=== PATIENT | female | born 1945 | race Caucasian/White ===

== ENCOUNTER 2016-08-06 13:45 | Emergency (ER) | payer MEDICARE, OTHER ==
[~2016-08-06] VITALS: Ht 165.1 cm; Wt 80.0 kg
[~2016-08-06 13:45] MED LIST: ALLO100T PO; ALPR0.25 PO; AMIT1TAB79 PO; ATOR40TA16 PO; CYMB60CA PO; DEXI60CA PO; FURO40TA PO; HYDR1CAP30 PO; IPRAAER INH; LEVO50TA4 PO; MORP1TAB24 PO; PANT40TA3 PO; PERC10TA27 PO; PROP60CA PO; SUCR1TAB PO; TEMA30CA PO; TIZA4CAP3 PO; UMEC1AER INH; VIRT PO
[2016-08-06 13:48] VITALS: BP 141/64; PULSE 73; RESP 14; TEMP 97.8; O2SAT 98
--- NOTE | 2016-08-06 17:18 | PD ---
HPI Chief Complaint: Abnormal Results Time Seen by Provider: 17:18 Travel History International Travel<30 days: No Contact w/Intl Traveler<30days: No Traveled to known affect area: No History of Present Illness HPI 71-year-old female presents to the emergency department sent by her primary care physician, Dr. Yeh, for fatigue, weakness, intermittent shortness of breath, anemia. Patient states she has a history of anemia for many years. She states that her primary care physician told her she would need a blood transfusion due to recent labs. Patient is unsure where her hemoglobin was. Patient also states that he was EKG and chest x-ray completed. Patient denies any blood in her stool. She denies any chest pain. Patient denies any abdominal pain. No nausea or vomiting. She states that she has weakness, fatigue, shortness of breath. Patient states she went to a compensation consultant for her shortness of breath recently. Patient reports chronic right arm back pain. She is not on any anticoagulants. PFSH Past Medical History Asthma: No Autoimmune Disease: No Blood Disorders: No Anxiety: Yes Depression: Yes Heart Rhythm Problems: No Cancer: No Cardiovascular Problems: Yes (HTN) High Cholesterol: Yes Chemotherapy: No Chest Pain: No Congestive Heart Failure: No COPD: No Cerebrovascular Accident: No Diabetes: No Diminished Hearing: No Endocrine: No Gastrointestinal Disorders: Yes GERD: Yes Glaucoma: No Genitourinary: No Headaches: No Hepatitis: No Hiatal Hernia: Yes Hypertension: Yes Immune Disorder: No Implanted Vascular Access Dvce: Yes Musculoskeletal: Yes (LOWER BACK AND LEFT LEG, ARTHRITIS GENERALIZED) Neurologic: No Psychiatric: Yes (DEPRESSION) Reproductive: No Respiratory: No Immunizations Current: Yes Myocardial Infarction: No Radiation Therapy: No Seizures: Yes (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) Sleep Apnea: No Thyroid Disease: No Ulcer: No Menopausal: Yes : 1 Para: 1 Past Surgical History Abdominal Surgery: Yes AICD: No Body Medical Devices: 2 TITANIUM RODS IN BACK, SCREW RIGHT ANKLE Cardiac Surgery: No Cholecystectomy: Yes Ear Surgery: No Endocrine Surgery: No Eye Surgery: Yes (BILATERAL CATARACTS) Genitourinary Surgery: No Gynecologic Surgery: Yes (PARTIAL HYSTERECTOMY) Hysterectomy: Yes Joint Replacement: No Neurologic Surgery: Yes (BACK SURGERY - TITANIUM CAGE) Oral Surgery: Yes (TONSILLECTOMY) Pacemaker: No Thoracic Surgery: No Other Surgery: Yes Social History Alcohol Use: Yes (RARELY) Tobacco Use: No Substance Use: No Allergies-Medications (Allergen,Severity, Reaction): Coded Allergies: Codeine (Verified Allergy, Intermediate, RASH, 06/10/16) Reported Meds & Prescriptions Reported Meds & Active Scripts Active Reported Propranolol ER 24 HR (Propranolol HCl) 60 Mg Cap 60 Mg PO DAILY Sucralfate 1 Gm Tab 1 Gm PO QID on empty stomach Dexilant (Dexlansoprazole) 60 Mg Cap 60 Mg PO DAILY [Virt] 1 Cap PO DAILY Percocet (Oxycodone-Acetaminophen) 10-325 mg Tab 1 Tab PO Q4H PRN Anoro Ellipta Inh (Umeclidinium/Vilanterol) 62.5-25 Mcg/Act Aero 1 Puff INH DAILY Hydroxyzine Pamoate 25 Mg Cap 25 Mg PO BID PRN Atorvastatin (Atorvastatin Calcium) 40 Mg Tab 40 Mg PO HS Allopurinol 100 Mg Tab 100 Mg PO BID Alprazolam 0.25 Mg Tab 0.25 Mg PO TID PRN Elavil (Amitriptyline HCl) 25 Mg Tab 2 Tab PO HS Combivent Respimat Inh (Ipratropium-Albuterol Inh) 20-100 Nursing Home/Act Aero [address] P[address] IN[address] QID Cymbalta DR (Duloxetine HCl) 60 Mg Capdr 60 Mg PO DAILY Furosemide 40 Mg Tab 40 Mg PO DAILY Levothyroxine (Levothyroxine Sodium) 50 Mcg Tab 100 Mcg PO DAILY Morphine ER (Morphine Sulfate) 15 Mg Tab 15 Mg PO TID Pantoprazole (Pantoprazole Sodium) 40 Mg Tab 40 Mg PO DAILY Temazepam 30 Mg Cap 30 Mg PO HS PRN Tizanidine (Tizanidine HCl) 4 Mg Cap 4 Mg PO TID Review of Systems Except as stated in HPI: all other systems reviewed are Neg Physical Exam Narrative GENERAL: Well-developed well-nourished elderly female patient, afebrile. SKIN: Warm and dry. HEAD: Normocephalic. Atraumatic. EYES: No scleral icterus. No injection or drainage. NECK: Supple, trachea midline. No JVD or lymphadenopathy. CARDIOVASCULAR: Regular rate and rhythm without murmurs, gallops, or rubs. RESPIRATORY: Breath sounds equal bilaterally. No accessory muscle use. GASTROINTESTINAL: Abdomen soft, non-tender, nondistended. MUSCULOSKELETAL: No cyanosis, or edema. BACK: Nontender without obvious deformity. No CVA tenderness. Data Data Last Documented VS Vital Signs Date Time Temp Pulse Resp B/P Pulse Ox O2 Delivery O2 Flow Rate FiO2 08/06/16 13:48 97.8 73 14 141/64 98 Room Air Orders Electrocardiogram (08/06/16 17:14) Complete Blood Count With Diff (08/06/16 17:14) Comprehensive Metabolic Panel (08/06/16 17:14) Magnesium (Mg) (08/06/16 17:14) Ckmb (Isoenzyme) Profile (08/06/16 17:14) Troponin I (08/06/16 17:14) Urinalysis - C+S If Indicated (08/06/16 17:14) Chest, Single Ap (08/06/16 17:14) Type And Screen (08/06/16 17:14) CKMB (08/06/16 17:50) CKMB% (08/06/16 17:50) Red Blood Cells (Rbc) (08/06/16 17:50) AGID (08/06/16 17:50) Labs Laboratory Tests Test 08/06/16 08/06/16 17:50 19:00 White Blood Count 16.0 TH/MM3 Red Blood Count 3.28 MIL/MM3 Hemoglobin 9.7 GM/DL Hematocrit 29.1 % Mean Corpuscular Volume 88.7 FL Mean Corpuscular Hemoglobin 29.4 PG Mean Corpuscular Hemoglobin 33.1 % Concent Red Cell Distribution Width 15.1 % Platelet Count 277 TH/MM3 Mean Platelet Volume 6.9 FL Neutrophils (%) (Auto) 87.4 % Lymphocytes (%) (Auto) 8.0 % Monocytes (%) (Auto) 4.0 % Eosinophils (%) (Auto) 0.5 % Basophils (%) (Auto) 0.1 % Neutrophils # (Auto) 14.0 TH/MM3 Lymphocytes # (Auto) 1.3 TH/MM3 Monocytes # (Auto) 0.6 TH/MM3 Eosinophils # (Auto) 0.1 TH/MM3 Basophils # (Auto) 0.0 TH/MM3 CBC Comment DIFF FINAL Differential Comment Sodium Level 125 MEQ/L Potassium Level 2.9 MEQ/L Chloride Level 89 MEQ/L Carbon Dioxide Level 25.4 MEQ/L Anion Gap 11 MEQ/L Blood Urea Nitrogen 22 MG/DL Creatinine 1.30 MG/DL Estimat Glomerular Filtration 40 ML/MIN Rate Random Glucose 112 MG/DL Calcium Level 8.7 MG/DL Magnesium Level 1.6 MG/DL Total Bilirubin 0.4 MG/DL Aspartate Amino Transf 87 U/L (AST/SGOT) Alanine Aminotransferase 106 U/L (ALT/SGPT) Alkaline Phosphatase 159 U/L Total Creatine Kinase 161 U/L Creatine Kinase MB 2.3 NG/ML Troponin I 0.02 NG/ML Total Protein 7.5 GM/DL Albumin 3.3 GM/DL Blood Type B NEGATIVE Antibody Screen POSITIVE Antigen Identification K Antigen - NEGATIVE Crossmatch Leukocyte-Reduced Red Blood Cells Blood Bank Comment Antibody Identification Anti-K MDM Medical Decision Making Medical Screen Exam Complete: Yes Emergency Medical Condition: Yes Medical Record Reviewed: Yes Differential Diagnosis Symptomatic anemia versus pneumonia versus ACS Narrative Course 71-year-old female presents to the emergency department stating she was sent by her primary care physician Dr. Yeh for blood transfusion, chest x-ray, EKG. EKG, CBC, CMP, CK, troponin, UA, magnesium, type and screen, chest x-ray are ordered and pending. Workup is initiated in triage. Patient will be moved to medical pod for further evaluation and disposition. Patient left AMA before going to a medical pod. Diagnosis Primary Impression: Left against medical advice Disposition: 07 AGAINST MEDICAL ADVICE Tiffany Harley Aug 06, 2016 17:18
--- NOTE | 2016-08-06 18:10 | RADRPT ---
EXAM DATE/TIME: 08/06/2016 17:43 [facility] COMPARISON: CHEST SINGLE AP, November 20, 2015, 22:05. INDICATIONS : Cough, shortness of breath starting today MEDICAL HISTORY : None. SURGICAL HISTORY : None. ENCOUNTER: Initial ACUITY: 1 day PAIN SCORE: 0/10 LOCATION: Bilateral chest FINDINGS: A single view of the chest demonstrates a probable prominent epicardial fat-pad in the left lingula. Lungs otherwise clear. Heart size is normal. Posterior fixation of the rectal lumbar spine. Chronic a ppearing deformity of the proximal right humerus. Osseous structures are otherwise intact. CONCLUSION: No acute cardiopulmonary process. Guy Graves MD on August 06, 2016 at 18:07 Board Certified Radiologist. This report was verified electronically.
[2016-08-06 18:15] LABS: BASOPHIL % 0.1 % (0.0-2.0); EOSINOPHIL # 0.1 TH/MM3 (0-0.4); EOSINOPHIL % 0.5 % (0.0-4.0); HEMATOCRIT 29.1 % (35.0-46.0); HEMO FLAGS DIFF FINAL; LYMPHOCYTE # 1.3 TH/MM3 (1.0-4.8); MEAN CELL VOLUME 88.7 FL (80.0-100.0); MEAN CORPUSCULAR HEMOGLOBIN 29.4 PG (27.0-34.0); MEAN CORPUSCULAR HGB CONC 33.1 % (32.0-36.0); NEUT % 87.4 % (16.0-70.0); PLATELET COUNT 277 TH/MM3 (150-450); RED BLOOD COUNT 3.28 MIL/MM3 (4.00-5.30); RED CELL DISTRIBUTION WIDTH 15.1 % (11.6-17.2)
[2016-08-06 18:47] LABS: ALT (GPT) 106 U/L (10-53); ANION GAP 11 MEQ/L (5-15); AST (GOT) 87 U/L (15-37); BICARBONATE 25.4 MEQ/L (21.0-32.0); BLOOD UREA NITROGEN 22 MG/DL (7-18); CHLORIDE 89 MEQ/L (98-107); GLOMERULAR FILTRATION RATE 40 ML/MIN (>89); MAGNESIUM 1.6 MG/DL (1.5-2.5); SODIUM (NA) 125 MEQ/L (136-145)
[2016-08-06 18:51] LABS: ALKALINE PHOSPHATASE 159 U/L (45-117); CREATINE KINASE 161 U/L (26-192); TOTAL BILIRUBIN ADULT 0.4 MG/DL (0.2-1.0)
[2016-08-06 19:13] LABS: POTASSIUM 2.9 MEQ/L (3.5-5.1)
[2016-08-06 19:26] LABS: CKMB 2.3 NG/ML (0.5-3.6)
--- NOTE | 2016-08-07 05:02 | EKG ---
Date Performed: 08/06/2016 Time Performed: 18:03:34 PTAGE: 71 years EKG: BASELINE ARTIFACT PRESENT. Sinus rhythm LEFT BUNDLE BRANCH BLOCK ABNORMAL ECG NO SIGNIFICANT CHANGE FROM PRIOR ELECTROCARDIOGRAM. PREVIOUS TRACING : 03/07/2014 12.09 DOCTOR: Jimmy Loredo Interpretating Date/Time 08/07/2016 05:00:12
[2016-11-25] MEDS ORDERED: AMIT50TA3 PO (14:09)
[2016-12-03] MEDS ORDERED: FLUT1SPR5 EACH NARE (10:08)
== END 2016-08-06 22:39 | disposition left against medical advice (07) ==
LOC: NETRI 13:45
DX: R53.1 Weakness (principal); R53.83 Other fatigue; R06.02 Shortness of breath; D64.9 Anemia, unspecified; M79.601 Pain in right arm; M54.9 Dorsalgia, unspecified; R94.31 Abnormal electrocardiogram [ECG] [EKG]; I10 Essential (primary) hypertension; E78.00 Pure hypercholesterolemia, unspecified; Z53.20 Procedure and treatment not carried out because of patient's decision for unspecified reasons; Z86.59 Personal history of other mental and behavioral disorders; Z87.19 Personal history of other diseases of the digestive system; Z87.39 Personal history of other diseases of the musculoskeletal system and connective tissue; E87.1 Hypo-osmolality and hyponatremia; E87.6 Hypokalemia; D72.829 Elevated white blood cell count, unspecified; Z86.2 Personal history of diseases of the blood and blood-forming organs and certain disorders involving the immune mechanism
CPT/HCPCS: 71010; 80053; 82550; 82552; 83735; 84484; 85025; 86077; 86850; 86870; 86900; 86901; 86902; 86920; 86922; 93005; 99281; 99283

== ENCOUNTER 2016-08-06 23:19 | Emergency (ER) | payer MEDICARE, OTHER ==
[2016-08-06 23:40] VITALS: BP 176/86; PULSE 79; RESP 18; O2SAT 95
[2016-08-07] MEDS ORDERED: SODIUM CHLORIDE 0.9% FLUSH 5 ML FLUSH IVF PRN
[2016-08-07] MEDS ORDERED: POTASSIUM CHLORIDE 20 MEQ CONTROLLED RELEASE TAB PO ONE
[2016-08-07] MEDS ORDERED: SODIUM CHLOR 0.9% 1000 ML INJ 1,000 ML IV SCH
--- NOTE | 2016-08-07 | PD ---
HPI Chief Complaint: Abnormal Results Time Seen by Provider: 23:28 Travel History International Travel<30 days: No Contact w/Intl Traveler<30days: No Traveled to known affect area: No History of Present Illness HPI Patient 71 years old. She was on her primary care provider, Dr. Yeh, to come to the ER for anemia. She reports a history of anemia with records dating back to 2003 when hemoglobin was 9.6. Today it is 9.7. Patient denies palpitation, headache, dizziness lightheadedness however did report to the mid-level provider that she suffered from weakness and fatigue. She does have shortness of breath apparently for the past couple months and follows with vascular sonographer in [facility]. She has no chest pain. She has been taking all her medications as per normal. She denies black stool bloody stool or change in bowel movements otherwise. She takes no anticoagulants. She has chronic right arm pain. PFSH Past Medical History Asthma: No Autoimmune Disease: No Blood Disorders: No Anxiety: Yes Depression: Yes Heart Rhythm Problems: No Cancer: No Cardiovascular Problems: Yes (HTN) High Cholesterol: Yes Chemotherapy: No Chest Pain: No Congestive Heart Failure: No COPD: No Cerebrovascular Accident: No Diabetes: No Diminished Hearing: No Endocrine: No Gastrointestinal Disorders: Yes GERD: Yes Glaucoma: No Genitourinary: No Headaches: No Hepatitis: No Hiatal Hernia: Yes Hypertension: Yes Immune Disorder: No Implanted Vascular Access Dvce: Yes Musculoskeletal: Yes (LOWER BACK AND LEFT LEG, ARTHRITIS GENERALIZED) Neurologic: No Psychiatric: Yes (DEPRESSION) Reproductive: No Respiratory: No Immunizations Current: Yes Myocardial Infarction: No Radiation Therapy: No Seizures: Yes (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) Sleep Apnea: No Thyroid Disease: No Ulcer: No Menopausal: Yes : 1 Para: 1 Past Surgical History Abdominal Surgery: Yes AICD: No Body Medical Devices: 2 TITANIUM RODS IN BACK, SCREW RIGHT ANKLE Cardiac Surgery: No Cholecystectomy: Yes Ear Surgery: No Endocrine Surgery: No Eye Surgery: Yes (BILATERAL CATARACTS) Genitourinary Surgery: No Gynecologic Surgery: Yes (PARTIAL HYSTERECTOMY) Hysterectomy: Yes Joint Replacement: No Neurologic Surgery: Yes (BACK SURGERY - TITANIUM CAGE) Oral Surgery: Yes (TONSILLECTOMY) Pacemaker: No Thoracic Surgery: No Other Surgery: Yes Social History Alcohol Use: Yes (RARELY) Tobacco Use: No Substance Use: No Allergies-Medications (Allergen,Severity, Reaction): Coded Allergies: Codeine (Verified Allergy, Intermediate, RASH, 06/10/16) Reported Meds & Prescriptions Reported Meds & Active Scripts Active Reported Propranolol ER 24 HR (Propranolol HCl) 60 Mg Cap 60 Mg PO DAILY Sucralfate 1 Gm Tab 1 Gm PO QID on empty stomach Dexilant (Dexlansoprazole) 60 Mg Cap 60 Mg PO DAILY [Virt] 1 Cap PO DAILY Percocet (Oxycodone-Acetaminophen) 10-325 mg Tab 1 Tab PO Q4H PRN Anoro Ellipta Inh (Umeclidinium/Vilanterol) 62.5-25 Mcg/Act Aero 1 Puff INH DAILY Hydroxyzine Pamoate 25 Mg Cap 25 Mg PO BID PRN Atorvastatin (Atorvastatin Calcium) 40 Mg Tab 40 Mg PO HS Allopurinol 100 Mg Tab 100 Mg PO BID Alprazolam 0.25 Mg Tab 0.25 Mg PO TID PRN Elavil (Amitriptyline HCl) 25 Mg Tab 2 Tab PO HS Combivent Respimat Inh (Ipratropium-Albuterol Inh) 20-100 Nursing Home/Act Aero [address] QID Cymbalta [address] (Duloxetine HCl) 60 Mg Capdr 60 Mg PO DAILY Furosemide 40 Mg Tab 40 Mg PO DAILY Levothyroxine (Levothyroxine Sodium) 50 Mcg Tab 100 Mcg PO DAILY Morphine ER (Morphine Sulfate) 15 Mg Tab 15 Mg PO TID Pantoprazole (Pantoprazole Sodium) 40 Mg Tab 40 Mg PO DAILY Temazepam 30 Mg Cap 30 Mg PO HS PRN Tizanidine (Tizanidine HCl) 4 Mg Cap 4 Mg PO TID Review of Systems Except as stated in HPI: all other systems reviewed are Neg Physical Exam Narrative GENERAL: 71-year-old female no acute distress SKIN: Warm and dry. HEAD: Atraumatic. Normocephalic. EYES: Pupils equal and round. No scleral icterus. No injection or drainage. ENT: No nasal bleeding or discharge. Mucous membranes pink and moist. NECK: Trachea midline. No JVD. CARDIOVASCULAR: Regular rate and rhythm. No murmur appreciated. RESPIRATORY: No accessory muscle use. Clear to auscultation. Breath sounds equal bilaterally. GASTROINTESTINAL: Abdomen soft, non-tender, nondistended. Hepatic and splenic margins not palpable. MUSCULOSKELETAL: No obvious deformities. No clubbing. No cyanosis. No edema. NEUROLOGICAL: Awake and alert. No obvious cranial nerve deficits. Motor grossly within normal limits. Normal speech. PSYCHIATRIC: Appropriate mood and affect; insight and judgment normal. Data Data Last Documented VS Vital Signs Date Time Temp Pulse Resp B/P Pulse Ox O2 Delivery O2 Flow Rate FiO2 08/06/16 23:42 79 18 Room Air 08/06/16 23:40 176/86 95 97.7 is the oral temp Orders Iv Access Insert/Monitor (08/07/16 00:00) Ecg Monitoring (08/07/16 00:00) Oximetry (08/07/16 00:00) Sodium Chlor 0.9% 1000 Ml Inj (Ns 1000 M (08/07/16 00:00) Sodium Chloride 0.9% Flush (Ns Flush) (08/07/16 00:00) Potassium Chloride (Kcl) (08/07/16 00:00) MDM Medical Decision Making Medical Screen Exam Complete: Yes Emergency Medical Condition: Yes Differential Diagnosis Anemia, electrolyte imbalance, arrhythmia, infection, coronary disease Narrative Course WBC 16 Hemoglobin 9.7 Platelets 277 Sodium 125 Potassium 2.9 Troponin 0.02 EKG reveals a left bundle branch block pattern with a rate of 66 similar to March 07, 2014. The patient is quite irate having waited here for 11 hours and spent the majority of the time during the interview expressing her frustration. Multiple attempts were made to contact Dr. Yeh to no avail. Evidently he was concerned about anemia however her hemoglobin is unchanged over the last 12 years. Nonetheless She was advised to stay for electrolyte correction and serial enzymes and EKGs. She did complain of chronic hyponatremia and distaste for sodium tablets that she takes at home. Necessity of serial enzymes discussed the patient. Leukocytosis of 16 is without explanation as of yet which was also explained to the patient. She demonstrates competence for independent decision making and insists on leaving immediately. Somehow the patient was marked as left without being seen in a second chart was started for a single visit. If possible the to should be merged into a single visit. All measures within reason were made to satisfy the patient. She understands she can return at anytime. Diagnosis Primary Impression: Hyponatremia Additional Impressions: Hypokalemia Elevated troponin I level Leukocytosis Qualified Code: D72.829 - Leukocytosis, unspecified type LBBB (left bundle branch block) Additional Instructions: You have a choice when it comes to health care, and we are glad that you chose [facility]. Hopefully, we have met your expectations on today's visit. You are welcome to return to [facility] at any time, as we are committed to meeting the health care needs of our community. Med/Other Pt SpecificInfo: No Change to Meds Disposition: 01 DISCHARGE HOME Condition: Stable Dandy Ba MD Aug 06, 2016 23:59
[2016-11-25] MEDS ORDERED: AMIT50TA3 PO (14:09)
[2016-12-03] MEDS ORDERED: FLUT1SPR5 EACH NARE (10:08)
== END 2016-08-07 01:20 | disposition home or self-care (01) ==
LOC: NEPE 23:19
DX: E87.1 Hypo-osmolality and hyponatremia (principal); E87.6 Hypokalemia; D72.829 Elevated white blood cell count, unspecified; I44.7 Left bundle-branch block, unspecified; R53.83 Other fatigue; M79.601 Pain in right arm; R06.02 Shortness of breath; I10 Essential (primary) hypertension; E78.00 Pure hypercholesterolemia, unspecified; Z86.2 Personal history of diseases of the blood and blood-forming organs and certain disorders involving the immune mechanism; Z87.19 Personal history of other diseases of the digestive system; Z87.39 Personal history of other diseases of the musculoskeletal system and connective tissue; Z86.59 Personal history of other mental and behavioral disorders
CPT/HCPCS: 99283

== ENCOUNTER 2016-11-07 09:43 | Day surgery (SDC) | payer MEDICARE, OTHER ==
[~2016-11-07] VITALS: Ht 165.1 cm; Wt 79.1 kg
[2016-11-07] MEDS ORDERED: SODIUM CHLOR 0.9% 1000 ML IV SCH (10:00)
[2016-11-07] MEDS ORDERED: OMEP40CA2 PO (10:13)
[2016-11-07 10:16] VITALS: BP 165/89; PULSE 77; RESP 18; TEMP 97.5; O2SAT 95
[2016-11-07 10:51] LABS: AUTOMATED NEUTROPHIL # 5.2 TH/MM3 (1.8-7.7); BASOPHIL % 0.5 % (0.0-2.0); EOSINOPHIL # 0.2 TH/MM3 (0-0.4); EOSINOPHIL % 2.6 % (0.0-4.0); HEMATOCRIT 28.8 % (35.0-46.0); HEMO FLAGS DIFF FINAL; LYMPH % 21.1 % (9.0-44.0); LYMPHOCYTE # 1.6 TH/MM3 (1.0-4.8); MEAN CELL VOLUME 87.7 FL (80.0-100.0); MEAN CORPUSCULAR HEMOGLOBIN 28.4 PG (27.0-34.0); MEAN CORPUSCULAR HGB CONC 32.4 % (32.0-36.0); MONO % 7.1 % (0.0-8.0); NEUT % 68.7 % (16.0-70.0); PLATELET COUNT 255 TH/MM3 (150-450); RED BLOOD COUNT 3.29 MIL/MM3 (4.00-5.30); RED CELL DISTRIBUTION WIDTH 14.9 % (11.6-17.2); WHITE BLOOD COUNT 7.6 TH/MM3 (4.0-11.0)
[2016-11-07] MEDS ORDERED: LIDOCAINE 1%/EPINEPHrine 1:100,000 SOLN 20 ML VIAL ONE (12:21)
[2016-11-07] MEDS ORDERED: SODIUM BICARB 8.4% (PED) INJ 10 MEQ/10 ML SYR ONE (12:22)
[2016-11-07] MEDS ORDERED: fentaNYL CITRATE 250 MCG/5 ML AMP ONE (12:49)
[2016-11-07] MEDS ORDERED: MIDAZOLAM HCL 5 MG/5 ML VIAL ONE (12:49)
[2016-11-07 13:55] VITALS: BP 137/81; PULSE 79; RESP 20; TEMP 98; O2SAT 98
[2016-11-07 14:05] LABS: BONE MARROW PROCESSING COMPLETE; IRON STAIN DONE; JENNER GIEMSA STAIN DONE
[2016-11-07 14:10] VITALS: BP 130/80; PULSE 65; RESP 20; O2SAT 98
[2016-11-07 14:40] VITALS: BP 139/64; PULSE 60; RESP 20; O2SAT 98
[2016-11-07 15:10] VITALS: BP 130/80; PULSE 64; RESP 20; O2SAT 92
--- NOTE | 2016-11-07 15:58 | RADRPT ---
EXAM DATE/TIME: 11/07/2016 13:06 [facility] COMPARISON: No previous studies available for comparison. INDICATIONS : Anemia. SEDATION TIME: 30 minutes BIOPSY SITE: Right pelvis MEDICATION(S): 1.) 4 mg midazolam (Versed) IV 2.) 200 mcg fentanyl (Sublimaze) IV DEVICE(S): 1.) 11 gauge Bone marrow biopsy needle MEDICAL HISTORY : Hypertension. Anemia SURGICAL HISTORY : Hysterectomy. ENCOUNTER: Initial ACUITY: 1 day PAIN SCORE: 0/10 LOCATION: pelvis A total of one core specimen(s) were obtained and sent to the laboratory for pathologic evaluation. PROCEDURE: 1. CT guided bone marrow biopsy. 2. Conscious sedation with continuous EKG and oximetry monitoring. Prior to the procedure informed consent was obtained. Any appropriate prior imaging studies were rev iewed. Using automated exposure control and adjustment of the mA and/or kV according to patient size , radiation dose was kept as low as reasonably achievable to obtain optimal diagnostic quality images . The site was prepped in a sterile fashion. Full sterile technique was used, including cap, mask, radha rile gloves and gown and a large sterile sheet. Hand hygiene and 2% chlorhexidine and/or betadine/al cohol prep was utilized per protocol for cutaneous antisepsis. The skin and subcutaneous tissues wer e infiltrated with local anesthetic solution. With CT guidance the previously identified target was localized. Biopsy was performed using the presc ribed needle as above. Following biopsy marrow aspiration was performed with repeat puncture. Adequa te hemostasis was obtained with compression at the puncture site. Follow-up CT scan reveals no hemorrhage. Conscious sedation was performed with the prescribed dosages and duration as above in the presence of an independent trained radiology nurse to assist in the monitoring of the patient. EKG and oximetry remained stable throughout the procedure. The patient tolerated the procedure well and there were no complications. The patient was sent to Radiology Outpatient Unit in stable condition. CONCLUSION: 1. Uncomplicated CT guided bone marrow aspirate. 2. Uncomplicated CT guided bone marrow biopsy. Mark Sommers MD on November 07, 2016 at 15:55 Board Certified Radiologist. This report was verified electronically.
[2016-11-25] MEDS ORDERED: AMIT50TA3 PO (14:09)
[2016-12-03] MEDS ORDERED: FLUT1SPR5 EACH NARE (10:08)
== END 2016-11-07 15:36 | disposition home or self-care (01) ==
LOC: HRAD 09:43 → HRIP 09:47 → HRAD 15:36
PROVIDERS: ATTEND Internal Medicine Hematology & Oncology
DX: D64.9 Anemia, unspecified (principal); J45.909 Unspecified asthma, uncomplicated; I10 Essential (primary) hypertension; M54.9 Dorsalgia, unspecified
CPT/HCPCS: 38221; 77012; 85025; 85097; 88184; 88185; 88237; 88264; 88280; 88305; 88311; 88313; 99152; 99153; C1830; G0364; J2250; J3010

== ENCOUNTER 2017-01-05 11:36 | Inpatient (IN) | payer OTHER, MEDICARE ==
[2017-01-05] VITALS (11 sets, daily range): BP systolic 126–193; BP diastolic 62–74; PULSE 71–96; RESP 18–26; TEMP 97.5–102.9; O2SAT 74–100
[~2017-01-05] VITALS: Ht 162.6 cm; Wt 80.5 kg
[~2017-01-05 11:36] MED LIST changes: -AMIT1TAB79 PO; +AMIT50TA3 PO; +FLUT1SPR5 EACH NARE; +OMEP40CA2 PO; -PANT40TA3 PO
[2017-01-05] MEDS ORDERED: VANCOMYCIN INJ 1,000 MG in SODIUM CHLOR 0.9% 250 ML INJ 250 ML IV ONE (11:45)
[2017-01-05] MEDS ORDERED: SODIUM CHLOR 0.9% 1000 ML INJ 1,000 ML IV ONE (11:45)
[2017-01-05] MEDS ORDERED: PIPERACIL-TAZO 4.5 GM PREMIX 100 ML IV ONE (11:45)
[2017-01-05] MEDS ORDERED: SODIUM CHLOR 0.9% 1000 ML INJ 800 ML IV ONE (11:45)
--- NOTE | 2017-01-05 11:55 | PD ---
HPI Chief Complaint: Respiratory Distress Time Seen by Provider: 11:54 Travel History International Travel<30 days: No Contact w/Intl Traveler<30days: No Traveled to known affect area: No History of Present Illness HPI 71-year-old female with history of hypertension, GERD, anxiety, presents to the emergency department for evaluation of shortness of breath. Patient right now is unable to give me history due to her shortness of breath. states that over the last 2-3 weeks she has been having intermittent bouts of shortness of breath that seemed to resolve on their own. She was prescribed a Combivent inhaler from her primary care provider. Her states this morning he left when he came home she was getting ready to go to the doctor for a visit and was extremely short of breath, unable to clearly talk or make out sentences. When she arrived at the primary care provider's office, pt was advised to come to the ED. Pt arrived tachypneic, short of breath, febrile, and with oxygen saturation of 74% on RA. She was bedded immediately. PFSH Past Medical History Hx Anticoagulant Therapy: No Asthma: No Autoimmune Disease: No Blood Disorders: No Anxiety: Yes Depression: Yes Heart Rhythm Problems: No Cancer: No Cardiovascular Problems: Yes High Cholesterol: Yes Chemotherapy: No Chest Pain: No Congestive Heart Failure: No COPD: No Cerebrovascular Accident: No Diabetes: No Diminished Hearing: No Endocrine: No Gastrointestinal Disorders: Yes GERD: Yes Glaucoma: No Genitourinary: No Headaches: No Hepatitis: No Hiatal Hernia: Yes Hypertension: Yes Immune Disorder: No Implanted Vascular Access Dvce: Yes Musculoskeletal: Yes (LOWER BACK AND LEFT LEG, ARTHRITIS GENERALIZED) Neurologic: No Psychiatric: Yes (DEPRESSION) Reproductive: No Respiratory: No Immunizations Current: Yes Myocardial Infarction: No Radiation Therapy: No Seizures: No Sleep Apnea: No Thyroid Disease: No Ulcer: Yes ?: Not Menopausal: Yes : 1 Para: 1 Past Surgical History Abdominal Surgery: Yes AICD: No Body Medical Devices: 2 TITANIUM RODS IN BACK, SCREW RIGHT ANKLE Cardiac Surgery: No Cholecystectomy: Yes Ear Surgery: No Endocrine Surgery: No Eye Surgery: Yes (BILATERAL CATARACTS) Genitourinary Surgery: No Gynecologic Surgery: Yes (PARTIAL HYSTERECTOMY) Hysterectomy: No Joint Replacement: No Neurologic Surgery: Yes (BACK SURGERY - TITANIUM CAGE) Oral Surgery: Yes (TONSILLECTOMY) Pacemaker: No Thoracic Surgery: No Other Surgery: Yes (left arm with metal ) Social History Alcohol Use: Yes (RARELY) Tobacco Use: No Substance Use: No Allergies-Medications (Allergen,Severity, Reaction): Coded Allergies: Codeine (Verified Allergy, Intermediate, RASH, 12/03/16) Reported Meds & Prescriptions Reported Meds & Active Scripts Active Reported Flonase Nasal [place] (Fluticasone Nasal [place]) 50 Mcg/Act [place] 50 Mcg EACH NARE BID Omeprazole 40 Mg Cap 40 Mg PO DAILY Propranolol ER 24 HR (Propranolol HCl) 60 Mg Cap 60 Mg PO DAILY Sucralfate 1 Gm Tab 1 Gm PO QID on empty stomach Dexilant (Dexlansoprazole) 60 Mg Cap 60 Mg PO DAILY [Virt] 1 Cap PO DAILY Percocet (Oxycodone-Acetaminophen) 10-325 mg Tab 1 Tab PO Q4H PRN Anoro Ellipta Inh (Umeclidinium/Vilanterol) 62.5-25 Mcg/Act Aero 1 Puff INH DAILY Hydroxyzine Pamoate 25 Mg Cap 25 Mg PO BID PRN Atorvastatin (Atorvastatin Calcium) 40 Mg Tab 40 Mg PO HS Allopurinol 100 Mg Tab 100 Mg PO BID Alprazolam 0.25 Mg Tab 0.25 Mg PO TID PRN Combivent Respimat Inh (Ipratropium-Albuterol Inh) 20-100 Longterm/Act Aero [address] QID Cymbalta [address] (Duloxetine HCl) 60 Mg Capdr 60 Mg PO DAILY Furosemide 40 Mg Tab 40 Mg PO DAILY Levothyroxine (Levothyroxine Sodium) 50 Mcg Tab 100 Mcg PO DAILY Morphine ER (Morphine Sulfate) 15 Mg Tab 15 Mg PO TID Temazepam 30 Mg Cap 30 Mg PO HS PRN Tizanidine (Tizanidine HCl) 4 Mg Cap 4 Mg PO TID Review of Systems Except as stated in HPI: all other systems reviewed are Neg Physical Exam Narrative GENERAL: Well nourished, female patient in respiratory distress SKIN: Focused skin assessment warm, diaphoretic. HEAD: Atraumatic. Normocephalic. EYES: Pupils equal and round. No scleral icterus. No injection or drainage. ENT: No nasal bleeding or discharge. Mucous membranes pink and moist. NECK: Trachea midline. No JVD. CARDIOVASCULAR: Elevated rate and rhythm. No murmur appreciated. RESPIRATORY: Tachypneic. Diminished to auscultation. Breath sounds equal bilaterally. GASTROINTESTINAL: Abdomen soft, nondistended; epigastric and RUQ tenderness to palpation; mild guarding; no rebound tenderness. Hepatic and splenic margins not palpable. MUSCULOSKELETAL: No obvious deformities. No clubbing. No cyanosis. No edema. NEUROLOGICAL: Awake and alert. Unable to assess cranial nerves due to patient's respiratory distress; no obvious focal deficits. Pt moves all extremities. Short , gaspy sentences but clear speech. PSYCHIATRIC: Appropriate mood and affect; insight and judgment normal. Data Data Last Documented VS Vital Signs Date Time Temp Pulse Resp B/P Pulse Ox O2 Delivery O2 Flow Rate FiO2 01/05/17 12:19 93 Nasal Cannula 4 01/05/17 11:42 88 26 144/73 01/05/17 11:38 102.9 Orders Electrocardiogram (01/05/17 11:45) Complete Blood Count With Diff (01/05/17 11:45) Comprehensive Metabolic Panel (01/05/17 11:45) Prothrombin Time / Inr (Pt) (01/05/17 11:45) Act Partial Throm Time (Ptt) (01/05/17 11:45) Lactic Acid Sepsis Protocol (01/05/17 11:45) Magnesium (Mg) (01/05/17 11:45) Lipase (01/05/17 11:45) Ckmb (Isoenzyme) Profile (01/05/17 11:45) Troponin I (01/05/17 11:45) Urinalysis - C+S If Indicated (01/05/17 11:45) Blood Culture (01/05/17 11:45) Chest, Single Ap (01/05/17 11:45) Arterial Blood Gas (Abg) (01/05/17 11:45) Blood Glucose (01/05/17 11:45) Ecg Monitoring (01/05/17 11:45) Iv Access Insert/Monitor (01/05/17 11:45) Oximetry (01/05/17 11:45) Oxygen Administration (01/05/17 11:45) Ct Abd/Pel W Iv Contrast(Rout) (01/05/17 11:45) Sodium Chlor 0.9% 1000 Ml Inj (Ns 1000 M (01/05/17 11:45) Sodium Chlor 0.9% 1000 Ml Inj (Ns 1000 M (01/05/17 11:45) Piperacil-Tazo 4.5 Gm Premix (Zosyn 4.5 (01/05/17 11:45) Vancomycin Inj (Vancomycin Inj) (01/05/17 11:45) Acetaminophen (Tylenol) (01/05/17 12:45) CKMB (01/05/17 12:02) CKMB% (01/05/17 12:02) Ct Pulmonary Angiogram (01/05/17 ) Labs Laboratory Tests Test 01/05/17 01/05/17 12:02 12:45 White Blood Count 12.8 TH/MM3 Red Blood Count 3.46 MIL/MM3 Hemoglobin 10.0 GM/DL Hematocrit 30.2 % Mean Corpuscular Volume 87.3 FL Mean Corpuscular Hemoglobin 28.7 PG Mean Corpuscular Hemoglobin 32.9 % Concent Red Cell Distribution Width 14.9 % Platelet Count 302 TH/MM3 Mean Platelet Volume 6.8 FL Neutrophils (%) (Auto) 88.6 % Lymphocytes (%) (Auto) 9.3 % Monocytes (%) (Auto) 1.5 % Eosinophils (%) (Auto) 0.5 % Basophils (%) (Auto) 0.1 % Neutrophils # (Auto) 11.4 TH/MM3 Lymphocytes # (Auto) 1.2 TH/MM3 Monocytes # (Auto) 0.2 TH/MM3 Eosinophils # (Auto) 0.1 TH/MM3 Basophils # (Auto) 0.0 TH/MM3 CBC Comment DIFF FINAL Differential Comment Prothrombin Time 10.5 SEC Prothromb Time International 1.0 RATIO Ratio Activated Partial 25.2 SEC Thromboplast Time Sodium Level 128 MEQ/L Potassium Level 3.6 MEQ/L Chloride Level 89 MEQ/L Carbon Dioxide Level 30.9 MEQ/L Anion Gap 8 MEQ/L Blood Urea Nitrogen 13 MG/DL Creatinine 1.17 MG/DL Estimat Glomerular Filtration 45 ML/MIN Rate Random Glucose 98 MG/DL Lactic Acid Level 1.7 mmol/L Calcium Level 9.1 MG/DL Magnesium Level 1.1 MG/DL Total Bilirubin 0.3 MG/DL Aspartate Amino Transf 66 U/L (AST/SGOT) Alanine Aminotransferase 42 U/L (ALT/SGPT) Alkaline Phosphatase 165 U/L Total Creatine Kinase 173 U/L Creatine Kinase MB 1.6 NG/ML Troponin I LESS THAN 0.02 NG/ML Total Protein 7.8 GM/DL Albumin 3.4 GM/DL Lipase 91 U/L Blood Gas Puncture Site LT RADIAL Blood Gas Patient Temperature 98.6 Blood Gas HCO3 28 mmol/L Blood Gas Base Excess 4.0 mmol/L Blood Gas Oxygen Saturation 95 % Arterial Blood pH 7.43 Arterial Blood Partial 43 mmHg Pressure CO2 Arterial Blood Partial 79 mmHG Pressure O2 Arterial Blood Oxygen Content 11.7 Vol % Arterial Blood 1.2 % Carboxyhemoglobin Arterial Blood Methemoglobin 0.4 % Blood Gas Hemoglobin 8.7 G/DL Oxygen Delivery Device NASAL CANNULA Blood Gas Liter Flow 3 L/M MDM Medical Decision Making Medical Screen Exam Complete: Yes Emergency Medical Condition: Yes Medical Record Reviewed: Yes Differential Diagnosis Sepsis, pneumonia, effusion, PE, cholecystitis, gastritis, colitis Narrative Course 71-year-old female presents to the emergency department for evaluation of shortness of breath. Patient arrives tachypneic, febrile, with oxygen saturation 74% on room air. She is placed on 2LNC and oxygen saturation begins to improve. She is given tylenol for 102.9 fever. Sepsis protocol was initiated , patient is given IV Zosyn and vancomycin. Due to age and recent history of worsening shortness of breath, patient will be given IV fluid normal saline bolus, but caution and full amount per sepsis protocol will not be administered here in the emergency department. Laboratory Tests Test 01/05/17 01/05/17 12:02 12:45 White Blood Count 12.8 TH/MM3 Red Blood Count 3.46 MIL/MM3 Hemoglobin 10.0 GM/DL Hematocrit 30.2 % Mean Corpuscular Volume 87.3 FL Mean Corpuscular Hemoglobin 28.7 PG Mean Corpuscular Hemoglobin 32.9 % Concent Red Cell Distribution Width 14.9 % Platelet Count 302 TH/MM3 Mean Platelet Volume 6.8 FL Neutrophils (%) (Auto) 88.6 % Lymphocytes (%) (Auto) 9.3 % Monocytes (%) (Auto) 1.5 % Eosinophils (%) (Auto) 0.5 % Basophils (%) (Auto) 0.1 % Neutrophils # (Auto) 11.4 TH/MM3 Lymphocytes # (Auto) 1.2 TH/MM3 Monocytes # (Auto) 0.2 TH/MM3 Eosinophils # (Auto) 0.1 TH/MM3 Basophils # (Auto) 0.0 TH/MM3 CBC Comment DIFF FINAL Differential Comment Prothrombin Time 10.5 SEC Prothromb Time International 1.0 RATIO Ratio Activated Partial 25.2 SEC Thromboplast Time Sodium Level 128 MEQ/L Potassium Level 3.6 MEQ/L Chloride Level 89 MEQ/L Carbon Dioxide Level 30.9 MEQ/L Anion Gap 8 MEQ/L Blood Urea Nitrogen 13 MG/DL Creatinine 1.17 MG/DL Estimat Glomerular Filtration 45 ML/MIN Rate Random Glucose 98 MG/DL Lactic Acid Level 1.7 mmol/L Calcium Level 9.1 MG/DL Magnesium Level 1.1 MG/DL Total Bilirubin 0.3 MG/DL Aspartate Amino Transf 66 U/L (AST/SGOT) Alanine Aminotransferase 42 U/L (ALT/SGPT) Alkaline Phosphatase 165 U/L Total Creatine Kinase 173 U/L Creatine Kinase MB 1.6 NG/ML Troponin I LESS THAN 0.02 NG/ML Total Protein 7.8 GM/DL Albumin 3.4 GM/DL Lipase 91 U/L Blood Gas Puncture Site LT RADIAL Blood Gas Patient Temperature 98.6 Blood Gas HCO3 28 mmol/L Blood Gas Base Excess 4.0 mmol/L Blood Gas Oxygen Saturation 95 % Arterial Blood pH 7.43 Arterial Blood Partial 43 mmHg Pressure CO2 Arterial Blood Partial 79 mmHG Pressure O2 Arterial Blood Oxygen Content 11.7 Vol % Arterial Blood 1.2 % Carboxyhemoglobin Arterial Blood Methemoglobin 0.4 % Blood Gas Hemoglobin 8.7 G/DL Oxygen Delivery Device NASAL CANNULA Blood Gas Liter Flow 3 L/M Patient has moderate leukocytosis of 12.8 with a neutrophilia of 11.4. Hemoglobin is 10. Patient does have history of anemia. Patient has hyponatremia 128. Creatinine is 1.17 with a GFR 45. AST is 66, alkaline phosphatase is 165. Troponin is 0.02. Lactic acid is 1.7. Abrasion has yet to void. Straight catheter is ordered for specimen collection. CT imaging of the abdomen is ordered for further evaluation of pain as well as CT pulmonary angiogram for possible emboli. I discussed the patient with my attending physician, patient will be admitted for sepsis and further evaluation. Sepsis Criteria SIRS Criteria (2 or more): Temp > 100.9 or < 96.8, Heart rate over 90, WBC > 15657, < 4000 or > 10% bands Sepsis Criteria (SIRS+source): Infect source susp/known Diagnosis Primary Impression: Sepsis Qualified Code: A41.9 - Sepsis, due to unspecified organism Additional Impressions: Hypoxia Atypical pneumonia Admitting Information Admitting Physician Requests: Admit Condition: Stable Juliana Hoyt Jan 05, 2017 11:54
[2017-01-05 12:31] LABS: AUTOMATED NEUTROPHIL # 11.4 TH/MM3 (1.8-7.7); BASOPHIL % 0.1 % (0.0-2.0); EOSINOPHIL # 0.1 TH/MM3 (0-0.4); EOSINOPHIL % 0.5 % (0.0-4.0); HEMATOCRIT 30.2 % (35.0-46.0); HEMO FLAGS DIFF FINAL; LYMPH % 9.3 % (9.0-44.0); LYMPHOCYTE # 1.2 TH/MM3 (1.0-4.8); MEAN CELL VOLUME 87.3 FL (80.0-100.0); MEAN CORPUSCULAR HEMOGLOBIN 28.7 PG (27.0-34.0); MEAN CORPUSCULAR HGB CONC 32.9 % (32.0-36.0); MONO % 1.5 % (0.0-8.0); NEUT % 88.6 % (16.0-70.0); PLATELET COUNT 302 TH/MM3 (150-450); RED BLOOD COUNT 3.46 MIL/MM3 (4.00-5.30); RED CELL DISTRIBUTION WIDTH 14.9 % (11.6-17.2); WHITE BLOOD COUNT 12.8 TH/MM3 (4.0-11.0)
[2017-01-05 12:36] LABS: APTT (PATIENT) 25.2 SEC (24.3-30.1); PROTHROMBIN TIME - PATIENT 10.5 SEC (9.8-11.6)
[2017-01-05] MEDS ORDERED: ACETAMINOPHEN 325 MG TAB PO ONE (12:45)
[2017-01-05 12:47] LABS: ALT (GPT) 42 U/L (10-53)
[2017-01-05 12:51] LABS: ALKALINE PHOSPHATASE 165 U/L (45-117); CREATINE KINASE 173 U/L (26-192); TOTAL BILIRUBIN ADULT 0.3 MG/DL (0.2-1.0)
--- NOTE | 2017-01-05 12:53 | RADRPT ---
EXAM DATE/TIME: 01/05/2017 12:22 [place] COMPARISON: CHEST SINGLE AP, August 06, 2016, 17:43. INDICATIONS : Fever, short of breath, weak, dizzy MEDICAL HISTORY : None. SURGICAL HISTORY : None. ENCOUNTER: Initial ACUITY: 1 day PAIN SCORE: 0/10 LOCATION: Bilateral chest FINDINGS: The heart is normal in size. The pulmonary parenchyma demonstrates a mild chronic interstitial change but is otherwise clear. Advanced degenerative changes within the right shoulder and probable chronic dislocation. The osseous structures are otherwise intact. CONCLUSION: 1. Chronic appearing interstitial changes appear stable the previous exam. Dandy Diaz MD on January 05, 2017 at 12:50 Board Certified Radiologist. This report was verified electronically.
[2017-01-05 12:55] LABS: BLOOD GAS CARBOXYHEMOGLOBIN 1.2 % (0-4); BLOOD GAS HCO3 28 mmol/L (22-26); BLOOD GAS METHEMOGLOBIN 0.4 % (0-2); BLOOD GAS O2 HGB SATURATION 95 % (90-100); BLOOD GAS OXYGEN CONTENT 11.7 Vol % (12.0-20.0); BLOOD GAS PCO2 43 mmHg (38-42); BLOOD GAS PO2 79 mmHG (61-120); BLOOD GAS TOTAL HGB 8.7 G/DL (12.0-16.0); CRITICAL VALUE NO; DRAW SITE LT RADIAL; LITER FLOW 3 L/M; NUMBER OF ARTERIAL PUNCTURES 1; OXYGEN DEVICE NASAL CANNULA; STAT YES; TEMP CORR TO 98.6
[2017-01-05 12:56] LABS: ANION GAP 8 MEQ/L (5-15); AST (GOT) 66 U/L (15-37); BICARBONATE 30.9 MEQ/L (21.0-32.0); BLOOD UREA NITROGEN 13 MG/DL (7-18); CHLORIDE 89 MEQ/L (98-107); GLOMERULAR FILTRATION RATE 45 ML/MIN (>89); MAGNESIUM 1.1 MG/DL (1.5-2.5); POTASSIUM 3.6 MEQ/L (3.5-5.1); SODIUM (NA) 128 MEQ/L (136-145)
[2017-01-05 13:03] LABS: CKMB 1.6 NG/ML (0.5-3.6)
[2017-01-05 14:09] LABS: BLOOD, URINE NEG (NEG); COMMENT (UR) CATH-CULT NOT IND; CULTURE IF INDICATED CATH CULTURE NOT IND; GLUCOSE,URINE NEG (NEG); KETONE, URINE NEG (NEG); MUCUS URINE FEW /lpf (OCC); NITRITE,URINE NEG (NEG); PH, URINE 5.5 (5.0-8.5); URINE COLOR YELLOW (YELLW/STRAW)
[2017-01-05] MEDS ORDERED: RESP: ALBUTEROL 1.25 MG/3 ML NEB (PRN) NEB (14:15)
[2017-01-05] MEDS ORDERED: ONDANSETRON HCL 4 MG/2 ML VIAL IV PUSH PRN (14:15)
[2017-01-05] MEDS ORDERED: ACETAMINOPHEN 325 MG TAB PO PRN (14:15)
--- NOTE | 2017-01-05 14:20 | HHI.HP ---
[facility] Non[facility]Staff Admission Diagnosis Sepsis; hypoxia; chest pain; PE v ?atypical pneumonia Diagnoses: (1) Sepsis Diagnosis: Principal (2) Hypoxia Diagnosis: Principal Chief Complaint: shortness of breath Travel History International Travel<30 Days: No Contact w/Intl Traveler <30 Da: No Traveled to Known Affected Are: No History of Present Illness patient is a 71 y/o female with history of hypertension,dyslipidemia, chronic back pain and hypothyroidism who presented to ER with shortness of breath. she says that she's had sob for the past few days but it seems that it's been getting worse. she says that she can hardly walk because of sob. she reports some dry cough along with chills and night sweats at home. she says that she was given an inhaler by her PCP but it didn't help her as much. she went to her PCP today when she was advised to come to ER. she had a fever at the time of presentation along with hypoxia.she denies any recent sick exposure or any trips. Review of Systems Constitutional: COMPLAINS OF: Chills, Night Sweats, DENIES: Fever, Weight loss Eyes: DENIES: Blurred vision, Diplopia, Vision loss, Double Vision Ears, nose, mouth, throat: DENIES: Tinnitus, Vertigo, Throat pain, Epistaxis Respiratory: COMPLAINS OF: Cough, Shortness of breath, DENIES: Apneas, Snoring , Wheezing, Hemoptysis, Sputum production Cardiovascular: DENIES: Chest pain, Palpitations, Syncope, Dyspnea on Exertion , PND, Lower Extremity Edema, Orthopnea, Claudication Gastrointestinal: DENIES: Abdominal pain, Black stools, Bloody stools, Constipation, Diarrhea, Nausea, Vomiting, Difficulty Swallowing, Anorexia Genitourinary: DENIES: Urinary frequency, Urgency, Hematuria, Dysuria Musculoskeletal: DENIES: Joint pain, Muscle aches, Stiffness, Joint Swelling Integumentary: DENIES: Rash Neurologic: DENIES: Abnormal gait, Headache, Localized weakness, Paresthesias, Seizures, Speech Problems, Tremor, Poor Balance Psychiatric: DENIES: Anxiety, Confusion, Mood changes, Depression, Hallucinations, Agitation, Suicidal Ideation, Homicidal Ideation, Delusions Past Family Social History Past Medical History hypertension hypothyroidism dyslipidemia chronic back pain Past Surgical History partial hysterectomy back surgery Reported Medications Flonase Nasal [place] (Fluticasone Nasal [place]) 50 Mcg/Act [place] 50 Mcg EACH NARE BID Omeprazole 40 Mg Cap 40 Mg PO DAILY Propranolol ER 24 HR (Propranolol HCl) 60 Mg Cap 60 Mg PO DAILY Sucralfate 1 Gm Tab 1 Gm PO QID on empty stomach Dexilant (Dexlansoprazole) 60 Mg Cap 60 Mg PO DAILY [Virt] 1 Cap PO DAILY Percocet (Oxycodone-Acetaminophen) 10-325 mg Tab 1 Tab PO Q4H PRN Anoro Ellipta Inh (Umeclidinium/Vilanterol) 62.5-25 Mcg/Act Aero 1 Puff INH DAILY Hydroxyzine Pamoate 25 Mg Cap 25 Mg PO BID PRN Atorvastatin (Atorvastatin Calcium) 40 Mg Tab 40 Mg PO HS Allopurinol 100 Mg Tab 100 Mg PO BID Alprazolam 0.25 Mg Tab 0.25 Mg PO TID PRN Combivent Respimat Inh (Ipratropium-Albuterol Inh) 20-100 Skilled Nursing/Act Aero [address] QID Cymbalta [address] (Duloxetine HCl) 60 Mg Capdr 60 Mg PO DAILY Furosemide 40 Mg Tab 40 Mg PO DAILY Levothyroxine (Levothyroxine Sodium) 50 Mcg Tab 100 Mcg PO DAILY Morphine ER (Morphine Sulfate) 15 Mg Tab 15 Mg PO TID Temazepam 30 Mg Cap 30 Mg PO HS PRN Tizanidine (Tizanidine HCl) 4 Mg Cap 4 Mg PO TID Allergies: Coded Allergies: Codeine (Verified Allergy, Intermediate, RASH, 12/03/16) Active Ordered Medications Current Medications Sodium Chloride 1,000 ml @ 1,000 mls/hr Q1H ONCE IV Last administered on t 12:45; Start 01/05/17 at 11:45; Stop 01/05/17 at 12:44; Status DC Sodium Chloride 800 ml @ 1,000 mls/hr Q48M ONCE IV ; Start 01/05/17 at 11:45; Stop 01/05/17 at 12:32; Status DC Piperacillin Sod/ Tazobactam Sod 100 ml @ 200 mls/hr ONCE ONCE IV Last administered on 01/05/17 12:45; Start 01/05/17 at 11:45; Stop 01/05/17 at 12:14 ; Status DC Vancomycin HCl/ Sodium Chloride (Vancomycin Inj/ NS 250 ml Inj) 250 ml @ 250 mls/hr ONCE ONCE IV Last administered on 01/05/17 13:04; Start 01/05/17 at 11 :45; Stop 01/05/17 at 12:44; Status DC Acetaminophen (Tylenol) 650 mg ONCE ONCE PO Last administered on 01/05/17 13: 05; Start 01/05/17 at 12:45; Stop 01/05/17 at 12:46; Status DC Family History not relevant to this presentation. Social History no smoking or drinking. Physical Exam Vital Signs Vital Signs Date Time Temp Pulse Resp B/P Pulse Ox O2 Delivery O2 Flow Rate FiO2 01/05/17 12:19 93 Nasal Cannula 4 01/05/17 12:19 93 Room Air 01/05/17 11:47 95 Nasal Cannula 2 01/05/17 11:42 88 26 144/73 01/05/17 11:38 102.9 96 24 193/74 74 Room Air Physical Exam GENERAL: with some sob SKIN: No rashes, ecchymoses or lesions. Cool and dry. HEAD: Atraumatic. Normocephalic. No temporal or scalp tenderness. EYES: Pupils equal round and reactive. Extraocular motions intact. No scleral icterus. No injection or drainage. ENT: Nose without bleeding, purulent drainage or septal hematoma. Throat without erythema, tonsillar hypertrophy or exudate. Uvula midline. Airway patent. NECK: Trachea midline. No JVD or lymphadenopathy. Supple, nontender, no meningeal signs. CARDIOVASCULAR: Regular rate and rhythm without murmurs, gallops, or rubs. RESPIRATORY: diminished air entry in bases GASTROINTESTINAL: Abdomen soft, non-tender, nondistended. No hepato-splenomegaly , or palpable masses. No guarding. MUSCULOSKELETAL: Extremities without clubbing, cyanosis, or edema. No joint tenderness, effusion, or edema noted. No calf tenderness. Negative Homans sign bilaterally. NEUROLOGICAL: Awake and alert. Cranial nerves II through XII intact. Motor and sensory grossly within normal limits. Five out of 5 muscle strength in all muscle groups. Normal speech. Laboratory Laboratory Tests Test 701/05/17 01/05/17 12:02 12:45 13:25 White Blood Count 12.8 Red Blood Count 3.46 Hemoglobin 10.0 Hematocrit 30.2 Mean Corpuscular Volume 87.3 Mean Corpuscular Hemoglobin 28.7 Mean Corpuscular Hemoglobin 32.9 Concent Red Cell Distribution Width 14.9 Platelet Count 302 Mean Platelet Volume 6.8 Neutrophils (%) (Auto) 88.6 Lymphocytes (%) (Auto) 9.3 Monocytes (%) (Auto) 1.5 Eosinophils (%) (Auto) 0.5 Basophils (%) (Auto) 0.1 Neutrophils # (Auto) 11.4 Lymphocytes # (Auto) 1.2 Monocytes # (Auto) 0.2 Eosinophils # (Auto) 0.1 Basophils # (Auto) 0.0 CBC Comment DIFF FINAL Differential Comment Prothrombin Time 10.5 Prothromb Time International 1.0 Ratio Activated Partial 25.2 Thromboplast Time Sodium Level 128 Potassium Level 3.6 Chloride Level 89 Carbon Dioxide Level 30.9 Anion Gap 8 Blood Urea Nitrogen 13 Creatinine 1.17 Estimat Glomerular Filtration 45 Rate Random Glucose 98 Lactic Acid Level 1.7 Calcium Level 9.1 Magnesium Level 1.1 Total Bilirubin 0.3 Aspartate Amino Transf 66 (AST/SGOT) Alanine Aminotransferase 42 (ALT/SGPT) Alkaline Phosphatase 165 Total Creatine Kinase 173 Creatine Kinase MB 1.6 Troponin I LESS THAN 0.02 Total Protein 7.8 Albumin 3.4 Lipase 91 Blood Gas Puncture Site LT RADIAL Blood Gas Patient Temperature 98.6 Blood Gas HCO3 28 Blood Gas Base Excess 4.0 Blood Gas Oxygen Saturation 95 Arterial Blood pH 7.43 Arterial Blood Partial 43 Pressure CO2 Arterial Blood Partial 79 Pressure O2 Arterial Blood Oxygen Content 11.7 Arterial Blood 1.2 Carboxyhemoglobin Arterial Blood Methemoglobin 0.4 Blood Gas Hemoglobin 8.7 Oxygen Delivery Device NASAL CANNULA Blood Gas Liter Flow 3 Urine Color YELLOW Urine Turbidity CLEAR Urine pH 5.5 Urine Specific [place] 1.009 Urine Protein NEG Urine Glucose (UA) NEG Urine Ketones NEG Urine Occult Blood NEG Urine Nitrite NEG Urine Bilirubin NEG Urine Urobilinogen LESS THAN 2.0 Urine Leukocyte Esterase NEG Urine WBC 1 Urine Mucus FEW Microscopic Urinalysis Comment CATH-CULT NOT IND Date/Time Procedure Status Source Growth 01/05/17 12:02 Aerobic Blood Culture Received Blood Peripheral Pending 01/05/17 12:02 Anaerobic Blood Culture Received Blood Peripheral Pending Result Diagram: 01/05/17 1202 01/05/17 1202 Imaging Last Impressions Chest X-Ray 01/05/17 1145 Signed Impressions: Service Date/Time: Thursday, January 05, 2017 12:22 - CONCLUSION: 1. Chronic appearing interstitial changes appear stable the previous exam. Dandy Diaz MD Assessment and Plan Assessment and Plan A/P - sepsis and acute respiratory failure due to pneumonia keep on oxygen to keep O2 sat >90%- start neb treatment- continue with IV antibiotics- follow the cultures- CTA chest pending. -hyponatremia- suspect due to pneumonia start IV fluid- hold lasix for now- monitor the sodium level; BMP in am -hypomagnesemia; will replace and monitor -hypertension/ dyslipidemia/ hypothyroidism/chronic back pain; resume home meds -consult PT -DVT prophylaxis with subq Lovenox Discussed Condition With ER and the patient. Physician Certification 2 Midnight Certification Type: Admission for Inpatient Services Order for Inpatient Services The services are ordered in accordance with Medicare regulations or non- Medicare payer requirements, as applicable. In the case of services not specified as inpatient-only, they are appropriately provided as inpatient services in accordance with the 2-midnight benchmark. Estimated LOS (days): 2 days is the estimated time the patient will need to remain in the hospital, assuming treatment plan goals are met and no additional complications. Post-Hospital Plan: Not yet determined Problem Qualifiers (1) Sepsis: Qualified Code: A41.9 - Sepsis, due to unspecified organism Sarah Santana MD Jan 05, 2017 14:20
[2017-01-05] MEDS ORDERED: MAGNESIUM SULFATE 1 GM PREMIX 100 ML IV ONE (16:00)
[2017-01-05] MEDS ORDERED: IOHEXOL 350 MG/ML 10 ML VIAL (for RAD DIAG) IV ONE (16:22)
[2017-01-05] MEDS: SODIUM CHLOR 0.9% 1000 ML INJ 1,000 ML IV SCH (16:51)
--- NOTE | 2017-01-05 16:53 | RADRPT ---
EXAM DATE/TIME: 01/05/2017 16:09 [place] COMPARISON: CHEST SINGLE AP, January 05, 2017, 12:22. INDICATIONS : Shortness of breath IV CONTRAST: 80 cc Omnipaque 350 (iohexol) IV RADIATION DOSE: 23.09 CTDIvol (mGy) MEDICAL HISTORY : Cardiovascular disease. Hypertension. SURGICAL HISTORY : Cholecystectomy. Appendectomy.Partial hysterectomy ENCOUNTER: Initial ACUITY: 1 day PAIN SCALE: 3/10 LOCATION: chest TECHNIQUE: Volumetric scanning of the chest was performed using a pulmonary embolism protocol MIP images were re constructed. Using automated exposure control and adjustment of the mA and/or kV according to patien t size, radiation dose was kept as low as reasonably achievable to obtain optimal diagnostic quality images. DICOM format image data is available electronically for review and comparison. FINDINGS: Examination is limited by respiratory motion. PULMONARY ARTERIES: The pulmonary arteries are only visualized to the proximal segmental level without evidence for intra luminal filling defect. More distal proximal and subsegmental pulmonary arteries are inadequately vis ualized for evaluation. LUNGS: Patchy airspace consolidation is noted in the right lower lobe. There is minimal patchy airspace cons olidation in the left lung base. PLEURAE: There is no pleural thickening or pleural effusion. MEDIASTINUM: No significant mediastinal adenopathy. Heart is grossly unremarkable without evidence for pericardial effusion. Thoracic is grossly unremarkable without evidence for aneurysm or other significant dissec tion involving the descending aorta. MUSCULOSKELETAL: Advanced degenerative changes are noted about the right shoulder. MISCEL.LANEOUS: The visualized upper abdominal organs demonstrate no acute abnormality. CONCLUSION: 1. Limited evaluation due to respiratory motion. Pulmonary arteries are visualized to the proximal se gmental level only without evidence for pulmonary embolism. More distal segmental and subsegmental pu lmonary arteries are incompletely evaluated. 2. Patchy airspace consolidation in the right lower lobe and minimal airspace consolidation in the le ft lung base. Differential considerations include pneumonia versus aspiration. Angelo Mirza MD on January 05, 2017 at 16:43 Board Certified Radiologist. This report was verified electronically.
[2017-01-05] MEDS ORDERED: cefTRIAXone INJ 1,000 MG in SODIUM CHLORIDE 0.9% INJ 100 ML IV SCH (18:00)
[2017-01-05] MEDS: SUCRALFATE 1 GM TAB PO SCH ×2 (18:21→21:24)
[2017-01-05] MEDS: AZITHROMYCIN INJ 500 MG in SODIUM CHLOR 0.9% 250 ML INJ 250 ML IV SCH (18:21)
[2017-01-05] MEDS: ENOXAPARIN SODIUM 40 MG/0.4 ML SYRINGE SQ SCH (18:21)
[2017-01-05] MEDS: MORPHINE SULFATE 15 MG CONTROLLED RELEASE TAB PO SCH (18:31)
[2017-01-05] MEDS: RESP: ALBUTEROL 2.5 MG/IPRATROPIUM 0.5 MG NEB (SCH) NEB (20:43)
[2017-01-05] MEDS: ALLOPURINOL 100 MG TAB PO SCH (21:23)
[2017-01-05] MEDS: ATORVASTATIN 40 MG TAB PO SCH (21:24)
[2017-01-05] MEDS: oxyCODONE/ACETAMINOPHEN 10 MG/325 MG TAB PO PRN (21:28)
[2017-01-05] MEDS: TEMAZEPAM 15 MG CAP PO PRN (23:39)
[2017-01-05] MEDS: PIPERACIL-TAZO 3.375 GM PREMIX 50 ML IV SCH (23:39)
[2017-01-06] VITALS (10 sets, daily range): BP systolic 89–147; BP diastolic 54–77; PULSE 63–98; RESP 18–20; TEMP 97.6–98.1; O2SAT 93–100
[2017-01-06] MEDS: oxyCODONE/ACETAMINOPHEN 10 MG/325 MG TAB PO PRN ×3 (04:51→21:14)
[2017-01-06] MEDS: SODIUM CHLOR 0.9% 1000 ML INJ 1,000 ML IV SCH ×2 (04:59→17:29)
[2017-01-06] MEDS: PIPERACIL-TAZO 3.375 GM PREMIX 50 ML IV SCH ×4 (05:00→22:49)
[2017-01-06] MEDS: LEVOTHYROXINE SODIUM 100 MCG TAB PO SCH (06:52)
[2017-01-06 07:11] LABS: AUTOMATED NEUTROPHIL # 21.1 TH/MM3 (1.8-7.7); BASOPHIL % 0.2 % (0.0-2.0); EOSINOPHIL # 0.1 TH/MM3 (0-0.4); EOSINOPHIL % 0.4 % (0.0-4.0); HEMATOCRIT 22.5 % (35.0-46.0); HEMO FLAGS DIFF FINAL; LYMPH % 6.4 % (9.0-44.0); LYMPHOCYTE # 1.5 TH/MM3 (1.0-4.8); MEAN CELL VOLUME 86.7 FL (80.0-100.0); MEAN CORPUSCULAR HEMOGLOBIN 29.1 PG (27.0-34.0); MEAN CORPUSCULAR HGB CONC 33.6 % (32.0-36.0); MONO % 2.9 % (0.0-8.0); NEUT % 90.1 % (16.0-70.0); PLATELET COUNT 239 TH/MM3 (150-450); RED BLOOD COUNT 2.59 MIL/MM3 (4.00-5.30); RED CELL DISTRIBUTION WIDTH 15.2 % (11.6-17.2); WHITE BLOOD COUNT 23.4 TH/MM3 (4.0-11.0)
[2017-01-06] MEDS: RESP: ALBUTEROL 2.5 MG/IPRATROPIUM 0.5 MG NEB (SCH) NEB ×3 (07:55→19:11)
[2017-01-06 08:13] LABS: BICARBONATE 28.3 MEQ/L (21.0-32.0); MAGNESIUM 1.6 MG/DL (1.5-2.5); POTASSIUM 3.3 MEQ/L (3.5-5.1)
[2017-01-06] MEDS: SUCRALFATE 1 GM TAB PO SCH ×4 (08:44→21:02)
[2017-01-06] MEDS: ALLOPURINOL 100 MG TAB PO SCH ×2 (08:44→21:01)
[2017-01-06] MEDS: MORPHINE SULFATE 15 MG CONTROLLED RELEASE TAB PO SCH ×3 (08:44→18:35)
[2017-01-06] MEDS: UMECLIDINIUM 62.5 MCG/VILANTEROL 25 MCG INHALER INH SCH (08:44)
[2017-01-06] MEDS: PANTOPRAZOLE SOD 40 MG DELAYED RELEASE TAB PO SCH (08:44)
[2017-01-06] MEDS: DULoxetine HCl DR 60 MG CAP PO SCH (09:00)
[2017-01-06] MEDS ORDERED: PROPRANOLOL HCL LA 60 MG CAP PO SCH (09:00)
[2017-01-06] MEDS ORDERED: PNEUMOCOCCAL POLYVALENT INJ 25 MCG/0.5 ML SYR IM ONE (10:00)
--- NOTE | 2017-01-06 10:34 | EKG ---
Date Performed: 01/05/2017 Time Performed: 12:13:06 PTAGE: 71 years EKG: Marked baseline artifact makes this substandard for interpretation Repeat tracing advised S uspect atrial fibrillation, but artifact could be hiding the T-waves Left bundle branch block, which is old Cannot exclude new atrial fibrillation not present on old tracing A better tracing would be he lpful ABNORMAL ECG PREVIOUS TRACING 08/06/2016 DOCTOR: Albino Vuong Interpretating Date/Time 01/06/2017 10:32:54
--- NOTE | 2017-01-06 10:35 | EKG ---
Date Performed: 01/05/2017 Time Performed: 19:31:34 PTAGE: 71 years EKG: Sinus rhythm WITH OCCASIONAL SUPRAVENTRICULAR PREMATURE COMPLEXES MARKED LEFT AXIS DEVIATION PATTERN CONSISTENT W ITH PULMONARY DISEASE NONSPECIFIC T-WAVE ABNORMALITY ABNORMAL ECG PREVIOUS TRACING : 01/05/2017 13.18 Left bundle branch block no longer present compared to prio r tracings. DOCTOR: Albino Vuong Interpretating Date/Time 01/06/2017 10:34:03
[2017-01-06] MEDS ORDERED: POTASSIUM CHLORIDE 25 MEQ EFFERVESCENT TAB PO ONE (11:15)
--- NOTE | 2017-01-06 11:18 | HHI.FF ---
Face to Face Verification Diagnosis: (1) Hypoxia (2) Sepsis Physical Therapy Order: Evaluate and Treat Home Health Nursing Order: Medical education Signs/symptoms of disease process Medication education-adverse effect Nursing assessment with vital signs I have seen patient Ashley Craig on 01/06/17. My clinical findings support the need for the requested home health care services because: Patient has SOB I certify that my clinical findings support that this patient is homebound because: Hx COPD- exertion dyspnea/weakness Sarah Santana MD Jan 06, 2017 11:18
--- NOTE | 2017-01-06 11:18 | HHI.PR ---
Subjective Remarks sitting on the chair with no acute distress. says that whenever she eats she's coughing. no fever since last night. d/w the PT and RN. Objective Vitals Vital Signs Date Time Temp Pulse Resp B/P Pulse Ox O2 Delivery O2 Flow Rate FiO2 01/06/17 08:00 97.9 63 18 97/55 100 01/06/17 07:57 99 Nasal Cannula 3.00 01/06/17 04:00 98.0 92 19 139/65 96 01/06/17 01:57 96/60 Automatic Cuff 01/06/17 00:00 97.6 72 20 89/54 99 01/05/17 20:48 92 Nasal Cannula 3.00 01/05/17 20:00 98.7 81 20 149/65 100 01/05/17 18:00 97.5 82 18 134/62 93 01/05/17 17:10 85 20 134/68 94 2 01/05/17 15:30 92 20 129/66 96 Room Air 01/05/17 14:57 92 24 126/71 97 Nasal Cannula 3 01/05/17 14:45 97 Nasal Cannula 3.00 01/05/17 14:27 98.9 01/05/17 12:19 93 Nasal Cannula 4 01/05/17 12:19 93 Room Air 01/05/17 11:47 95 Nasal Cannula 2 01/05/17 11:42 88 26 144/73 01/05/17 11:38 102.9 96 24 193/74 74 Room Air I/O 01/05/17 01/05/17 01/05/17 01/06/17 01/06/17 01/06/17 07:00 15:00 23:00 07:00 15:00 23:00 Intake Total 120 ml 120 ml Output Total 300 ml Balance -180 ml 120 ml Intake Oral 120 ml 120 ml Output Urine Total 300 ml # Voids 2 # Bowel Movements 1 Result Diagram: 01/06/17 0631 01/06/17 0631 Imaging Last Impressions Chest X-Ray 01/05/17 1145 Signed Impressions: Service Date/Time: Thursday, January 05, 2017 12:22 - CONCLUSION: 1. Chronic appearing interstitial changes appear stable the previous exam. Dandy Diaz MD CT Angiography 01/05/17 0000 Signed Impressions: Service Date/Time: Thursday, January 05, 2017 16:09 - CONCLUSION: 1. Limited evaluation due to respiratory motion. Pulmonary arteries are visualized to the proximal segmental level only without evidence for pulmonary embolism. More distal segmental and subsegmental pulmonary arteries are incompletely evaluated. 2. Patchy airspace consolidation in the right lower lobe and minimal airspace consolidation in the left lung base. Differential considerations include pneumonia versus aspiration. Angelo Mirza MD Objective Remarks GENERAL: This is a well-nourished, well-developed patient, in no apparent distress. CARDIOVASCULAR: Regular rate and regular rhythm without murmurs, gallops, or rubs. RESPIRATORY: diminished air entry in bases GASTROINTESTINAL: Abdomen soft, non-tender, nondistended. Normal, active bowel sounds MUSCULOSKELETAL: Extremities without clubbing, cyanosis, or edema. NEURO: Alert & Oriented x4 to person, place, time, situation. Moves all ext x4 Procedures none Medications and IVs Current Medications Sodium Chloride 1,000 ml @ 1,000 mls/hr Q1H ONCE IV Last administered on 12:45; Start 01/05/17 at 11:45; Stop 01/05/17 at 12:44; Status DC Sodium Chloride 800 ml @ 1,000 mls/hr Q48M ONCE IV Last administered on 14:47; Start 01/05/17 at 11:45; Stop 01/05/17 at 12:32; Status DC Piperacillin Sod/ Tazobactam Sod 100 ml @ 200 mls/hr ONCE ONCE IV Last administered on 01/05/17 12:45; Start 01/05/17 at 11:45; Stop 01/05/17 at 12:14 ; Status DC Vancomycin HCl/ Sodium Chloride (Vancomycin Inj/ NS 250 ml Inj) 250 ml @ 250 mls/hr ONCE ONCE IV Last administered on 01/05/17 13:04; Start 01/05/17 at 11 :45; Stop 01/05/17 at 12:44; Status DC Acetaminophen (Tylenol) 650 mg ONCE ONCE PO Last administered on 01/05/17 13: 05; Start 01/05/17 at 12:45; Stop 01/05/17 at 12:46; Status DC Acetaminophen (Tylenol) 650 mg Q4H PRN PO FEVER/ PAIN; Start 01/05/17 at 14:15 Ondansetron HCl 4 mg 4 mg Q8HR PRN IV PUSH NAUSEA; Start 01/05/17 at 14:15 Azithromycin 500 mg/Sodium Chloride 250 ml @ 250 mls/hr Q24H IV Last administered on 01/05/17 18:21; Start 01/05/17 at 17:00 Ceftriaxone Sodium/Sodium Chloride (Rocephin Inj/NS Inj) 100 ml @ 200 mls/hr Q24H IV Last administered on 01/05/17 18:21; Start 01/05/17 at 18:00; Stop 04/14 at 18:54; Status DC Albuterol/ Ipratropium (Duoneb Neb) 1 ampule Q6HR WHILE AWAKE NEB NEB Last administered on 01/06/17 07:55; Start 01/05/17 at 20:00 Albuterol Sulfate 1.25 mg 1.25 mg Q2HR NEB PRN NEB SOB/WHEEZING; Start at 14:15 Sodium Chloride (NS 1000 ml Inj) 1,000 ml @ 75 mls/hr [id number] IV Last administered on 01/06/17 04:59; Start 01/05/17 at 15:30 Allopurinol (Zyloprim) 100 mg BID PO Last administered on 01/06/17 08:44; Start 01/05/17 at 21:00 Alprazolam (Xanax) 0.25 mg TID PRN PO ANXIETY; Start 01/05/17 at 14:15 Atorvastatin Calcium (Lipitor) 40 mg HS PO Last administered on 01/05/17 21:24 ; Start 01/05/17 at 21:00 Duloxetine HCl (Cymbalta Dr) 60 mg DAILY PO ; Start 01/06/17 at 09:00 Levothyroxine Sodium (Synthroid) 100 mcg DAILY@06 PO Last administered on 06:52; Start 01/06/17 at 06:00 Morphine Sulfate (Oramorph Sr) 15 mg TID PO Last administered on 01/06/17 08: 44; Start 01/05/17 at 18:00 Oxycodone/ Acetaminophen (Percocet 10-325 Mg) 1 tab Q4H PRN PO PAIN Last administered on 01/06/17 04:51; Start 01/05/17 at 18:00 Propranolol HCl (Inderal La) 60 mg DAILY PO ; Start 01/06/17 at 09:00 Sucralfate (Carafate) 1 gm QID PO Last administered on 01/06/17 08:44; Start 01/05/17 at 18:00 Temazepam (Restoril) 30 mg HS PRN PO INSOMNIA Last administered on 01/05/17 23 :39; Start 01/05/17 at 21:00 Pantoprazole Sodium 40 mg 40 mg DAILY PO Last administered on 01/06/17 08:44; Start 01/06/17 at 09:00 Magnesium Sulfate/ Dextrose (Magnesium Sulfate 1 Gm Premix) 100 ml @ 100 mls/ hr ONCE ONCE IV Last administered on 01/05/17 16:51; Start 01/05/17 at 16:00 ; Stop 01/05/17 at 16:59; Status DC Enoxaparin Sodium (Lovenox Inj) 40 mg Q24H SQ Last administered on 01/05/17 18 :21; Start 01/05/17 at 18:00 Iohexol 80 ml 80 ml STK-MED ONCE IV Last administered on 01/05/17 16:22; Start 01/05/17 at 16:22; Stop 01/05/17 at 16:23; Status DC Piperacillin Sod/ Tazobactam Sod (Zosyn 3.375 Gm Premix) 50 ml @ 100 mls/hr Q6H IV Last administered on 01/06/17 05:00; Start 01/06/17 at 00:00 Pneumococcal Polyvalent Vaccine (Pneumovax-23 Inj) 25 mcg ONCE ONCE IM Last administered on 01/06/17 08:47; Start 01/06/17 at 10:00; Stop 01/06/17 at 10:01 ; Status DC A/P Assessment and Plan A/P - sepsis and acute respiratory failure due to pneumonia; bilateral lower lobes- suspect aspiration keep on oxygen to keep O2 sat >90%- continue neb treatment- continue with IV antibiotics- follow the cultures- will consult ST for swallow evaluation-of note she says that she had an EGD about a month ago; will obtain the report. consult ID -hyponatremia-improved suspect due to pneumonia continue IV fluid- hold lasix for now- monitor the sodium level; BMP in am -anemia- acute on chronic - due to dilution/IV fluid- will check the iron panel - stool for blood- CBC in am -hypomagnesemia; replaced -hypokalemia; will replace -hypertension- BP now on low-side; will decrease propranolol with holding parameters. -consulted PT -DVT prophylaxis with subq Lovenox Discharge Planning rehab was offered but she wants to try HHC first; will consult case management. Sarah Santana MD Jan 06, 2017 11:18
[2017-01-06 12:03] LABS: TRANSFERRIN IRON PROFILE 182 MG/DL (200-360)
[2017-01-06] MEDS: ALPRAZolam 0.25 MG TAB PO PRN (12:36)
[2017-01-06] MEDS ORDERED: Vancomycin Consult Pharmacy 1 EA OTHER SCH (14:00)
--- NOTE | 2017-01-06 15:04 | PD.ID.CON ---
History of Present Illness Service ID Consult Requested By Dr Santana Reason for Consult Evaluation and Mment of sepsis and pneumonia. Primary Care Physician Non-Staff Diagnoses: History of Present Illness is a 71 y/o CM with PMHx significant for HTN, Dyslipidemia, chronic back pain, hypothyroidism, GERD like symptoms, gastric ulcer. Patient reports that approximately one year back she noticed GERD-like symptoms associated with change in her voice and chronic cough. Patient reports having seen 5 different specialties for this of this she remembers she has seen a application security specialist who prescribed her inhalers but it did not do her much.. [employer] Wiring Technician felt that she may have asthma/COPD. Patient also reports having seen the ENT specialist but does not know the details. All she remembers is that the ENT specialist asked her to see a skin piler. She thinks she has had an endoscopy in the past and was told that she had a gastric ulcer. Patient is a very poor historian and details could not be elicited. Patient reports having come to the emergency room at least 5 times in the last 1 year. She now reports to the emergency room due to shortness of breath, fever and chills associated with dry cough over the last 2 days. She presented to her primary care's office who gave her an inhaler which did not help and so the primary care physician referred her to [facility] emergency Department. Patient denies any sick exposures. Patient reports she had pet Yorkie and now she has given her dog away due to deteriorating health. She denies any prior history of exposure to tuberculosis. He denies any prior history of smoking. No history of passive smoking. Patient reports being on significant pain medications with no change in her pain medications recently. No history of seizures. Patient does report history of hyponatremia and being on salt pills. No history of recent travel. Infectious disease is consulted for evaluation and management of sepsis and worsening leukocytosis in a patient with pneumonia. Review of Systems ROS Limitations: Poor Historian Constitutional: COMPLAINS OF: Fever, Chills, DENIES: Diaphoretic episodes, Fatigue, Weight gain, Weight loss, Dizziness, Change in appetite, Night Sweats Endocrine: DENIES: Abnorml menstrual pattern, Heat/cold intolerance, Polydipsia , Polyuria, Polyphagia Eyes: DENIES: Blurred vision, Diplopia, Eye inflammation, Eye pain, Vision loss , Photosensitivity, Double Vision Ears, nose, mouth, throat: COMPLAINS OF: Throat pain, Hoarseness, Odynophagia, DENIES: Tinnitus, Hearing loss, Vertigo, Nasal discharge, Oral lesions, Ear Pain, Running Nose, Epistaxis, Sinus Pain, Toothache Respiratory: COMPLAINS OF: Cough, Snoring, Sputum production, Shortness of breath, DENIES: Apneas, Wheezing, Hemoptysis Cardiovascular: COMPLAINS OF: Chest pain, DENIES: Palpitations, Syncope, Dyspnea on Exertion, PND, Lower Extremity Edema, Orthopnea, Claudication Gastrointestinal: DENIES: Abdominal pain, Black stools, Bloody stools, Constipation, Diarrhea, Nausea, Vomiting, Difficulty Swallowing, Anorexia Genitourinary: DENIES: Abnormal vaginal bleeding, Dysmenorrhea, Dyspareunia, Sexual dysfunction, Urinary frequency, Urinary incontinence, Urgency, Hematuria , Dysuria, Nocturia, Vaginal discharge Musculoskeletal: DENIES: Joint pain, Muscle aches, Stiffness, Joint Swelling, Back pain, Neck pain Integumentary: DENIES: Abnormal pigmentation, Pruritus, Rash, Nail changes, Breast masses, Breast skin changes, Nipple discharge Hematologic/lymphatic: DENIES: Bruising, Lymphadenopathy Immunologic/allergic: DENIES: Eczema, Urticaria Neurologic: DENIES: Abnormal gait, Headache, Localized weakness, Paresthesias, Seizures, Speech Problems, Tremor, Poor Balance Psychiatric: DENIES: Anxiety, Confusion, Mood changes, Depression, Hallucinations, Agitation, Suicidal Ideation, Homicidal Ideation, Delusions Except as stated in HPI: all other systems reviewed are Neg Past Family Social History Allergies: Coded Allergies: Codeine (Verified Allergy, Intermediate, RASH, 12/03/16) Past Medical History hypertension hypothyroidism dyslipidemia chronic back pain Past Surgical History partial hysterectomy back surgery Reported Medications Reported Meds & Active Scripts Active Reported Flonase Nasal [place] (Fluticasone Nasal [place]) 50 Mcg/Act [place] 50 Mcg EACH NARE BID Omeprazole 40 Mg Cap 40 Mg PO DAILY Propranolol ER 24 HR (Propranolol HCl) 60 Mg Cap 60 Mg PO DAILY Sucralfate 1 Gm Tab 1 Gm PO QID on empty stomach Dexilant (Dexlansoprazole) 60 Mg Cap 60 Mg PO DAILY [Virt] 1 Cap PO DAILY Percocet (Oxycodone-Acetaminophen) 10-325 mg Tab 1 Tab PO Q4H PRN Anoro Ellipta Inh (Umeclidinium/Vilanterol) 62.5-25 Mcg/Act Aero 1 Puff INH DAILY Hydroxyzine Pamoate 25 Mg Cap 25 Mg PO BID PRN Atorvastatin (Atorvastatin Calcium) 40 Mg Tab 40 Mg PO HS Allopurinol 100 Mg Tab 100 Mg PO BID Alprazolam 0.25 Mg Tab 0.25 Mg PO TID PRN Combivent Respimat Inh (Ipratropium-Albuterol Inh) 20-100 Half-Way/Act Aero [address] QID C[address]alta [address] (Duloxetine HCl) 60 Mg Capdr 60 Mg PO DAILY Furosemide 40 Mg Tab 40 Mg PO DAILY Levothyroxine (Levothyroxine Sodium) 50 Mcg Tab 100 Mcg PO DAILY Morphine ER (Morphine Sulfate) 15 Mg Tab 15 Mg PO TID Temazepam 30 Mg Cap 30 Mg PO HS PRN Tizanidine (Tizanidine HCl) 4 Mg Cap 4 Mg PO TID Active Ordered Medications Current Medications Medications (Trade) Dose Ordered Sig/Cj Route Start Time Stop Time Status Last Admin (Tylenol) 650 mg Q4H PRN PO 01/05/17 14:15 Ondansetron HCl 4 mg 4 mg Q8HR PRN IV PUSH 01/05/17 14:15 Azithromycin 500 mg/Sodium Chloride 250 ml @ 250 mls/hr Q24H IV 01/05/17 17:00 01/05/17 18:21 (NS 1000 ml Inj) 1,000 ml @ 75 mls/hr [id number] IV 01/05/17 15:30 01/06/17 04:59 (Zyloprim) 100 mg BID PO 01/05/17 21:00 01/06/17 08:44 (Xanax) 0.25 mg TID PRN PO 01/05/17 14:15 01/06/17 12:36 (Lipitor) 40 mg HS PO 01/05/17 21:00 01/05/17 21:24 (Cymbalta Dr) 60 mg DAILY PO 01/06/17 09:00 (Synthroid) 100 mcg DAILY@06 PO 01/06/17 06:00 01/06/17 06:52 (Oramorph Sr) 15 mg TID PO 01/05/17 18:00 01/06/17 12:36 (Percocet 10-325 Mg) 1 tab Q4H PRN PO 01/05/17 18:00 01/06/17 04:51 (Carafate) 1 gm QID PO 01/05/17 18:00 01/06/17 12:36 (Restoril) 30 mg HS PRN PO 01/05/17 21:00 01/05/17 23:39 (Protonix) 40 mg DAILY PO 01/06/17 09:00 01/06/17 08:44 Enoxaparin Sodium 40 mg 40 mg Q24H SQ 01/05/17 18:00 01/05/17 18:21 Piperacillin Sod/ Tazobactam Sod 50 ml @ 100 mls/hr Q6H IV 01/06/17 00:00 01/06/17 12:36 (Vancomycin Consult Pharmacy) 0 ml @ 0 mls/hr UNSCH OTHER 01/06/17 14:00 (K-Lyte Cl Eff) 25 meq ONCE ONCE PO 01/06/17 11:15 01/06/17 11:16 UNV Propranolol HCl 20 mg 20 mg DAILY PO 01/07/17 09:00 UNV (Vancomycin Inj/ NS 500 ml Inj) 515 ml @ 250 mls/hr Q24H IV 01/06/17 16:00 Miscellaneous Information SPECIFIC LAB TO BE DRAWN:VANCOMYCIN TROUGH DATE TO... ONCE ONCE .XX 01/08/17 15:45 01/08/17 15:46 Family History reviewed. Social History no smoking or drinking. Lives in [place]. Physical Exam Vital Signs Vital Signs Date Time Temp Pulse Resp B/P Pulse Ox O2 Delivery O2 Flow Rate FiO2 01/06/17 11:56 98.1 73 18 138/64 98 01/06/17 08:00 97.9 63 18 97/55 100 01/06/17 07:57 99 Nasal Cannula 3.00 01/06/17 04:00 98.0 92 19 139/65 96 01/06/17 01:57 96/60 Automatic Cuff 01/06/17 00:00 97.6 72 20 89/54 99 01/05/17 20:48 92 Nasal Cannula 3.00 01/05/17 20:00 98.7 81 20 149/65 100 01/05/17 18:00 97.5 82 18 134/62 93 01/05/17 17:10 85 20 134/68 94 2 01/05/17 15:30 92 20 129/66 96 Room Air Physical Exam GENERAL: Obese, well-developed patient, in no apparent distress. SKIN: No rashes, ecchymoses or lesions. Cool and dry. HEAD: Atraumatic. Normocephalic. No temporal or scalp tenderness. EYES: Pupils equal round and reactive. Extraocular motions intact. No scleral icterus. No injection or drainage. ENT: Nose without bleeding, purulent drainage or septal hematoma. Throat without erythema, tonsillar hypertrophy or exudate. Uvula midline. Airway patent. NC in place. NECK: Trachea midline. Supple, nontender, no meningeal signs. CARDIOVASCULAR: RRR RESPIRATORY: Clear to auscultation. Breath sounds reduced in bases, R > L. GASTROINTESTINAL: Abdomen soft, non-tender, nondistended. MUSCULOSKELETAL: Extremities without clubbing, cyanosis, or edema. No joint tenderness, effusion, or edema noted. No calf tenderness. Negative Homans sign bilaterally. NEUROLOGICAL: Awake and alert. Grossly non focal Psych: cooperative IV line sites with no e.o infection. Laboratory Laboratory Tests Test 01/06/17 06:31 White Blood Count 23.4 Red Blood Count 2.59 Hemoglobin 7.6 Hematocrit 22.5 Mean Corpuscular Volume 86.7 Mean Corpuscular Hemoglobin 29.1 Mean Corpuscular Hemoglobin 33.6 Concent Red Cell Distribution Width 15.2 Platelet Count 239 Mean Platelet Volume 6.7 Neutrophils (%) (Auto) 90.1 Lymphocytes (%) (Auto) 6.4 Monocytes (%) (Auto) 2.9 Eosinophils (%) (Auto) 0.4 Basophils (%) (Auto) 0.2 Neutrophils # (Auto) 21.1 Lymphocytes # (Auto) 1.5 Monocytes # (Auto) 0.7 Eosinophils # (Auto) 0.1 Basophils # (Auto) 0.0 CBC Comment DIFF FINAL Differential Comment Sodium Level 132 Potassium Level 3.3 Chloride Level 95 Carbon Dioxide Level 28.3 Anion Gap 9 Blood Urea Nitrogen 13 Creatinine 1.03 Estimat Glomerular Filtration 53 Rate Random Glucose 124 Calcium Level 8.2 Magnesium Level 1.6 Iron Level 22 Total Iron Binding Capacity 255 Percent Iron Saturation 8.6 Date/Time Procedure Status Source Growth 01/05/17 12:02 Aerobic Blood Culture - Preliminary Resulted Blood Peripheral NO GROWTH IN 1 DAY 01/05/17 12:02 Anaerobic Blood Culture - Preliminary Resulted Blood Peripheral NO GROWTH IN 1 DAY Result Diagram: 01/06/17 0631 01/06/17 0631 Imaging Last Impressions Chest X-Ray 01/05/17 1145 Signed Impressions: Service Date/Time: Thursday, January 05, 2017 12:22 - CONCLUSION: 1. Chronic appearing interstitial changes appear stable the previous exam. Dandy Diaz MD CT Angiography 01/05/17 0000 Signed Impressions: Service Date/Time: Thursday, January 05, 2017 16:09 - CONCLUSION: 1. Limited evaluation due to respiratory motion. Pulmonary arteries are visualized to the proximal segmental level only without evidence for pulmonary embolism. More distal segmental and subsegmental pulmonary arteries are incompletely evaluated. 2. Patchy airspace consolidation in the right lower lobe and minimal airspace consolidation in the left lung base. Differential considerations include pneumonia versus aspiration. Angelo Mirza MD Assessment and Plan Assessment and Plan Sepsis present on admission Pneumonia likely source. ? CAP vs atypical vs Aspiration from GERD (reports regurgitation like symptoms) Acute COPD exacerbation Acute respiratory failure on NC Acute renal failure: likely sepsis, reports being on lasix as outpt ? meds related component. Obesity BMO 30.3 kg/m2 ? Obstructive sleep apnea. Recs Continue Zosyn IV Continue Vanco IV Continue Azithro ok to change to oral after swallow eval. Consult GI (change in voice, GERD/regurg like symptoms ? aspiration from GERD) Legionella urine Ag Pneumo Urinary Ag. Follow cultures Follow clinically. Consider 2 D ECHO ? cardiac component. Veronika Jennings MD Jan 06, 2017 15:04
[2017-01-06] MEDS: AZITHROMYCIN INJ 500 MG in SODIUM CHLOR 0.9% 250 ML INJ 250 ML IV SCH (17:19)
[2017-01-06] MEDS: VANCOMYCIN INJ 1,500 MG in SODIUM CHLORID 0.9% 500 ML INJ 500 ML IV SCH (17:24)
[2017-01-06] MEDS: ENOXAPARIN SODIUM 40 MG/0.4 ML SYRINGE SQ SCH (17:24)
[2017-01-06] MEDS: ATORVASTATIN 40 MG TAB PO SCH (21:01)
[2017-01-06] MEDS: TEMAZEPAM 15 MG CAP PO PRN (22:49)
[2017-01-07] VITALS (10 sets, daily range): BP systolic 125–161; BP diastolic 57–102; PULSE 77–113; RESP 18–20; TEMP 97.6–99; O2SAT 91–99
[2017-01-07] MEDS: LEVOTHYROXINE SODIUM 100 MCG TAB PO SCH (06:00)
[2017-01-07] MEDS: PIPERACIL-TAZO 3.375 GM PREMIX 50 ML IV SCH ×4 (06:26→22:01)
[2017-01-07] MEDS: SODIUM CHLOR 0.9% 1000 ML INJ 1,000 ML IV SCH ×2 (06:27→20:01)
[2017-01-07] MEDS: RESP: ALBUTEROL 2.5 MG/IPRATROPIUM 0.5 MG NEB (SCH) NEB ×3 (06:47→19:07)
[2017-01-07] MEDS: ALPRAZolam 0.25 MG TAB PO PRN (08:25)
[2017-01-07] MEDS: PROPRANOLOL HCL 20 MG TAB PO SCH (08:25)
[2017-01-07] MEDS: PANTOPRAZOLE SOD 40 MG DELAYED RELEASE TAB PO SCH (08:25)
[2017-01-07] MEDS: UMECLIDINIUM 62.5 MCG/VILANTEROL 25 MCG INHALER INH SCH (08:26)
[2017-01-07] MEDS: SUCRALFATE 1 GM TAB PO SCH ×4 (08:26→20:10)
[2017-01-07] MEDS: ALLOPURINOL 100 MG TAB PO SCH ×2 (08:26→20:02)
[2017-01-07] MEDS: DULoxetine HCl DR 60 MG CAP PO SCH (08:26)
[2017-01-07] MEDS: MORPHINE SULFATE 15 MG CONTROLLED RELEASE TAB PO SCH ×3 (08:26→16:52)
[2017-01-07] MEDS ORDERED: PROPRANOLOL HCL LA 60 MG CAP PO SCH (09:00)
[2017-01-07 09:57] LABS: BICARBONATE 20.9 MEQ/L (21.0-32.0); POTASSIUM 3.5 MEQ/L (3.5-5.1)
[2017-01-07 10:18] LABS: AUTOMATED NEUTROPHIL # 20.4 TH/MM3 (1.8-7.7); BASOPHIL % 0.1 % (0.0-2.0); EOSINOPHIL # 0.1 TH/MM3 (0-0.4); EOSINOPHIL % 0.4 % (0.0-4.0); HEMATOCRIT 26.9 % (35.0-46.0); HEMO FLAGS DIFF FINAL; LYMPH % 4.3 % (9.0-44.0); LYMPHOCYTE # 0.9 TH/MM3 (1.0-4.8); MEAN CELL VOLUME 88.2 FL (80.0-100.0); MEAN CORPUSCULAR HEMOGLOBIN 28.3 PG (27.0-34.0); MEAN CORPUSCULAR HGB CONC 32.1 % (32.0-36.0); MONO % 2.6 % (0.0-8.0); NEUT % 92.6 % (16.0-70.0); PLATELET COUNT 271 TH/MM3 (150-450); RED BLOOD COUNT 3.04 MIL/MM3 (4.00-5.30); RED CELL DISTRIBUTION WIDTH 15.2 % (11.6-17.2)
--- NOTE | 2017-01-07 10:48 | HHI.PR ---
Subjective Remarks has some back pain. no fever. has occasional dry cough. d/w . Objective Vitals Vital Signs Date Time Temp Pulse Resp B/P Pulse Ox O2 Delivery O2 Flow Rate FiO2 01/07/17 08:20 109 01/07/17 08:00 99.0 113 20 156/102 94 01/07/17 04:00 98.2 100 20 161/88 93 01/07/17 00:00 98.6 84 18 125/57 96 01/06/17 20:00 97.6 98 20 136/77 93 01/06/17 19:11 100 Nasal Cannula 2.00 01/06/17 19:04 86 01/06/17 16:00 98.0 88 18 147/66 93 01/06/17 11:56 98.1 73 18 138/64 98 I/O 01/06/17 01/06/17 01/06/17 01/07/17 01/07/17 01/07/17 07:00 15:00 23:00 07:00 15:00 23:00 Intake Total 120 ml 480 ml 2844 ml 0 ml Output Total 600 ml 400 ml Balance 120 ml -120 ml 2844 ml -400 ml Intake Oral 120 ml 480 ml 0 ml IV Total 2844 ml Output Urine Total 600 ml 400 ml # Voids 2 # Bowel Movements 1 1 0 Result Diagram: 01/07/17 0905 01/07/17 0905 Imaging Last Impressions Chest X-Ray 01/05/17 1145 Signed Impressions: Service Date/Time: Thursday, January 05, 2017 12:22 - CONCLUSION: 1. Chronic appearing interstitial changes appear stable the previous exam. Dandy Daiz MD CT Angiography 01/05/17 0000 Signed Impressions: Service Date/Time: Thursday, January 05, 2017 16:09 - CONCLUSION: 1. Limited evaluation due to respiratory motion. Pulmonary arteries are visualized to the proximal segmental level only without evidence for pulmonary embolism. More distal segmental and subsegmental pulmonary arteries are incompletely evaluated. 2. Patchy airspace consolidation in the right lower lobe and minimal airspace consolidation in the left lung base. Differential considerations include pneumonia versus aspiration. Angelo Mirza MD Objective Remarks GENERAL: This is a well-nourished, well-developed patient, in no apparent distress. CARDIOVASCULAR: Regular rate and regular rhythm without murmurs, gallops, or rubs. RESPIRATORY: diminished air entry in bases GASTROINTESTINAL: Abdomen soft, non-tender, nondistended. Normal, active bowel sounds MUSCULOSKELETAL: Extremities without clubbing, cyanosis, or edema. NEURO: Alert & Oriented x4 to person, place, time, situation. Moves all ext x4 Procedures none Medications and IVs Current Medications Sodium Chloride 1,000 ml @ 1,000 mls/hr Q1H ONCE IV Last administered on 12:45; Start 01/05/17 at 11:45; Stop 01/05/17 at 12:44; Status DC Sodium Chloride 800 ml @ 1,000 mls/hr Q48M ONCE IV Last administered on 14:47; Start 01/05/17 at 11:45; Stop 01/05/17 at 12:32; Status DC Piperacillin Sod/ Tazobactam Sod 100 ml @ 200 mls/hr ONCE ONCE IV Last administered on 01/05/17 12:45; Start 01/05/17 at 11:45; Stop 01/05/17 at 12:14 ; Status DC Vancomycin HCl/ Sodium Chloride (Vancomycin Inj/ NS 250 ml Inj) 250 ml @ 250 mls/hr ONCE ONCE IV Last administered on 01/05/17 13:04; Start 01/05/17 at 11 :45; Stop 01/05/17 at 12:44; Status DC Acetaminophen (Tylenol) 650 mg ONCE ONCE PO Last administered on 01/05/17 13: 05; Start 01/05/17 at 12:45; Stop 01/05/17 at 12:46; Status DC Acetaminophen (Tylenol) 650 mg Q4H PRN PO FEVER/ PAIN; Start 01/05/17 at 14:15 Ondansetron HCl 4 mg 4 mg Q8HR PRN IV PUSH NAUSEA; Start 01/05/17 at 14:15 Azithromycin 500 mg/Sodium Chloride 250 ml @ 250 mls/hr Q24H IV Last administered on 01/06/17 17:19; Start 01/05/17 at 17:00 Ceftriaxone Sodium/Sodium Chloride (Rocephin Inj/NS Inj) 100 ml @ 200 mls/hr Q24H IV Last administered on 01/05/17 18:21; Start 01/05/17 at 18:00; Stop 04/14 at 18:54; Status DC Albuterol/ Ipratropium (Duoneb Neb) 1 ampule Q6HR WHILE AWAKE NEB NEB Last administered on 01/07/17 06:47; Start 01/05/17 at 20:00 Albuterol Sulfate 1.25 mg 1.25 mg Q2HR NEB PRN NEB SOB/WHEEZING; Start at 14:15 Sodium Chloride (NS 1000 ml Inj) 1,000 ml @ 75 mls/hr [id number] IV Last administered on 01/07/17 06:27; Start 01/05/17 at 15:30 Allopurinol (Zyloprim) 100 mg BID PO Last administered on 01/07/17 08:26; Start 01/05/17 at 21:00 Alprazolam (Xanax) 0.25 mg TID PRN PO ANXIETY Last administered on 01/07/17 08 :25; Start 01/05/17 at 14:15 Atorvastatin Calcium (Lipitor) 40 mg HS PO Last administered on 01/06/17 21:01 ; Start 01/05/17 at 21:00 Duloxetine HCl (Cymbalta Dr) 60 mg DAILY PO Last administered on 01/07/17 08: 26; Start 01/06/17 at 09:00 Levothyroxine Sodium (Synthroid) 100 mcg DAILY@06 PO Last administered on 06:52; Start 01/06/17 at 06:00 Morphine Sulfate (Oramorph Sr) 15 mg TID PO Last administered on 01/07/17 08: 26; Start 01/05/17 at 18:00 Oxycodone/ Acetaminophen (Percocet 10-325 Mg) 1 tab Q4H PRN PO PAIN Last administered on 01/06/17 21:14; Start 01/05/17 at 18:00 Propranolol HCl (Inderal La) 60 mg DAILY PO ; Start 01/06/17 at 09:00; Stop 05/15 at 11:09; Status DC Sucralfate (Carafate) 1 gm QID PO Last administered on 01/07/17 08:26; Start 01/05/17 at 18:00 Temazepam (Restoril) 30 mg HS PRN PO INSOMNIA Last administered on 01/06/17 22 :49; Start 01/05/17 at 21:00 Pantoprazole Sodium 40 mg 40 mg DAILY PO Last administered on 01/07/17 08:25; Start 01/06/17 at 09:00 Magnesium Sulfate/ Dextrose (Magnesium Sulfate 1 Gm Premix) 100 ml @ 100 mls/ hr ONCE ONCE IV Last administered on 01/05/17 16:51; Start 01/05/17 at 16:00 ; Stop 01/05/17 at 16:59; Status DC Enoxaparin Sodium (Lovenox Inj) 40 mg Q24H SQ Last administered on 01/06/17 17 :24; Start 01/05/17 at 18:00 Iohexol 80 ml 80 ml STK-MED ONCE IV Last administered on 01/05/17 16:22; Start 01/05/17 at 16:22; Stop 01/05/17 at 16:23; Status DC Piperacillin Sod/ Tazobactam Sod (Zosyn 3.375 Gm Premix) 50 ml @ 100 mls/hr Q6H IV Last administered on 01/07/17 06:26; Start 01/06/17 at 00:00 Pneumococcal Polyvalent Vaccine 25 mcg 25 mcg ONCE ONCE IM Last administered on 01/06/17 08:47; Start 01/06/17 at 10:00; Stop 01/06/17 at 10:01; Status DC Pharmacy Profile Note (Vancomycin Consult Pharmacy) 0 ml @ 0 mls/hr UNSCH OTHER ; Start 01/06/17 at 14:00 Potassium Bicarb/ Potassium Chloride (K-Lyte Cl Eff) 25 meq ONCE ONCE PO Last administered on 01/06/17 17:23; Start 01/06/17 at 11:15; Stop 01/06/17 at 16:04; Status DC Propranolol HCl 20 mg 20 mg DAILY PO ; Start 01/07/17 at 09:00; Status UNV Vancomycin HCl/ Sodium Chloride (Vancomycin Inj/ NS 500 ml Inj) 515 ml @ 250 mls/hr Q24H IV Last administered on 01/06/17 17:24; Start 01/06/17 at 16:00 Miscellaneous Information SPECIFIC LAB TO BE DRAWN:VANCOMYCIN TROUGH DATE TO... ONCE ONCE .XX ; Start 01/08/17 at 15:45; Stop 01/08/17 at 15:46 Magnesium Hydroxide (Milk Of Magnesia Liq) 30 ml DAILY PRN PO CONSTIPATION; Start 01/06/17 at 16:15 Propranolol HCl (Inderal) 20 mg DAILY PO Last administered on 01/07/17t 08:25; Start 01/07/17 at 09:00 Guaifenesin (Robitussin Liq) 200 mg Q6H PRN PO COUGH; Start 01/06/17 at 16:15 A/P Assessment and Plan A/P - sepsis and acute respiratory failure due to pneumonia; bilateral lower lobes- suspect aspiration keep on oxygen to keep O2 sat >90%- continue neb treatment- continue with IV antibiotics- follow the cultures- ST and ID evaluation appreciated. GI consulted; d/w today and plan for EGD this afternoon. -hyponatremia-suspect due to pneumonia continue IV fluid- hold lasix for now- check the TSH level- monitor the sodium level; BMP in am -anemia- acute on chronic - due to dilution/IV fluid- H/H fairly stable- stool for blood pending. -hypomagnesemia; replaced -hypokalemia; replaced. -hypertension- continue propranolol with holding parameters. -consulted PT -DVT prophylaxis with subq Lovenox Discharge Planning rehab was offered but she wants to try HHC first; will consult case management. Sarah Santana MD Jan 07, 2017 10:48
--- NOTE | 2017-01-07 11:22 | MB ---
cc: VU MOORE MD, HARRY M.D. DATE OF CONSULTATION: 01/07/2017 DATE OF : 1945 HISTORY OF PRESENT ILLNESS The patient is a 71-year-old white female I was asked to see for further evaluation and management of dysphagia. She has had problems with dysphagia for about a year. She says solids will hesitate at the level of the upper esophageal sphincter. Liquids have never been a problem. No definite coughing or choking or gagging, just hesitation. A modified barium swallow this past April revealed no abnormalities. A bedside swallowing evaluation last evening revealed no abnormalities. Panendoscopy with esophageal dilation to 16 mm on December 01 of this year did not improve her symptoms. Richard's esophagus was noted at that time. PAST MEDICAL HISTORY She was admitted with sepsis and hypoxia with chest pain. History otherwise of hypertension, dyslipidemia, chronic back pain, hypothyroidism. PAST SURGICAL HISTORY 1. Hysterectomy. 2. Multiple back surgeries. MEDICATIONS Medications on admission: 1. Flonase. 2. Omeprazole 40 mg daily. 3. Propranolol 60 mg daily. 4. Sucralfate one gram q.i.d. 5. Dexilant 60 mg daily. 6. Percocet. 7. Anoro Ellipta inhaler. 8. Hydroxyzine. 9. Atorvastatin. 10.Allopurinol 100 mg b.i.d. 11.Alprazolam 0.25 mg t.i.d. p.r.n. 12.Combivent. 13.Cymbalta 60 mg daily. 14.Furosemide 40 mg daily. 15.Levothyroxine 100 mcg daily. 16.Morphine 15 mg t.i.d. 17.Temazepam 30 mg q.h.s. p.r.n. 18.Tizanidine 4 mg t.i.d. ALLERGIES CODEINE. SOCIAL HISTORY Tobacco use none. Alcohol use none. FAMILY HISTORY Stomach cancer in her mother. No colon cancer in the family. REVIEW OF SYSTEMS She has had some chest discomfort with respiratory difficulties but is breathing more normally today. No recent headaches or vision difficulties. No history of seizures or strokes. No early satiety. No bowel irregularities. Her last colonoscopy she tells me was normal 4-5 years ago. No history of liver or pancreatic disease. PHYSICAL EXAMINATION VITAL SIGNS: Temperature 99, pulse 109, respiratory rate 20, blood pressure 156/102. GENERAL: She is alert. She is oriented x3. HEENT: She is anicteric. Extraocular motions are intact. LYMPHATIC: I appreciate no submandibular, cervical, supraclavicular, axillary or epitrochlear adenopathy. LUNGS: Clear to auscultation except for minimal coarse breath sounds at the right base. ABDOMEN: Good bowel sounds with no appreciable bruit. The abdomen is soft and there is very minimal epigastric tenderness. No masses or hepatosplenomegaly are noted. EXTREMITIES: No pedal edema, Dupuytren's contractures or palmar erythema. RADIOLOGIC STUDIES CT angiogram revealed no evidence of pulmonary embolism, patchy airspace consolidation noted in the right lower lobe with minimal airspace consolidation in the left lung base. LABORATORY STUDIES Today's white count is 22 with a hemoglobin of 0.6 and platelet count of 271. MCV is 88.2. INR is 1.5. Sodium 129, potassium 3.5, BUN 10, creatinine 1.02. Iron 22, TIBC 255, saturation 8.6%. AST is mildly elevated at 66 with a normal ALT. Alkaline phosphatase is a bit elevated at 165. Bilirubin is 0.3. Albumin 3.4. Lipase 91. Troponin less than 0.02. IMPRESSION AND PLAN Dysphagia for about a year for solids with hesitation at the level of the upper esophageal sphincter. A modified barium swallow and repeat bedside speech pathology evaluations have revealed no problems with the oropharyngeal structures, no Zenker's diverticulum was found. Dilation to 16 mm just over a month ago did not improve symptoms. We discussed the possibility of cricopharyngeal achalasia requiring a larger size dilator to help symptoms. Will schedule panendoscopy with esophageal dilation today. I reviewed the procedure with the patient, including potential risks of medication reaction, bleeding, perforation and a small chance of missing a lesion. I discussed again with the patient today that if this is a muscular disorder that from here forward she needs to avoid cold fluids and ice fluids and drink warm or room arm temperature liquids before and with any pills and meals. With respect to the iron deficiency anemia this can be evaluated further as an outpatient when she follows up with Dr. Escobedo. MD JORGE LUIS Servin/JAMES /10:57 AM /11:11 AM
--- NOTE | 2017-01-07 14:12 | GIPROC ---
[facility] [address] [facility]. [facility], [address] EGD PROCEDURE REPORT EXAM DATE: 01/07/2017 PATIENT NAME: Ashley Craig MR #: [id number] BIRTHDATE: 1945 ATTENDING: Zen Albert MD ORDER #: [id number] FIELD APPRAISER: Jose Vallejo and Juli Fischer STATUS: inpatient INDICATIONS: The patient is a 71 yr old female here for an EGD due to dysphagia at the level of the upper esophageal sphincter for the past year. A modified barium swallow was normal in April,. She noticed no improvement after esophageal dilation to 16mm on December 01, 2016. PROCEDURE PERFORMED: EGD with guidewire insertion/esophageal dilation MEDICATIONS: Per Anesthesia. TOPICAL ANESTHETIC: None CONSENT: The patient understands the risks and benefits of the procedure and understands that these risks include, but are not limited to: sedation, allergic reaction, infection, perforation and/or bleeding. Alternative means of evaluation and treatment include, among others: physical exam, x-rays, and/or surgical intervention. The patient elects to proceed with this endoscopic procedure. medical equipment was checked for proper function. Hand hygiene and appropriate measures for infection prevention was taken. After the risks, benefits and alternatives of the procedure were thoroughly explained, Informed consent was verified, confirmed and timeout was successfully executed by the treatment team. The patient was anesthetized with topical anesthesia and the Pentax EG-[id number] endoscope was introduced through the mouth and advanced to the second portion of the duodenum. Retroflexion was performed The gastroscope was then slowly withdrawn and removed. A short segment of Richard's mucosa was noted form 35-36cm; this was biopsied on December 02. No esophagel stricture or ring or inflammation were noted. 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 The stomach, pylorus and duodenum appeared normal. ADVERSE EVENTS: There were no complications. 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 Avoid cold fluid/foods and drink warm liquid, especially before and with pills and meals. PATIENT CONDITION: stable DISPOSITION: Inpatient REPEAT EXAM: Repeat EGD/dilation as symptoms requrie. Zen Albert MD eSigned: Zen Albert MD 01/07/2017 2:11 PM cc: PATIENT NAME: Ashley Craig MR#: [id number]
[2017-01-07] MEDS: oxyCODONE/ACETAMINOPHEN 10 MG/325 MG TAB PO PRN ×2 (15:13→20:13)
[2017-01-07] MEDS: VANCOMYCIN INJ 1,500 MG in SODIUM CHLORID 0.9% 500 ML INJ 500 ML IV SCH (15:17)
[2017-01-07] MEDS: AZITHROMYCIN INJ 500 MG in SODIUM CHLOR 0.9% 250 ML INJ 250 ML IV SCH (16:52)
[2017-01-07] MEDS: ENOXAPARIN SODIUM 40 MG/0.4 ML SYRINGE SQ SCH (16:52)
--- NOTE | 2017-01-07 17:19 | EKG ---
Date Performed: 01/05/2017 Time Performed: 13:18:29 PTAGE: 71 years EKG: Sinus rhythm WITH OCCASIONAL VENTRICULAR PREMATURE COMPLEXES LEFT BUNDLE BRANCH BLOCK ABNORMAL ECG PREVIOUS TRACING : 08/06/2016 18.03 Compared to prior tracing no significant change DOCTOR: Paul Barker Interpretating Date/Time 01/07/2017 17:18:41
[2017-01-07] MEDS ORDERED: PROPOFOL 200 MG/20 ML AMP IV ONE (17:40)
[2017-01-07] MEDS: ATORVASTATIN 40 MG TAB PO SCH (20:02)
[2017-01-07] MEDS: TEMAZEPAM 15 MG CAP PO PRN (22:00)
[2017-01-08] VITALS (8 sets, daily range): BP systolic 146–180; BP diastolic 71–98; PULSE 76–99; RESP 18–20; TEMP 97.8–98; O2SAT 95–99
[2017-01-08] MEDS: PIPERACIL-TAZO 3.375 GM PREMIX 50 ML IV SCH (06:15)
[2017-01-08] MEDS: LEVOTHYROXINE SODIUM 100 MCG TAB PO SCH (06:15)
--- NOTE | 2017-01-08 07:11 | HHI.GIFU ---
GI Follow-up Note Consult Follow-up Subjective: Patient lying in bed comfortably, no new complaints except discomfort with swallowing post-dilation to 18mm, but she feels the swallowing is easier. Objective: PHYSICAL EXAMINATION: Vitals signs stable No fever HEENT: EOMI NECK: Neck is supple, no crepitus or tenderness CAR SWEEPER: alert and oriented times three. Available Data (labs, X- Rays, Procedues) : ASSESSMENT/PLAN:Dysphagia has improved, post-dilation; she has mild discomfort with swallowing; I suggest chloraseptic or Sucrects lozenges; her will bring these in from home. OK to d/c from GI standpoint. She has been advised again to avoid cold fluid/foods and to drink warm liquid, especially before and with pills and meals. It was a pleasure seeing Ashley Craig. Entered by: Zen Maradiaga MD Jan 08, 2017 07:11
[2017-01-08] MEDS: PROPRANOLOL HCL 20 MG TAB PO SCH ×2 (07:36→21:05)
[2017-01-08] MEDS: MORPHINE SULFATE 15 MG CONTROLLED RELEASE TAB PO SCH ×3 (07:37→16:48)
[2017-01-08] MEDS: ALLOPURINOL 100 MG TAB PO SCH ×2 (07:37→21:04)
[2017-01-08] MEDS: SUCRALFATE 1 GM TAB PO SCH ×4 (07:37→21:04)
[2017-01-08] MEDS: PANTOPRAZOLE SOD 40 MG DELAYED RELEASE TAB PO SCH (07:37)
[2017-01-08] MEDS: DULoxetine HCl DR 60 MG CAP PO SCH (07:37)
[2017-01-08] MEDS: SODIUM CHLOR 0.9% 1000 ML INJ 1,000 ML IV SCH ×2 (07:41→23:30)
[2017-01-08] MEDS: UMECLIDINIUM 62.5 MCG/VILANTEROL 25 MCG INHALER INH SCH (07:41)
[2017-01-08] MEDS: RESP: ALBUTEROL 2.5 MG/IPRATROPIUM 0.5 MG NEB (SCH) NEB ×3 (08:11→20:09)
[2017-01-08 10:07] LABS: AUTOMATED NEUTROPHIL # 8.7 TH/MM3 (1.8-7.7); BASOPHIL % 0.2 % (0.0-2.0); EOSINOPHIL # 0.1 TH/MM3 (0-0.4); EOSINOPHIL % 1.3 % (0.0-4.0); HEMATOCRIT 24.9 % (35.0-46.0); HEMO FLAGS DIFF FINAL; LYMPH % 13.9 % (9.0-44.0); LYMPHOCYTE # 1.5 TH/MM3 (1.0-4.8); MEAN CELL VOLUME 87.8 FL (80.0-100.0); MEAN CORPUSCULAR HEMOGLOBIN 29.7 PG (27.0-34.0); MEAN CORPUSCULAR HGB CONC 33.9 % (32.0-36.0); NEUT % 80.6 % (16.0-70.0); PLATELET COUNT 231 TH/MM3 (150-450); RED BLOOD COUNT 2.83 MIL/MM3 (4.00-5.30); RED CELL DISTRIBUTION WIDTH 15.1 % (11.6-17.2); WHITE BLOOD COUNT 10.7 TH/MM3 (4.0-11.0)
[2017-01-08 10:23] LABS: BICARBONATE 25.2 MEQ/L (21.0-32.0); POTASSIUM 3.2 MEQ/L (3.5-5.1)
[2017-01-08] MEDS: oxyCODONE/ACETAMINOPHEN 10 MG/325 MG TAB PO PRN ×2 (10:29→21:09)
--- NOTE | 2017-01-08 10:30 | HHI.PR ---
Subjective Remarks in no acute distress. still with exertional dyspnea. no fever. says that overall she's feeling better. Objective Vitals Vital Signs Date Time Temp Pulse Resp B/P Pulse Ox O2 Delivery O2 Flow Rate FiO2 01/08/17 08:12 Nasal Cannula 3.00 01/08/17 08:10 86 01/08/17 08:00 98.0 84 20 163/81 96 01/08/17 05:00 97.9 84 18 146/94 96 01/08/17 00:00 97.8 76 18 152/98 95 01/07/17 23:29 77 01/07/17 20:00 97.6 87 20 150/100 96 01/07/17 19:07 91 21 01/07/17 16:00 98.1 88 20 127/66 99 01/07/17 14:20 91 18 162/74 100 01/07/17 14:09 87 16 149/84 100 01/07/17 14:04 97.6 91 16 157/83 100 01/07/17 12:29 98 Nasal Cannula 3.00 01/07/17 11:59 97.7 92 20 161/97 93 I/O 01/07/17 01/07/17 01/07/17 01/08/17 01/08/17 01/08/17 07:00 15:00 23:00 07:00 15:00 23:00 Intake Total 0 ml 200 ml 240 ml 240 ml Output Total 400 ml 300 ml 1000 ml Balance -400 ml 200 ml -60 ml -760 ml Intake Oral 0 ml 240 ml 240 ml IV Total 200 ml Output Urine Total 400 ml 300 ml 1000 ml # Voids 6 # Bowel Movements 0 2 1 0 Result Diagram: 01/08/17 0949 01/07/17 0905 Imaging Last Impressions Chest X-Ray 01/05/17 1145 Signed Impressions: Service Date/Time: Thursday, January 05, 2017 12:22 - CONCLUSION: 1. Chronic appearing interstitial changes appear stable the previous exam. Dandy Diaz MD CT Angiography 01/05/17 0000 Signed Impressions: Service Date/Time: Thursday, January 05, 2017 16:09 - CONCLUSION: 1. Limited evaluation due to respiratory motion. Pulmonary arteries are visualized to the proximal segmental level only without evidence for pulmonary embolism. More distal segmental and subsegmental pulmonary arteries are incompletely evaluated. 2. Patchy airspace consolidation in the right lower lobe and minimal airspace consolidation in the left lung base. Differential considerations include pneumonia versus aspiration. Angelo Mirza MD Objective Remarks GENERAL: This is a well-nourished, well-developed patient, in no apparent distress. CARDIOVASCULAR: Regular rate and regular rhythm without murmurs, gallops, or rubs. RESPIRATORY: diminished air entry in bases GASTROINTESTINAL: Abdomen soft, non-tender, nondistended. Normal, active bowel sounds MUSCULOSKELETAL: Extremities without clubbing, cyanosis, or edema. NEURO: Alert & Oriented x4 to person, place, time, situation. Moves all ext x4 Procedures none Medications and IVs Current Medications Sodium Chloride 1,000 ml @ 1,000 mls/hr Q1H ONCE IV Last administered on 12:45; Start 01/05/17 at 11:45; Stop 01/05/17 at 12:44; Status DC Sodium Chloride 800 ml @ 1,000 mls/hr Q48M ONCE IV Last administered on 14:47; Start 01/05/17 at 11:45; Stop 01/05/17 at 12:32; Status DC Piperacillin Sod/ Tazobactam Sod 100 ml @ 200 mls/hr ONCE ONCE IV Last administered on 01/05/17 12:45; Start 01/05/17 at 11:45; Stop 01/05/17 at 12:14 ; Status DC Vancomycin HCl/ Sodium Chloride (Vancomycin Inj/ NS 250 ml Inj) 250 ml @ 250 mls/hr ONCE ONCE IV Last administered on 01/05/17 13:04; Start 01/05/17 at 11 :45; Stop 01/05/17 at 12:44; Status DC Acetaminophen (Tylenol) 650 mg ONCE ONCE PO Last administered on 01/05/17 13: 05; Start 01/05/17 at 12:45; Stop 01/05/17 at 12:46; Status DC Acetaminophen (Tylenol) 650 mg Q4H PRN PO FEVER/ PAIN; Start 01/05/17 at 14:15 Ondansetron HCl 4 mg 4 mg Q8HR PRN IV PUSH NAUSEA Last administered on 20:03; Start 01/05/17 at 14:15 Azithromycin 500 mg/Sodium Chloride 250 ml @ 250 mls/hr Q24H IV Last administered on 01/07/17 16:52; Start 01/05/17 at 17:00; Stop 01/08/17 at 09:36 ; Status DC Ceftriaxone Sodium/Sodium Chloride (Rocephin Inj/NS Inj) 100 ml @ 200 mls/hr Q24H IV Last administered on 01/05/17 18:21; Start 01/05/17 at 18:00; Stop 04/14 at 18:54; Status DC Albuterol/ Ipratropium (Duoneb Neb) 1 ampule Q6HR WHILE AWAKE NEB NEB Last administered on 01/08/17 08:11; Start 01/05/17 at 20:00 Albuterol Sulfate 1.25 mg 1.25 mg Q2HR NEB PRN NEB SOB/WHEEZING; Start at 14:15 Sodium Chloride (NS 1000 ml Inj) 1,000 ml @ 75 mls/hr [id number] IV Last administered on 01/08/17 07:41; Start 01/05/17 at 15:30 Allopurinol (Zyloprim) 100 mg BID PO Last administered on 01/08/17 07:37; Start 01/05/17 at 21:00 Alprazolam (Xanax) 0.25 mg TID PRN PO ANXIETY Last administered on 01/07/17 08 :25; Start 01/05/17 at 14:15 Atorvastatin Calcium (Lipitor) 40 mg HS PO Last administered on 01/07/17 20:02 ; Start 01/05/17 at 21:00 Duloxetine HCl (Cymbalta Dr) 60 mg DAILY PO Last administered on 01/08/17 07: 37; Start 01/06/17 at 09:00 Levothyroxine Sodium (Synthroid) 100 mcg DAILY@06 PO Last administered on 06:15; Start 01/06/17 at 06:00 Morphine Sulfate (Oramorph Sr) 15 mg TID PO Last administered on 01/08/17 07: 37; Start 01/05/17 at 18:00 Oxycodone/ Acetaminophen (Percocet 10-325 Mg) 1 tab Q4H PRN PO PAIN Last administered on 01/07/17 20:13; Start 01/05/17 at 18:00 Propranolol HCl (Inderal La) 60 mg DAILY PO ; Start 01/06/17 at 09:00; Stop 05/15 at 11:09; Status DC Sucralfate (Carafate) 1 gm QID PO Last administered on 01/08/17 07:37; Start 01/05/17 at 18:00 Temazepam (Restoril) 30 mg HS PRN PO INSOMNIA Last administered on 01/07/17 22 :00; Start 01/05/17 at 21:00 Pantoprazole Sodium 40 mg 40 mg DAILY PO Last administered on 01/08/17 07:37; Start 01/06/17 at 09:00 Magnesium Sulfate/ Dextrose (Magnesium Sulfate 1 Gm Premix) 100 ml @ 100 mls/ hr ONCE ONCE IV Last administered on 01/05/17 16:51; Start 01/05/17 at 16:00 ; Stop 01/05/17 at 16:59; Status DC Enoxaparin Sodium (Lovenox Inj) 40 mg Q24H SQ Last administered on 01/07/17 16 :52; Start 01/05/17 at 18:00 Iohexol 80 ml 80 ml STK-MED ONCE IV Last administered on 01/05/17 16:22; Start 01/05/17 at 16:22; Stop 01/05/17 at 16:23; Status DC Piperacillin Sod/ Tazobactam Sod (Zosyn 3.375 Gm Premix) 50 ml @ 100 mls/hr Q6H IV Last administered on 01/08/17 06:15; Start 01/06/17 at 00:00; Stop at 09:36; Status DC Pneumococcal Polyvalent Vaccine 25 mcg 25 mcg ONCE ONCE IM Last administered on 01/06/17 08:47; Start 01/06/17 at 10:00; Stop 01/06/17 at 10:01; Status DC Pharmacy Profile Note (Vancomycin Consult Pharmacy) 0 ml @ 0 mls/hr UNSCH OTHER ; Start 01/06/17 at 14:00; Stop 01/08/17 at 09:36; Status DC Potassium Bicarb/ Potassium Chloride (K-Lyte Cl Eff) 25 meq ONCE ONCE PO Last administered on 01/06/17 17:23; Start 01/06/17 at 11:15; Stop 01/06/17 at 16:04; Status DC Propranolol HCl 20 mg 20 mg DAILY PO ; Start 01/07/17 at 09:00; Status UNV Vancomycin HCl/ Sodium Chloride (Vancomycin Inj/ NS 500 ml Inj) 515 ml @ 250 mls/hr Q24H IV Last administered on 01/07/17 15:17; Start 01/06/17 at 16:00; Stop 01/08/17 at 09:36; Status DC Miscellaneous Information SPECIFIC LAB TO BE DRAWN:VANCOMYCIN TROUGH DATE TO... ONCE ONCE .XX ; Start 01/08/17 at 15:45; Stop 01/08/17 at 15:46; Status Cancel Magnesium Hydroxide (Milk Of Magnesia Liq) 30 ml DAILY PRN PO CONSTIPATION; Start 01/06/17 at 16:15 Propranolol HCl (Inderal) 20 mg DAILY PO Last administered on 01/08/17t 07:36; Start 01/07/17 at 09:00 Guaifenesin (Robitussin Liq) 200 mg Q6H PRN PO COUGH; Start 01/06/17 at 16:15 Propofol 100 mg 100 mg STK-MED ONCE IV ; Start 01/07/17 at 17:40; Stop 01/07/17 at 17:41; Status DC Ampicillin Sodium/ Sulbactam Sodium/ Sodium Chloride (Unasyn Inj/NS Inj) 100 ml @ 200 mls/hr Q6H IV ; Start 01/08/17 at 10:00 A/P Assessment and Plan A/P - sepsis and acute respiratory failure due to pneumonia; bilateral lower lobes- suspect aspiration keep on oxygen to keep O2 sat >90%- continue neb treatment- continue with IV antibiotics- blood cultures negative. ST and ID evaluation appreciated. GI consulted; s/p EGD with Cricopharyngeal achalasia/esophageal dysmotility -hyponatremia-suspect due to pneumonia continue IV fluid- hold lasix for now- - monitor the sodium level; BMP in am -hypothyroidism with low TSH level- needs to be treated in 2-3 wks - -anemia- acute on chronic - due to dilution/IV fluid- H/H fairly stable- stool for blood pending. -hypomagnesemia; replaced -hypokalemia; replaced. -hypertension- increase propranolol with holding parameters. -consulted PT -DVT prophylaxis with subq Lovenox Discharge Planning possible dc to rehab vs home with HHC within the next one-tow days if stable and cleared by ID. Sarah Santana MD Jan 08, 2017 10:30
[2017-01-08] MEDS: AMPICILLIN-SULBACTAM INJ 1,500 MG in SODIUM CHLORIDE 0.9% INJ 100 ML IV SCH ×3 (10:34→21:08)
[2017-01-08] MEDS: guaiFENesin SOLUTION 200 MG/10 ML CUP PO PRN ×2 (10:58→21:13)
[2017-01-08] MEDS ORDERED: PHARMACY ORDERED LAB ONE (15:45)
--- NOTE | 2017-01-08 15:51 | HHI.IDPN ---
Subjective Subjective Remarks is a 71 y/o CF with h/o laryngitis, GERD like symptoms, difficulty swallowing solid foods. Admitted with pneumonia. Overnight events reviewed. s/p GI procedure: Dilatation of esophagus. No fever No rash No diarrhea Off NC oxygen Antibiotics Zosyn IV Vanco IV Azithro IV Lines Line sites with no e/o infection Past Medical History reviewed Allergies: Coded Allergies: Codeine (Verified Allergy, Intermediate, RASH, 12/03/16) Objective . Vital Signs Date Time Temp Pulse Resp B/P Pulse Ox O2 Delivery O2 Flow Rate FiO2 01/08/17 12:00 98.0 80 18 149/71 97 01/08/17 08:12 Nasal Cannula 3.00 01/08/17 08:10 86 01/08/17 08:00 98.0 84 20 163/81 96 01/08/17 05:00 97.9 84 18 146/94 96 01/08/17 00:00 97.8 76 18 152/98 95 01/07/17 23:29 77 01/07/17 20:00 97.6 87 20 150/100 96 01/07/17 19:07 91 21 01/07/17 16:00 98.1 88 20 127/66 99 01/07/17 01/07/17 01/08/17 15:00 23:00 07:00 Intake Total 200 ml 240 ml 240 ml Output Total 300 ml 1000 ml Balance 200 ml -60 ml -760 ml Intake Oral 240 ml 240 ml IV Total 200 ml Output Urine Total 300 ml 1000 ml # Voids 6 # Bowel Movements 2 1 0 . Laboratory Tests Test 01/07/17 01/08/17 09:05 09:49 White Blood Count 22.0 TH/MM3 10.7 TH/MM3 Red Blood Count 3.04 MIL/MM3 2.83 MIL/MM3 Hemoglobin 8.6 GM/DL 8.4 GM/DL Hematocrit 26.9 % 24.9 % Mean Corpuscular Volume 88.2 FL 87.8 FL Mean Corpuscular Hemoglobin 28.3 PG 29.7 PG Mean Corpuscular Hemoglobin 32.1 % 33.9 % Concent Red Cell Distribution Width 15.2 % 15.1 % Platelet Count 271 TH/MM3 231 TH/MM3 Mean Platelet Volume 6.8 FL 6.8 FL Neutrophils (%) (Auto) 92.6 % 80.6 % Lymphocytes (%) (Auto) 4.3 % 13.9 % Monocytes (%) (Auto) 2.6 % 4.0 % Eosinophils (%) (Auto) 0.4 % 1.3 % Basophils (%) (Auto) 0.1 % 0.2 % Neutrophils # (Auto) 20.4 TH/MM3 8.7 TH/MM3 Lymphocytes # (Auto) 0.9 TH/MM3 1.5 TH/MM3 Monocytes # (Auto) 0.6 TH/MM3 0.4 TH/MM3 Eosinophils # (Auto) 0.1 TH/MM3 0.1 TH/MM3 Basophils # (Auto) 0.0 TH/MM3 0.0 TH/MM3 CBC Comment DIFF FINAL DIFF FINAL Differential Comment Laboratory Tests Test 01/07/17 01/08/17 09:05 09:49 Sodium Level 129 MEQ/L 133 MEQ/L Potassium Level 3.5 MEQ/L 3.2 MEQ/L Chloride Level 97 MEQ/L 99 MEQ/L Carbon Dioxide Level 20.9 MEQ/L 25.2 MEQ/L Anion Gap 11 MEQ/L 9 MEQ/L Blood Urea Nitrogen 10 MG/DL 8 MG/DL Creatinine 1.02 MG/DL 0.91 MG/DL Estimat Glomerular Filtration 53 ML/MIN 61 ML/MIN Rate Random Glucose 104 MG/DL 116 MG/DL Calcium Level 9.4 MG/DL 9.1 MG/DL Thyroid Stimulating Hormone 0.153 uIU/ML 3rd Gen Imaging Last Impressions Chest X-Ray 01/05/17 1145 Signed Impressions: Service Date/Time: Thursday, January 05, 2017 12:22 - CONCLUSION: 1. Chronic appearing interstitial changes appear stable the previous exam. Dandy Diaz MD CT Angiography 01/05/17 0000 Signed Impressions: Service Date/Time: Thursday, January 05, 2017 16:09 - CONCLUSION: 1. Limited evaluation due to respiratory motion. Pulmonary arteries are visualized to the proximal segmental level only without evidence for pulmonary embolism. More distal segmental and subsegmental pulmonary arteries are incompletely evaluated. 2. Patchy airspace consolidation in the right lower lobe and minimal airspace consolidation in the left lung base. Differential considerations include pneumonia versus aspiration. Angelo Mirza MD Physical Exam GENERAL: Obese, well-developed patient, in no apparent distress. SKIN: No rashes, ecchymoses or lesions. Cool and dry. HEAD: Atraumatic. Normocephalic. No temporal or scalp tenderness. EYES: Pupils equal round and reactive. Extraocular motions intact. No scleral icterus. No injection or drainage. ENT: Nose without bleeding, purulent drainage or septal hematoma. Throat without erythema, tonsillar hypertrophy or exudate. Uvula midline. Airway patent. NC in place. NECK: Trachea midline. Supple, nontender, no meningeal signs. CARDIOVASCULAR: RRR RESPIRATORY: Clear to auscultation. Breath sounds reduced in bases, R > L. GASTROINTESTINAL: Abdomen soft, non-tender, nondistended. MUSCULOSKELETAL: Extremities without clubbing, cyanosis, or edema. No joint tenderness, effusion, or edema noted. No calf tenderness. Negative Homans sign bilaterally. NEUROLOGICAL: Awake and alert. Grossly non focal Psych: cooperative IV line sites with no e.o infection. Assessment & Plan Remarks Sepsis present on admission Pneumonia likely source. ? CAP vs atypical vs Aspiration from GERD (reports regurgitation like symptoms) Acute COPD exacerbation Acute respiratory failure on NC Acute renal failure: likely sepsis, reports being on lasix as outpt ? meds related component. Obesity BMO 30.3 kg/m2 ? Obstructive sleep apnea. Recs DC Zosyn IV DC Vanco IV DC Azithro ok to change to oral after swallow eval. Start Unasyn IV Ok to transition to oral augmentin liquid form on discharge. Follow cultures Follow clinically. Follow 2 D ECHO ? cardiac component. d/w : ok to DC from ID standpoint once SOB resolved and ECHO addressed. I will be OOT 01/09/2017 to 01/18/2017. to cover for me. Veronika Jennings MD Jan 08, 2017 15:51
[2017-01-08] MEDS: ENOXAPARIN SODIUM 40 MG/0.4 ML SYRINGE SQ SCH (16:47)
[2017-01-08] MEDS: ATORVASTATIN 40 MG TAB PO SCH (21:05)
[2017-01-08] MEDS: ALPRAZolam 0.25 MG TAB PO PRN (21:09)
[2017-01-09] VITALS (10 sets, daily range): BP systolic 157–190; BP diastolic 82–103; PULSE 81–96; RESP 18–22; TEMP 98.1–99; O2SAT 94–100
[2017-01-09] MEDS: AMPICILLIN-SULBACTAM INJ 1,500 MG in SODIUM CHLORIDE 0.9% INJ 100 ML IV SCH ×4 (05:01→20:50)
[2017-01-09] MEDS: LEVOTHYROXINE SODIUM 100 MCG TAB PO SCH (05:01)
[2017-01-09] MEDS: oxyCODONE/ACETAMINOPHEN 10 MG/325 MG TAB PO PRN (05:01)
--- NOTE | 2017-01-09 07:19 | RADRPT ---
EXAM DATE/TIME: 01/09/2017 06:40 [facility] COMPARISON: CT PULMONARY ANGIOGRAM, January 05, 2017, 16:09. CHEST SINGLE AP, January 05, 2017, 12:22. INDICATIONS : Short of breath, abnormal CT demonstrating patchy air space consolidation in the right lower lobe and possible pneumonia. MEDICAL HISTORY : Cardiovascular disease. Hypertension SURGICAL HISTORY : Cholecystectomy. Appendectomy. Hysterectomy. ENCOUNTER: Subsequent ACUITY: 2 days PAIN SCORE: 3/10 LOCATION: Bilateral chest FINDINGS: A single AP portable erect view of the chest was obtained again demonstrate mild patchy opacity in th e lung bases left slightly greater than right. There is no focal consolidation or effusion. There is mild eventration right hemidiaphragm. The heart size remains within normal limits. The bony thorax is intact with degenerative change again noted in the right glenohumeral joint. CONCLUSION: 1. Mild patchy opacity the lung bases left slightly greater than right with no focal consolidation vi sualized on this single view study. 2. Degenerative change in the right glenohumeral joint. Nick Marshall MD on January 09, 2017 at 7:16 Board Certified Radiologist. This report was verified electronically.
[2017-01-09] MEDS: RESP: ALBUTEROL 2.5 MG/IPRATROPIUM 0.5 MG NEB (SCH) NEB ×3 (08:47→19:05)
[2017-01-09] MEDS: UMECLIDINIUM 62.5 MCG/VILANTEROL 25 MCG INHALER INH SCH (09:00)
[2017-01-09] MEDS: SUCRALFATE 1 GM TAB PO SCH ×4 (09:33→20:49)
[2017-01-09] MEDS: ALLOPURINOL 100 MG TAB PO SCH ×2 (09:33→20:48)
[2017-01-09] MEDS: MORPHINE SULFATE 15 MG CONTROLLED RELEASE TAB PO SCH ×3 (09:33→16:14)
[2017-01-09] MEDS: PROPRANOLOL HCL 20 MG TAB PO SCH ×2 (09:33→20:49)
[2017-01-09] MEDS: DULoxetine HCl DR 60 MG CAP PO SCH (09:33)
[2017-01-09] MEDS: PANTOPRAZOLE SOD 40 MG DELAYED RELEASE TAB PO SCH (09:33)
[2017-01-09] MEDS: SODIUM CHLOR 0.9% 1000 ML INJ 1,000 ML IV SCH (11:33)
--- NOTE | 2017-01-09 12:43 | HHI.PR ---
Subjective Remarks sob is improving slowly although still with exertional dyspnea. on three liters of oxygen via N/C. remain afebrile. d/w the RN. Objective Vitals Vital Signs Date Time Temp Pulse Resp B/P Pulse Ox O2 Delivery O2 Flow Rate FiO2 01/09/17 12:00 98.1 81 22 158/90 98 01/09/17 08:50 99 Nasal Cannula 3.00 01/09/17 08:00 99.0 88 18 173/103 100 01/09/17 04:00 98.1 84 18 157/82 95 01/09/17 00:00 98.2 96 18 164/87 96 01/08/17 20:10 95 21 01/08/17 20:00 98.0 99 18 180/85 95 01/08/17 20:00 97 01/08/17 14:00 97.8 87 18 164/89 99 I/O 01/08/17 01/08/17 01/08/17 01/09/17 01/09/17 01/09/17 06:59 14:59 22:59 06:59 14:59 22:59 Intake Total 480 ml 480 ml 1572 ml 822 ml Output Total 1400 ml 600 ml 300 ml Balance -920 ml -120 ml 1572 ml 522 ml Intake Oral 480 ml 480 ml 240 ml IV Total 1572 ml 582 ml Output Urine Total 1400 ml 600 ml 300 ml # Bowel Movements 2 0 1 Result Diagram: 01/08/17 0949 01/08/17 0949 Imaging Last Impressions Chest X-Ray 01/09/17 0600 Signed Impressions: Service Date/Time: Monday, January 09, 2017 06:40 - CONCLUSION: 1. Mild patchy opacity the lung bases left slightly greater than right with no focal consolidation visualized on this single view study. 2. Degenerative change in the right glenohumeral joint. Nick Marshall MD CT Angiography 01/05/17 0000 Signed Impressions: Service Date/Time: Thursday, January 05, 2017 16:09 - CONCLUSION: 1. Limited evaluation due to respiratory motion. Pulmonary arteries are visualized to the proximal segmental level only without evidence for pulmonary embolism. More distal segmental and subsegmental pulmonary arteries are incompletely evaluated. 2. Patchy airspace consolidation in the right lower lobe and minimal airspace consolidation in the left lung base. Differential considerations include pneumonia versus aspiration. Angelo Bozorgmanesh, MD Objective Remarks GENERAL: with mild sob CARDIOVASCULAR: Regular rate and regular rhythm without murmurs, gallops, or rubs. RESPIRATORY: diminished air entry in bases GASTROINTESTINAL: Abdomen soft, non-tender, nondistended. Normal, active bowel sounds MUSCULOSKELETAL: Extremities without clubbing, cyanosis, or edema. NEURO: Alert & Oriented x4 to person, place, time, situation. Moves all ext x4 Procedures none Medications and IVs Current Medications Sodium Chloride 1,000 ml @ 1,000 mls/hr Q1H ONCE IV Last administered on 12:45; Start 01/05/17 at 11:45; Stop 01/05/17 at 12:44; Status DC Sodium Chloride 800 ml @ 1,000 mls/hr Q48M ONCE IV Last administered on 14:47; Start 01/05/17 at 11:45; Stop 01/05/17 at 12:32; Status DC Piperacillin Sod/ Tazobactam Sod 100 ml @ 200 mls/hr ONCE ONCE IV Last administered on 01/05/17 12:45; Start 01/05/17 at 11:45; Stop 01/05/17 at 12:14 ; Status DC Vancomycin HCl/ Sodium Chloride (Vancomycin Inj/ NS 250 ml Inj) 250 ml @ 250 mls/hr ONCE ONCE IV Last administered on 01/05/17 13:04; Start 01/05/17 at 11 :45; Stop 01/05/17 at 12:44; Status DC Acetaminophen (Tylenol) 650 mg ONCE ONCE PO Last administered on 01/05/17 13: 05; Start 01/05/17 at 12:45; Stop 01/05/17 at 12:46; Status DC Acetaminophen (Tylenol) 650 mg Q4H PRN PO FEVER/ PAIN; Start 01/05/17 at 14:15 Ondansetron HCl 4 mg 4 mg Q8HR PRN IV PUSH NAUSEA Last administered on 20:03; Start 01/05/17 at 14:15 Azithromycin 500 mg/Sodium Chloride 250 ml @ 250 mls/hr Q24H IV Last administered on 01/07/17 16:52; Start 01/05/17 at 17:00; Stop 01/08/17 at 09:36 ; Status DC Ceftriaxone Sodium/Sodium Chloride (Rocephin Inj/NS Inj) 100 ml @ 200 mls/hr Q24H IV Last administered on 01/05/17 18:21; Start 01/05/17 at 18:00; Stop 04/14 at 18:54; Status DC Albuterol/ Ipratropium (Duoneb Neb) 1 ampule Q6HR WHILE AWAKE NEB NEB Last administered on 01/09/17 08:47; Start 01/05/17 at 20:00 Albuterol Sulfate 1.25 mg 1.25 mg Q2HR NEB PRN NEB SOB/WHEEZING; Start at 14:15 Sodium Chloride (NS 1000 ml Inj) 1,000 ml @ 75 mls/hr [id number] IV Last administered on 01/09/17 11:33; Start 01/05/17 at 15:30 Allopurinol (Zyloprim) 100 mg BID PO Last administered on 01/09/17 09:33; Start 01/05/17 at 21:00 Alprazolam (Xanax) 0.25 mg TID PRN PO ANXIETY Last administered on 01/08/17 21 :09; Start 01/05/17 at 14:15 Atorvastatin Calcium (Lipitor) 40 mg HS PO Last administered on 01/08/17 21:05 ; Start 01/05/17 at 21:00 Duloxetine HCl (Cymbalta Dr) 60 mg DAILY PO Last administered on 01/09/17 09: 33; Start 01/06/17 at 09:00 Levothyroxine Sodium (Synthroid) 100 mcg DAILY@06 PO Last administered on 05:01; Start 01/06/17 at 06:00 Morphine Sulfate (Oramorph Sr) 15 mg TID PO Last administered on 01/09/17 12: 22; Start 01/05/17 at 18:00 Oxycodone/ Acetaminophen (Percocet 10-325 Mg) 1 tab Q4H PRN PO PAIN Last administered on 01/09/17 05:01; Start 01/05/17 at 18:00 Propranolol HCl (Inderal La) 60 mg DAILY PO ; Start 01/06/17 at 09:00; Stop 05/15 at 11:09; Status DC Sucralfate (Carafate) 1 gm QID PO Last administered on 01/09/17 12:22; Start 01/05/17 at 18:00 Temazepam (Restoril) 30 mg HS PRN PO INSOMNIA Last administered on 01/07/17 22 :00; Start 01/05/17 at 21:00 Pantoprazole Sodium 40 mg 40 mg DAILY PO Last administered on 01/09/17 09:33; Start 01/06/17 at 09:00 Magnesium Sulfate/ Dextrose (Magnesium Sulfate 1 Gm Premix) 100 ml @ 100 mls/ hr ONCE ONCE IV Last administered on 01/05/17 16:51; Start 01/05/17 at 16:00 ; Stop 01/05/17 at 16:59; Status DC Enoxaparin Sodium (Lovenox Inj) 40 mg Q24H SQ Last administered on 01/08/17 16 :47; Start 01/05/17 at 18:00 Iohexol 80 ml 80 ml STK-MED ONCE IV Last administered on 01/05/17 16:22; Start 01/05/17 at 16:22; Stop 01/05/17 at 16:23; Status DC Piperacillin Sod/ Tazobactam Sod (Zosyn 3.375 Gm Premix) 50 ml @ 100 mls/hr Q6H IV Last administered on 01/08/17 06:15; Start 01/06/17 at 00:00; Stop at 09:36; Status DC Pneumococcal Polyvalent Vaccine 25 mcg 25 mcg ONCE ONCE IM Last administered on 01/06/17 08:47; Start 01/06/17 at 10:00; Stop 01/06/17 at 10:01; Status DC Pharmacy Profile Note (Vancomycin Consult Pharmacy) 0 ml @ 0 mls/hr UNSCH OTHER ; Start 01/06/17 at 14:00; Stop 01/08/17 at 09:36; Status DC Potassium Bicarb/ Potassium Chloride (K-Lyte Cl Eff) 25 meq ONCE ONCE PO Last administered on 01/06/17 17:23; Start 01/06/17 at 11:15; Stop 01/06/17 at 16:04; Status DC Propranolol HCl 20 mg 20 mg DAILY PO ; Start 01/07/17 at 09:00; Status UNV Vancomycin HCl/ Sodium Chloride (Vancomycin Inj/ NS 500 ml Inj) 515 ml @ 250 mls/hr Q24H IV Last administered on 01/07/17 15:17; Start 01/06/17 at 16:00; Stop 01/08/17 at 09:36; Status DC Miscellaneous Information SPECIFIC LAB TO BE DRAWN:VANCOMYCIN TROUGH DATE TO... ONCE ONCE .XX ; Start 01/08/17 at 15:45; Stop 01/08/17 at 15:46; Status Cancel Magnesium Hydroxide (Milk Of Magnesia Liq) 30 ml DAILY PRN PO CONSTIPATION; Start 01/06/17 at 16:15 Propranolol HCl (Inderal) 20 mg DAILY PO Last administered on 01/08/17 07:36; Start 01/07/17 at 09:00; Stop 01/08/17 at 10:31; Status DC Guaifenesin (Robitussin Liq) 200 mg Q6H PRN PO COUGH Last administered on 21:13; Start 01/06/17 at 16:15 Propofol 100 mg 100 mg STK-MED ONCE IV ; Start 01/07/17 at 17:40; Stop 01/07/17 at 17:41; Status DC Ampicillin Sodium/ Sulbactam Sodium/ Sodium Chloride (Unasyn Inj/NS Inj) 100 ml @ 200 mls/hr Q6H IV Last administered on 01/09/17 11:32; Start 01/08/17 at 10 :00 Propranolol HCl (Inderal) 20 mg BID PO Last administered on 01/09/17 09:33; Start 01/08/17 at 21:00 A/P Assessment and Plan A/P - sepsis and acute respiratory failure due to pneumonia; bilateral lower lobes- suspect aspiration keep on oxygen to keep O2 sat >90%- continue neb treatment- continue with IV antibiotics- blood cultures negative.echo pending. walk test today. ST and ID evaluation appreciated. GI consulted; s/p EGD with Cricopharyngeal achalasia/esophageal dysmotility -hyponatremia-suspect due to pneumonia-improved stop IV fluid- hold lasix for now- - -hypothyroidism with low TSH level- needs to be repeated in 2-3 wks - -anemia- acute on chronic - due to dilution/IV fluid- H/H fairly stable- stool for blood pending. -hypomagnesemia; replaced -hypokalemia; replaced. -hypertension- continue propranolol with holding parameters. -consulted PT -DVT prophylaxis with subq Lovenox Discharge Planning possible dc to rehab vs home with [facility] within the next one-two days if continues to improve. Sarah Santana MD Jan 09, 2017 12:42
[2017-01-09] MEDS: ALPRAZolam 0.25 MG TAB PO PRN (13:54)
[2017-01-09] MEDS: ENOXAPARIN SODIUM 40 MG/0.4 ML SYRINGE SQ SCH (16:15)
--- NOTE | 2017-01-09 18:09 | ECHRPT ---
Indication: sepsis CONCLUSIONS Poor echocardiographi windows The left ventricular systolic function is normal with an estimated ejection fraction in the range of 50-55%. Moderate mitral valve regurgitation. Mitral annular calcification is present. There is mild tricuspid valve regurgitation. There is estimated mild pulmonary hypertension present (53 mmHg). BP: 156 / 102 HR: 109 Rhythm: MEASUREMENTS (Male / Female) Normal Values Technical Quality: 2D ECHO LV Diastolic Diameter PLAX 4.0 cm 4.2 - 5.9 / 3.9 - 5.3 cm LV Systolic Diameter PLAX 3.1 cm IVS Diastolic Thickness 1.0 cm 0.6 - 1.0 / 0.6 - 0.9 cm LVPW Diastolic Thickness 0.8 cm 0.6 - 1.0 / 0.6 - 0.9 cm LV Relative Wall Thickness 0.4 RV Internal Dim ED PLAX 2.0 cm LA Systolic Diameter LX 3.8 cm 3.0 - 4.0 / 2.7 - 3.8 cm DOPPLER Mitral E Point Velocity 101.0 cm/s Mitral A Point Velocity 109.0 cm/s Mitral E to A Ratio 0.9 TR Peak Velocity 347.0 cm/s TR Peak Gradient 48.2 mmHg FINDINGS LEFT VENTRICLE Normal left ventricular size and wall thickness. The left ventricular systolic function is normal wi th an estimated ejection fraction in the range of 50-55%. Left ventricular diastolic function parameters a re normal. RIGHT VENTRICLE Normal right ventricular size and systolic function. LEFT ATRIUM The left atrial size is normal. RIGHT ATRIUM The right atrial size is normal. ATRIAL SEPTUM Normal atrial septal thickness without atrial level shunting by limited color doppler interrogation. AORTA The aortic root and proximal ascending aorta are normal in size on limited imaging. MITRAL VALVE Moderate mitral valve regurgitation. Mitral annular calcification is present. AORTIC VALVE Trileaflet aortic valve. No aortic valve stenosis or regurgitation. TRICUSPID VALVE There is mild tricuspid valve regurgitation. There is estimated mild pulmonary hypertension present (53 mmHg). PULMONARY VALVE The pulmonary valve is not well visualized. VESSELS The inferior vena cava is normal in size. PERICARDIUM No pericardial effusion. Peyman Fishman MD (Electronically Signed) Final Date:09 January 2017 18:08
[2017-01-09] MEDS: ATORVASTATIN 40 MG TAB PO SCH (20:48)
[2017-01-09] MEDS: TEMAZEPAM 15 MG CAP PO PRN (20:57)
[2017-01-10] VITALS (10 sets, daily range): BP systolic 141–185; BP diastolic 77–98; PULSE 84–101; RESP 18–21; TEMP 97.7–98.6; O2SAT 79–100
[2017-01-10] MEDS: guaiFENesin SOLUTION 200 MG/10 ML CUP PO PRN (02:39)
[2017-01-10] MEDS: LEVOTHYROXINE SODIUM 100 MCG TAB PO SCH (04:51)
[2017-01-10] MEDS: AMPICILLIN-SULBACTAM INJ 1,500 MG in SODIUM CHLORIDE 0.9% INJ 100 ML IV SCH ×4 (04:51→20:25)
[2017-01-10] MEDS ORDERED: METOPROLOL TARTRATE 25 MG TAB PO ONE (05:45)
[2017-01-10] MEDS: oxyCODONE/ACETAMINOPHEN 10 MG/325 MG TAB PO PRN ×2 (06:40→21:28)
[2017-01-10] MEDS: ALPRAZolam 0.25 MG TAB PO PRN ×2 (06:40→20:24)
[2017-01-10] MEDS: ALLOPURINOL 100 MG TAB PO SCH ×2 (09:05→20:24)
[2017-01-10] MEDS: SUCRALFATE 1 GM TAB PO SCH ×4 (09:06→20:24)
[2017-01-10] MEDS: MORPHINE SULFATE 15 MG CONTROLLED RELEASE TAB PO SCH ×3 (09:06→17:53)
[2017-01-10] MEDS: PROPRANOLOL HCL 20 MG TAB PO SCH (09:06)
[2017-01-10] MEDS: DULoxetine HCl DR 60 MG CAP PO SCH (09:06)
[2017-01-10] MEDS: PANTOPRAZOLE SOD 40 MG DELAYED RELEASE TAB PO SCH (09:06)
--- NOTE | 2017-01-10 11:04 | HHI.PR ---
Subjective Remarks f/u; pneumonia says that she's ' not feeling as good as yesterday '. noted that an elevated BP last night and received a dose of metoprolol. denies any chest pain . sob seems to be improving and pulse-ox stable on RA. d/w the RN. Objective Vitals Vital Signs Date Time Temp Pulse Resp B/P Pulse Ox O2 Delivery O2 Flow Rate FiO2 01/10/17 08:00 97.7 101 20 141/81 94 01/10/17 05:12 95 21 01/10/17 04:00 98.6 95 18 185/96 100 01/10/17 04:00 Nasal Cannula 2.00 01/10/17 00:00 Nasal Cannula 2.00 01/10/17 00:00 98.4 84 18 163/91 99 01/09/17 22:01 98.4 85 20 178/93 100 01/09/17 20:00 Nasal Cannula 2.00 01/09/17 20:00 85 01/09/17 17:37 94 Nasal Cannula 3.00 01/09/17 16:00 98.2 91 18 190/99 94 01/09/17 12:00 98.1 81 22 158/90 98 I/O 01/09/17 01/09/17 01/09/17 01/10/17 01/10/17 01/10/17 07:00 15:00 23:00 07:00 15:00 23:00 Intake Total 822 ml 960 ml 614 ml Output Total 300 ml 1000 ml 350 ml 800 ml Balance 522 ml -40 ml 264 ml -800 ml Intake Oral 240 ml 960 ml IV Total 582 ml 614 ml Output Urine Total 300 ml 1000 ml 350 ml 800 ml # Bowel Movements 1 0 0 Result Diagram: 01/08/17 0949 01/08/17 0949 Imaging Last Impressions Chest X-Ray 01/09/17 0600 Signed Impressions: Service Date/Time: Monday, January 09, 2017 06:40 - CONCLUSION: 1. Mild patchy opacity the lung bases left slightly greater than right with no focal consolidation visualized on this single view study. 2. Degenerative change in the right glenohumeral joint. Nick Marshall MD CT Angiography 01/05/17 0000 Signed Impressions: Service Date/Time: Thursday, January 05, 2017 16:09 - CONCLUSION: 1. Limited evaluation due to respiratory motion. Pulmonary arteries are visualized to the proximal segmental level only without evidence for pulmonary embolism. More distal segmental and subsegmental pulmonary arteries are incompletely evaluated. 2. Patchy airspace consolidation in the right lower lobe and minimal airspace consolidation in the left lung base. Differential considerations include pneumonia versus aspiration. Angelo Mirza MD Objective Remarks GENERAL: with mild sob CARDIOVASCULAR: Regular rate and regular rhythm without murmurs, gallops, or rubs. RESPIRATORY: diminished air entry in bases GASTROINTESTINAL: Abdomen soft, non-tender, nondistended. Normal, active bowel sounds MUSCULOSKELETAL: Extremities without clubbing, cyanosis, or edema. NEURO: Alert & Oriented x4 to person, place, time, situation. Moves all ext x4 Procedures none Medications and IVs Current Medications Sodium Chloride 1,000 ml @ 1,000 mls/hr Q1H ONCE IV Last administered on 12:45; Start 01/05/17 at 11:45; Stop 01/05/17 at 12:44; Status DC Sodium Chloride 800 ml @ 1,000 mls/hr Q48M ONCE IV Last administered on 14:47; Start 01/05/17 at 11:45; Stop 01/05/17 at 12:32; Status DC Piperacillin Sod/ Tazobactam Sod 100 ml @ 200 mls/hr ONCE ONCE IV Last administered on 01/05/17 12:45; Start 01/05/17 at 11:45; Stop 01/05/17 at 12:14 ; Status DC Vancomycin HCl/ Sodium Chloride (Vancomycin Inj/ NS 250 ml Inj) 250 ml @ 250 mls/hr ONCE ONCE IV Last administered on 01/05/17 13:04; Start 01/05/17 at 11 :45; Stop 01/05/17 at 12:44; Status DC Acetaminophen (Tylenol) 650 mg ONCE ONCE PO Last administered on 01/05/17 13: 05; Start 01/05/17 at 12:45; Stop 01/05/17 at 12:46; Status DC Acetaminophen (Tylenol) 650 mg Q4H PRN PO FEVER/ PAIN; Start 01/05/17 at 14:15 Ondansetron HCl 4 mg 4 mg Q8HR PRN IV PUSH NAUSEA Last administered on 20:03; Start 01/05/17 at 14:15 Azithromycin 500 mg/Sodium Chloride 250 ml @ 250 mls/hr Q24H IV Last administered on 01/07/17 16:52; Start 01/05/17 at 17:00; Stop 01/08/17 at 09:36 ; Status DC Ceftriaxone Sodium/Sodium Chloride (Rocephin Inj/NS Inj) 100 ml @ 200 mls/hr Q24H IV Last administered on 01/05/17 18:21; Start 01/05/17 at 18:00; Stop 04/14 at 18:54; Status DC Albuterol/ Ipratropium (Duoneb Neb) 1 ampule Q6HR WHILE AWAKE NEB NEB Last administered on 01/09/17 19:05; Start 01/05/17 at 20:00; Stop 01/09/17 at 20:00 ; Status DC Albuterol Sulfate 1.25 mg 1.25 mg Q2HR NEB PRN NEB SOB/WHEEZING Last administered on 01/10/17 05:10; Start 01/05/17 at 14:15 Sodium Chloride (NS 1000 ml Inj) 1,000 ml @ 75 mls/hr [id number] IV Last administered on 01/09/17 11:33; Start 01/05/17 at 15:30; Status Hold Allopurinol (Zyloprim) 100 mg BID PO Last administered on 01/10/17 09:05; Start 01/05/17 at 21:00 Alprazolam (Xanax) 0.25 mg TID PRN PO ANXIETY Last administered on 01/10/17 06 :40; Start 01/05/17 at 14:15 Atorvastatin Calcium (Lipitor) 40 mg HS PO Last administered on 01/09/17 20:48 ; Start 01/05/17 at 21:00 Duloxetine HCl (Cymbalta Dr) 60 mg DAILY PO Last administered on 01/10/17 09: 06; Start 01/06/17 at 09:00 Levothyroxine Sodium (Synthroid) 100 mcg DAILY@06 PO Last administered on 04:51; Start 01/06/17 at 06:00 Morphine Sulfate (Oramorph Sr) 15 mg TID PO Last administered on 01/10/17 09: 06; Start 01/05/17 at 18:00 Oxycodone/ Acetaminophen (Percocet 10-325 Mg) 1 tab Q4H PRN PO PAIN Last administered on 01/10/17 06:40; Start 01/05/17 at 18:00 Propranolol HCl (Inderal La) 60 mg DAILY PO ; Start 01/06/17 at 09:00; Stop 05/15 at 11:09; Status DC Sucralfate (Carafate) 1 gm QID PO Last administered on 01/10/17 09:06; Start 01/05/17 at 18:00 Temazepam (Restoril) 30 mg HS PRN PO INSOMNIA Last administered on 01/09/17 20 :57; Start 01/05/17 at 21:00 Pantoprazole Sodium 40 mg 40 mg DAILY PO Last administered on 01/10/17 09:06; Start 01/06/17 at 09:00 Magnesium Sulfate/ Dextrose (Magnesium Sulfate 1 Gm Premix) 100 ml @ 100 mls/ hr ONCE ONCE IV Last administered on 01/05/17 16:51; Start 01/05/17 at 16:00 ; Stop 01/05/17 at 16:59; Status DC Enoxaparin Sodium (Lovenox Inj) 40 mg Q24H SQ Last administered on 01/09/17 16 :15; Start 01/05/17 at 18:00 Iohexol 80 ml 80 ml STK-MED ONCE IV Last administered on 01/05/17 16:22; Start 01/05/17 at 16:22; Stop 01/05/17 at 16:23; Status DC Piperacillin Sod/ Tazobactam Sod (Zosyn 3.375 Gm Premix) 50 ml @ 100 mls/hr Q6H IV Last administered on 01/08/17 06:15; Start 01/06/17 at 00:00; Stop at 09:36; Status DC Pneumococcal Polyvalent Vaccine 25 mcg 25 mcg ONCE ONCE IM Last administered on 01/06/17 08:47; Start 01/06/17 at 10:00; Stop 01/06/17 at 10:01; Status DC Pharmacy Profile Note (Vancomycin Consult Pharmacy) 0 ml @ 0 mls/hr UNSCH OTHER ; Start 01/06/17 at 14:00; Stop 01/08/17 at 09:36; Status DC Potassium Bicarb/ Potassium Chloride (K-Lyte Cl Eff) 25 meq ONCE ONCE PO Last administered on 01/06/17 17:23; Start 01/06/17 at 11:15; Stop 01/06/17 at 16:04; Status DC Propranolol HCl 20 mg 20 mg DAILY PO ; Start 01/07/17 at 09:00; Status UNV Vancomycin HCl/ Sodium Chloride (Vancomycin Inj/ NS 500 ml Inj) 515 ml @ 250 mls/hr Q24H IV Last administered on 01/07/17 15:17; Start 01/06/17 at 16:00; Stop 01/08/17 at 09:36; Status DC Miscellaneous Information SPECIFIC LAB TO BE DRAWN:VANCOMYCIN TROUGH DATE TO... ONCE ONCE .XX ; Start 01/08/17 at 15:45; Stop 01/08/17 at 15:46; Status Cancel Magnesium Hydroxide (Milk Of Magnesia Liq) 30 ml DAILY PRN PO CONSTIPATION; Start 01/06/17 at 16:15 Propranolol HCl (Inderal) 20 mg DAILY PO Last administered on 01/08/17 07:36; Start 01/07/17 at 09:00; Stop 01/08/17 at 10:31; Status DC Guaifenesin (Robitussin Liq) 200 mg Q6H PRN PO COUGH Last administered on 02:39; Start 01/06/17 at 16:15 Propofol 100 mg 100 mg STK-MED ONCE IV ; Start 01/07/17 at 17:40; Stop 01/07/17 at 17:41; Status DC Ampicillin Sodium/ Sulbactam Sodium/ Sodium Chloride (Unasyn Inj/NS Inj) 100 ml @ 200 mls/hr Q6H IV Last administered on 01/10/17 04:51; Start 01/08/17 at 10 :00 Propranolol HCl (Inderal) 20 mg BID PO Last administered on 01/10/17 09:06; Start 01/08/17 at 21:00 Metoprolol Tartrate (Lopressor) 25 mg ONCE ONCE PO Last administered on 05:41; Start 01/10/17 at 05:45; Stop 01/10/17 at 05:46; Status DC A/P Assessment and Plan A/P - sepsis and acute respiratory failure due to pneumonia; bilateral lower lobes- suspect aspiration sob improving and now stable on RA. continue with IV antibiotics- blood cultures negative. echo with EF 60%. ST and ID evaluation appreciated. previously d/w Dr. Jennings who recommended Augmentin upon discharge. GI consulted; s/p EGD with Cricopharyngeal achalasia/esophageal dysmotility f/u with GI as outpatient. -hyponatremia-suspect due to pneumonia-improved stopped IV fluid- hold lasix for now- - -hypothyroidism with low TSH level- needs to be repeated in 2-3 wks - -anemia- acute on chronic - due to dilution/IV fluid- H/H fairly stable- stool for blood pending. -hypomagnesemia; replaced -hypokalemia; replaced. -hypertensive urgency- hold propranolol- start procardia-continue to monitor and adjust the regimen as needed. -consulted PT -DVT prophylaxis with subq Lovenox Discharge Planning d/w the patient again today ; rehab was offered which the patient agreed with this time. will consult case management to assist. dc planning within the next one-two days if stable. Sarah Santana MD Jan 10, 2017 11:04
[2017-01-10] MEDS ORDERED: AUGM875T3 PO (11:11)
[2017-01-10] MEDS: NIFEdipine 30 MG SUSTAINED RELEASE TAB PO SCH (12:39)
[2017-01-10] MEDS: ENOXAPARIN SODIUM 40 MG/0.4 ML SYRINGE SQ SCH (17:53)
[2017-01-10] MEDS: ATORVASTATIN 40 MG TAB PO SCH (20:24)
[2017-01-11] VITALS (9 sets, daily range): BP systolic 134–178; BP diastolic 72–94; PULSE 90–114; RESP 18–21; TEMP 96.7–98.9; O2SAT 95–99
[2017-01-11] MEDS: TEMAZEPAM 15 MG CAP PO PRN ×2 (02:55→22:01)
[2017-01-11] MEDS: AMPICILLIN-SULBACTAM INJ 1,500 MG in SODIUM CHLORIDE 0.9% INJ 100 ML IV SCH ×4 (04:22→22:01)
[2017-01-11] MEDS: oxyCODONE/ACETAMINOPHEN 10 MG/325 MG TAB PO PRN ×2 (05:11→22:01)
[2017-01-11] MEDS: ALPRAZolam 0.25 MG TAB PO PRN ×2 (05:11→20:50)
[2017-01-11] MEDS: LEVOTHYROXINE SODIUM 100 MCG TAB PO SCH (05:12)
[2017-01-11] MEDS: UMECLIDINIUM 62.5 MCG/VILANTEROL 25 MCG INHALER INH SCH ×2 (08:43→08:50)
[2017-01-11] MEDS: ALLOPURINOL 100 MG TAB PO SCH ×2 (08:45→20:48)
[2017-01-11] MEDS: DULoxetine HCl DR 60 MG CAP PO SCH (08:45)
[2017-01-11] MEDS: PANTOPRAZOLE SOD 40 MG DELAYED RELEASE TAB PO SCH (08:45)
[2017-01-11] MEDS: NIFEdipine 30 MG SUSTAINED RELEASE TAB PO SCH (08:45)
[2017-01-11] MEDS: SUCRALFATE 1 GM TAB PO SCH ×4 (08:45→20:48)
[2017-01-11] MEDS: MORPHINE SULFATE 15 MG CONTROLLED RELEASE TAB PO SCH ×3 (08:45→18:34)
[2017-01-11 12:13] LABS: AUTOMATED NEUTROPHIL # 8.8 TH/MM3 (1.8-7.7); BASOPHIL % 0.4 % (0.0-2.0); EOSINOPHIL # 0.2 TH/MM3 (0-0.4); EOSINOPHIL % 1.8 % (0.0-4.0); HEMATOCRIT 28.3 % (35.0-46.0); LYMPH % 18.9 % (9.0-44.0); LYMPHOCYTE # 2.3 TH/MM3 (1.0-4.8); MEAN CELL VOLUME 89.1 FL (80.0-100.0); MEAN CORPUSCULAR HEMOGLOBIN 28.8 PG (27.0-34.0); MEAN CORPUSCULAR HGB CONC 32.4 % (32.0-36.0); MONO % 5.8 % (0.0-8.0); NEUT % 73.1 % (16.0-70.0); PLATELET COUNT 349 TH/MM3 (150-450); RED BLOOD COUNT 3.18 MIL/MM3 (4.00-5.30); RED CELL DISTRIBUTION WIDTH 15.4 % (11.6-17.2)
[2017-01-11 12:16] LABS: HEMO FLAGS AUTO DIFF
--- NOTE | 2017-01-11 12:23 | HHI.PR ---
Subjective Remarks Acute events overnight. Afebrile, vital signs stable. Patient hypertensive to 178/87. Denies headaches. Is breathing better today. Has been satting well on room air since this morning. Denies wheezing or shortness of breath. Objective Vitals Vital Signs Date Time Temp Pulse Resp B/P Pulse Ox O2 Delivery O2 Flow Rate FiO2 01/11/17 10:03 99 Nasal Cannula 01/11/17 08:00 97.4 90 20 178/87 99 01/11/17 05:30 Nasal Cannula 2.00 01/11/17 04:40 96.7 100 18 171/82 97 01/11/17 02:01 96.7 100 20 151/94 95 01/11/17 01:20 Nasal Cannula 2.00 01/10/17 21:53 Nasal Cannula 3.00 01/10/17 21:23 98.3 101 21 166/98 79 01/10/17 20:30 Nasal Cannula 2.00 01/10/17 19:54 94 01/10/17 16:00 97.8 85 20 168/77 97 I/O 01/10/17 01/10/17 01/10/17 01/11/17 01/11/17 01/11/17 07:00 15:00 23:00 07:00 15:00 23:00 Intake Total 720 ml 291 ml 105 ml Output Total 800 ml Balance -800 ml 720 ml 291 ml 105 ml Intake Oral 720 ml IV Total 291 ml 105 ml Output Urine Total 800 ml # Voids 3 13 Result Diagram: 01/11/17 1125 01/08/17 0949 Objective Remarks GENERAL: with mild sob CARDIOVASCULAR: Regular rate and regular rhythm without murmurs, gallops, or rubs. RESPIRATORY: diminished air entry in bases GASTROINTESTINAL: Abdomen soft, non-tender, nondistended. Normal, active bowel sounds MUSCULOSKELETAL: Extremities without clubbing, cyanosis, or edema. NEURO: Alert & Oriented x4 to person, place, time, situation. Moves all ext x4 Procedures none A/P Problem List: (1) Sepsis ICD Code: A41.9 Status: Acute (2) Hypoxia ICD Code: R09.02 Status: Acute Assessment and Plan - sepsis and acute respiratory failure due to pneumonia; bilateral lower lobes- suspect aspiration sob improving, stable on room air since this morning. Required oxygen overnight. continue with IV antibiotics- blood cultures negative. echo with EF 60%. ST and ID evaluation appreciated. previously d/w Dr. Jennings who recommended Augmentin upon discharge. GI consulted; s/p EGD with Cricopharyngeal achalasia/esophageal dysmotility f/u with GI as outpatient. -hyponatremia-suspect due to pneumonia-improved stopped IV fluid- hold lasix for now- - -hypothyroidism with low TSH level- needs to be repeated in 2-3 wks - -anemia- acute on chronic - due to dilution/IV fluid- H/H improving stool for blood pending. -hypomagnesemia; replaced -hypokalemia; replaced. -hypertensive urgency- hold propranolol- increased procardia-continue to monitor and adjust the regimen as needed. -consulted PT -DVT prophylaxis with subq Lovenox Discharge Planning To rehabilitation in the next 12 days if patient remains off oxygen and leukocytosis resolves Problem Qualifiers (1) Sepsis: Qualified Code: A41.9 - Sepsis, due to unspecified organism Kusum Gibbs MD R3 Jan 11, 2017 12:23
[2017-01-11 12:42] LABS: BICARBONATE 31.2 MEQ/L (21.0-32.0)
[2017-01-11 12:43] LABS: ACANTHOCYTES OCC (NORMAL); CORRECTED NUCLEATED RBC 1 /100 WBC (0-0); EOSINOPHILS 1 % (0-4); METAMYELOCYTES 1 % (0-1); NEUTROPHIL # MANUAL DIFF 8.6 TH/MM3 (1.8-7.7); POLYS (SEG NEUTROPHILS) 71 % (16-70); SCAN/DIFF FINAL DIFF MANUAL; WBC DIFF SAMPLE 100
[2017-01-11 13:09] LABS: POTASSIUM 2.3 MEQ/L (3.5-5.1)
[2017-01-11] MEDS ORDERED: POTASSIUM CHLORIDE 20 MEQ CONTROLLED RELEASE TAB PO ONE (14:15)
[2017-01-11] MEDS: POTASSIUM CHLOR 10 MEQ PREMIX 100 ML IV SCH ×4 (14:44→20:48)
[2017-01-11] MEDS ORDERED: SODIUM CHLOR 0.9% 1000 ML INJ 1,000 ML IV SCH (15:15)
[2017-01-11] MEDS: ENOXAPARIN SODIUM 40 MG/0.4 ML SYRINGE SQ SCH (17:10)
[2017-01-11] MEDS: ATORVASTATIN 40 MG TAB PO SCH (20:48)
[2017-01-12] VITALS (8 sets, daily range): BP systolic 142–167; BP diastolic 64–87; PULSE 62–106; RESP 18–22; TEMP 97.6–98.9; O2SAT 95–100
[2017-01-12] MEDS: oxyCODONE/ACETAMINOPHEN 10 MG/325 MG TAB PO PRN ×2 (01:34→05:49)
[2017-01-12] MEDS: AMPICILLIN-SULBACTAM INJ 1,500 MG in SODIUM CHLORIDE 0.9% INJ 100 ML IV SCH ×4 (05:00→22:15)
[2017-01-12] MEDS: LEVOTHYROXINE SODIUM 100 MCG TAB PO SCH (05:00)
[2017-01-12] MEDS: ALPRAZolam 0.25 MG TAB PO PRN ×3 (05:00→17:48)
[2017-01-12 08:40] LABS: AUTOMATED NEUTROPHIL # 8.2 TH/MM3 (1.8-7.7); BASOPHIL % 0.4 % (0.0-2.0); EOSINOPHIL # 0.3 TH/MM3 (0-0.4); EOSINOPHIL % 2.2 % (0.0-4.0); HEMATOCRIT 29.8 % (35.0-46.0); LYMPH % 21.9 % (9.0-44.0); LYMPHOCYTE # 2.6 TH/MM3 (1.0-4.8); MEAN CELL VOLUME 89.2 FL (80.0-100.0); MEAN CORPUSCULAR HEMOGLOBIN 28.7 PG (27.0-34.0); MEAN CORPUSCULAR HGB CONC 32.1 % (32.0-36.0); MONO % 6.2 % (0.0-8.0); NEUT % 69.3 % (16.0-70.0); PLATELET COUNT 341 TH/MM3 (150-450); RED BLOOD COUNT 3.34 MIL/MM3 (4.00-5.30); RED CELL DISTRIBUTION WIDTH 15.4 % (11.6-17.2); WHITE BLOOD COUNT 11.8 TH/MM3 (4.0-11.0)
[2017-01-12 08:44] LABS: HEMO FLAGS AUTO DIFF
[2017-01-12 09:26] LABS: PLATELET ESTIMATE SMEAR NORMAL (NORMAL); PLATELET MORPHOLOGY NORMAL (NORMAL); SCAN/DIFF AUTO DIFF CONFIRMED
[2017-01-12] MEDS: DULoxetine HCl DR 60 MG CAP PO SCH (09:41)
[2017-01-12] MEDS: SUCRALFATE 1 GM TAB PO SCH ×4 (09:41→20:24)
[2017-01-12] MEDS: UMECLIDINIUM 62.5 MCG/VILANTEROL 25 MCG INHALER INH SCH (09:41)
[2017-01-12] MEDS: MORPHINE SULFATE 15 MG CONTROLLED RELEASE TAB PO SCH ×3 (09:42→17:48)
[2017-01-12] MEDS: ALLOPURINOL 100 MG TAB PO SCH ×2 (09:42→20:24)
[2017-01-12] MEDS: PANTOPRAZOLE SOD 40 MG DELAYED RELEASE TAB PO SCH (09:42)
[2017-01-12] MEDS: NIFEdipine 60 MG SUSTAINED RELEASE TAB PO SCH (09:42)
--- NOTE | 2017-01-12 10:50 | HHI.PR ---
Subjective Remarks Pt feels very anxious and would like frequency of xanax increased as "I live on meds" SOB is much improved. Denies any CP/n/v would like miralax daily as she feels constipated and that is what she takes at home Objective Vitals Vital Signs Date Time Temp Pulse Resp B/P Pulse Ox O2 Delivery O2 Flow Rate FiO2 01/12/17 08:00 97.8 93 22 167/75 99 Manual Cuff/Auscultation 01/12/17 04:11 Room Air 01/12/17 04:00 98.9 94 18 153/79 95 01/12/17 00:00 158/75 01/12/17 00:00 95 Room Air 01/12/17 00:00 98.9 105 20 95 01/11/17 20:20 114 01/11/17 20:00 Nasal Cannula 2.00 01/11/17 20:00 98.9 105 21 165/80 98 01/11/17 16:00 98.1 96 20 144/72 99 01/11/17 12:00 98.0 90 20 134/78 99 I/O 01/11/17 01/11/17 01/11/17 01/12/17 01/12/17 01/12/17 07:00 15:00 23:00 07:00 15:00 23:00 Intake Total 105 ml 720 ml 935 ml 350 ml Balance 105 ml 720 ml 935 ml 350 ml Intake Oral 720 ml 240 ml 240 ml IV Total 105 ml 695 ml 110 ml # Voids 13 4 3 2 Result Diagram: 01/12/17 0745 01/11/17 1125 Imaging Last Impressions Chest X-Ray 01/09/17 0600 Signed Impressions: Service Date/Time: Monday, January 09, 2017 06:40 - CONCLUSION: 1. Mild patchy opacity the lung bases left slightly greater than right with no focal consolidation visualized on this single view study. 2. Degenerative change in the right glenohumeral joint. Nick Marshall MD CT Angiography 01/05/17 0000 Signed Impressions: Service Date/Time: Thursday, January 05, 2017 16:09 - CONCLUSION: 1. Limited evaluation due to respiratory motion. Pulmonary arteries are visualized to the proximal segmental level only without evidence for pulmonary embolism. More distal segmental and subsegmental pulmonary arteries are incompletely evaluated. 2. Patchy airspace consolidation in the right lower lobe and minimal airspace consolidation in the left lung base. Differential considerations include pneumonia versus aspiration. Angelo Mirza MD Objective Remarks GENERAL: laying in bed appears comfortably but is anxious CARDIOVASCULAR: Regular rate and regular rhythm without murmurs RESPIRATORY: diminished air entry in bases but no crackles or wheezing GASTROINTESTINAL: Abdomen soft, non-tender, nondistended. Normal, active bowel sounds MUSCULOSKELETAL: Extremities without edema. NEURO: Alert & Oriented, Moves all ext x4 but gets tired easily. PSYCH: anxious Procedures none A/P Problem List: (1) Sepsis ICD Code: A41.9 Status: Acute (2) Hypoxia ICD Code: R09.02 Status: Acute Assessment and Plan - sepsis and acute respiratory failure due to pneumonia; bilateral lower lobes- suspect aspiration sob improving, stable on room air since this morning. Required oxygen overnight. continue with IV antibiotics- blood cultures negative. echo with EF 60% w mild pulm HTN w pressures 53mmHg. Pt on nifedipine 60mg po daily. Not on any diuretics. will consult cards for pulm HTN and see if they have any other recs. Dr. Jennings recommended Augmentin liquid form upon discharge. GI consulted; s/p EGD with Cricopharyngeal achalasia/esophageal dysmotility f/u with GI as outpatient. -hyponatremia-suspect due to pneumonia-improved s/p IV fluid -hypothyroidism with low TSH level- needs to be repeated in 2-3 wks - -anemia- acute on chronic - due to dilution/IV fluid- H/H improving stool for blood pending. -hypomagnesemia; replaced -hypokalemia; replaced. -hypertensive urgency- on higher dose of procardia-continue to monitor and adjust the regimen as needed. -Pt will need PT and she has been accepted to SNF -DVT prophylaxis with subq Lovenox Discharge Planning cards consult for pulm HTN anticipate d/c later today or in AM Per CM still waiting authorization Problem Qualifiers (1) Sepsis: Qualified Code: A41.9 - Sepsis, due to unspecified organism Kathy Faulkner MD Jan 12, 2017 10:50
[2017-01-12 11:17] LABS: BICARBONATE 27.7 MEQ/L (21.0-32.0)
[2017-01-12 11:25] LABS: POTASSIUM 2.4 MEQ/L (3.5-5.1)
[2017-01-12] MEDS: POLYETHYLENE GLYCOL 17 GM PKG PO SCH (12:14)
[2017-01-12] MEDS ORDERED: POTASSIUM CHLORIDE 20 MEQ CONTROLLED RELEASE TAB PO ONE (14:00)
[2017-01-12] MEDS: POTASSIUM CHLOR 20 MEQ PREMIX 100 ML IV SCH ×2 (15:06→16:00)
[2017-01-12] MEDS: MAGNESIUM HYDROXIDE SUSP 30 ML CUP PO PRN (15:07)
[2017-01-12] MEDS: ENOXAPARIN SODIUM 40 MG/0.4 ML SYRINGE SQ SCH (17:48)
[2017-01-12] MEDS: ATORVASTATIN 40 MG TAB PO SCH (20:24)
[2017-01-12] MEDS: TEMAZEPAM 15 MG CAP PO PRN (22:15)
[2017-01-13] VITALS (8 sets, daily range): BP systolic 122–153; BP diastolic 67–90; PULSE 98–112; RESP 17–20; TEMP 97.5–98.1; O2SAT 94–99
[2017-01-13] MEDS: MAGNESIUM HYDROXIDE SUSP 30 ML CUP PO PRN (03:00)
[2017-01-13] MEDS: oxyCODONE/ACETAMINOPHEN 10 MG/325 MG TAB PO PRN ×2 (03:00→21:47)
[2017-01-13] MEDS: AMPICILLIN-SULBACTAM INJ 1,500 MG in SODIUM CHLORIDE 0.9% INJ 100 ML IV SCH ×4 (03:01→21:45)
[2017-01-13] MEDS: LEVOTHYROXINE SODIUM 100 MCG TAB PO SCH (05:43)
[2017-01-13 07:15] LABS: BICARBONATE 31.5 MEQ/L (21.0-32.0); MAGNESIUM 1.2 MG/DL (1.5-2.5)
[2017-01-13 07:21] LABS: POTASSIUM 2.6 MEQ/L (3.5-5.1)
--- NOTE | 2017-01-13 08:11 | MB ---
cc: KENDALL ALBA DATE OF CONSULTATION 01/12/2017 REASON FOR CONSULTATION Mrs. Norwood is a 71-year-old white female who presented with progressive shortness of breath initially with exertion and progressive with minimal exertion. She has had cough, chills, and night sweats. She was started on an inhaler without much improvement. She denies any chest discomfort. She had no previous cardiac history. PAST MEDICAL HISTORY Positive for: 1. Hypertension 2. Dyslipidemia 3. Chronic back pain 4. Hypothyroidism 5. History of partial hysterectomy. 6. Back surgery 7. No history of coronary disease or CVA MEDICATIONS Include: 1. Flomax 2. Omeprazole 3. Propranolol 4. Sucralfate 5. Dexilant 6. Percocet 7. Anoro Ellipta 8. Hydroxyzine 9. Atorvastatin 40 mg a day 10. Allopurinol 11. Combivent 12. Cymbalta 13. Furosemide 14. Levothyroxine 15. Morphine ER 16. Temazepam 17. Tizanidine ALLERGIES CODEINE SOCIAL HISTORY The patient does not smoke. She does not drink alcohol. FAMILY HISTORY Positive for a coronary artery disease and myocardial infarction in her father. REVIEW OF SYSTEMS Otherwise negative. PHYSICAL EXAMINATION Blood pressure 150/87, pulse 90 and regular. HEENT: Negative. NECK: 2+ carotid upstrokes. No bruits. LUNGS: Clear with decreased breath sounds at bases. HEART: Regular with no murmur, gallop or rub. ABDOMEN: Soft, no bruits. EXTREMITIES: Trace edema, 1-2+ distal pulses. NEUROLOGIC: Grossly nonfocal. EKG was reviewed and shows a normal sinus rhythm, PVCs, normal axis and left bundle-branch block with QRS duration of 129 milliseconds. LABORATORY DATA Hemoglobin 9.6, potassium 2.4, creatinine is 0.8, magnesium 1.1 and 1.6, TSH 0.15. Echocardiogram revealed preserved left ventricular systolic function with an ejection fraction of 50-55% with no segmental wall motion abnormalities, normal left ventricle diastolic function, moderate mitral regurgitation, mild tricuspid regurgitation and mild to moderate pulmonary hypertension with estimated pulmonary artery systolic pressure of 53 mmHg. DIAGNOSIS 1. Sepsis 2. Acute respiratory failure 3. Pneumonia 4. Mild to moderate pulmonary hypertension 5. Hypokalemia 6. Hypomagnesemia 7. Hypertension DISPOSITION Ms. Norwood will be monitored on telemetry. Her echocardiogram shows severe ventricular left ventricular systolic function and mild pulmonary hypertension which is likely related to her pulmonary disease. She has not had any angina. Her cardiac enzymes were unremarkable. Recommend to continue her current medical program including therapy for pneumonia and sepsis with antibiotics. I recommend to aggressively replace her potassium and magnesium. She may also benefit from pulmonary evaluation. I will follow her for cardiology during her hospitalization. MD BARRIE Anton/HERO /8:18 PM /7:57 AM
[2017-01-13] MEDS: POLYETHYLENE GLYCOL 17 GM PKG PO SCH (08:56)
[2017-01-13] MEDS: MORPHINE SULFATE 15 MG CONTROLLED RELEASE TAB PO SCH ×3 (08:57→18:04)
[2017-01-13] MEDS: NIFEdipine 60 MG SUSTAINED RELEASE TAB PO SCH (08:57)
[2017-01-13] MEDS: DULoxetine HCl DR 60 MG CAP PO SCH (08:57)
[2017-01-13] MEDS: ALLOPURINOL 100 MG TAB PO SCH ×2 (08:57→21:00)
[2017-01-13] MEDS: SUCRALFATE 1 GM TAB PO SCH ×4 (08:57→20:20)
[2017-01-13] MEDS: PANTOPRAZOLE SOD 40 MG DELAYED RELEASE TAB PO SCH (08:57)
[2017-01-13] MEDS: ALPRAZolam 0.25 MG TAB PO PRN ×3 (08:57→20:19)
[2017-01-13] MEDS: UMECLIDINIUM 62.5 MCG/VILANTEROL 25 MCG INHALER INH SCH (09:00)
[2017-01-13] MEDS ORDERED: POTASSIUM CHLORIDE 20 MEQ CONTROLLED RELEASE TAB PO ONE (09:15)
[2017-01-13] MEDS ORDERED: MAGNESIUM SULFATE 1 GM PREMIX 100 ML IV ONE (09:15)
[2017-01-13] MEDS: POTASSIUM CHLOR 20 MEQ PREMIX 100 ML IV SCH ×2 (11:15→11:25)
[2017-01-13] MEDS ORDERED: SODIUM CHLORID 0.9% 500 ML INJ 250 ML IV SCH (13:15)
--- NOTE | 2017-01-13 15:18 | HHI.PR ---
Subjective Remarks Patient tells me that she is feeling a lot better. Denies any chest pains. States her shortness of breath is improving. Denies any nausea or vomiting. Tolerating a diet. She tells me she does have a probate lawyer Dr. Carter that she follow-up with as an outpatient. She is hopeful to be discharged soon. Objective Vitals Vital Signs Date Time Temp Pulse Resp B/P Pulse Ox O2 Delivery O2 Flow Rate FiO2 01/13/17 13:00 99 Room Air 01/13/17 12:03 97.5 108 20 130/90 99 01/13/17 11:08 99 01/13/17 10:55 20 01/13/17 08:34 98.1 110 20 153/74 99 01/13/17 04:00 97.8 102 18 130/67 95 01/13/17 01:04 97.9 105 18 140/68 97 01/12/17 20:15 106 01/12/17 20:00 97.9 106 18 142/64 100 01/12/17 20:00 Nasal Cannula 2.00 01/12/17 18:41 90 01/12/17 16:00 98.0 62 22 150/87 100 I/O 01/12/17 01/12/17 01/12/17 01/13/17 01/13/17 01/13/17 07:00 15:00 23:00 07:00 15:00 23:00 Intake Total 350 ml 480 ml 300 ml Output Total 500 ml 1200 ml Balance 350 ml 480 ml -200 ml -1200 ml Intake Oral 240 ml 480 ml IV Total 110 ml 300 ml Output Urine Total 500 ml 1200 ml # Voids 2 4 # Bowel Movements 0 0 1 Result Diagram: 01/12/17 0745 01/13/17 0500 Imaging Last Impressions Chest X-Ray 01/09/17 0600 Signed Impressions: Service Date/Time: Monday, January 09, 2017 06:40 - CONCLUSION: 1. Mild patchy opacity the lung bases left slightly greater than right with no focal consolidation visualized on this single view study. 2. Degenerative change in the right glenohumeral joint. Nick Marshall MD CT Angiography 01/05/17 0000 Signed Impressions: Service Date/Time: Thursday, January 05, 2017 16:09 - CONCLUSION: 1. Limited evaluation due to respiratory motion. Pulmonary arteries are visualized to the proximal segmental level only without evidence for pulmonary embolism. More distal segmental and subsegmental pulmonary arteries are incompletely evaluated. 2. Patchy airspace consolidation in the right lower lobe and minimal airspace consolidation in the left lung base. Differential considerations include pneumonia versus aspiration. Angelo Mirza MD Objective Remarks GENERAL: Sitting up on her bed, eating. Appears less anxious today. CARDIOVASCULAR: Regular rate and regular rhythm without murmurs RESPIRATORY: diminished air entry in bases but no crackles or wheezing GASTROINTESTINAL: Abdomen soft, non-tender, nondistended. Normal, active bowel sounds MUSCULOSKELETAL: Extremities without edema. NEURO: Alert & Oriented, Moves all ext PSYCH: anxious Procedures none A/P Problem List: (1) Sepsis ICD Code: A41.9 Status: Acute (2) Hypoxia ICD Code: R09.02 Status: Acute Assessment and Plan - sepsis and acute respiratory failure due to pneumonia; bilateral lower lobes- suspect aspiration sob improving, stable on room air since this morning. continue with IV antibiotics- blood cultures negative. echo with EF 60% w mild pulm HTN w pressures 53mmHg. Pt on nifedipine 60mg po daily. Not on any diuretics. Cardiology evaluated patient for pulmonary hypertension and recommends follow-up with pulmonology. He also recommends medical management for now. Patient has a probate lawyer that she follows as an outpatient. I did speak with her regarding the pulmonary hypertension found on echo and she will follow-up with him upon discharge. Dr. Jennings recommended Augmentin liquid form upon discharge. I did discuss with Dr. Mancera, covering physician, and she will evaluate patient and make final recommendations. GI consulted; s/p EGD with Cricopharyngeal achalasia/esophageal dysmotility f/u with GI as outpatient. -hyponatremia-suspect due to pneumonia-improved s/p IV fluid -hypothyroidism with low TSH level- needs to be repeated in 2-3 wks - -anemia- acute on chronic - due to dilution/IV fluid- H/H improving stool for blood pending. -hypomagnesemia; level is low. Currently being replaced with IV magnesium. -hypokalemia; her potassium level continues to be low. It is currently being replaced with IV potassium and by mouth potassium. -hypertensive urgency- on higher dose of procardia-better controlled. Continue current management -Pt will need PT and she has been accepted to SNF -DVT prophylaxis with subq Lovenox Discharge Planning Follow-up with pulmonology as an outpatient for her pulm HTN anticipate d/c in AM. Currently getting replacement for her potassium and magnesium IV. She has been accepted this Problem Qualifiers (1) Sepsis: Qualified Code: A41.9 - Sepsis, due to unspecified organism Kathy Faulkner MD Jan 13, 2017 15:18
[2017-01-13] MEDS: ENOXAPARIN SODIUM 40 MG/0.4 ML SYRINGE SQ SCH (17:26)
--- NOTE | 2017-01-13 19:04 | PD.CARD.PN ---
Subjective Subjective Remarks No CP, less SOB, ambulating in the room, feels better Objective Medications Current Medications Medications (Trade) Dose Ordered Sig/Cj Route Start Time Stop Time Status Last Admin (Tylenol) 650 mg Q4H PRN PO 01/05/17 14:15 (Zofran Inj) 4 mg Q8HR PRN IV PUSH 01/05/17 14:15 01/07/17 20:03 (Zyloprim) 100 mg BID PO 01/05/17 21:00 01/13/17 08:57 (Lipitor) 40 mg HS PO 01/05/17 21:00 01/12/17 20:24 (Cymbalta Dr) 60 mg DAILY PO 01/06/17 09:00 01/13/17 08:57 (Synthroid) 100 mcg DAILY@06 PO 01/06/17 06:00 01/13/17 05:43 (Oramorph Sr) 15 mg TID PO 01/05/17 18:00 01/13/17 18:04 (Percocet 10-325 Mg) 1 tab Q4H PRN PO 01/05/17 18:00 01/13/17 03:00 (Carafate) 1 gm QID PO 01/05/17 18:00 01/13/17 17:26 (Restoril) 30 mg HS PRN PO 01/05/17 21:00 01/12/17 22:15 (Protonix) 40 mg DAILY PO 01/06/17 09:00 01/13/17 08:57 (Lovenox Inj) 40 mg Q24H SQ 01/05/17 18:00 01/13/17 17:26 (Milk Of Magnesia Liq) 30 ml DAILY PRN PO 01/06/17 16:15 01/13/17 03:00 Guaifenesin 200 mg 200 mg Q6H PRN PO 01/06/17 16:15 01/10/17 02:39 (Unasyn Inj/NS Inj) 100 ml @ 200 mls/hr Q6H IV 01/08/17 10:00 01/13/17 17:26 (Inderal) 20 mg BID PO 01/08/17 21:00 Hold 01/10/17 09:06 (Procardia Xl) 60 mg DAILY PO 01/12/17 09:00 01/13/17 08:57 (Xanax) 0.25 mg QID PRN PO 01/12/17 13:00 01/13/17 15:29 (Miralax) 17 gm DAILY PO 01/12/17 12:00 01/13/17 08:56 Vital Signs / I&O Vital Signs Date Time Temp Pulse Resp B/P Pulse Ox O2 Delivery O2 Flow Rate FiO2 01/13/17 18:46 100 01/13/17 17:25 18 01/13/17 16:14 98.0 98 19 122/73 98 01/13/17 13:00 99 Room Air 01/13/17 12:03 97.5 108 20 130/90 99 01/13/17 11:08 99 01/13/17 08:34 98.1 110 20 153/74 99 01/13/17 04:00 97.8 102 18 130/67 95 01/13/17 01:04 97.9 105 18 140/68 97 01/12/17 20:15 106 01/12/17 20:00 97.9 106 18 142/64 100 01/12/17 20:00 Nasal Cannula 2.00 I/O 01/12/17 01/12/17 01/12/17 01/13/17 01/13/17 01/13/17 06:59 14:59 22:59 06:59 14:59 22:59 Intake Total 350 ml 480 ml 300 ml 480 ml Output Total 500 ml 1200 ml 800 ml Balance 350 ml 480 ml -200 ml -1200 ml -320 ml Intake Oral 240 ml 480 ml 480 ml IV Total 110 ml 300 ml Output Urine Total 500 ml 1200 ml 800 ml # Voids 2 4 # Bowel Movements 0 0 1 1 Physical Exam GENERAL: In NAD. SKIN: Warm and dry. HEAD: Normocephalic. EYES: No scleral icterus. No injection or drainage. NECK: Supple, trachea midline. No JVD or lymphadenopathy. CARDIOVASCULAR: Regular rate and rhythm without murmurs, gallops, or rubs. RESPIRATORY: Breath sounds decreased. No accessory muscle use. GASTROINTESTINAL: Abdomen soft, non-tender, nondistended. MUSCULOSKELETAL: No cyanosis, or edema. Laboratory Laboratory Tests Test 01/13/17 01/13/17 05:00 15:59 Sodium Level 137 MEQ/L Potassium Level 2.6 MEQ/L 3.1 MEQ/L Chloride Level 97 MEQ/L Carbon Dioxide Level 31.5 MEQ/L Anion Gap 9 MEQ/L Blood Urea Nitrogen 4 MG/DL Creatinine 0.76 MG/DL Estimat Glomerular Filtration 75 ML/MIN Rate Random Glucose 98 MG/DL Calcium Level 8.6 MG/DL Magnesium Level 1.2 MG/DL Imaging Last Impressions Chest X-Ray 01/09/17 0600 Signed Impressions: Service Date/Time: Monday, January 09, 2017 06:40 - CONCLUSION: 1. Mild patchy opacity the lung bases left slightly greater than right with no focal consolidation visualized on this single view study. 2. Degenerative change in the right glenohumeral joint. Nick Marshall MD CT Angiography 01/05/17 0000 Signed Impressions: Service Date/Time: Thursday, January 05, 2017 16:09 - CONCLUSION: 1. Limited evaluation due to respiratory motion. Pulmonary arteries are visualized to the proximal segmental level only without evidence for pulmonary embolism. More distal segmental and subsegmental pulmonary arteries are incompletely evaluated. 2. Patchy airspace consolidation in the right lower lobe and minimal airspace consolidation in the left lung base. Differential considerations include pneumonia versus aspiration. Angelo Mirza MD Assessment and Plan Problem List: (1) Sepsis (2) Atypical pneumonia (3) Hypokalemia (4) Hyponatremia (5) Pulmonary hypertension (6) HTN (hypertension) Assessment and Plan Some improvement. Continue tx for pneumonia. Replace K and Mg. Increase activity. Continue monitoring. Problem Qualifiers (1) Sepsis: Qualified Code: A41.9 - Sepsis, due to unspecified organism Paul Barker MD Jan 13, 2017 19:04
[2017-01-13] MEDS: ATORVASTATIN 40 MG TAB PO SCH (21:00)
[2017-01-13] MEDS: TEMAZEPAM 15 MG CAP PO PRN (21:46)
[2017-01-14] VITALS (7 sets, daily range): BP systolic 126–170; BP diastolic 66–80; PULSE 94–106; RESP 17–24; TEMP 97.4–99; O2SAT 96–100
[2017-01-14] MEDS: AMPICILLIN-SULBACTAM INJ 1,500 MG in SODIUM CHLORIDE 0.9% INJ 100 ML IV SCH ×3 (04:11→17:17)
[2017-01-14] MEDS: ALPRAZolam 0.25 MG TAB PO PRN ×3 (05:06→18:42)
[2017-01-14] MEDS: LEVOTHYROXINE SODIUM 100 MCG TAB PO SCH (05:06)
[2017-01-14 07:30] LABS: MAGNESIUM 1.6 MG/DL (1.5-2.5); POTASSIUM 3.3 MEQ/L (3.5-5.1)
[2017-01-14] MEDS: NIFEdipine 60 MG SUSTAINED RELEASE TAB PO SCH (09:46)
[2017-01-14] MEDS: SUCRALFATE 1 GM TAB PO SCH ×4 (09:46→20:12)
[2017-01-14] MEDS: PANTOPRAZOLE SOD 40 MG DELAYED RELEASE TAB PO SCH (09:46)
[2017-01-14] MEDS: ALLOPURINOL 100 MG TAB PO SCH ×2 (09:46→20:12)
[2017-01-14] MEDS: DULoxetine HCl DR 60 MG CAP PO SCH (09:46)
[2017-01-14] MEDS: POLYETHYLENE GLYCOL 17 GM PKG PO SCH (09:46)
[2017-01-14] MEDS: UMECLIDINIUM 62.5 MCG/VILANTEROL 25 MCG INHALER INH SCH (09:47)
[2017-01-14] MEDS: MORPHINE SULFATE 15 MG CONTROLLED RELEASE TAB PO SCH ×3 (09:47→17:17)
--- NOTE | 2017-01-14 12:34 | PD.CARD.PN ---
Subjective Subjective Remarks No CP, less SOB, ambulating in the room Objective Medications Current Medications Medications (Trade) Dose Ordered Sig/Cj Route Start Time Stop Time Status Last Admin (Tylenol) 650 mg Q4H PRN PO 01/05/17 14:15 (Zofran Inj) 4 mg Q8HR PRN IV PUSH 01/05/17 14:15 01/07/17 20:03 (Zyloprim) 100 mg BID PO 01/05/17 21:00 01/14/17 09:46 (Lipitor) 40 mg HS PO 01/05/17 21:00 01/13/17 21:00 (Cymbalta Dr) 60 mg DAILY PO 01/06/17 09:00 01/14/17 09:46 (Synthroid) 100 mcg DAILY@06 PO 01/06/17 06:00 01/14/17 05:06 (Oramorph Sr) 15 mg TID PO 01/05/17 18:00 01/14/17 09:47 (Percocet 10-325 Mg) 1 tab Q4H PRN PO 01/05/17 18:00 01/13/17 21:47 (Carafate) 1 gm QID PO 01/05/17 18:00 01/14/17 09:46 (Restoril) 30 mg HS PRN PO 01/05/17 21:00 01/13/17 21:46 (Protonix) 40 mg DAILY PO 01/06/17 09:00 01/14/17 09:46 (Lovenox Inj) 40 mg Q24H SQ 01/05/17 18:00 01/13/17 17:26 (Milk Of Magnesia Liq) 30 ml DAILY PRN PO 01/06/17 16:15 01/13/17 03:00 Guaifenesin 200 mg 200 mg Q6H PRN PO 01/06/17 16:15 01/10/17 02:39 (Unasyn Inj/NS Inj) 100 ml @ 200 mls/hr Q6H IV 01/08/17 10:00 01/14/17 09:47 (Inderal) 20 mg BID PO 01/08/17 21:00 Hold 01/10/17 09:06 (Procardia Xl) 60 mg DAILY PO 01/12/17 09:00 01/14/17 09:46 (Xanax) 0.25 mg QID PRN PO 01/12/17 13:00 01/14/17 12:10 (Miralax) 17 gm DAILY PO 01/12/17 12:00 01/14/17 09:46 Vital Signs / I&O Vital Signs Date Time Temp Pulse Resp B/P Pulse Ox O2 Delivery O2 Flow Rate FiO2 01/14/17 12:00 98.7 105 22 154/80 100 01/14/17 09:05 Room Air 01/14/17 08:00 97.4 104 24 170/71 97 01/14/17 07:56 94 01/14/17 04:36 Room Air 01/14/17 04:00 98.2 97 17 148/70 99 01/14/17 00:00 98.2 103 19 141/75 96 01/13/17 20:00 110 01/13/17 20:00 94 Nasal Cannula 2.00 01/13/17 20:00 Nasal Cannula 2.00 01/13/17 20:00 98.1 112 17 123/82 94 01/13/17 19:26 20 01/13/17 18:46 100 01/13/17 16:14 98.0 98 19 122/73 98 01/13/17 13:00 99 Room Air I/O 01/13/17 01/13/17 01/13/17 01/14/17 01/14/17 01/14/17 06:59 14:59 22:59 06:59 14:59 22:59 Intake Total 480 ml 200 ml 300 ml Output Total 1200 ml 800 ml 400 ml 900 ml Balance -1200 ml -320 ml -200 ml -600 ml Intake Oral 480 ml 200 ml 200 ml IV Total 100 ml Output Urine Total 1200 ml 800 ml 400 ml 900 ml # Bowel Movements 1 1 1 2 Physical Exam GENERAL: In NAD. SKIN: Warm and dry. HEAD: Normocephalic. EYES: No scleral icterus. No injection or drainage. NECK: Supple, trachea midline. No JVD or lymphadenopathy. CARDIOVASCULAR: Regular rate and rhythm without murmurs, gallops, or rubs. RESPIRATORY: Breath sounds decreased. No accessory muscle use. GASTROINTESTINAL: Abdomen soft, non-tender, nondistended. MUSCULOSKELETAL: No cyanosis, or edema. Laboratory Laboratory Tests Test 01/13/17 01/14/17 15:59 06:25 Potassium Level 3.1 MEQ/L 3.3 MEQ/L Sodium Level 138 MEQ/L Chloride Level 99 MEQ/L Carbon Dioxide Level 27.0 MEQ/L Anion Gap 12 MEQ/L Blood Urea Nitrogen 4 MG/DL Creatinine 0.91 MG/DL Estimat Glomerular Filtration 61 ML/MIN Rate Random Glucose 99 MG/DL Calcium Level 9.4 MG/DL Magnesium Level 1.6 MG/DL Imaging Last Impressions Chest X-Ray 01/09/17 0600 Signed Impressions: Service Date/Time: Monday, January 09, 2017 06:40 - CONCLUSION: 1. Mild patchy opacity the lung bases left slightly greater than right with no focal consolidation visualized on this single view study. 2. Degenerative change in the right glenohumeral joint. Nick Marshall MD CT Angiography 01/05/17 0000 Signed Impressions: Service Date/Time: Thursday, January 05, 2017 16:09 - CONCLUSION: 1. Limited evaluation due to respiratory motion. Pulmonary arteries are visualized to the proximal segmental level only without evidence for pulmonary embolism. More distal segmental and subsegmental pulmonary arteries are incompletely evaluated. 2. Patchy airspace consolidation in the right lower lobe and minimal airspace consolidation in the left lung base. Differential considerations include pneumonia versus aspiration. Angelo Mirza MD Assessment and Plan Problem List: (1) Sepsis (2) Atypical pneumonia (3) Hypokalemia (4) Hyponatremia (5) Pulmonary hypertension (6) HTN (hypertension) Assessment and Plan Gradually improving. Continue tx for pneumonia. Replace K and Mg. Increase activity. Continue monitoring. Anticipate discharge to rehab soon. Will schedule f/u to reevaluate pulmonary pressures as outpatient. Problem Qualifiers (1) Sepsis: Qualified Code: A41.9 - Sepsis, due to unspecified organism Paul Barker MD Jan 14, 2017 12:34
--- NOTE | 2017-01-14 17:08 | HHI.DS ---
Discharge Summary Admission Date Jan 05, 2017 at 14:05 Discharge Date: Jan 14, 2017 Admitting Diagnosis Sepsis; hypoxia; chest pain; PE v ?atypical pneumonia (1) Sepsis ICD Code: A41.9 Diagnosis: Principal (2) Hypoxia ICD Code: R09.02 Diagnosis: Principal Procedures none Brief History - From Admission patient is a 71 y/o female with history of hypertension,dyslipidemia, chronic back pain and hypothyroidism who presented to ER with shortness of breath. she says that she's had sob for the past few days but it seems that it's been getting worse. she says that she can hardly walk because of sob. she reports some dry cough along with chills and night sweats at home. she says that she was given an inhaler by her PCP but it didn't help her as much. she went to her PCP today when she was advised to come to ER. she had a fever at the time of presentation along with hypoxia.she denies any recent sick exposure or any trips. CBC/BMP: 01/12/17 0745 01/14/17 0625 Significant Findings Laboratory Tests Test 01/12/17 01/13/17 01/13/17 01/14/17 07:45 05:00 15:59 06:25 White Blood Count 11.8 TH/MM3 (4.0-11.0) Red Blood Count 3.34 MIL/MM3 (4.00-5.30) Hemoglobin 9.6 GM/DL (11.6-15.3) Hematocrit 29.8 % (35.0-46.0) Mean Platelet Volume 6.6 FL (7.0-11.0) Neutrophils # (Auto) 8.2 TH/MM3 (1.8-7.7) Potassium Level 2.4 MEQ/L 2.6 MEQ/L 3.1 MEQ/L 3.3 MEQ/L (3.5-5.1) (3.5-5.1) (3.5-5.1) (3.5-5.1) Chloride Level 97 MEQ/L 97 MEQ/L (98-107) (98-107) Blood Urea Nitrogen 4 MG/DL (7-18) 4 MG/DL (7-18) 4 MG/DL (7-18) Estimat Glomerular Filtration 67 ML/MIN (>89) 75 ML/MIN (>89) 61 ML/MIN (>89) Rate Magnesium Level 1.2 MG/DL (1.5-2.5) Imaging Last Impressions Chest X-Ray 01/09/17 0600 Signed Impressions: Service Date/Time: Monday, January 09, 2017 06:40 - CONCLUSION: 1. Mild patchy opacity the lung bases left slightly greater than right with no focal consolidation visualized on this single view study. 2. Degenerative change in the right glenohumeral joint. Nick Marshall MD CT Angiography 01/05/17 0000 Signed Impressions: Service Date/Time: Thursday, January 05, 2017 16:09 - CONCLUSION: 1. Limited evaluation due to respiratory motion. Pulmonary arteries are visualized to the proximal segmental level only without evidence for pulmonary embolism. More distal segmental and subsegmental pulmonary arteries are incompletely evaluated. 2. Patchy airspace consolidation in the right lower lobe and minimal airspace consolidation in the left lung base. Differential considerations include pneumonia versus aspiration. Angelo Mirza MD PE at Discharge GENERAL: Sitting up on her bed, eating. Appears less anxious today. CARDIOVASCULAR: Regular rate and regular rhythm without murmurs RESPIRATORY: diminished air entry in bases but no crackles or wheezing GASTROINTESTINAL: Abdomen soft, non-tender, nondistended. Normal, active bowel sounds MUSCULOSKELETAL: Extremities without edema. NEURO: Alert & Oriented, Moves all ext PSYCH: anxious Eyes: EOMI Pt update on day of discharge Pt tells me that she feels much better. denies any CP/worsening SOB/N/V. She would really like to be discharged soon. Hospital Course - sepsis and acute respiratory failure due to pneumonia; bilateral lower lobes- suspect aspiration sob much improving completed her course of IV antibiotics- blood cultures negative. Discussed w Dr. Mancera, covering ID physician, no need to be discharged on po abx. echo with EF 60% w mild pulm HTN w pressures 53mmHg. Pt on nifedipine 60mg po daily. Not on any diuretics. Cardiology evaluated patient for pulmonary hypertension and recommends follow-up with pulmonology, pt does have a nurse plastics who she follows and will f/u w him as an outpatient. medical management for now. GI consulted; s/p EGD with Cricopharyngeal achalasia/esophageal dysmotility. f/u with GI as outpatient. -hypothyroidism with low TSH level- needs to be repeated in 2-3 wks - - BP's better controlled. monitor as an outpatient. Pt Condition on Discharge: Stable Discharge Disposition: Discharge to SNF Discharge Time: > 30 minutes Discharge Instructions DIET: Follow Instructions for: Heart Healthy Diet Activities you can perform: Regular-No Restrictions Follow up Referrals: Cardiology - 2 Weeks Gastroenterology - 2 Weeks PCP Follow-up - 1 Week Pulmonology - 2 Weeks New Medications: Alprazolam (Xanax) 0.25 Mg Tab 0.25 MG PO QID PRN ANXIETY #10 TAB Nifedipine ER 24 HR (Nifedipine ER 24 HR) 60 Mg Tab 60 MG PO DAILY Days 30 TAB Propranolol (Propranolol) 20 Mg Tab 20 MG PO BID Days 30 TAB Changed Medications: Oxycodone-Acetaminophen (Percocet) 10-325 mg Tab 1 TAB PO Q4-6H PRN PAIN #20 Ref 0 TAB (Changed from: Q4H) Continued Medications: Allopurinol (Allopurinol) 100 Mg Tab 100 MG PO BID Gout #30 Ref 0 TAB Alprazolam (Alprazolam) 0.25 Mg Tab 0.25 MG PO TID PRN ANXIETY Ref 0 TAB Atorvastatin (Atorvastatin) 40 Mg Tab 40 MG PO HS Cholesterol Management #[address] (Cymbalta DR) 60 Mg Capdr 60 MG PO DAILY ULCER #30 Ref 0 CAP Fluticasone Nasal Harbert (Flonase Nasal Harbert) 50 Mcg/Act Harbert 50 MCG EACH NARE BID Allergies #1 Ref 0 BOTTLE Ipratropium-Albuterol Inh (Combivent Respimat Inh) 20-100 Care Home/Act Aero 1 PUFF INH QID Asthma Management #1 Ref 0 INHALER Levothyroxine (Levothyroxine) 50 Mcg Tab 100 MCG PO DAILY Thyroid #30 Ref 0 TAB Morphine ER (Morphine ER) 15 Mg Tab 15 MG PO TID Pain Management #10 Ref 0 TAB (This prescription has been renewed) Omeprazole (Omeprazole) 40 Mg Cap 40 MG PO DAILY #30 Ref 0 CAP Sucralfate (Sucralfate) 1 Gm Tab 1 GM PO QID on empty stomach Duodenal ulcer #120 Ref 0 TAB Temazepam (Temazepam) 30 Mg Cap 30 MG PO HS PRN INSOMNIA #5 Ref 0 CAP (This prescription has been renewed) Tizanidine (Tizanidine) 4 Mg Cap 4 MG PO TID Muscle Spasm #10 Ref 0 CAP (This prescription has been renewed) Umeclidinium-Vilanterol Inh (Anoro Ellipta Inh) 62.5-25 Mcg/Act Aero 1 PUFF INH DAILY COPD #1 Ref 0 INHALER Discontinued Medications: Dexlansoprazole (Dexilant) 60 Mg Cap 60 MG PO DAILY GERD #30 Ref 0 CAP Furosemide (Furosemide) 40 Mg Tab 40 MG PO DAILY #30 Ref 0 TAB Hydroxyzine Pamoate (Hydroxyzine Pamoate) 25 Mg Cap 25 MG PO BID PRN NAUSEA Ref 0 CAP Propranolol ER 24 HR (Propranolol ER 24 HR) 60 Mg Cap 60 MG PO DAILY Blood Pressure Management #30 Ref 0 CAP Kathy Faulkner MD Jan 14, 2017 17:08
[2017-01-14] MEDS ORDERED: ALPR.25 PO (17:13)
[2017-01-14] MEDS ORDERED: TEMA30CA PO (17:13)
[2017-01-14] MEDS ORDERED: PERC10TA27 PO (17:13)
[2017-01-14] MEDS ORDERED: NIFE60TA8 PO (17:13)
[2017-01-14] MEDS ORDERED: MORP1TAB24 PO (17:13)
[2017-01-14] MEDS ORDERED: PROP20TA3 PO (17:13)
[2017-01-14] MEDS ORDERED: TIZA4CAP3 PO (17:13)
[2017-01-14] MEDS: ENOXAPARIN SODIUM 40 MG/0.4 ML SYRINGE SQ SCH (17:18)
--- NOTE | 2017-01-14 18:47 | HHI.IDPN ---
Subjective Subjective Remarks ID Xcover for andi Amezcua chart was reviewed is a 71 y/o CF with h/o laryngitis, GERD like symptoms, difficulty swallowing solid foods. Admitted with pneumonia. chart was reviewed. s/p GI procedure: Dilatation of esophagus. No fever No rash No diarrhea Off NC oxygen occ cough with minimal amount of clear phlegm Antibiotics unasyn Lines Line sites with no e/o infection Past Medical History reviewed Allergies: Coded Allergies: Codeine (Verified Allergy, Intermediate, RASH, 12/03/16) Objective . Vital Signs Date Time Temp Pulse Resp B/P Pulse Ox O2 Delivery O2 Flow Rate FiO2 01/14/17 17:36 21 01/14/17 16:00 98.8 106 22 126/71 96 01/14/17 12:00 98.7 105 22 154/80 100 01/14/17 09:05 Room Air 01/14/17 08:00 97.4 104 24 170/71 97 01/14/17 07:56 94 01/14/17 04:36 Room Air 01/14/17 04:00 98.2 97 17 148/70 99 01/14/17 00:00 98.2 103 19 141/75 96 01/13/17 20:00 110 01/13/17 20:00 94 Nasal Cannula 2.00 01/13/17 20:00 Nasal Cannula 2.00 01/13/17 20:00 98.1 112 17 123/82 94 01/13/17 19:26 20 01/13/17 18:46 100 01/13/17 01/13/17 01/14/17 14:59 22:59 06:59 Intake Total 480 ml 200 ml 300 ml Output Total 800 ml 400 ml 900 ml Balance -320 ml -200 ml -600 ml Intake Oral 480 ml 200 ml 200 ml IV Total 100 ml Output Urine Total 800 ml 400 ml 900 ml # Bowel Movements 1 1 2 . Laboratory Tests Test 01/13/17 01/13/17 01/14/17 05:00 15:59 06:25 Sodium Level 137 MEQ/L 138 MEQ/L Potassium Level 2.6 MEQ/L 3.1 MEQ/L 3.3 MEQ/L Chloride Level 97 MEQ/L 99 MEQ/L Carbon Dioxide Level 31.5 MEQ/L 27.0 MEQ/L Anion Gap 9 MEQ/L 12 MEQ/L Blood Urea Nitrogen 4 MG/DL 4 MG/DL Creatinine 0.76 MG/DL 0.91 MG/DL Estimat Glomerular Filtration 75 ML/MIN 61 ML/MIN Rate Random Glucose 98 MG/DL 99 MG/DL Calcium Level 8.6 MG/DL 9.4 MG/DL Magnesium Level 1.2 MG/DL 1.6 MG/DL Imaging Last Impressions Chest X-Ray 01/09/17 0600 Signed Impressions: Service Date/Time: Monday, January 09, 2017 06:40 - CONCLUSION: 1. Mild patchy opacity the lung bases left slightly greater than right with no focal consolidation visualized on this single view study. 2. Degenerative change in the right glenohumeral joint. Nick Marshall MD CT Angiography 01/05/17 0000 Signed Impressions: Service Date/Time: Thursday, January 05, 2017 16:09 - CONCLUSION: 1. Limited evaluation due to respiratory motion. Pulmonary arteries are visualized to the proximal segmental level only without evidence for pulmonary embolism. More distal segmental and subsegmental pulmonary arteries are incompletely evaluated. 2. Patchy airspace consolidation in the right lower lobe and minimal airspace consolidation in the left lung base. Differential considerations include pneumonia versus aspiration. Angelo Mirza MD Physical Exam GENERAL: Obese, well-developed patient, in no apparent distress. SKIN: No rashes, ecchymoses or lesions. Cool and dry. EYES: Pupils equal round and reactive. Extraocular motions intact. No scleral icterus. No injection or drainage. NECK: Trachea midline. CARDIOVASCULAR: RRR RESPIRATORY: Clear to auscultation. Breath sounds reduced in bases, R > L. GASTROINTESTINAL: Abdomen soft, non-tender, nondistended. MUSCULOSKELETAL: Extremities without clubbing, cyanosis, or edema. NEUROLOGICAL: Awake and alert. Grossly non focal Psych: cooperative IV line sites with no e.o infection. Assessment & Plan Remarks Sepsis present on admission Pneumonia likely source. ? CAP vs atypical vs Aspiration from GERD (reports regurgitation like symptoms) con to have some regurg Acute COPD exacerbation Acute respiratory failure on NC Acute renal failure: likely sepsis, reports being on lasix as outpt ? meds related component. Obesity BMO 30.3 kg/m2 ? Obstructive sleep apnea. 2 D echo: EF 50-55% Recs DC Unasyn IV (pt completed 10 days of abx) d/w : ok to DC from ID standpoint with no abx Winter Mancera MD Jan 14, 2017 18:47 Winter Mancera MD Jan 14, 2017 18:47
[2017-01-14] MEDS: ATORVASTATIN 40 MG TAB PO SCH (20:12)
== END 2017-01-14 20:25 | DRG 871 ==
LOC: NEPC 11:36 → NEDA 14:05 → N04A 17:29
PROVIDERS: ADMIT Family Medicine; ATTEND Family Medicine
PROC: 0D758ZZ Dilation of Esophagus, Via Natural or Artificial Opening Endoscopic (ICD-10-PCS; principal; 2017-01-07 13:35)
DX: A41.9 Sepsis, unspecified organism (principal); J96.01 Acute respiratory failure with hypoxia; J69.0 Pneumonitis due to inhalation of food and vomit; N17.9 Acute kidney failure, unspecified; K22.0 Achalasia of cardia; J44.0 Chronic obstructive pulmonary disease with (acute) lower respiratory infection; E87.1 Hypo-osmolality and hyponatremia; J44.1 Chronic obstructive pulmonary disease with (acute) exacerbation; I27.2 Other secondary pulmonary hypertension; R13.10 Dysphagia, unspecified; I10 Essential (primary) hypertension; E87.6 Hypokalemia; E83.42 Hypomagnesemia; D64.9 Anemia, unspecified; E66.9 Obesity, unspecified; G89.29 Other chronic pain; E78.5 Hyperlipidemia, unspecified; E78.00 Pure hypercholesterolemia, unspecified; E03.9 Hypothyroidism, unspecified; I16.0 Hypertensive urgency; K21.9 Gastro-esophageal reflux disease without esophagitis; M54.9 Dorsalgia, unspecified; G47.33 Obstructive sleep apnea (adult) (pediatric); D50.9 Iron deficiency anemia, unspecified; I49.3 Ventricular premature depolarization; I44.7 Left bundle-branch block, unspecified; I08.1 Rheumatic disorders of both mitral and tricuspid valves; K22.70 Barrett's esophagus without dysplasia; F32.9 Major depressive disorder, single episode, unspecified; F41.9 Anxiety disorder, unspecified; Z23 Encounter for immunization; Z68.30 Body mass index [BMI] 30.0-30.9, adult; Z88.5 Allergy status to narcotic agent
CPT/HCPCS: 36600; 71010; 71275; 76937; 80048; 80053; 81001; 82550; 82552; 82805; 83540; 83550; 83605; 83690; 83735; 84132; 84443; 84484; 85007; 85025; 85027; 85610; 85730; 87040; 90732; 93005; 93306; 94640; 94664; 96365; 96375; C1769; J0295; J0456; J0696; J1650; J2405; J2543; J3370; J3475; J3480; J7030; J7040; J7050; J7613; P9612; Q9967

== ENCOUNTER 2017-02-01 09:09 | Inpatient (IN) | payer OTHER, MEDICARE ==
[~2017-02-01] VITALS: Ht 162.6 cm; Wt 79.0 kg
[2017-02-01] VITALS (8 sets, daily range): BP systolic 110–147; BP diastolic 65–82; PULSE 85–94; RESP 16–22; TEMP 96.9–100.4; O2SAT 93–97
[~2017-02-01 09:09] MED LIST changes: +ALPR.25 PO; -AMIT50TA3 PO; -DEXI60CA PO; -FURO40TA PO; -HYDR1CAP30 PO; +NIFE60TA8 PO; +PROP20TA3 PO; -PROP60CA PO
--- NOTE | 2017-02-01 09:24 | PD ---
HPI Chief Complaint: short of breath Time Seen by Provider: 09:13 Travel History International Travel<30 days: No Contact w/Intl Traveler<30days: No Traveled to known affect area: No History of Present Illness HPI This patient was discharged from the hospital 2 weeks ago and found to have pneumonia thought to be from aspiration. Today physical therapy came to her house and according to found her hypoxic and she was told to come to the emergency room. She complains of shortness of breath and cough for the last 2 days. Her cough and gone away after the hospitalization but is now returned. No documented fever. Not having any chest pain. Symptoms moderately severe. No alleviating factors. Duration 2 days. According to she has no significant history of smoking. No specific pulmonary disease in her history. PFSH Past Medical History Hx Anticoagulant Therapy: No Arthritis: Yes Asthma: Yes Autoimmune Disease: No Blood Disorders: No Anxiety: Yes Depression: Yes Heart Rhythm Problems: No Cancer: No Cardiovascular Problems: Yes High Cholesterol: Yes Chemotherapy: No Chest Pain: Yes Congestive Heart Failure: No COPD: No Cerebrovascular Accident: No Diabetes: No Diminished Hearing: No Endocrine: Yes Gastrointestinal Disorders: Yes GERD: Yes Glaucoma: No Genitourinary: No Headaches: No Hepatitis: No Hiatal Hernia: Yes Hypertension: Yes Immune Disorder: No Implanted Vascular Access Dvce: Yes Musculoskeletal: Yes Neurologic: Yes Psychiatric: Yes Reproductive: No Respiratory: Yes Immunizations Current: Yes Myocardial Infarction: No Radiation Therapy: No Seizures: No Sleep Apnea: No Thyroid Disease: Yes Ulcer: Yes Menopausal: Yes : 1 Para: 1 Past Surgical History Abdominal Surgery: Yes AICD: No Body Medical Devices: 2 TITANIUM RODS IN BACK, SCREW RIGHT ANKLE Cardiac Surgery: No Cholecystectomy: Yes Ear Surgery: No Endocrine Surgery: No Eye Surgery: Yes (BILATERAL CATARACTS) Genitourinary Surgery: No Gynecologic Surgery: No (hysterectomy) Hysterectomy: No Joint Replacement: No Neurologic Surgery: Yes (BACK SURGERY - TITANIUM CAGE) Oral Surgery: Yes (TONSILLECTOMY) Pacemaker: No Thoracic Surgery: No Other Surgery: Yes Social History Alcohol Use: Yes (RARELY) Tobacco Use: No Substance Use: No Allergies-Medications (Allergen,Severity, Reaction): Coded Allergies: Codeine (Verified Allergy, Intermediate, RASH, 02/01/17) Reported Meds & Prescriptions Reported Meds & Active Scripts Active Propranolol (Propranolol HCl) 20 Mg Tab 20 Mg PO BID 30 Days Nifedipine ER 24 HR (Nifedipine) 60 Mg Tab 60 Mg PO DAILY 30 Days Xanax (Alprazolam) 0.25 Mg Tab 0.25 Mg PO QID PRN Percocet (Oxycodone-Acetaminophen) 10-325 mg Tab 1 Tab PO Q4-6H PRN Morphine ER (Morphine Sulfate) 15 Mg Tab 15 Mg PO TID Temazepam 30 Mg Cap 30 Mg PO HS PRN Tizanidine (Tizanidine HCl) 4 Mg Cap 4 Mg PO TID Reported Flonase Nasal [place] (Fluticasone Nasal [place]) 50 Mcg/Act [place] 50 Mcg EACH NARE BID Omeprazole 40 Mg Cap 40 Mg PO DAILY Sucralfate 1 Gm Tab 1 Gm PO QID on empty stomach [Virt] 1 Cap PO DAILY Anoro Ellipta Inh (Umeclidinium/Vilanterol) 62.5-25 Mcg/Act Aero 1 Puff INH DAILY Atorvastatin (Atorvastatin Calcium) 40 Mg Tab 40 Mg PO HS Allopurinol 100 Mg Tab 100 Mg PO BID Alprazolam 0.25 Mg Tab 0.25 Mg PO TID PRN Combivent Respimat Inh (Ipratropium-Albuterol Inh) 20-100 Jail/Act Aero [address] QID Cymbalta [address] (Duloxetine HCl) 60 Mg Capdr 60 Mg PO DAILY Levothyroxine (Levothyroxine Sodium) 50 Mcg Tab 100 Mcg PO DAILY Review of Systems General / Constitutional: No: Fever Eyes: No: Visual changes HENT: No: Headaches Cardiovascular: No: Chest Pain or Discomfort Respiratory: Positive: Cough, Shortness of Breath, Wheezing Gastrointestinal: No: Abdominal Pain Genitourinary: No: Dysuria Musculoskeletal: Positive: Weakness, No: Pain Skin: No Rash Neurologic: Positive: Weakness Psychiatric: Positive: Anxiety, No: Depression Endocrine: No: Polydipsia Hematologic/Lymphatic: No: Easy Bruising Physical Exam Narrative GENERAL: Well-nourished, well-developed patient who is short of breath . SKIN: Focused skin assessment reveals no rash and nodules. Skin is Warm and dry. HEAD: Atraumatic. Normocephalic. EYES: Pupils equal and round. No scleral icterus. No injection or drainage. ENT: No nasal bleeding or discharge. Mucous membranes pink and moist. NECK: Trachea midline. No JVD. CARDIOVASCULAR: Regular rate and rhythm. No murmur appreciated. RESPIRATORY: Positive accessory muscle use. Diffuse expiratory wheezing with basilar crackles bilaterally. Breath sounds equal bilaterally. GASTROINTESTINAL: Abdomen soft, non-tender, nondistended. Hepatic and splenic margins not palpable. MUSCULOSKELETAL: No obvious deformities. No clubbing. No cyanosis. Scant symmetric ankle edema. NEUROLOGICAL: Awake and alert. No obvious cranial nerve deficits. Motor grossly within normal limits. Normal speech. PSYCHIATRIC: Anxious mood and affect; insight and judgment questionable . Data Data Last Documented VS Vital Signs Date Time Temp Pulse Resp B/P Pulse Ox O2 Delivery O2 Flow Rate FiO2 02/01/17 09:33 100.4 85 22 138/71 93 02/01/17 09:30 Nasal Cannula 2 Orders Complete Blood Count With Diff (02/01/17 09:17) Basic Metabolic Panel (Bmp) (02/01/17 09:17) Iv Access Insert/Monitor (02/01/17 09:17) Electrocardiogram (02/01/17:17) Ecg Monitoring (02/01/17:17) Oximetry (02/01/17:17) Oxygen Administration (02/01/17 09:17) Chest, Single Ap (02/01/17 09:17) Sodium Chloride 0.9% Flush (Ns Flush) (02/01/17 09:30) Methylprednisolone So Succ Inj (Solumedr (02/01/17 09:30) Albuterol-Ipratropium Neb (Duoneb Neb) (02/01/17 09:30) Lactic Acid (02/01/17 09:24) Piperacil-Tazo 3.375 Gm Premix (Zosyn 3. (02/01/17 09:30) Blood Culture (02/01/17 09:32) Labs Laboratory Tests Test 02/01/17 09:33 White Blood Count 12.6 TH/MM3 Red Blood Count 3.68 MIL/MM3 Hemoglobin 10.9 GM/DL Hematocrit 32.6 % Mean Corpuscular Volume 88.8 FL Mean Corpuscular Hemoglobin 29.6 PG Mean Corpuscular Hemoglobin 33.4 % Concent Red Cell Distribution Width 16.0 % Platelet Count 296 TH/MM3 Mean Platelet Volume 7.4 FL Neutrophils (%) (Auto) 84.8 % Lymphocytes (%) (Auto) 9.5 % Monocytes (%) (Auto) 2.0 % Eosinophils (%) (Auto) 1.3 % Basophils (%) (Auto) 2.4 % Neutrophils # (Auto) 10.6 TH/MM3 Lymphocytes # (Auto) 1.2 TH/MM3 Monocytes # (Auto) 0.3 TH/MM3 Eosinophils # (Auto) 0.2 TH/MM3 Basophils # (Auto) 0.3 TH/MM3 CBC Comment DIFF FINAL Differential Comment Sodium Level 129 MEQ/L Potassium Level 3.8 MEQ/L Chloride Level 90 MEQ/L Carbon Dioxide Level 29.0 MEQ/L Anion Gap 10 MEQ/L Blood Urea Nitrogen 19 MG/DL Creatinine 1.40 MG/DL Estimat Glomerular Filtration 37 ML/MIN Rate Random Glucose 150 MG/DL Lactic Acid Level 2.0 mmol/L Calcium Level 9.0 MG/DL MDM Medical Decision Making Medical Screen Exam Complete: Yes Emergency Medical Condition: Yes Medical Record Reviewed: Yes Differential Diagnosis Pneumonia, asthma, aspiration Narrative Course I have reviewed the patient's electronic medical record. Reviewed her discharge summary from 2 weeks ago IV placed CBC shows some leukocytosis of 12.8 Metabolic profile shows hyponatremia 129 Blood culture sent 2 IV Zosyn given Series of 3 nebulizer treatments given IV Solu-Medrol given I reviewed her chest x-ray and compared to the one done a couple weeks ago. This one looks worse with right base infiltrates Patient arrived critically ill with acute hypoxic respiratory failure. After the above treatments she is clinically improved but still requiring admission. At this time she has saturation of 95% on 2 L nasal cannula Wheezing is lessened and she is breathing better She has fever of 100.4 and her clinical presentation matches a pneumonia. It was felt that she might be aspirating as the cause and it has GI evaluation and endoscopy. I placed a call to the hospitalist to discuss. Critical Care Narrative Aggregate critical care time was 34 minutes. Time to perform other separately billable procedures was not included in the critical care time. My time did not include minutes spent treating any other patients simultaneously or on activities that did not directly contribute to the patient's treatment. The services I provided to this patient were to treat and/or prevent clinically significant deterioration that could result in: Hypoxemic brain injury, cardiopulmonary arrest, cardiac arrhythmia I provided critical care services requiring my management, as noted below: Chart data review, documentation time, medication orders and management, vital sign assessments/reviewing monitor data, ordering and reviewing lab tests, ordering and interpreting/reviewing x-rays and diagnostic studies, care of the patient and discussion of the patient with the admitting physicians. Diagnosis Primary Impression: Acute respiratory failure with hypoxia Additional Impressions: Pneumonia Qualified Code: J69.0 - Aspiration pneumonia of right lower lobe, unspecified aspiration pneumonia type Hyponatremia Admitting Information Admitting Physician Requests: Admit Kristopher Ybarra MD Feb 01, 2017 09:24
[2017-02-01] MEDS ORDERED: methylPREDNISolone SOD SUCC 125 MG/2 ML VIAL IVP ONE (09:30)
[2017-02-01] MEDS ORDERED: SODIUM CHLORIDE 0.9% FLUSH 10 ML FLUSH IVF PRN (09:30)
[2017-02-01] MEDS ORDERED: PIPERACIL-TAZO 3.375 GM PREMIX 50 ML IV ONE (09:30)
[2017-02-01] MEDS: RESP: ALBUTEROL 2.5 MG/IPRATROPIUM 0.5 MG NEB (SCH) INH (09:32)
[2017-02-01 09:42] LABS: AUTOMATED NEUTROPHIL # 10.6 TH/MM3 (1.8-7.7); BASOPHIL # 0.3 TH/MM3 (0-0.2); BASOPHIL % 2.4 % (0.0-2.0); EOSINOPHIL # 0.2 TH/MM3 (0-0.4); EOSINOPHIL % 1.3 % (0.0-4.0); HEMATOCRIT 32.6 % (35.0-46.0); LYMPH % 9.5 % (9.0-44.0); LYMPHOCYTE # 1.2 TH/MM3 (1.0-4.8); MEAN CELL VOLUME 88.8 FL (80.0-100.0); MEAN CORPUSCULAR HEMOGLOBIN 29.6 PG (27.0-34.0); MEAN CORPUSCULAR HGB CONC 33.4 % (32.0-36.0); NEUT % 84.8 % (16.0-70.0); PLATELET COUNT 296 TH/MM3 (150-450); RED BLOOD COUNT 3.68 MIL/MM3 (4.00-5.30); WHITE BLOOD COUNT 12.6 TH/MM3 (4.0-11.0)
[2017-02-01 09:43] LABS: HEMO FLAGS DIFF FINAL
--- NOTE | 2017-02-01 09:49 | RADRPT ---
EXAM DATE/TIME: 02/01/2017 09:36 [facility] COMPARISON: CHEST SINGLE AP, January 05, 2017, 12:22. CHEST SINGLE AP, January 09, 2017, 6:40. INDICATIONS : Short of breath for several months MEDICAL HISTORY : Hypertension. Cardiovascular disease. SURGICAL HISTORY : Appendectomy. Cholecystectomy. Hysterectomy. ENCOUNTER: Initial ACUITY: 3 months PAIN SCORE: 0/10 LOCATION: Bilateral chest FINDINGS: Rotated AP view of the chest demonstrates a normal-sized cardiac silhouette. Lungs are underinflated. There is new mild patchy air space consolidation in the lower lung zones bilaterally, right greater than left. No pleural effusion or pneumothorax is identified. Bones and soft tissues demonstrate no a cute finding. Right glenohumeral joint has a stable appearance and changes are likely related to payal re osteoarthritis. CONCLUSION: There is new patchy airspace consolidation in the lower lung zones bilaterally, right greater than le ft. Hilton Austin MD on February 01, 2017 at 9:46 Board Certified Radiologist. This report was verified electronically.
[2017-02-01 09:53] LABS: POTASSIUM 3.8 MEQ/L (3.5-5.1)
[2017-02-01] MEDS ORDERED: RESP: ALBUTEROL 2.5 MG/IPRATROPIUM 0.5 MG NEB (PRN) NEB (10:30)
[2017-02-01] MEDS ORDERED: BISACODYL 10 MG SUPP RECTAL PRN (10:30)
[2017-02-01] MEDS ORDERED: MAGNESIUM HYDROXIDE SUSP 30 ML CUP PO PRN (10:30)
[2017-02-01] MEDS ORDERED: LACTULOSE SYRUP 20 GM/30 ML CUP PO PRN (10:30)
[2017-02-01] MEDS ORDERED: NALOXONE HCL 0.4 MG/ML AMP IV PRN (10:30)
[2017-02-01] MEDS ORDERED: SENNOSIDES 8.6 MG TAB PO PRN (10:30)
[2017-02-01] MEDS: AZITHROMYCIN INJ 500 MG in SODIUM CHLOR 0.9% 250 ML INJ 250 ML IV SCH (12:44)
[2017-02-01] MEDS: ENOXAPARIN SODIUM 40 MG/0.4 ML SYRINGE SQ SCH (12:45)
--- NOTE | 2017-02-01 14:23 | HHI.HP ---
HPI Service [facility] Hospitalists Primary Care Physician Non-Staff Admission Diagnosis pneumonia Diagnoses: Chief Complaint: Cough and shortness of breath. Travel History International Travel<30 Days: No Contact w/Intl Traveler <30 Da: No Traveled to Known Affected Are: No Sepsis Criteria SIRS Criteria (2 or more): RR > 20 or PaCO2 < 32, WBC > 41238, < 4000 or > 10 % bands Sepsis Criteria (SIRS+source): Infect source susp/known Criteria Outcome: Meets sepsis criteria History of Present Illness Written by Manny Gill, acting as scribe for Dr. Carla Faulkner on 02/01/17 at 14: 09. Ms. Craig is 71 yo, with history inclusive of mild pulmonary hypertension, hyperlipidemia, hypertension, hypothyroidism, and depression. Pt presented w SOB and hypoxia. She states that she started developing a cough, on the evening of 01/31/17. She woke up this morning with shortness of breath. Apparently home health PT came and saw that she was SOB and checked her sats and she was found to be hypoxic. They recommended that she come to [facility] ED for evaluation and management of her condition. She denies any chest pain, nausea or vomiting, denies any abdominal pain. she states that she was supposed to see her drink mixer this coming thursday and is concerned that she will miss her appt. She did endorse having chills last evening as well as sore throat, non productive cough and nausea. She did not have fever, body aches, vomiting, ear ache or dysuria. Of note: Ms. Craig was recently hospitalized on January 05, 2017 for sepsis secondary to pneumonia. She was also determined to have mild pulmonary hypertension (53 mmhg). An echocardiogram was completed and she was found to have an ejection fraction of 60%. 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 Pt was subsequently discharged to rehabilitation on 01/14. She remained there until 01/29/17 and discharged home w home health. Review of Systems Except as stated in HPI: all other systems reviewed are Neg Past Family Social History Past Medical History Cricopharyngeal achalasia/ esophageal dysmotility Depression essential hypertension Gout Hyperlipidemia Mild pulmonary hypertension Past Surgical History Cholecystectomy. Partial hysterectomy. Reported Medications Reported Meds & Active Scripts Active Propranolol (Propranolol HCl) 20 Mg Tab 20 Mg PO BID 30 Days Nifedipine ER 24 HR (Nifedipine) 60 Mg Tab 60 Mg PO DAILY 30 Days Xanax (Alprazolam) 0.25 Mg Tab 0.25 Mg PO QID PRN Percocet (Oxycodone-Acetaminophen) 10-325 mg Tab 1 Tab PO Q4-6H PRN Morphine ER (Morphine Sulfate) 15 Mg Tab 15 Mg PO TID Temazepam 30 Mg Cap 30 Mg PO HS PRN Tizanidine (Tizanidine HCl) 4 Mg Cap 4 Mg PO TID Reported Flonase Nasal [place] (Fluticasone Nasal [place]) 50 Mcg/Act [place] 50 Mcg EACH NARE BID Omeprazole 40 Mg Cap 40 Mg PO DAILY Sucralfate 1 Gm Tab 1 Gm PO QID on empty stomach [Virt] 1 Cap PO DAILY Anoro Ellipta Inh (Umeclidinium/Vilanterol) 62.5-25 Mcg/Act Aero 1 Puff INH DAILY Atorvastatin (Atorvastatin Calcium) 40 Mg Tab 40 Mg PO HS Allopurinol 100 Mg Tab 100 Mg PO BID Alprazolam 0.25 Mg Tab 0.25 Mg PO TID PRN Combivent Respimat Inh (Ipratropium-Albuterol Inh) 20-100 Mcfp/Act Aero 1 Puff INH QID Cymbalta DR (Duloxetine HCl) 60 Mg Capdr 60 Mg PO DAILY Levothyroxine (Levothyroxine Sodium) 50 Mcg Tab 100 Mcg PO DAILY Allergies: Coded Allergies: Codeine (Verified Allergy, Intermediate, RASH, 02/01/17) Active Ordered Medications Reported Meds & Active Scripts Active Propranolol (Propranolol HCl) 20 Mg Tab 20 Mg PO BID 30 Days Nifedipine ER 24 HR (Nifedipine) 60 Mg Tab 60 Mg PO DAILY 30 Days Xanax (Alprazolam) 0.25 Mg Tab 0.25 Mg PO QID PRN Percocet (Oxycodone-Acetaminophen) 10-325 mg Tab 1 Tab PO Q4-6H PRN Morphine ER (Morphine Sulfate) 15 Mg Tab 15 Mg PO TID Temazepam 30 Mg Cap 30 Mg PO HS PRN Tizanidine (Tizanidine HCl) 4 Mg Cap 4 Mg PO TID Reported Flonase Nasal [place] (Fluticasone Nasal [place]) 50 Mcg/Act [place] 50 Mcg EACH NARE BID Omeprazole 40 Mg Cap 40 Mg PO DAILY Sucralfate 1 Gm Tab 1 Gm PO QID on empty stomach [Virt] 1 Cap PO DAILY Anoro Ellipta Inh (Umeclidinium/Vilanterol) 62.5-25 Mcg/Act Aero 1 Puff INH DAILY Atorvastatin (Atorvastatin Calcium) 40 Mg Tab 40 Mg PO HS Allopurinol 100 Mg Tab 100 Mg PO BID Alprazolam 0.25 Mg Tab 0.25 Mg PO TID PRN Combivent Respimat Inh (Ipratropium-Albuterol Inh) 20-100 Mcfp/Act Aero [address] QID Cymbalta [address] (Duloxetine HCl) 60 Mg Capdr 60 Mg PO DAILY Levothyroxine (Levothyroxine Sodium) 50 Mcg Tab 100 Mcg PO DAILY Family History Father of pneumonia in his early 40's. Mother of stomach cancer. Social History Pt denied smoking history. Illicit and recreational drug use was denied. Pt endorsed infrequent alcohol use. Physical Exam Vital Signs Vital Signs Date Time Temp Pulse Resp B/P Pulse Ox O2 Delivery O2 Flow Rate FiO2 02/01/17 12:00 99.4 89 20 131/82 95 02/01/17 10:31 85 16 110/65 96 Room Air 2 02/01/17 09:33 100.4 85 22 138/71 93 02/01/17 09:30 93 Nasal Cannula 2 02/01/17 09:30 93 Nasal Cannula 2 Physical Exam GENERAL: This is a well-nourished, well-developed patient, in no apparent distress. SKIN: No rashes, ecchymoses or lesions. Cool and dry. HEAD: Atraumatic. Normocephalic. EYES: Pupils equal round and reactive. Extraocular motions intact. No scleral icterus. No injection or drainage. ENT: Nose without drainage. Throat without erythema or exudate. Airway patent. NECK: Trachea midline. No lymphadenopathy. Supple and nontender. CARDIOVASCULAR: Regular rate and rhythm without murmurs RESPIRATORY: Clear to auscultation. Breath sounds equal bilaterally. No wheezes. Questionable crackles in the bases, bilaterally. GASTROINTESTINAL: Abdomen soft, non-tender, nondistended. No hepato- splenomegaly or guarding. MUSCULOSKELETAL: Extremities without edema. No joint tenderness, effusion, or edema noted. NEUROLOGICAL: Awake and alert. Cranial nerves II through XII intact. Motor and sensory grossly within normal limits however does require the assistance of a walker to ambulate. Speech clear and fluent. Pt did walk in room to go to restroom after my interview and exam and was noted to take small steps while ambulating. Psychiatric: Pt A&Ox3, she is an anxious person (baseline for her), pleasant and cooperative. Laboratory Laboratory Tests Test 02/01/17 09:33 White Blood Count 12.6 Red Blood Count 3.68 Hemoglobin 10.9 Hematocrit 32.6 Mean Corpuscular Volume 88.8 Mean Corpuscular Hemoglobin 29.6 Mean Corpuscular Hemoglobin 33.4 Concent Red Cell Distribution Width 16.0 Platelet Count 296 Mean Platelet Volume 7.4 Neutrophils (%) (Auto) 84.8 Lymphocytes (%) (Auto) 9.5 Monocytes (%) (Auto) 2.0 Eosinophils (%) (Auto) 1.3 Basophils (%) (Auto) 2.4 Neutrophils # (Auto) 10.6 Lymphocytes # (Auto) 1.2 Monocytes # (Auto) 0.3 Eosinophils # (Auto) 0.2 Basophils # (Auto) 0.3 CBC Comment DIFF FINAL Differential Comment Sodium Level 129 Potassium Level 3.8 Chloride Level 90 Carbon Dioxide Level 29.0 Anion Gap 10 Blood Urea Nitrogen 19 Creatinine 1.40 Estimat Glomerular Filtration 37 Rate Random Glucose 150 Lactic Acid Level 2.0 Calcium Level 9.0 Date/Time Procedure Status Source Growth 02/01/17 09:33 Aerobic Blood Culture Received Blood Peripheral Pending 02/01/17 09:33 Anaerobic Blood Culture Received Blood Peripheral Pending Result Diagram: 02/01/1793202/01/17932 Imaging Last Impressions Chest X-Ray 02/01/17916 Signed Impressions: Service Date/Time: Wednesday, February 01, 2017 09:36 - CONCLUSION: There is new patchy airspace consolidation in the lower lung zones bilaterally, right greater than left. Hilton Austin MD Septic Shock Reassessment Lungs: Crackles Skin: Warm Assessment and Plan Problem List: (1) Pneumonia ICD Code: J18.9 Status: Acute (2) Sepsis ICD Code: A41.9 Status: Acute (3) Acute respiratory failure with hypoxia ICD Code: J96.01 Status: Acute (4) Hyponatremia ICD Code: E87.1 Status: Acute Assessment and Plan Ms. Craig is 71 yo, with history inclusive of mild pulmonary hypertension, hyperlipidemia, hypertension, hypothyroidism, and depression presenting w SOB and PNA on imaging studies. Sepsis Pneumonia Acute respiratory failure with hypoxia chest x-ray: there is new patchy airspace consolidation in the lower lung zones bilaterally, right greater than left. she presents w fevers of 100.4, leukocytosis of 12.6. Pt will be treated for Hospital acquired PNA as she was recently discharge from hospital and rehab. Pt will be started on zosyn and azithromycin. monitor white count and fevers. blood cx ordered in ED. f/u cultures. Per ER physician, pt did have wheezing. continue breathing treatments, solumedrol IV. Will obtain ID Encourage IS use. PT to evaluate pt while in hospital Acute renal failure: Cr on admission found to be 1.4. Baseline was around 0.8. Give NS @84ml/hr and monitor creatinine closely. Hyponatremia: on IVFs monitor. Hypothyroid resumed home Synthroid Depression resumed home Duloxetine 60 mg Hypertension: resumed home Nifedipine ER 60 mg and Propranolol 20 mg BID DVT prophylaxis: Lovenox 40 mg sc daily, SCD's and Rafiq paulino. This note was transcribed by suzy Gill. I, Dr. Kathy Faulkner personally performed the history, physical exam, and medical decision making; and confirmed the accuracy of the information in the transcribed note. Authenticated by Dr. Kathy Faulkner on 02/01/17 at 14:09. Code Status Full Code Discussed Condition With Case discussed with Pt. Physician Certification 2 Midnight Certification Type: Admission for Inpatient Services Order for Inpatient Services The services are ordered in accordance with Medicare regulations or non- Medicare payer requirements, as applicable. In the case of services not specified as inpatient-only, they are appropriately provided as inpatient services in accordance with the 2-midnight benchmark. Estimated LOS (days): 2 Two days is the estimated time the patient will need to remain in the hospital, assuming treatment plan goals are met and no additional complications. Post-Hospital Plan: Not yet determined Problem Qualifiers (1) Pneumonia: Qualified Code: J69.0 - Aspiration pneumonia of both lower lobes, unspecified aspiration pneumonia type (2) Sepsis: Qualified Code: A41.9 - Sepsis, due to unspecified organism Manny Gill Jr. Feb 01, 2017 14:23 Kathy Faulkner MD Feb 01, 2017 17:59 Acute respiratory failure with hypoxia 1) Admit to hospitalist service 2) chest x-ray: there is new patchy airspace consolidation in the lower lung zones bilaterally, right greater than left. 3) Basophils and neutrophils elevated upon admission; check labs 4) Steroids 5) Breathing treatments 6) Antibiotics initiated 7) Infectious disease consulted. 8) Oxygen therapy Hyponatremia 1) monitor 2) labs Hypothyroid 1) Continue home Synthroid mcg daily Depression 1) Continue home Duloxetine 60 mg Hypertension: 1) Continue home Nifedipine ER 60 mg and Propranolol 20 mg BID DVT prophylaxis: Lovenox 40 mg sc daily, SCD's and Rafiq hose. Code Status Full Code Discussed Condition With Case discussed with Pt. Physician Certification 2 Midnight Certification Type: Admission for Inpatient Services Order for Inpatient Services The services are ordered in accordance with Medicare regulations or non- Medicare payer requirements, as applicable. In the case of services not specified as inpatient-only, they are appropriately provided as inpatient services in accordance with the 2-midnight benchmark. Estimated LOS (days): 2 Two days is the estimated time the patient will need to remain in the hospital, assuming treatment plan goals are met and no additional complications. Post-Hospital Plan: Not yet determined Problem Qualifiers (1) Pneumonia: Qualified Code: J69.0 - Aspiration pneumonia of both lower lobes, unspecified aspiration pneumonia type (2) Sepsis: Qualified Code: A41.9 - Sepsis, due to unspecified organism Manny Gill Jr. Feb 01, 2017 14:23
[2017-02-01] MEDS: RESP: ALBUTEROL 2.5 MG/IPRATROPIUM 0.5 MG NEB (SCH) NEB ×2 (15:16→21:13)
[2017-02-01] MEDS: methylPREDNISolone SOD SUCC 40 MG/1 ML VIAL IV PUSH SCH (16:58)
[2017-02-01] MEDS: SUCRALFATE 1 GM TAB PO SCH ×2 (17:00→21:48)
[2017-02-01] MEDS: MORPHINE SULFATE 15 MG CONTROLLED RELEASE TAB PO SCH (17:01)
[2017-02-01] MEDS: PIPERACIL-TAZO 3.375 GM PREMIX 50 ML IV SCH ×2 (17:03→22:12)
--- NOTE | 2017-02-01 17:24 | EKG ---
Date Performed: 02/01/2017 Time Performed: 10:05:53 PTAGE: 71 years EKG: Sinus rhythm LEFT BUNDLE BRANCH BLOCK ABNORMAL ECG Since PREVIOUS TRACING , no significant change noted PREVIOUS TRACIN01/05/2017 19.31 DOCTOR: Hamida Toribio Interpretating Date/Time 02/03/2017 07:21:32
--- NOTE | 2017-02-01 18:45 | MB ---
cc: CARMELA RODRIGUEZ MD DATE OF CONSULTATION: 02/01/2017. REASON FOR CONSULTATION: Hypoxia and respiratory failure now found to have new pneumonia. REQUESTING PHYSICIAN: Dr. Faulkner. HISTORY OF PRESENT ILLNESS: This is a 71-year-old white female who presented to the emergency department earlier today with shortness of breath. The patient was recently discharged from the hospital on January 14 after treatment for pneumonia. She was felt to possibly have aspiration pneumonia. She completed antibiotics in the hospital and was discharged to a nursing home facility. The patient subsequently was discharged home from that facility. She states that earlier today she felt cold and was having problems with her breathing and she noted that she had left-sided chest wall pain. She was evaluated in the emergency department and she had a temperature of 100.4 degrees and her white count was elevated at 12.6. The patient was felt to possibly be aspirating. She was noted to have Gastroesophageal reflux disease (GERD). She denies cough or sputum production to me. She states that her appetite has been good when she was at home. She was diagnosed with esophageal dysmotility. Currently she states that she feels better. She wants to eat. She is on oxygen via nasal cannula. Her temperature is currently 97.4 degrees. Chest x-ray shows new patchy airspace consolidation in the lower lung zones bilaterally. PAST MEDICAL HISTORY: 1. Hypertension. 2. Hyperlipidemia. 3. Gout. 4. Depression. 5. Esophageal dysmotility. 6. History of cholecystectomy. 7. Partial hysterectomy. ALLERGIES: CODEINE. MEDICATIONS: 1. Oramorph. 2. Carafate. 3. Zanaflex. 4. Synthroid. 5. Protonix. 6. Procardia. 7. Methylprednisolone. 8. Lovenox. 9. Azithromycin. 10. Piperacillin / tazobactam. SOCIAL HISTORY: No tobacco. Rare alcohol use. No illicit drugs. FAMILY HISTORY: Noncontributory. REVIEW OF SYSTEMS: Pertinents mentioned above in the history of present illness. PHYSICAL EXAMINATION: GENERAL: This is a moderately obese female who is in no acute distress. She is awake and alert and oriented. VITAL SIGNS: The vital signs include a temperature of 97.4, blood pressure 147/81, respirations 22, heart rate 94. HEAD, EYES, EARS, NOSE, THROAT: The head is atraumatic. Extraocular movements grossly intact. Pupils reactive to light. No icterus. Oropharynx with moist mucosa. NECK: The neck is supple. No adenopathy. LUNGS: Rales at both bases. HEART: Regular S1 and S2 without murmurs, rubs or gallops. ABDOMEN: Bowel sounds present, soft, no tenderness appreciated. RECTAL: Not performed. EXTREMITIES: No clubbing, cyanosis or edema. SKIN: No rash. NEUROLOGIC: No gross focal findings. PSYCHIATRIC: The patient is calm and cooperative. LABS: White blood cells 12.6, platelet count 296,000, 84% neutrophils, hemoglobin 10.9. Creatinine 1.40, BUN 19, estimated GFR of 37, sodium 129. IMPRESSION: 1. Pneumonia involving bilateral lower lungs. The patient possibly may be aspirating. 2. Esophageal dysmotility syndrome. 3. Acute renal insufficiency. RECOMMENDATIONS: 1. Continue piperacillin / tazobactam. 2. Continue azithromycin. 3. Monitor temperature. 4. Monitor white blood cell count. 5. Obtain sputum culture if she expectorates any sputum. Thank you for this consultation. The patient's progress will be monitored and further recommendations will be made on followup if necessary. Carmela Rodriguez MD FD/ASAF /5:34 PM /6:09 PM
[2017-02-01] MEDS: PROPRANOLOL HCL 20 MG TAB PO SCH (21:00)
[2017-02-01] MEDS: ALPRAZolam 0.25 MG TAB PO PRN (21:46)
[2017-02-01] MEDS: TEMAZEPAM 15 MG CAP PO PRN (21:46)
[2017-02-01] MEDS: ATORVASTATIN 40 MG TAB PO SCH (21:48)
[2017-02-01] MEDS: DOCUSATE SODIUM 50 MG/SENNA 8.6 MG TAB PO SCH (21:48)
[2017-02-01] MEDS: SODIUM CHLOR 0.9% 1000 ML INJ 1,000 ML IV SCH (21:49)
[2017-02-01] MEDS: SODIUM CHLORIDE 0.9% FLUSH 10 ML FLUSH IV FLUSH SCH (21:49)
[2017-02-02] VITALS (7 sets, daily range): BP systolic 94–159; BP diastolic 57–89; PULSE 79–90; RESP 16–22; TEMP 95.9–96.6; O2SAT 94–99
[2017-02-02] MEDS: guaiFENesin/DEXTROMETHORPHAN 200 MG/20 MG/10 ML CUP PO PRN ×2 (00:58→23:27)
[2017-02-02] MEDS: oxyCODONE/ACETAMINOPHEN 10 MG/325 MG TAB PO PRN ×3 (00:58→21:51)
[2017-02-02] MEDS: RESP: ALBUTEROL 2.5 MG/IPRATROPIUM 0.5 MG NEB (SCH) NEB ×4 (03:26→21:05)
[2017-02-02] MEDS: SODIUM CHLOR 0.9% 1000 ML INJ 1,000 ML IV SCH ×2 (05:55→17:38)
[2017-02-02] MEDS: LEVOTHYROXINE SODIUM 100 MCG TAB PO SCH (06:30)
[2017-02-02] MEDS: ALPRAZolam 0.25 MG TAB PO PRN (06:31)
[2017-02-02] MEDS: methylPREDNISolone SOD SUCC 40 MG/1 ML VIAL IV PUSH SCH ×2 (06:31→08:47)
[2017-02-02] MEDS: PIPERACIL-TAZO 3.375 GM PREMIX 50 ML IV SCH ×4 (06:32→21:52)
[2017-02-02] MEDS: SODIUM CHLORIDE 0.9% FLUSH 10 ML FLUSH IV FLUSH SCH ×2 (07:48→21:40)
[2017-02-02 08:39] LABS: HEMATOCRIT 28.2 % (35.0-46.0); LYMPH % 4.3 % (9.0-44.0); MEAN CORPUSCULAR HEMOGLOBIN 28.6 PG (27.0-34.0); MEAN CORPUSCULAR HGB CONC 31.8 % (32.0-36.0); MONO % 2.5 % (0.0-8.0); NEUT % 93.2 % (16.0-70.0); PLATELET COUNT 236 TH/MM3 (150-450); RED BLOOD COUNT 3.14 MIL/MM3 (4.00-5.30); RED CELL DISTRIBUTION WIDTH 14.9 % (11.6-17.2); WHITE BLOOD COUNT 23.6 TH/MM3 (4.0-11.0)
[2017-02-02 08:42] LABS: HEMO FLAGS DIFF FINAL
[2017-02-02] MEDS: NIFEdipine 60 MG SUSTAINED RELEASE TAB PO SCH (08:47)
[2017-02-02] MEDS: SUCRALFATE 1 GM TAB PO SCH ×4 (08:47→21:50)
[2017-02-02] MEDS: PANTOPRAZOLE SOD 40 MG DELAYED RELEASE TAB PO SCH (08:47)
[2017-02-02] MEDS: DULoxetine HCl DR 60 MG CAP PO SCH (08:48)
[2017-02-02] MEDS: PROPRANOLOL HCL 20 MG TAB PO SCH ×2 (08:48→21:41)
[2017-02-02] MEDS: MORPHINE SULFATE 15 MG CONTROLLED RELEASE TAB PO SCH ×3 (08:48→17:38)
[2017-02-02] MEDS: DOCUSATE SODIUM 50 MG/SENNA 8.6 MG TAB PO SCH ×2 (08:48→21:41)
--- NOTE | 2017-02-02 10:35 | HHI.PR ---
Subjective Remarks Patient complains of feeling groggy and states that she only takes the tinazidine at night at home and she feels it is making her groggy. She denies cough or shortness of breath. She denies any recent dysphagia. The patient states that she was discharged [facility] about [facility] days ago and that she was supposed to have home oxygen arranged however it was not delivered to her house. She states she came to the ER at the prompting of the home health aide after she was found to be hypoxic. The patient denies any difficulty swallowing food or sensation of food getting stuck. She states she does get a cough after eating meals however it goes away. The patient also complains of chronic back pain, which is in the lower back and wraps bilaterally, aggravated by sitting or laying.. Objective Vitals Vital Signs Date Time Temp Pulse Resp B/P Pulse Ox O2 Delivery O2 Flow Rate FiO2 02/02/17 10:08 94 Nasal Cannula 1.00 02/02/17 09:00 96.4 79 20 137/76 99 02/02/17 04:00 96.5 90 22 159/89 99 02/02/17 00:00 95.9 88 18 134/64 96 02/01/17 21:16 94 Nasal Cannula 1.00 02/01/17 20:00 96.9 89 20 133/76 97 02/01/17 16:00 97.4 94 22 147/81 96 02/01/17 15:16 97 Nasal Cannula 2.00 02/01/17 12:00 99.4 89 20 131/82 95 02/01/17 10:31 85 16 110/65 96 Room Air 2 I/O 02/01/17 02/01/17 02/01/17 02/02/17 02/02/17 02/02/17 07:00 15:00 23:00 07:00 15:00 23:00 Intake Total 100 ml Output Total 2 ml Balance 98 ml Intake Oral 100 ml Output Urine Total 1 ml Stool Total 1 ml # Voids 1 # Bowel Movements 1 Result Diagram: 02/02/17 0750 02/02/17 0750 Objective Remarks GENERAL: Well-nourished, well-developed pleasant female patient. SKIN: Warm and dry. HEAD: Normocephalic. EYES: No scleral icterus. No injection or drainage. NECK: Supple, trachea midline. No JVD or lymphadenopathy. CARDIOVASCULAR: Regular rate and rhythm without murmurs, gallops, or rubs. RESPIRATORY: Breath sounds equal and are clear to auscultation bilaterally. No accessory muscle use on 1 L nasal cannula. GASTROINTESTINAL: Bowel sounds normal. Abdomen soft, non-tender, nondistended. She has a small left periumbilical hernia which is fully reducible and nontender. EXTREMITIES: No cyanosis, or edema. NEUROLOGICAL: Slightly sedated however oriented 3, nonfocal. Awake, alert, and oriented x 3. Non-focal. A/P Problem List: (1) Pneumonia ICD Code: J18.9 Status: Acute (2) Acute respiratory failure with hypoxia ICD Code: J96.01 Status: Acute (3) Hyponatremia ICD Code: E87.1 Status: Acute (4) Achalasia ICD Code: K22.0 Status: Chronic (5) HTN (hypertension) ICD Code: I10 Status: Chronic (6) Hypokalemia ICD Code: E87.6 Status: Acute (7) Hypoxia ICD Code: R09.02 Status: Acute Assessment and Plan -Recurrent bilateral pneumonia, possibly due to aspiration in a patient with history of cricopharyngeal achalasia/esophageal dysmotility (status post EGD on 01/07/[address] Womack), ST evaluation during that hospitalization showed she was tolerating a regular diet. Patient was discharged home from the [facility] for days ago without home oxygen being arranged and was found to be hypoxic and was sent to the ER for this. Chest x-ray this admission showing new consolidation in the lower lung zones bilaterally right greater than left. Today the patient denies cough or shortness of breath and is stable on 1 L nasal cannula, with clear lungs. We'll continue Zosyn and azithromycin and DuoNeb's. We'll check a speech therapy swallow evaluation. The increase in white blood cells is likely due to the Solu-Medrol, I will discontinue Solu- Medrol. She had an echocardiogram last month showing normal EF and mild pulmonary hypertension. -Cricopharyngeal achalasia/esophageal dysmotility, during hospitalization last month underwent EGD, at discharge was tolerating regular diet. Patient denies symptoms of dysphagia. Will check swallow evaluation. Continue PPI. -Hyponatremia, likely secondary to the pneumonia. Continue gentle IV fluids normal saline 84 mL per hour. -Hypokalemia, will replete with potassium 20 mEq twice a day, check a magnesium level. -Acute kidney injury, improved overnight. Continue gentle IV fluids. -Hypothyroidism, continue Synthroid, check a TSH. -Chronic depression - continue duloxetine, and Xanax 0.25 mg by mouth 3 times a day when necessary anxiety.. -Hypertension. Blood pressure stable, continue propranolol and nifedipine. -Chronic low back pain. Continue Oramorph 15 mg by mouth 3 times a day and facet 10 mg for breakthrough pain. Bowel regimen. -DVT prophylaxis with Lovenox 40 mg subcutaneous daily. Problem Qualifiers (1) Pneumonia: Qualified Code: J69.0 - Aspiration pneumonia of both lower lobes, unspecified aspiration pneumonia type Juli Maldonado MD Feb 02, 2017 10:35
[2017-02-02 11:00] LABS: MAGNESIUM 1.6 MG/DL (1.5-2.5)
[2017-02-02] MEDS: ENOXAPARIN SODIUM 40 MG/0.4 ML SYRINGE SQ SCH (13:31)
[2017-02-02] MEDS: LACTOBACILLUS ACIDOPHILUS TAB PO SCH ×2 (13:31→17:38)
[2017-02-02] MEDS: AZITHROMYCIN INJ 500 MG in SODIUM CHLOR 0.9% 250 ML INJ 250 ML IV SCH (13:31)
--- NOTE | 2017-02-02 18:44 | HHI.IDPN ---
Note Infectious Disease Note Patient feels a little better. Afebrile. No cough. On O2 via NC. Admitted with shortness of breath. PAST MEDICAL HISTORY: 1. Hypertension. 2. Hyperlipidemia. 3. Gout. 4. Depression. 5. Esophageal dysmotility. 6. History of cholecystectomy. 7. Partial hysterectomy. ALLERGIES: CODEINE. ANTIBIOTICS: Azithromycin. Piperacillin / tazobactam. PHYSICAL EXAMINATION: GENERAL: No acute distress. She is awake and alert and oriented. HEAD, EYES, EARS, NOSE, THROAT: No icterus. Oropharynx with moist mucosa. NECK: The neck is supple. No adenopathy. LUNGS: Decreased BS. Scant basilar rales. HEART: Regular S1 and S2 without murmurs, rubs or gallops. ABDOMEN: Bowel sounds present, soft, no tenderness appreciated. EXTREMITIES: No clubbing, cyanosis or edema. SKIN: No rash. NEUROLOGIC: No gross focal findings. PSYCHIATRIC: The patient is calm and cooperative. IMPRESSION: 1. Pneumonia involving bilateral lower lungs. The patient possibly may be aspirating. 2. Esophageal dysmotility syndrome. 3. Acute renal insufficiency. 4. Leukocytosis may be elevated from steroids. RECOMMENDATIONS: 1. Continue piperacillin / tazobactam. 2. Continue azithromycin. 3. Monitor temperature. 4. Monitor white blood cell count. 5. Obtain sputum culture if she expectorates any sputum. 6. Follow up CXR in am. Jules Rodriguez MD Feb 02, 2017 18:44
[2017-02-02] MEDS: POTASSIUM CHLORIDE 20 MEQ CONTROLLED RELEASE TAB PO SCH (21:41)
[2017-02-02] MEDS: ATORVASTATIN 40 MG TAB PO SCH (21:41)
[2017-02-02] MEDS: TEMAZEPAM 15 MG CAP PO PRN (21:50)
[2017-02-03] VITALS (9 sets, daily range): BP systolic 99–162; BP diastolic 55–106; PULSE 72–106; RESP 16–22; TEMP 96–98.1; O2SAT 96–100
[2017-02-03] MEDS: RESP: ALBUTEROL 2.5 MG/IPRATROPIUM 0.5 MG NEB (SCH) NEB ×4 (03:55→21:14)
[2017-02-03] MEDS: PIPERACIL-TAZO 3.375 GM PREMIX 50 ML IV SCH ×4 (04:03→21:05)
[2017-02-03] MEDS: SODIUM CHLOR 0.9% 1000 ML INJ 1,000 ML IV SCH ×2 (04:04→17:40)
[2017-02-03] MEDS: SODIUM CHLORIDE 0.9% FLUSH 10 ML FLUSH IV FLUSH PRN ×2 (04:04→22:16)
[2017-02-03] MEDS: LEVOTHYROXINE SODIUM 100 MCG TAB PO SCH (05:57)
[2017-02-03 06:03] LABS: AUTOMATED NEUTROPHIL # 20.2 TH/MM3 (1.8-7.7); BASOPHIL % 0.1 % (0.0-2.0); EOSINOPHIL % 0.1 % (0.0-4.0); HEMATOCRIT 26.2 % (35.0-46.0); LYMPH % 6.5 % (9.0-44.0); LYMPHOCYTE # 1.5 TH/MM3 (1.0-4.8); MEAN CELL VOLUME 89.9 FL (80.0-100.0); MEAN CORPUSCULAR HEMOGLOBIN 29.4 PG (27.0-34.0); MEAN CORPUSCULAR HGB CONC 32.7 % (32.0-36.0); MONO % 3.7 % (0.0-8.0); NEUT % 89.6 % (16.0-70.0); PLATELET COUNT 228 TH/MM3 (150-450); RED BLOOD COUNT 2.92 MIL/MM3 (4.00-5.30); RED CELL DISTRIBUTION WIDTH 15.2 % (11.6-17.2); WHITE BLOOD COUNT 22.5 TH/MM3 (4.0-11.0)
--- NOTE | 2017-02-03 06:10 | RADRPT ---
EXAM DATE/TIME: 02/03/2017 05:55 [facility] COMPARISON: CHEST SINGLE AP, February 01, 2017, 9:36. INDICATIONS : Shortness of breath. MEDICAL HISTORY : Hypertension. Cardiovascular disease. SURGICAL HISTORY : None. ENCOUNTER: Subsequent ACUITY: 3 months PAIN SCORE: 0/10 LOCATION: Bilateral chest FINDINGS: There is cardiomegaly and mild interstitial prominence again noted. There is improved aeration on the right. CONCLUSION: Improved aeration. Mild interstitial prominence. Segundo Johnson MD on February 03, 2017 at 6:08 Board Certified Radiologist. This report was verified electronically.
[2017-02-03 06:13] LABS: HEMO FLAGS DIFF FINAL
[2017-02-03 06:16] LABS: BICARBONATE 27.7 MEQ/L (21.0-32.0)
[2017-02-03] MEDS: PROPRANOLOL HCL 20 MG TAB PO SCH ×2 (08:35→20:58)
[2017-02-03] MEDS: PANTOPRAZOLE SOD 40 MG DELAYED RELEASE TAB PO SCH (08:35)
[2017-02-03] MEDS: POTASSIUM CHLORIDE 20 MEQ CONTROLLED RELEASE TAB PO SCH ×2 (08:35→20:55)
[2017-02-03] MEDS: SUCRALFATE 1 GM TAB PO SCH ×4 (08:35→20:59)
[2017-02-03] MEDS: LACTOBACILLUS ACIDOPHILUS TAB PO SCH ×3 (08:37→18:12)
[2017-02-03] MEDS: MORPHINE SULFATE 15 MG CONTROLLED RELEASE TAB PO SCH ×3 (08:37→18:12)
[2017-02-03] MEDS: DULoxetine HCl DR 60 MG CAP PO SCH (08:37)
[2017-02-03] MEDS: NIFEdipine 60 MG SUSTAINED RELEASE TAB PO SCH (08:37)
[2017-02-03] MEDS: DOCUSATE SODIUM 50 MG/SENNA 8.6 MG TAB PO SCH ×2 (08:38→20:59)
[2017-02-03] MEDS: SODIUM CHLORIDE 0.9% FLUSH 10 ML FLUSH IV FLUSH SCH ×2 (08:38→20:53)
[2017-02-03] MEDS ORDERED: POTASSIUM CHLORIDE 10 MEQ CONTROLLED RELEASE TAB PO ONE (10:00)
--- NOTE | 2017-02-03 10:25 | HHI.FF ---
Face to Face Verification Diagnosis: (1) Pneumonia (2) Hypoxia Physical Therapy Order: Evaluate and Treat Home Health Nursing Order: Oxygen administration education Nursing assessment with vital signs I have seen patient Ashley Craig on 02/03/17. My clinical findings support the need for the requested home health care services because: Patient has SOB Deconditioned w/ increased weakness I certify that my clinical findings support that this patient is homebound because: Need for psychosocial assistance Juli Maldonado MD Feb 03, 2017 10:25
[2017-02-03] MEDS: ENOXAPARIN SODIUM 40 MG/0.4 ML SYRINGE SQ SCH (10:29)
--- NOTE | 2017-02-03 10:30 | HHI.PR ---
Subjective Remarks The patient states that she had a severe coughing fit last night which was dry. Today she denies dyspnea. She feels she is doing better. She is concerned about making sure she has home oxygen as well as home health care and place when discharged. Objective Vitals Vital Signs Date Time Temp Pulse Resp B/P Pulse Ox O2 Delivery O2 Flow Rate FiO2 02/03/17 10:08 97 Nasal Cannula 1.00 02/03/17 09:51 17 02/03/17 08:00 96.6 72 20 126/55 97 02/03/17 00:00 96.2 81 16 112/65 98 02/02/17 20:00 96.3 89 16 137/73 96 02/02/17 19:05 96 Nasal Cannula 1.00 02/02/17 16:00 96.6 82 20 94/57 97 I/O 02/02/17 02/02/17 02/02/17 02/03/17 02/03/17 02/03/17 07:00 15:00 23:00 07:00 15:00 23:00 Intake Total 1055 ml 1124 ml Balance 1055 ml 1124 ml Intake Oral 420 ml IV Total 1055 ml 704 ml # Voids 10 # Bowel Movements 3 Result Diagram: 02/03/17 0550 02/03/17 0550 Objective Remarks GENERAL: Well-nourished, well-developed pleasant female patient. SKIN: Warm and dry. HEAD: Normocephalic. EYES: No scleral icterus. No injection or drainage. NECK: Supple, trachea midline. No JVD or lymphadenopathy. CARDIOVASCULAR: Regular rate and rhythm without murmurs, gallops, or rubs. RESPIRATORY: Breath sounds equal and are clear to auscultation bilaterally. No accessory muscle use on 1 L nasal cannula. GASTROINTESTINAL: Bowel sounds normal. Abdomen soft, non-tender, nondistended. She has a small left periumbilical hernia which is fully reducible and nontender. EXTREMITIES: No cyanosis, or edema. NEUROLOGICAL: Slightly sedated however oriented 3, nonfocal. Awake, alert, and oriented x 3. Non-focal. A/P Problem List: (1) Pneumonia ICD Code: J18.9 Status: Acute (2) Acute respiratory failure with hypoxia ICD Code: J96.01 Status: Acute (3) Hyponatremia ICD Code: E87.1 Status: Acute (4) Achalasia ICD Code: K22.0 Status: Chronic (5) HTN (hypertension) ICD Code: I10 Status: Chronic (6) Hypokalemia ICD Code: E87.6 Status: Acute (7) Hypoxia ICD Code: R09.02 Status: Acute Assessment and Plan -Recurrent bilateral pneumonia, possibly due to aspiration in a patient with history of cricopharyngeal achalasia/esophageal dysmotility (status post EGD on 01/07/[address] Womack), ST evaluation during that hospitalization showed she was tolerating a regular diet. Patient was discharged home from the senior living facility for days ago without home oxygen being arranged and was found to be hypoxic and was sent to the ER for this. Chest x-ray this admission showing new consolidation in the lower lung zones bilaterally right greater than left. Today the patient denies cough or shortness of breath and is stable on 1 L nasal cannula, with clear lungs. Chest x-ray this morning showing improved aeration. We'll continue Zosyn and azithromycin and DuoNeb's- appreciate infectious disease input.. Speech therapy swallow evaluation showing she is tolerating thin liquids and soft mechanical diet. The increase in white blood cells is likely due to the Solu-Medrol, this was discontinued. She had an echocardiogram last month showing normal EF and mild pulmonary hypertension. Will order oxygen walk test. -Cricopharyngeal achalasia/esophageal dysmotility, during hospitalization last month underwent EGD, at discharge was tolerating regular diet. Patient denies symptoms of dysphagia. Currently tolerating soft mechanical diet with thin liquids. Continue PPI. -Hyponatremia, likely secondary to the pneumonia. Continue gentle IV fluids normal saline 84 mL per hour. Recheck CMP in the morning. -Hypokalemia, give additional 30 mEq potassium now by mouth and continue potassium 20 mEq twice a day - repeat BMP in the morning. Magnesium level was okay. -Acute kidney injury, improved overnight. Continue gentle IV fluids. -Hypothyroidism, continue Synthroid, TSH slightly low at 0.166. We'll check free T3 and T4. -Chronic depression - continue duloxetine, and Xanax 0.25 mg by mouth 3 times a day when necessary anxiety.. -Hypertension. Blood pressure stable, continue propranolol and nifedipine. -Chronic low back pain. Continue Oramorph 15 mg by mouth 3 times a day and hydrocodone 10 mg for breakthrough pain. Bowel regimen. -DVT prophylaxis with Lovenox 40 mg subcutaneous daily. Problem Qualifiers (1) Pneumonia: Qualified Code: J69.0 - Aspiration pneumonia of both lower lobes, unspecified aspiration pneumonia type Juli Maldonado MD Feb 03, 2017 10:30
[2017-02-03] MEDS: AZITHROMYCIN INJ 500 MG in SODIUM CHLOR 0.9% 250 ML INJ 250 ML IV SCH (11:39)
[2017-02-03 13:58] LABS: FREE T3 1.68 PG/ML (2.18-3.98); FREE T4 1.63 NG/DL (0.76-1.46)
[2017-02-03] MEDS: guaiFENesin/DEXTROMETHORPHAN 200 MG/20 MG/10 ML CUP PO PRN ×2 (14:11→20:51)
[2017-02-03] MEDS: ALPRAZolam 0.25 MG TAB PO PRN ×2 (14:57→20:51)
[2017-02-03] MEDS: oxyCODONE/ACETAMINOPHEN 10 MG/325 MG TAB PO PRN ×2 (16:23→22:18)
[2017-02-03] MEDS: ATORVASTATIN 40 MG TAB PO SCH (20:53)
[2017-02-03] MEDS ORDERED: FUROSEMIDE 20 MG/2 ML VIAL IV PUSH ONE ×2 (22:00→23:00)
[2017-02-03] MEDS ORDERED: POTASSIUM CHLORIDE 25 MEQ EFFERVESCENT TAB PO ONE (22:00)
[2017-02-03] MEDS: TEMAZEPAM 15 MG CAP PO PRN (22:16)
--- NOTE | 2017-02-03 22:29 | RADRPT ---
EXAM DATE/TIME: 02/03/2017 21:55 [facility] COMPARISON: CHEST SINGLE AP, February 03, 2017, 5:55. INDICATIONS : Short of breath. MEDICAL HISTORY : Hypertension. Cardiovascular disease. SURGICAL HISTORY : None. ENCOUNTER: Initial ACUITY: 2 days PAIN SCORE: 2/10 LOCATION: Bilateral chest FINDINGS: A single view of the chest demonstrates perihilar airspace disease bilaterally. Differential diagnosi s includes edema and infection. Heart size normal. No significant effusion. No pneumothorax. Chronic subluxation at the right shoulder. CONCLUSION: 1. Bilateral mostly perihilar airspace disease most characteristic of edema or infection. Izaiah Juarez MD on February 03, 2017 at 22:26 Board Certified Radiologist. This report was verified electronically.
[2017-02-03] MEDS ORDERED: POTASSIUM CHLORIDE 20 MEQ CONTROLLED RELEASE TAB PO ONE (23:00)
[2017-02-03 23:57] LABS: POTASSIUM 3.4 MEQ/L (3.5-5.1)
[2017-02-04] VITALS (32 sets, daily range): BP systolic 106–181; BP diastolic 53–93; PULSE 72–106; RESP 16–33; TEMP 98.1–99.9; O2SAT 91–100
[2017-02-04] LABS: MAGNESIUM 1.6 MG/DL (1.5-2.5)
[2017-02-04 00:02] LABS: AUTOMATED NEUTROPHIL # 19.7 TH/MM3 (1.8-7.7); BASOPHIL % 0.1 % (0.0-2.0); EOSINOPHIL % 0.2 % (0.0-4.0); HEMATOCRIT 26.9 % (35.0-46.0); HEMO FLAGS DIFF FINAL; LYMPH % 9.4 % (9.0-44.0); LYMPHOCYTE # 2.1 TH/MM3 (1.0-4.8); MEAN CELL VOLUME 90.6 FL (80.0-100.0); MEAN CORPUSCULAR HEMOGLOBIN 29.5 PG (27.0-34.0); MEAN CORPUSCULAR HGB CONC 32.6 % (32.0-36.0); MONO % 2.9 % (0.0-8.0); NEUT % 87.4 % (16.0-70.0); PLATELET COUNT 256 TH/MM3 (150-450); RED BLOOD COUNT 2.97 MIL/MM3 (4.00-5.30); RED CELL DISTRIBUTION WIDTH 15.2 % (11.6-17.2); WHITE BLOOD COUNT 22.5 TH/MM3 (4.0-11.0)
[2017-02-04] MEDS ORDERED: CHLORHEXIDINE GLUCONATE 2 % 1 PACK (2 CLOTHS)(extra cloths) TOPICAL PRN (01:30)
[2017-02-04] MEDS ORDERED: MAGNESIUM SULFATE 1 GM PREMIX 100 ML IV ONE (02:30)
[2017-02-04] MEDS ORDERED: FUROSEMIDE 40 MG/4 ML VIAL IV PUSH ONE (02:30)
[2017-02-04] MEDS: PIPERACIL-TAZO 3.375 GM PREMIX 50 ML IV SCH ×2 (03:51→09:02)
[2017-02-04] MEDS: CHLORHEXIDINE GLUCONATE 2 % 1 PACK (2 CLOTHS)(taper/protocol) TOPICAL SCH (03:51)
[2017-02-04] MEDS: POTASSIUM CHLOR 10 MEQ PREMIX 100 ML IV SCH ×3 (03:53→07:26)
[2017-02-04] MEDS: RESP: ALBUTEROL 2.5 MG/IPRATROPIUM 0.5 MG NEB (SCH) NEB ×4 (04:09→21:25)
[2017-02-04] MEDS: LEVOTHYROXINE SODIUM 100 MCG TAB PO SCH (05:40)
[2017-02-04] MEDS: LACTOBACILLUS ACIDOPHILUS TAB PO SCH ×3 (09:00→18:36)
[2017-02-04] MEDS: NIFEdipine 60 MG SUSTAINED RELEASE TAB PO SCH (09:00)
[2017-02-04] MEDS: DOCUSATE SODIUM 50 MG/SENNA 8.6 MG TAB PO SCH ×2 (09:00→20:08)
[2017-02-04] MEDS: PANTOPRAZOLE SOD 40 MG DELAYED RELEASE TAB PO SCH (09:00)
[2017-02-04] MEDS: POTASSIUM CHLORIDE 20 MEQ CONTROLLED RELEASE TAB PO SCH ×2 (09:00→20:08)
[2017-02-04] MEDS: DULoxetine HCl DR 60 MG CAP PO SCH (09:01)
[2017-02-04] MEDS: MORPHINE SULFATE 15 MG CONTROLLED RELEASE TAB PO SCH ×3 (09:01→18:37)
[2017-02-04] MEDS: SUCRALFATE 1 GM TAB PO SCH ×3 (09:04→15:00)
[2017-02-04] MEDS: SODIUM CHLORIDE 0.9% FLUSH 10 ML FLUSH IV FLUSH SCH ×2 (09:05→20:06)
[2017-02-04] MEDS: ALPRAZolam 0.25 MG TAB PO PRN ×2 (09:36→18:36)
[2017-02-04] MEDS: PROPRANOLOL HCL 20 MG TAB PO SCH ×2 (09:37→20:08)
[2017-02-04 09:50] LABS: AUTOMATED NEUTROPHIL # 18.7 TH/MM3 (1.8-7.7); BASOPHIL # 0.1 TH/MM3 (0-0.2); BASOPHIL % 0.3 % (0.0-2.0); EOSINOPHIL # 0.2 TH/MM3 (0-0.4); EOSINOPHIL % 0.8 % (0.0-4.0); HEMATOCRIT 29.5 % (35.0-46.0); LYMPH % 9.6 % (9.0-44.0); LYMPHOCYTE # 2.1 TH/MM3 (1.0-4.8); MEAN CELL VOLUME 89.8 FL (80.0-100.0); MEAN CORPUSCULAR HEMOGLOBIN 29.7 PG (27.0-34.0); MONO % 2.6 % (0.0-8.0); NEUT % 86.7 % (16.0-70.0); PLATELET COUNT 279 TH/MM3 (150-450); RED BLOOD COUNT 3.29 MIL/MM3 (4.00-5.30); RED CELL DISTRIBUTION WIDTH 15.4 % (11.6-17.2); WHITE BLOOD COUNT 21.7 TH/MM3 (4.0-11.0)
[2017-02-04 09:52] LABS: HEMO FLAGS DIFF FINAL
[2017-02-04 10:03] LABS: POTASSIUM 3.5 MEQ/L (3.5-5.1)
[2017-02-04 10:07] LABS: BICARBONATE 27.2 MEQ/L (21.0-32.0); MAGNESIUM 1.5 MG/DL (1.5-2.5)
[2017-02-04] MEDS: ONDANSETRON HCL 4 MG/2 ML VIAL IVP PRN (10:47)
[2017-02-04] MEDS: AZITHROMYCIN INJ 500 MG in SODIUM CHLOR 0.9% 250 ML INJ 250 ML IV SCH (10:48)
[2017-02-04] MEDS: ENOXAPARIN SODIUM 40 MG/0.4 ML SYRINGE SQ SCH (10:48)
[2017-02-04 12:36] LABS: BLOOD GAS BASE EXCESS 4.2 mmol/L (-2-2); BLOOD GAS CARBOXYHEMOGLOBIN 1.6 % (0-4); BLOOD GAS HCO3 28 mmol/L (22-26); BLOOD GAS METHEMOGLOBIN 0.9 % (0-2); BLOOD GAS O2 HGB SATURATION 94 % (90-100); BLOOD GAS OXYGEN CONTENT 12.6 Vol % (12.0-20.0); BLOOD GAS PCO2 37 mmHg (38-42); BLOOD GAS PO2 78 mmHg (61-120); BLOOD GAS TOTAL HGB 9.5 G/DL (12.0-16.0); CRITICAL VALUE NO; DRAW SITE RT RADIAL; FIO2 3 %; OXYGEN DEVICE NASAL CANNULA
[2017-02-04 12:37] LABS: NUMBER OF ARTERIAL PUNCTURES 1; STAT NO; ULNAR PULSE PRESENT
--- NOTE | 2017-02-04 12:42 | HHI.PR ---
Subjective Remarks Patient seen and evaluated today in follow-up for respiratory failure secondary to pneumonia. Patient still hyponatremic. Requiring BiPAP overnight. Tolerating Zosyn and azithromycin. Chest x-ray yesterday does show some improvement Objective Vitals Vital Signs Date Time Temp Pulse Resp B/P Pulse Ox O2 Delivery O2 Flow Rate FiO2 02/04/17 11:44 100 Nasal Cannula 3.00 02/04/17 11:00 94 30 160/72 95 02/04/17 10:06 96 40 02/04/17 10:00 104 33 171/72 97 02/04/17 09:00 100 29 152/81 100 02/04/17 08:00 98 Bi-Pap 30 02/04/17 08:00 98.1 100 32 181/88 100 02/04/17 07:51 100 Nasal Cannula 3.00 02/04/17 07:35 96 30 02/04/17 07:00 86 22 168/85 99 02/04/17 06:00 90 20 152/81 98 02/04/17 05:00 83 19 128/68 98 02/04/17 04:07 95 Bi-Pap 30 02/04/17 04:05 95 30 02/04/17 04:00 98.4 82 18 118/54 97 02/04/17 03:00 86 20 132/66 98 02/04/17 02:00 78 16 139/67 97 02/04/17 01:00 72 18 116/58 98 02/04/17 01:00 98 Bi-Pap 30 02/04/17 01:00 96 30 02/04/17 00:37 75 24 114/60 98 02/04/17 00:35 98.6 76 24 124/69 98 02/04/17 00:30 98 Nasal Cannula 2.00 02/03/17 23:30 96.0 97 20 137/74 98 02/03/17 22:53 97.4 76 22 99/65 02/03/17 22:00 96.5 106 18 162/106 96 02/03/17 21:15 96 Nasal Cannula 2.00 02/03/17 17:30 18 02/03/17 16:00 98.1 93 18 121/83 100 02/03/17 14:32 16 I/O 02/03/17 02/03/17 02/03/17 02/04/17 02/04/17/9/17 07:00 15:00 23:00 07:00 15:00 23:00 Intake Total 1124 ml 100 ml 416 ml 620 ml Output Total 2075 ml Balance 1124 ml 100 ml 416 ml -1455 ml Intake Oral 420 ml 100 ml 180 ml IV Total 704 ml 416 ml 440 ml Output Urine Total 2075 ml # Voids 10 2 # Bowel Movements 3 1 Result Diagram: 02/04/17 0930 02/04/17 0930 Imaging Last Impressions Chest X-Ray 02/03/17 0600 Signed Impressions: Service Date/Time: Friday, February 03, 2017 05:55 - CONCLUSION: Improved aeration. Mild interstitial prominence. Segundo Johnson MD Objective Remarks GENERAL: This is a well-nourished, well-developed patient, with some dyspnea at rest CARDIOVASCULAR: Regular rate and rhythm without murmurs, gallops, or rubs. RESPIRATORY: Bilateral rhonchi crackles GASTROINTESTINAL: Abdomen soft, non-tender, nondistended. Normal active bowel sounds MUSCULOSKELETAL: Extremities without clubbing, cyanosis, or edema. NEURO: Alert & Oriented x4 to person, place, time, situation. Moves all ext x4 A/P Problem List: (1) Pneumonia ICD Code: J18.9 Status: Acute Plan: With hypoxemic respiratory failure Community-acquired and possibly related to chronic aspiration secondary to cricopharyngeal achalasia and dysmotility. We'll continue with Zosyn and azithromycin Dry cough and no sputum obtainable add low dose steroids IV (2) Acute respiratory failure with hypoxia ICD Code: J96.01 Status: Acute Plan: Continue BiPAP as needed Full code per patient and spouse (3) Hyponatremia ICD Code: E87.1 Status: Acute Plan: Likely related to pneumonia, follow trend as pulmonary process improves (4) Achalasia ICD Code: K22.0 Status: Chronic Plan: s/p st reevaluation for cricopharyngeal achalasia. No change in diet consistency recommended Continue Carafate and Protonix (5) HTN (hypertension) ICD Code: I10 Status: Chronic Plan: Continue propanolol and nifedipine add hydralazine (6) BAMBI (acute kidney injury) ICD Code: N17.9 Status: Acute Plan: Avoid nephrotoxic injury, IV fluid balance changed afer IV lasix overnight Follow urine output (7) Euthyroid sick syndrome ICD Code: E07.81 Status: Acute Plan: continue current exogenous thyroid replacement and follow as an outpatient for further recommendations Problem Qualifiers (1) Pneumonia: Qualified Code: J69.0 - Aspiration pneumonia of both lower lobes, unspecified aspiration pneumonia type Mariah Callahan MD Feb 04, 2017 12:42
[2017-02-04] MEDS ORDERED: hydrALAZINE HCL 25 MG TAB PO PRN (12:45)
--- NOTE | 2017-02-04 16:28 | HHI.IDPN ---
Note Infectious Disease Note Patient transferred to [facility] with respiratory distress. Diuresed 3 L today. Say her breathing is better. On NC. Afebrile. No cough. Admitted with shortness of breath. PAST MEDICAL HISTORY: 1. Hypertension. 2. Hyperlipidemia. 3. Gout. 4. Depression. 5. Esophageal dysmotility. 6. History of cholecystectomy. 7. Partial hysterectomy. ALLERGIES: CODEINE. ANTIBIOTICS: Azithromycin. Piperacillin / tazobactam. OBJ: Vital Signs Date Time Temp Pulse Resp B/P Pulse Ox O2 Delivery O2 Flow Rate FiO2 02/04/17 15:00 84 30 106/53 98 02/04/17 14:00 90 26 113/69 100 02/04/17 13:00 88 27 132/56 98 02/04/17 12:00 100 Nasal Cannula 2.00 02/04/17 12:00 99.5 86 29 131/65 98 02/04/17 11:44 100 Nasal Cannula 3.00 02/04/17 11:00 94 30 160/72 95 02/04/17 10:06 96 40 02/04/17 10:00 104 33 171/72 97 02/04/17 09:00 100 29 152/81 100 02/04/17 08:00 98 Bi-Pap 30 02/04/17 08:00 98.1 100 32 181/88 100 02/04/17 07:51 100 Nasal Cannula 3.00 02/04/17 07:35 96 30 02/04/17 07:00 86 22 168/85 99 02/04/17 06:00 90 20 152/81 98 02/04/17 05:00 83 19 128/68 98 02/04/17 04:07 95 Bi-Pap 30 02/04/17 04:05 95 30 02/04/17 04:00 98.4 82 18 118/54 97 02/04/17 03:00 86 20 132/66 98 02/04/17 02:00 78 16 139/67 97 02/04/17 01:00 72 18 116/58 98 02/04/17 01:00 98 Bi-Pap 30 02/04/17 01:00 96 30 02/04/17 00:37 75 24 114/60 98 02/04/17 00:35 98.6 76 24 124/69 98 02/04/17 00:30 98 Nasal Cannula 2.00 02/03/17 23:30 96.0 97 20 137/74 98 02/03/17 22:53 97.4 76 22 99/65 02/03/17 22:00 96.5 106 18 162/106 96 02/03/17 21:15 96 Nasal Cannula 2.00 02/03/17 17:30 18 02/03/17 02/03/17 02/04/17 15:00 23:00 07:00 Intake Total 100 ml 416 ml 620 ml Output Total 2075 ml Balance 100 ml 416 ml -1455 ml Intake Oral 100 ml 180 ml IV Total 416 ml 440 ml Output Urine Total 2075 ml # Voids 2 # Bowel Movements 1 Laboratory Tests Test 02/03/17 02/03/17 02/04/17 05:50 23:40 09:30 White Blood Count 22.5 TH/MM3 22.5 TH/MM3 21.7 TH/MM3 Red Blood Count 2.92 MIL/MM3 2.97 MIL/MM3 3.29 MIL/MM3 Hemoglobin 8.6 GM/DL 8.8 GM/DL 9.8 GM/DL Hematocrit 26.2 % 26.9 % 29.5 % Mean Corpuscular Volume 89.9 FL 90.6 FL 89.8 FL Mean Corpuscular Hemoglobin 29.4 PG 29.5 PG 29.7 PG Mean Corpuscular Hemoglobin 32.7 % 32.6 % 33.0 % Concent Red Cell Distribution Width 15.2 % 15.2 % 15.4 % Platelet Count 228 TH/MM3 256 TH/MM3 279 TH/MM3 Mean Platelet Volume 7.5 FL 7.1 FL 6.9 FL Neutrophils (%) (Auto) 89.6 % 87.4 % 86.7 % Lymphocytes (%) (Auto) 6.5 % 9.4 % 9.6 % Monocytes (%) (Auto) 3.7 % 2.9 % 2.6 % Eosinophils (%) (Auto) 0.1 % 0.2 % 0.8 % Basophils (%) (Auto) 0.1 % 0.1 % 0.3 % Neutrophils # (Auto) 20.2 TH/MM3 19.7 TH/MM3 18.7 TH/MM3 Lymphocytes # (Auto) 1.5 TH/MM3 2.1 TH/MM3 2.1 TH/MM3 Monocytes # (Auto) 0.8 TH/MM3 0.7 TH/MM3 0.6 TH/MM3 Eosinophils # (Auto) 0.0 TH/MM3 0.0 TH/MM3 0.2 TH/MM3 Basophils # (Auto) 0.0 TH/MM3 0.0 TH/MM3 0.1 TH/MM3 CBC Comment DIFF FINAL DIFF FINAL DIFF FINAL Differential Comment Laboratory Tests Test 02/03/17 02/03/17 02/04/17 05:50 23:40 09:30 Sodium Level 132 MEQ/L 134 MEQ/L 131 MEQ/L Potassium Level 3.0 MEQ/L 3.4 MEQ/L 3.5 MEQ/L Chloride Level 96 MEQ/L 99 MEQ/L 93 MEQ/L Carbon Dioxide Level 27.7 MEQ/L 28.0 MEQ/L 27.2 MEQ/L Anion Gap 8 MEQ/L 7 MEQ/L 11 MEQ/L Blood Urea Nitrogen 21 MG/DL 17 MG/DL 15 MG/DL Creatinine 0.94 MG/DL 1.00 MG/DL 1.10 MG/DL Estimat Glomerular Filtration 58 ML/MIN 54 ML/MIN 49 ML/MIN Rate Random Glucose 189 MG/DL 143 MG/DL 150 MG/DL Calcium Level 8.8 MG/DL 8.7 MG/DL 9.3 MG/DL Free Thyroxine 1.63 NG/DL Free Triiodothyronine (T3) 1.68 PG/ML pg/dL Magnesium Level 1.6 MG/DL 1.5 MG/DL B-Type Natriuretic Peptide 487 PG/ML PHYSICAL EXAMINATION: GENERAL: No acute distress. She is awake and alert and oriented. HEENT: No icterus. Oropharynx with moist mucosa. NECK: Supple. LUNGS: Decreased BS. No rhonchi. HEART: Regular S1 and S2 without murmurs, rubs or gallops. ABDOMEN: Bowel sounds present, soft, no tenderness appreciated. EXTREMITIES: No clubbing, cyanosis or edema. SKIN: No rash. NEUROLOGIC: No gross focal findings. PSYCHIATRIC: Calm and cooperative. IMPRESSION: 1. Pneumonia involving bilateral lower lungs. The patient possibly may be aspirating. ?atypical PNA. 2. Esophageal dysmotility syndrome. 3. Acute renal insufficiency. 4. Leukocytosis may be elevated from steroids. 5. CHF. RECOMMENDATIONS: 1. Change Zosyn Levaquin. 2. add Zyvox. 3. Continue azithromycin. 4. Monitor white blood cell count. 5. check mycoplasma serology. Dontfraid,Jules F MD Feb 04, 2017 16:28
[2017-02-04] MEDS: LEVOFLOXACIN 750 MG TAB PO SCH (17:22)
[2017-02-04] MEDS ORDERED: ACETAMINOPHEN 500 MG CPLT PO PRN (17:30)
[2017-02-04] MEDS: ATORVASTATIN 40 MG TAB PO SCH (20:08)
[2017-02-04] MEDS: LINEZOLID 600 MG TAB PO SCH (20:08)
[2017-02-04] MEDS: methylPREDNISolone SOD SUCC 40 MG/1 ML VIAL IV PUSH SCH (20:08)
[2017-02-04] MEDS: TEMAZEPAM 15 MG CAP PO PRN (21:01)
[2017-02-05] VITALS (19 sets, daily range): BP systolic 127–168; BP diastolic 65–98; PULSE 74–101; RESP 14–35; TEMP 97.6–99; O2SAT 93–99
[2017-02-05] MEDS: CHLORHEXIDINE GLUCONATE 2 % 1 PACK (2 CLOTHS)(taper/protocol) TOPICAL SCH (04:13)
[2017-02-05] MEDS: RESP: ALBUTEROL 2.5 MG/IPRATROPIUM 0.5 MG NEB (SCH) NEB ×3 (04:35→15:47)
[2017-02-05 04:46] LABS: AUTOMATED NEUTROPHIL # 11.1 TH/MM3 (1.8-7.7); BASOPHIL % 0.4 % (0.0-2.0); EOSINOPHIL % 0.1 % (0.0-4.0); HEMATOCRIT 28.4 % (35.0-46.0); LYMPH % 5.5 % (9.0-44.0); LYMPHOCYTE # 0.6 TH/MM3 (1.0-4.8); MEAN CELL VOLUME 87.9 FL (80.0-100.0); MEAN CORPUSCULAR HEMOGLOBIN 29.6 PG (27.0-34.0); MEAN CORPUSCULAR HGB CONC 33.7 % (32.0-36.0); MONO % 0.8 % (0.0-8.0); NEUT % 93.2 % (16.0-70.0); PLATELET COUNT 258 TH/MM3 (150-450); RED BLOOD COUNT 3.23 MIL/MM3 (4.00-5.30); WHITE BLOOD COUNT 11.8 TH/MM3 (4.0-11.0)
[2017-02-05 04:51] LABS: HEMO FLAGS DIFF FINAL
[2017-02-05 04:53] LABS: CHLORIDE 95 MEQ/L (98-107); POTASSIUM 4.1 MEQ/L (3.5-5.1); SODIUM (NA) 131 MEQ/L (136-145)
[2017-02-05 04:56] LABS: ANION GAP 8 MEQ/L (5-15); BICARBONATE 28.1 MEQ/L (21.0-32.0); BLOOD UREA NITROGEN 14 MG/DL (7-18)
[2017-02-05 05:00] LABS: GLOMERULAR FILTRATION RATE 54 ML/MIN (>89)
[2017-02-05] MEDS: oxyCODONE/ACETAMINOPHEN 10 MG/325 MG TAB PO PRN ×2 (06:02→15:37)
[2017-02-05] MEDS: LEVOTHYROXINE SODIUM 100 MCG TAB PO SCH (06:02)
[2017-02-05] MEDS: DULoxetine HCl DR 60 MG CAP PO SCH (08:40)
[2017-02-05] MEDS: SODIUM CHLORIDE 0.9% FLUSH 10 ML FLUSH IV FLUSH SCH ×2 (08:40→21:31)
[2017-02-05] MEDS: PANTOPRAZOLE SOD 40 MG DELAYED RELEASE TAB PO SCH (08:40)
[2017-02-05] MEDS: NIFEdipine 60 MG SUSTAINED RELEASE TAB PO SCH (08:40)
[2017-02-05] MEDS: POTASSIUM CHLORIDE 20 MEQ CONTROLLED RELEASE TAB PO SCH ×2 (08:41→21:31)
[2017-02-05] MEDS: LINEZOLID 600 MG TAB PO SCH ×2 (08:41→21:30)
[2017-02-05] MEDS: PROPRANOLOL HCL 20 MG TAB PO SCH ×2 (08:41→21:30)
[2017-02-05] MEDS: DOCUSATE SODIUM 50 MG/SENNA 8.6 MG TAB PO SCH ×2 (08:41→21:00)
[2017-02-05] MEDS: LEVOFLOXACIN 750 MG TAB PO SCH (08:41)
[2017-02-05] MEDS: LACTOBACILLUS ACIDOPHILUS TAB PO SCH ×3 (08:41→21:45)
[2017-02-05] MEDS: methylPREDNISolone SOD SUCC 40 MG/1 ML VIAL IV PUSH SCH ×2 (08:41→21:31)
[2017-02-05] MEDS: MORPHINE SULFATE 15 MG CONTROLLED RELEASE TAB PO SCH ×3 (08:42→21:46)
--- NOTE | 2017-02-05 11:12 | HHI.PR ---
Subjective Remarks Seen and evaluated today in follow-up for respiratory failure and for pneumonia. Patient has greatly improved her oxygenation after 5-1/2 L diuresis. Patient's oxygen saturations are 97% to 100% on 2 L. Antibiotics adjusted per ID yesterday. Objective Vitals Vital Signs Date Time Temp Pulse Resp B/P Pulse Ox O2 Delivery O2 Flow Rate FiO2 02/05/17 10:21 98 21 02/05/17 07:59 98 Nasal Cannula 3.00 02/05/17 06:00 80 16 145/79 97 02/05/17 05:00 84 20 151/75 99 02/05/17 04:00 99 Nasal Cannula 3.00 02/05/17 04:00 98.6 76 16 144/74 98 02/05/17 03:00 78 15 145/76 98 02/05/17 02:00 80 17 143/73 98 02/05/17 01:00 82 18 138/72 98 02/05/17 00:00 97 Nasal Cannula 3.00 02/05/17 00:00 82 21 127/65 97 02/04/17 23:00 84 19 118/61 99 02/04/17 22:00 88 21 127/58 91 02/04/17 21:25 96 Nasal Cannula 3.00 02/04/17 21:00 94 27 125/68 96 02/04/17 20:53 96 24 139/66 96 02/04/17 20:04 99.6 98 23 133/70 97 02/04/17 20:00 96 Nasal Cannula 3.00 02/04/17 19:37 23 02/04/17 19:01 106 21 134/61 97 02/04/17 18:00 96 23 136/88 94 02/04/17 17:00 88 23 123/60 94 02/04/17 16:00 94 Nasal Cannula 2.00 02/04/17 16:00 99.9 80 25 110/57 100 02/04/17 15:00 84 30 106/53 98 02/04/17 14:00 90 26 113/69 100 02/04/17 13:00 88 27 132/56 98 02/04/17 12:00 100 Nasal Cannula 2.00 02/04/17 12:00 99.5 86 29 131/65 98 02/04/17 11:44 100 Nasal Cannula 3.00 I/O 02/04/17 02/04/17 02/04/17 02/05/17 02/05/17 02/05/17 07:00 15:00 23:00 07:00 15:00 23:00 Intake Total 620 ml 952 ml 360 ml 120 ml Output Total 2075 ml 3300 ml 1750 ml 450 ml Balance -1455 ml -2348 ml -1390 ml -330 ml Intake Oral 180 ml 600 ml 360 ml 120 ml IV Total 440 ml 352 ml Output Urine Total 2075 ml 3300 ml 1750 ml 450 ml # Voids 2 # Bowel Movements 1 1 0 1 Result Diagram: 02/05/17 0436 02/05/17435 Objective Remarks GENERAL: This is a well-nourished, well-developed patient, with some dyspnea at rest CARDIOVASCULAR: Regular rate and rhythm without murmurs, gallops, or rubs. RESPIRATORY: Bilateral rhonchi crackles GASTROINTESTINAL: Abdomen soft, non-tender, nondistended. Normal active bowel sounds MUSCULOSKELETAL: Extremities without clubbing, cyanosis, or edema. NEURO: Alert & Oriented x4 to person, place, time, situation. 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 We'll continue with Levaquin, Zyvox and azithromycin ID following Dry cough and no sputum obtainable Continue low dose steroids IV and taper Blood cultures negative at 4 days (2) Acute respiratory failure with hypoxia ICD Code: J96.01 Status: Acute Plan: Oxygen as needed Improved after diuresis of about5.5 L with Lasix Probably related to her acute exacerbation of diastolic heart failure ( echocardiogram 12/2016 shows elevated pulmonary artery pressures) (3) Hyponatremia ICD Code: E87.1 Status: Acute Plan: Likely related to pneumonia, follow trend as pulmonary process improves (4) Achalasia ICD Code: K22.0 Status: Chronic Plan: s/p st reevaluation for cricopharyngeal achalasia. No change in diet consistency recommended Continue Carafate and Protonix (5) HTN (hypertension) ICD Code: I10 Status: Chronic Plan: Continue propanolol and nifedipine When necessary hydralazine (6) BAMBI (acute kidney injury) ICD Code: N17.9 Status: Acute Plan: Avoid nephrotoxic injury, IV fluid balance changed afer IV lasix overnight Follow urine output (7) Euthyroid sick syndrome ICD Code: E07.81 Status: Acute Plan: continue current exogenous thyroid replacement and follow as an outpatient for further recommendations Assessment and Plan lmwh Discharge Planning Transferred to [facility] Add Bactroban for MRSA positive nares Problem Qualifiers (1) Pneumonia: Qualified Code: J69.0 - Aspiration pneumonia of both lower lobes, unspecified aspiration pneumonia type Mariah Callahan MD Feb 05, 2017 11:12
[2017-02-05] MEDS: ENOXAPARIN SODIUM 40 MG/0.4 ML SYRINGE SQ SCH (11:25)
[2017-02-05] MEDS: AZITHROMYCIN INJ 500 MG in SODIUM CHLOR 0.9% 250 ML INJ 250 ML IV SCH (11:25)
[2017-02-05] MEDS: MUPIROCIN 2% OINT 1 APPLIC/GM SYR EACH NARE SCH ×2 (13:21→21:31)
[2017-02-05 16:25] LABS: HEMOGLOBIN A1a 1.3 %; HEMOGLOBIN A1b 1.9 %; HEMOGLOBIN Ao 83.1 %; HEMOGLOBIN LA1C 2.7 %; HEMOGLOBIN P3 4.2 %
[2017-02-05] MEDS: TEMAZEPAM 15 MG CAP PO PRN (21:29)
[2017-02-05] MEDS: ATORVASTATIN 40 MG TAB PO SCH (21:30)
[2017-02-06] VITALS (8 sets, daily range): BP systolic 121–185; BP diastolic 76–98; PULSE 74–96; RESP 18–22; TEMP 97.2–98.3; O2SAT 96–100
[2017-02-06] MEDS: CHLORHEXIDINE GLUCONATE 2 % 1 PACK (2 CLOTHS)(taper/protocol) TOPICAL SCH (03:11)
[2017-02-06] MEDS: LEVOTHYROXINE SODIUM 100 MCG TAB PO SCH (06:32)
[2017-02-06] MEDS: DULoxetine HCl DR 60 MG CAP PO SCH (08:59)
[2017-02-06] MEDS: PANTOPRAZOLE SOD 40 MG DELAYED RELEASE TAB PO SCH (08:59)
[2017-02-06] MEDS: POTASSIUM CHLORIDE 20 MEQ CONTROLLED RELEASE TAB PO SCH ×2 (08:59→20:06)
[2017-02-06] MEDS: LACTOBACILLUS ACIDOPHILUS TAB PO SCH ×3 (08:59→17:45)
[2017-02-06] MEDS: NIFEdipine 60 MG SUSTAINED RELEASE TAB PO SCH (08:59)
[2017-02-06] MEDS: PROPRANOLOL HCL 20 MG TAB PO SCH ×2 (08:59→20:06)
[2017-02-06] MEDS: LINEZOLID 600 MG TAB PO SCH (09:00)
[2017-02-06] MEDS: LEVOFLOXACIN 750 MG TAB PO SCH (09:00)
[2017-02-06] MEDS: MORPHINE SULFATE 15 MG CONTROLLED RELEASE TAB PO SCH ×3 (09:00→17:45)
[2017-02-06] MEDS: DOCUSATE SODIUM 50 MG/SENNA 8.6 MG TAB PO SCH (09:00)
[2017-02-06] MEDS: methylPREDNISolone SOD SUCC 40 MG/1 ML VIAL IV PUSH SCH (09:00)
[2017-02-06] MEDS: MUPIROCIN 2% OINT 1 APPLIC/GM SYR EACH NARE SCH ×2 (09:01→20:07)
[2017-02-06] MEDS: SODIUM CHLORIDE 0.9% FLUSH 10 ML FLUSH IV FLUSH SCH ×2 (09:01→20:07)
[2017-02-06] MEDS ORDERED: predniSONE 20 MG TAB PO ONE (09:15)
--- NOTE | 2017-02-06 09:58 | HHI.PR ---
Subjective Remarks Follow-up aspiration pneumonia/respiratory failure 02/06/17-patient seen and examined, currently afebrile and denies any shortness of breath. Satting at 96% on room air. No acute event overnight. Tolerating by mouth without any competition nausea and vomiting. Objective Vitals Vital Signs Date Time Temp Pulse Resp B/P Pulse Ox O2 Delivery O2 Flow Rate FiO2 02/06/17 08:00 97.5 79 18 153/89 96 02/06/17 07:34 96 21 02/06/17 04:00 97.8 74 21 121/81 99 02/06/17 00:00 97.2 82 20 154/94 99 02/05/17 21:30 99 21 02/05/17 20:00 97.6 101 20 168/98 97 02/05/17 20:00 97 Room Air 02/05/17 16:03 98.0 100 31 164/89 97 02/05/17 14:00 76 02/05/17 12:00 98.7 76 23 96 02/05/17 12:00 76 02/05/17 11:00 74 31 140/72 96 02/05/17 10:21 98 21 02/05/17 10:00 86 21 141/69 97 02/05/17 10:00 86 I/O 02/05/17 02/05/17 02/05/17 02/06/17 02/06/17 02/06/17 07:00 15:00 23:00 07:00 15:00 23:00 Intake Total 120 ml 770 ml 240 ml 480 ml Output Total 450 ml 300 ml Balance -330 ml 470 ml 240 ml 480 ml Intake Oral 120 ml 520 ml 240 ml 480 ml IV Total 250 ml Output Urine Total 450 ml 300 ml # Voids 3 3 # Bowel Movements 1 0 1 2 Result Diagram: 02/05/17 0436 02/05/17 0436 Imaging Last Impressions Chest X-Ray 02/03/17 0600 Signed Impressions: Service Date/Time: Friday, February 03, 2017 05:55 - CONCLUSION: Improved aeration. Mild interstitial prominence. Segundo Johnson MD Objective Remarks GENERAL: SKIN: Warm and dry. HEAD: Normocephalic. EYES: No scleral icterus. No injection or drainage. NECK: Supple, trachea midline. No JVD or lymphadenopathy. CARDIOVASCULAR: Regular rate and rhythm without murmurs, gallops, or rubs. RESPIRATORY: Breath sounds equal bilaterally. No accessory muscle use. GASTROINTESTINAL: Abdomen soft, non-tender, nondistended. MUSCULOSKELETAL: No cyanosis, or edema. BACK: Nontender without obvious deformity. No CVA tenderness. A/P Problem List: (1) Pneumonia ICD Code: J18.9 Status: Acute (2) Acute respiratory failure with hypoxia ICD Code: J96.01 Status: Acute (3) Hyponatremia ICD Code: E87.1 Status: Acute (4) Achalasia ICD Code: K22.0 Status: Chronic (5) HTN (hypertension) ICD Code: I10 Status: Chronic (6) BAMBI (acute kidney injury) ICD Code: N17.9 Status: Acute (7) Euthyroid sick syndrome ICD Code: E07.81 Status: Acute Assessment and Plan 72-year-old female with Aspiration pneumonia Bacteria pneumonia Currently on Levaquin, Zyvox and azithromycin Appreciate input from infectious disease specialist Respiratory failure Resolved DuoNeb when necessary maintain oxygen saturation above 92% Walk test today 02/06/17 Hypertension Currently normotensive on Inderal 20 mg twice a day, Procardia XL Hyperlipidemia Continue with Lipitor Hypothyroidism Stable on Synthroid Hyponatremia Continue to monitor electrolyte Achalasia Continue with Carafate and PPI DVT prophylaxis: Lovenox Problem Qualifiers (1) Pneumonia: Qualified Code: J69.0 - Aspiration pneumonia of both lower lobes, unspecified aspiration pneumonia type Mark Evans MD Feb 06, 2017 09:58
[2017-02-06] MEDS: ENOXAPARIN SODIUM 40 MG/0.4 ML SYRINGE SQ SCH (10:57)
[2017-02-06] MEDS: AZITHROMYCIN INJ 500 MG in SODIUM CHLOR 0.9% 250 ML INJ 250 ML IV SCH (10:58)
[2017-02-06] MEDS: ONDANSETRON HCL 4 MG/2 ML VIAL IVP PRN (11:38)
--- NOTE | 2017-02-06 19:50 | HHI.IDPN ---
Subjective Subjective Remarks ID x cover for Dr Corey chart reviewed pt is known to me 2/2 priior admission She was with aspiration PNA 1 mo ago No cultures available 2/2 lack of expectoration She feels better Antibiotics azithro levaquine zyvox Allergies: Coded Allergies: Codeine (Verified Allergy, Intermediate, RASH, 02/01/17) *MDRO Multi-Drug Resistant Organism (Verified Adverse Reaction, Unknown, ) 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 Objective . Vital Signs Date Time Temp Pulse Resp B/P Pulse Ox O2 Delivery O2 Flow Rate FiO2 02/06/17 16:00 97.7 77 18 141/76 98 02/06/17 12:00 97.3 85 18 142/85 98 02/06/17 08:00 97.5 79 18 153/89 96 02/06/17 07:34 96 21 02/06/17 04:00 97.8 74 21 121/81 99 02/06/17 00:00 97.2 82 20 154/94 99 02/05/17 21:30 99 21 02/05/17 20:00 97.6 101 20 168/98 97 02/05/17 20:00 97 Room Air 02/05/17 02/05/17 02/06/17 15:00 23:00 07:00 Intake Total 770 ml 240 ml 480 ml Output Total 300 ml Balance 470 ml 240 ml 480 ml Intake Oral 520 ml 240 ml 480 ml IV Total 250 ml Output Urine Total 300 ml # Voids 3 3 # Bowel Movements 0 1 2 . Laboratory Tests Test 02/05/17 04:36 White Blood Count 11.8 TH/MM3 Red Blood Count 3.23 MIL/MM3 Hemoglobin 9.6 GM/DL Hematocrit 28.4 % Mean Corpuscular Volume 87.9 FL Mean Corpuscular Hemoglobin 29.6 PG Mean Corpuscular Hemoglobin 33.7 % Concent Red Cell Distribution Width 15.0 % Platelet Count 258 TH/MM3 Mean Platelet Volume 6.7 FL Neutrophils (%) (Auto) 93.2 % Lymphocytes (%) (Auto) 5.5 % Monocytes (%) (Auto) 0.8 % Eosinophils (%) (Auto) 0.1 % Basophils (%) (Auto) 0.4 % Neutrophils # (Auto) 11.1 TH/MM3 Lymphocytes # (Auto) 0.6 TH/MM3 Monocytes # (Auto) 0.1 TH/MM3 Eosinophils # (Auto) 0.0 TH/MM3 Basophils # (Auto) 0.0 TH/MM3 CBC Comment DIFF FINAL Differential Comment Laboratory Tests Test 02/05/17 04:36 Sodium Level 131 MEQ/L Potassium Level 4.1 MEQ/L Chloride Level 95 MEQ/L Carbon Dioxide Level 28.1 MEQ/L Anion Gap 8 MEQ/L Blood Urea Nitrogen 14 MG/DL Creatinine 1.00 MG/DL Estimat Glomerular Filtration 54 ML/MIN Rate Random Glucose 217 MG/DL Hemoglobin A1c 6.3 % Calcium Level 9.3 MG/DL Imaging Last Impressions Chest X-Ray 02/03/17 0600 Signed Impressions: Service Date/Time: Friday, February 03, 2017 05:55 - CONCLUSION: Improved aeration. Mild interstitial prominence. Segundo Johnson MD Physical Exam GENERAL: No acute distress. She is awake and alert and oriented. HEENT: No icterus. Oropharynx with moist mucosa. NECK: Supple. LUNGS: Decreased BS. No rhonchi. HEART: Regular S1 and S2 without murmurs, rubs or gallops. ABDOMEN: Bowel sounds present, soft, no tenderness appreciated. EXTREMITIES: No clubbing, cyanosis or edema. SKIN: No rash. NEUROLOGIC: No gross focal findings. PSYCHIATRIC: Calm and cooperative. Assessment & Plan Remarks IMPRESSION: 1. Pneumonia involving bilateral lower lungs. The patient possibly may be aspirating. ?atypical PNA. 2. Esophageal dysmotility syndrome. 3. Acute renal insufficiency. 4. Leukocytosis may be elevated from steroids. - improved draimatically 5. CHF. RECOMMENDATIONS: 1. Cont Levaquin 2. dc Zyvox. azithromycin. 3. start clindamycin 4. Monitor white blood cell count. 5. fu mycoplasma serology. sputum clx if feasible Winter Mancera MD Feb 06, 2017 19:50
[2017-02-06] MEDS: CLINDAMYCIN 150 MG CAP PO SCH (20:06)
[2017-02-06] MEDS: ATORVASTATIN 40 MG TAB PO SCH (20:06)
[2017-02-06] MEDS: ALPRAZolam 0.25 MG TAB PO PRN (20:06)
[2017-02-06] MEDS: TEMAZEPAM 15 MG CAP PO PRN (21:41)
[2017-02-07] VITALS: BP 117/72; PULSE 72; RESP 20; TEMP 97.3; O2SAT 97
[2017-02-07] MEDS: CLINDAMYCIN 150 MG CAP PO SCH ×5 (00:15→23:53)
[2017-02-07] MEDS: CHLORHEXIDINE GLUCONATE 2 % 1 PACK (2 CLOTHS)(taper/protocol) TOPICAL SCH (03:45)
[2017-02-07 04:00] VITALS: BP 134/74; PULSE 79; RESP 20; TEMP 96.9; O2SAT 99
[2017-02-07] MEDS: LEVOTHYROXINE SODIUM 100 MCG TAB PO SCH (05:53)
[2017-02-07] MEDS: ONDANSETRON HCL 4 MG/2 ML VIAL IVP PRN ×3 (06:08→21:17)
[2017-02-07 07:36] LABS: BASOPHIL # 0.3 TH/MM3 (0-0.2); BASOPHIL % 1.2 % (0.0-2.0); EOSINOPHIL # 0.1 TH/MM3 (0-0.4); EOSINOPHIL % 0.3 % (0.0-4.0); HEMATOCRIT 35.9 % (35.0-46.0); LYMPH % 21.7 % (9.0-44.0); LYMPHOCYTE # 5.4 TH/MM3 (1.0-4.8); MEAN CORPUSCULAR HEMOGLOBIN 29.5 PG (27.0-34.0); MEAN CORPUSCULAR HGB CONC 33.2 % (32.0-36.0); MONO % 3.6 % (0.0-8.0); NEUT % 73.2 % (16.0-70.0); PLATELET COUNT 416 TH/MM3 (150-450); RED BLOOD COUNT 4.03 MIL/MM3 (4.00-5.30); RED CELL DISTRIBUTION WIDTH 14.6 % (11.6-17.2); WHITE BLOOD COUNT 24.7 TH/MM3 (4.0-11.0)
[2017-02-07 07:39] LABS: HEMO FLAGS AUTO DIFF
[2017-02-07 07:47] LABS: POTASSIUM 4.1 MEQ/L (3.5-5.1)
[2017-02-07 07:51] LABS: BICARBONATE 27.4 MEQ/L (21.0-32.0)
[2017-02-07 08:00] VITALS: BP 185/122; PULSE 88; RESP 21; TEMP 95.9; O2SAT 96
[2017-02-07 08:16] LABS: EOSINOPHILS 2 % (0-4); NEUTROPHIL # MANUAL DIFF 18.8 TH/MM3 (1.8-7.7); PLATELET ESTIMATE SMEAR NORMAL (NORMAL); PLATELET MORPHOLOGY NORMAL (NORMAL); POLYS (SEG NEUTROPHILS) 76 % (16-70); SCAN/DIFF FINAL DIFF MANUAL; WBC DIFF SAMPLE 100
[2017-02-07] MEDS: LACTOBACILLUS ACIDOPHILUS TAB PO SCH ×3 (08:52→17:26)
[2017-02-07] MEDS: METOCLOPRAMIDE HCL 10 MG/2 ML VIAL IVS PRN ×2 (08:55→14:55)
[2017-02-07] MEDS: SODIUM CHLORIDE 0.9% FLUSH 10 ML FLUSH IV FLUSH SCH ×2 (08:56→21:21)
[2017-02-07] MEDS: LEVOFLOXACIN 750 MG TAB PO SCH (09:00)
[2017-02-07] MEDS ORDERED: POTASSIUM CHLORIDE 25 MEQ EFFERVESCENT TAB PO SCH (09:00)
[2017-02-07] MEDS: POTASSIUM CHLORIDE 20 MEQ CONTROLLED RELEASE TAB PO SCH ×3 (09:00→21:21)
--- NOTE | 2017-02-07 10:02 | HHI.PR ---
Subjective Remarks Follow-up aspiration pneumonia/respiratory failure 02/06/17-patient seen and examined, currently afebrile and denies any shortness of breath. Satting at 96% on room air. No acute event overnight. Tolerating by mouth without any competition nausea and vomiting. 02/07/17-patient seen and examined, complains of multiple episode of emesis this morning as well as abdominal pain. Worsening leukocytosis Objective Vitals Vital Signs Date Time Temp Pulse Resp B/P Pulse Ox O2 Delivery O2 Flow Rate FiO2 02/07/17 08:00 96 21 02/07/17 04:00 96.9 79 20 134/74 99 02/07/17 00:00 97.3 72 20 117/72 97 02/06/17 20:02 99 21 02/06/17 20:00 98.3 96 22 185/98 100 02/06/17 20:00 100 Room Air 21 02/06/17 16:00 97.7 77 18 141/76 98 02/06/17 12:00 97.3 85 18 142/85 98 I/O 02/06/17 02/06/17 02/06/17 02/07/17 02/07/17 02/07/17 07:00 15:00 23:00 07:00 15:00 23:00 Intake Total 480 ml 620 ml 240 ml 240 ml Output Total 400 ml Balance 480 ml 620 ml -160 ml 240 ml Intake Oral 480 ml 410 ml 240 ml 240 ml IV Total 210 ml Output Urine Total 400 ml # Voids 3 1 2 # Bowel Movements 2 1 1 Result Diagram: 02/07/17 0654 02/07/17 0654 Objective Remarks GENERAL: SKIN: Warm and dry. HEAD: Normocephalic. EYES: No scleral icterus. No injection or drainage. NECK: Supple, trachea midline. No JVD or lymphadenopathy. CARDIOVASCULAR: Regular rate and rhythm without murmurs, gallops, or rubs. RESPIRATORY: Breath sounds equal bilaterally. No accessory muscle use. GASTROINTESTINAL: Abdomen soft, non-tender, nondistended. MUSCULOSKELETAL: No cyanosis, or edema. BACK: Nontender without obvious deformity. No CVA tenderness. A/P Problem List: (1) Pneumonia ICD Code: J18.9 Status: Acute (2) Acute respiratory failure with hypoxia ICD Code: J96.01 Status: Acute (3) Hyponatremia ICD Code: E87.1 Status: Acute (4) Achalasia ICD Code: K22.0 Status: Chronic (5) HTN (hypertension) ICD Code: I10 Status: Chronic (6) BAMBI (acute kidney injury) ICD Code: N17.9 Status: Acute (7) Euthyroid sick syndrome ICD Code: E07.81 Status: Acute Assessment and Plan 72-year-old female with Aspiration pneumonia Bacteria pneumonia Currently on Levaquin and Zyvox Appreciate input from infectious disease specialist Mycoplasma serology pending Leukocytosis Worsening WBC Treat as in above, continue to monitor Emesis Likely secondary to medication side effect Consider IV fluid hydration Continue with anti-emetic Respiratory failure Resolved DuoNeb when necessary maintain oxygen saturation above 92% Walk test performed 02/06/17 Hypertension Currently normotensive on Inderal 20 mg twice a day, Procardia XL Hyperlipidemia Continue with Lipitor Hypothyroidism Stable on Synthroid Hyponatremia Continue to monitor electrolyte Achalasia Continue with Carafate and PPI DVT prophylaxis: Lovenox Problem Qualifiers (1) Pneumonia: Qualified Code: J69.0 - Aspiration pneumonia of both lower lobes, unspecified aspiration pneumonia type Mark Evans MD Feb 07, 2017 10:02
[2017-02-07] MEDS: PANTOPRAZOLE SOD 40 MG DELAYED RELEASE TAB PO SCH (10:05)
[2017-02-07] MEDS: MORPHINE SULFATE 15 MG CONTROLLED RELEASE TAB PO SCH ×3 (10:06→17:26)
[2017-02-07] MEDS: DULoxetine HCl DR 60 MG CAP PO SCH (10:06)
[2017-02-07] MEDS: PROPRANOLOL HCL 20 MG TAB PO SCH ×2 (10:07→21:17)
[2017-02-07] MEDS: NIFEdipine 60 MG SUSTAINED RELEASE TAB PO SCH (10:07)
[2017-02-07] MEDS: MUPIROCIN 2% OINT 1 APPLIC/GM SYR EACH NARE SCH ×2 (10:07→21:16)
[2017-02-07] MEDS: ENOXAPARIN SODIUM 40 MG/0.4 ML SYRINGE SQ SCH (11:42)
[2017-02-07] MEDS: ALPRAZolam 0.25 MG TAB PO PRN ×2 (11:49→21:17)
[2017-02-07 12:00] VITALS: BP 164/98; PULSE 86; RESP 20; TEMP 97.1; O2SAT 94
[2017-02-07 16:00] VITALS: BP 152/96; PULSE 90; RESP 20; TEMP 96.6; O2SAT 95
[2017-02-07 20:00] VITALS: BP 176/93; PULSE 99; RESP 20; TEMP 99.3; O2SAT 96
[2017-02-07] MEDS: TEMAZEPAM 15 MG CAP PO PRN (21:17)
[2017-02-07] MEDS: ATORVASTATIN 40 MG TAB PO SCH (21:17)
[2017-02-08 00:12] VITALS: BP 148/84; PULSE 84; RESP 18; TEMP 99.3; O2SAT 94
[2017-02-08] MEDS: CHLORHEXIDINE GLUCONATE 2 % 1 PACK (2 CLOTHS)(taper/protocol) TOPICAL SCH (04:00)
[2017-02-08] MEDS: METOCLOPRAMIDE HCL 10 MG/2 ML VIAL IVS PRN ×2 (04:32→20:18)
[2017-02-08] MEDS: CLINDAMYCIN 150 MG CAP PO SCH ×3 (05:49→18:00)
[2017-02-08] MEDS: LEVOTHYROXINE SODIUM 100 MCG TAB PO SCH (05:49)
[2017-02-08 07:18] LABS: AUTOMATED NEUTROPHIL # 14.1 TH/MM3 (1.8-7.7); BASOPHIL # 0.1 TH/MM3 (0-0.2); BASOPHIL % 0.8 % (0.0-2.0); EOSINOPHIL # 0.1 TH/MM3 (0-0.4); EOSINOPHIL % 0.6 % (0.0-4.0); HEMATOCRIT 43.1 % (35.0-46.0); LYMPH % 19.9 % (9.0-44.0); LYMPHOCYTE # 3.6 TH/MM3 (1.0-4.8); MEAN CELL VOLUME 87.6 FL (80.0-100.0); MEAN CORPUSCULAR HEMOGLOBIN 28.1 PG (27.0-34.0); MEAN CORPUSCULAR HGB CONC 32.1 % (32.0-36.0); MONO % 1.8 % (0.0-8.0); NEUT % 76.9 % (16.0-70.0); PLATELET COUNT 464 TH/MM3 (150-450); RED BLOOD COUNT 4.92 MIL/MM3 (4.00-5.30); RED CELL DISTRIBUTION WIDTH 15.7 % (11.6-17.2); WHITE BLOOD COUNT 18.3 TH/MM3 (4.0-11.0)
[2017-02-08 07:23] LABS: HEMO FLAGS AUTO DIFF
[2017-02-08 08:00] VITALS: BP 155/104; PULSE 103; RESP 21; TEMP 97.1; O2SAT 95
[2017-02-08 08:00] LABS: BICARBONATE 23.6 MEQ/L (21.0-32.0); POTASSIUM 3.5 MEQ/L (3.5-5.1)
[2017-02-08] MEDS: PANTOPRAZOLE SOD 40 MG DELAYED RELEASE TAB PO SCH (08:10)
[2017-02-08] MEDS: DULoxetine HCl DR 60 MG CAP PO SCH (08:11)
[2017-02-08] MEDS: MUPIROCIN 2% OINT 1 APPLIC/GM SYR EACH NARE SCH ×2 (08:11→20:16)
[2017-02-08] MEDS: LACTOBACILLUS ACIDOPHILUS TAB PO SCH ×3 (08:11→18:02)
[2017-02-08] MEDS: PROPRANOLOL HCL 20 MG TAB PO SCH ×2 (08:11→20:16)
[2017-02-08] MEDS: NIFEdipine 60 MG SUSTAINED RELEASE TAB PO SCH (08:11)
[2017-02-08] MEDS: POTASSIUM CHLORIDE 20 MEQ CONTROLLED RELEASE TAB PO SCH ×2 (08:12→20:16)
[2017-02-08] MEDS: LEVOFLOXACIN 750 MG TAB PO SCH (08:12)
[2017-02-08 08:13] LABS: SCAN/DIFF AUTO DIFF CONFIRMED
[2017-02-08] MEDS: MORPHINE SULFATE 15 MG CONTROLLED RELEASE TAB PO SCH ×3 (08:14→18:03)
[2017-02-08] MEDS: SODIUM CHLORIDE 0.9% FLUSH 10 ML FLUSH IV FLUSH SCH ×2 (08:15→20:16)
[2017-02-08] MEDS: ALPRAZolam 0.25 MG TAB PO PRN (08:38)
--- NOTE | 2017-02-08 08:52 | HHI.PR ---
Subjective Remarks Follow-up aspiration pneumonia/respiratory failure 02/06/17-patient seen and examined, currently afebrile and denies any shortness of breath. Satting at 96% on room air. No acute event overnight. Tolerating by mouth without any competition nausea and vomiting. 02/07/17-patient seen and examined, complains of multiple episode of emesis this morning as well as abdominal pain. Worsening leukocytosis 02/08/17-patient seen and examined, complains of abdominal squeezing and occasional loose stool, however only had none overnight except this morning. Patient was able to tolerate a muffin. Currently afebrile and denies any shortness of breath Objective Vitals Vital Signs Date Time Temp Pulse Resp B/P Pulse Ox O2 Delivery O2 Flow Rate FiO2 02/08/17 08:21 Room Air 21 02/08/17 08:00 97.1 103 21 155/104 95 02/08/17 00:12 99.3 84 18 148/84 94 02/07/17 20:00 96 Room Air 02/07/17 20:00 99.3 99 20 176/93 96 02/07/17 16:00 96.6 90 20 152/96 95 02/07/17 12:00 97.1 86 20 164/98 94 I/O 02/07/17 02/07/17 02/07/17 02/08/17 02/08/17 02/08/17 07:00 15:00 23:00 07:00 15:00 23:00 Intake Total 240 ml 400 ml Balance 240 ml 400 ml Intake Oral 240 ml 400 ml # Voids 2 4 1 # Bowel Movements 1 3 Result Diagram: 02/08/17 0652 02/08/17 0652 Objective Remarks GENERAL: SKIN: Warm and dry. HEAD: Normocephalic. EYES: No scleral icterus. No injection or drainage. NECK: Supple, trachea midline. No JVD or lymphadenopathy. CARDIOVASCULAR: Regular rate and rhythm without murmurs, gallops, or rubs. RESPIRATORY: Breath sounds equal bilaterally. No accessory muscle use. GASTROINTESTINAL: Abdomen soft, non-tender, nondistended. MUSCULOSKELETAL: No cyanosis, or edema. BACK: Nontender without obvious deformity. No CVA tenderness. A/P Problem List: (1) Pneumonia ICD Code: J18.9 Status: Acute (2) Acute respiratory failure with hypoxia ICD Code: J96.01 Status: Acute (3) Hyponatremia ICD Code: E87.1 Status: Acute (4) Achalasia ICD Code: K22.0 Status: Chronic (5) HTN (hypertension) ICD Code: I10 Status: Chronic (6) BAMBI (acute kidney injury) ICD Code: N17.9 Status: Acute (7) Euthyroid sick syndrome ICD Code: E07.81 Status: Acute Assessment and Plan 72-year-old female with Aspiration pneumonia Bacteria pneumonia Currently on Levaquin and clindamycin Appreciate input from infectious disease specialist Mycoplasma serology pending Leukocytosis WBC trending down Treat as in above, continue to monitor Emesis-resolved Respiratory failure Resolved DuoNeb when necessary maintain oxygen saturation above 92% Walk test performed 02/06/17 and passed Hypertension Currently normotensive on Inderal 20 mg twice a day, Procardia XL Hyperlipidemia Continue with Lipitor Hypothyroidism Stable on Synthroid Hyponatremia Continue to monitor electrolyte Achalasia Continue with Carafate and PPI DVT prophylaxis: Lovenox Problem Qualifiers (1) Pneumonia: Qualified Code: J69.0 - Aspiration pneumonia of both lower lobes, unspecified aspiration pneumonia type Mark Evans MD Feb 08, 2017 08:52
[2017-02-08] MEDS: ENOXAPARIN SODIUM 40 MG/0.4 ML SYRINGE SQ SCH (11:49)
[2017-02-08 12:00] VITALS: BP_SYST 101; BP_SYST 102; BP_DIAS 69; BP_DIAS 84; PULSE 89; PULSE 98; RESP 20; TEMP 97.1; TEMP 97.5; O2SAT 96
[2017-02-08 16:00] VITALS: BP 115/66; PULSE 103; RESP 20; TEMP 97.4; O2SAT 99
[2017-02-08 20:00] VITALS: BP 100/89; PULSE 109; RESP 20; TEMP 96.7; O2SAT 94
[2017-02-08] MEDS: ATORVASTATIN 40 MG TAB PO SCH (20:17)
[2017-02-08] MEDS: TEMAZEPAM 15 MG CAP PO PRN (21:56)
[2017-02-09] MEDS: CLINDAMYCIN 150 MG CAP PO SCH ×2 (00:47→05:17)
[2017-02-09 00:57] VITALS: BP 98/64; PULSE 80; RESP 18; TEMP 96.6
[2017-02-09] MEDS: ONDANSETRON HCL 4 MG/2 ML VIAL IVP PRN ×2 (01:18→09:08)
[2017-02-09 03:55] VITALS: BP 111/70; PULSE 103; RESP 20; TEMP 97.2; O2SAT 94
[2017-02-09] MEDS: LEVOTHYROXINE SODIUM 100 MCG TAB PO SCH (05:40)
[2017-02-09 08:00] VITALS: BP 102/77; PULSE 106; RESP 20; TEMP 97.5; O2SAT 95
[2017-02-09] MEDS: POTASSIUM CHLORIDE 20 MEQ CONTROLLED RELEASE TAB PO SCH (09:10)
[2017-02-09] MEDS: PROPRANOLOL HCL 20 MG TAB PO SCH (09:10)
[2017-02-09] MEDS: NIFEdipine 60 MG SUSTAINED RELEASE TAB PO SCH (09:10)
[2017-02-09] MEDS: SODIUM CHLORIDE 0.9% FLUSH 10 ML FLUSH IV FLUSH SCH (09:10)
[2017-02-09] MEDS: LACTOBACILLUS ACIDOPHILUS TAB PO SCH ×2 (09:10→12:16)
[2017-02-09] MEDS: LEVOFLOXACIN 750 MG TAB PO SCH (09:11)
[2017-02-09] MEDS: PANTOPRAZOLE SOD 40 MG DELAYED RELEASE TAB PO SCH (09:11)
[2017-02-09] MEDS: DULoxetine HCl DR 60 MG CAP PO SCH (09:11)
[2017-02-09] MEDS: MORPHINE SULFATE 15 MG CONTROLLED RELEASE TAB PO SCH ×2 (09:11→12:16)
[2017-02-09] MEDS: MUPIROCIN 2% OINT 1 APPLIC/GM SYR EACH NARE SCH (09:11)
--- NOTE | 2017-02-09 09:46 | HHI.PR ---
Subjective Remarks Follow-up aspiration pneumonia/respiratory failure 02/06/17-patient seen and examined, currently afebrile and denies any shortness of breath. Satting at 96% on room air. No acute event overnight. Tolerating by mouth without any competition nausea and vomiting. 02/07/17-patient seen and examined, complains of multiple episode of emesis this morning as well as abdominal pain. Worsening leukocytosis 02/08/17-patient seen and examined, complains of abdominal squeezing and occasional loose stool, however only had none overnight except this morning. Patient was able to tolerate a muffin. Currently afebrile and denies any shortness of breath 02/09/17-patient seen and examined, complains of GI upset symptoms only when taking clindamycin, which patient refused last night and again this morning. Otherwise no other issues and stable Objective Vitals Vital Signs Date Time Temp Pulse Resp B/P Pulse Ox O2 Delivery O2 Flow Rate FiO2 02/09/17 03:55 97.2 103 20 111/70 94 02/09/17 00:57 96.6 80 18 98/64 02/08/17 20:00 96.7 109 20 100/89 94 02/08/17 20:00 Room Air 02/08/17 19:00 20 02/08/17 16:00 97.4 103 20 115/66 99 02/08/17 12:00 97.5 98 20 101/84 96 I/O 02/08/17 02/08/17 02/08/17 02/09/17 02/09/17 02/09/17 07:00 15:00 23:00 07:00 15:00 23:00 Intake Total 720 ml 0 ml Balance 720 ml 0 ml Intake Oral 720 ml IV Total 0 ml # Voids 1 5 # Bowel Movements 0 Result Diagram: 02/08/17 0652 02/08/1752 Imaging Last Impressions Chest X-Ray 02/03/17 06 Signed Impressions: Service Date/Time: Friday, February 03, 2017 05:55 - CONCLUSION: Improved aeration. Mild interstitial prominence. Segundo Johnson MD Objective Remarks GENERAL: SKIN: Warm and dry. HEAD: Normocephalic. EYES: No scleral icterus. No injection or drainage. NECK: Supple, trachea midline. No JVD or lymphadenopathy. CARDIOVASCULAR: Regular rate and rhythm without murmurs, gallops, or rubs. RESPIRATORY: Breath sounds equal bilaterally. No accessory muscle use. GASTROINTESTINAL: Abdomen soft, non-tender, nondistended. MUSCULOSKELETAL: No cyanosis, or edema. BACK: Nontender without obvious deformity. No CVA tenderness. Procedures None A/P Problem List: (1) Pneumonia ICD Code: J18.9 Status: Acute (2) Acute respiratory failure with hypoxia ICD Code: J96.01 Status: Acute (3) Hyponatremia ICD Code: E87.1 Status: Acute (4) Achalasia ICD Code: K22.0 Status: Chronic (5) HTN (hypertension) ICD Code: I10 Status: Chronic (6) BAMBI (acute kidney injury) ICD Code: N17.9 Status: Acute (7) Euthyroid sick syndrome ICD Code: E07.81 Status: Acute Assessment and Plan 72-year-old female with Aspiration pneumonia Bacteria pneumonia Currently on Levaquin and clindamycin, however secondary to GI side effects will hold and discontinue clindamycin Appreciate input from infectious disease specialist Mycoplasma serology pending Leukocytosis WBC trending down Treat as in above, continue to monitor Emesis-resolved Respiratory failure Resolved DuoNeb when necessary maintain oxygen saturation above 92% Walk test performed 02/06/17 and passed Hypertension Currently normotensive on Inderal 20 mg twice a day, Procardia XL Hyperlipidemia Continue with Lipitor Hypothyroidism Stable on Synthroid Hyponatremia Continue to monitor electrolyte Achalasia Continue with Carafate and PPI DVT prophylaxis: Lovenox Problem Qualifiers (1) Pneumonia: Qualified Code: J69.0 - Aspiration pneumonia of both lower lobes, unspecified aspiration pneumonia type Mark Evans MD Feb 09, 2017 09:46
--- NOTE | 2017-02-09 09:47 | HHI.DS ---
Discharge Summary Admission Date Feb 01, 2017 at 10:22 Discharge Date: Feb 09, 2017 Admitting Diagnosis pneumonia (1) Pneumonia ICD Code: J18.9 (2) Acute respiratory failure with hypoxia ICD Code: J96.01 (3) Hyponatremia ICD Code: E87.1 (4) Achalasia ICD Code: K22.0 (5) HTN (hypertension) ICD Code: I10 (6) BAMBI (acute kidney injury) ICD Code: N17.9 (7) Euthyroid sick syndrome ICD Code: E07.81 Procedures None Brief History - From Admission Written by Manny Gill, acting as scribe for Dr. Carla Faulkner on 02/01/17 at 14: 09. Ms. Craig is 71 yo, with history inclusive of mild pulmonary hypertension, hyperlipidemia, hypertension, hypothyroidism, and depression. Pt presented w SOB and hypoxia. She states that she started developing a cough, on the evening of 01/31/17. She woke up this morning with shortness of breath. Apparently home health PT came and saw that she was SOB and checked her sats and she was found to be hypoxic. They recommended that she come to [facility] ED for evaluation and management of her condition. She denies any chest pain, nausea or vomiting, denies any abdominal pain. she states that she was supposed to see her sign installer this coming thursday and is concerned that she will miss her appt. She did endorse having chills last evening as well as sore throat, non productive cough and nausea. She did not have fever, body aches, vomiting, ear ache or dysuria. Of note: Ms. Craig was recently hospitalized on January 05, 2017 for sepsis secondary to pneumonia. She was also determined to have mild pulmonary hypertension (53 mmhg). An echocardiogram was completed and she was found to have an ejection fraction of 60%. 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 Pt was subsequently discharged to rehabilitation on 01/14. She remained there until 01/29/17 and discharged home w home health. CBC/BMP: 02/08/17 0652 02/08/17 0652 Significant Findings Laboratory Tests Test 02/07/17 02/08/17 06:54 06:52 White Blood Count 24.7 TH/MM3 18.3 TH/MM3 (4.0-11.0) (4.0-11.0) Neutrophils (%) (Auto) 73.2 % 76.9 % (16.0-70.0) (16.0-70.0) Neutrophils # (Auto) 18.0 TH/MM3 14.1 TH/MM3 (1.8-7.7) (1.8-7.7) Lymphocytes # (Auto) 5.4 TH/MM3 (1.0-4.8) Basophils # (Auto) 0.3 TH/MM3 (0-0.2) Neutrophils % (Manual) 76 % (16-70) Neutrophils # (Manual) 18.8 TH/MM3 (1.8-7.7) Sodium Level 132 MEQ/L 125 MEQ/L (136-145) (136-145) Chloride Level 95 MEQ/L 86 MEQ/L (98-107) (98-107) Creatinine 1.10 MG/DL 1.10 MG/DL (0.50-1.00) (0.50-1.00) Estimat Glomerular Filtration 49 ML/MIN (>89) 49 ML/MIN (>89) Rate Random Glucose 121 MG/DL 144 MG/DL (74-106) (74-106) Platelet Count 464 TH/MM3 (150-450) PE at Discharge GENERAL: SKIN: Warm and dry. HEAD: Normocephalic. EYES: No scleral icterus. No injection or drainage. NECK: Supple, trachea midline. No JVD or lymphadenopathy. CARDIOVASCULAR: Regular rate and rhythm without murmurs, gallops, or rubs. RESPIRATORY: Breath sounds equal bilaterally. No accessory muscle use. GASTROINTESTINAL: Abdomen soft, non-tender, nondistended. MUSCULOSKELETAL: No cyanosis, or edema. BACK: Nontender without obvious deformity. No CVA tenderness. Hospital Course Patient admitted and treated for bacterial pneumonia and possible aspiration pneumonia with IV antibiotics which was subsequently switched to by mouth. Throughout hospitalization, she was provided treatment for dyspnea with significant improvement of symptoms. She passed walk test thus not requiring home oxygen. All electrolyte abnormalities were corrected accordingly. She was continued on treatment for other chronic medical conditions. DVT and GI prophylaxis were provided. Prior to discharge, patient's condition improved and vitals remained stable. Pt Condition on Discharge: Stable Discharge Disposition: Disch w/ Home Health Serv Discharge Time: > 30 minutes Discharge Instructions DIET: Follow Instructions for: Heart Healthy Diet Speech Therapy-Diet Recommends: Mechanical Soft, Chopped Meat w/Gravy Activities you can perform: Regular-No Restrictions Follow up Referrals: PCP Follow-up - 1 Week New Medications: Lactobacillus Acidophilus (Acidophilus/l-Sporogenes) 1 Tab Tab 1 TAB PO DAILY Infection #30 TAB Levofloxacin (Levaquin) 750 Mg Tablet 750 MG PO DAILY Infection #3 MG Continued Medications: Allopurinol (Allopurinol) 100 Mg Tab 100 MG PO BID Gout #30 Ref 0 TAB Alprazolam (Alprazolam) 0.25 Mg Tab 0.25 MG PO TID PRN ANXIETY Ref 0 TAB Atorvastatin (Atorvastatin) 40 Mg Tab 40 MG PO HS Cholesterol Management #[address] Ref [address] (Cymbalta DR) 60 Mg Capdr 60 MG PO DAILY ULCER #30 Ref 0 CAP Fluticasone Nasal [place] (Flonase Nasal [place]) 50 Mcg/Act [place] 50 MCG EACH NARE BID Allergies #1 Ref 0 BOTTLE Ipratropium-Albuterol Inh (Combivent Respimat Inh) 20-100 Longterm/Act Aero 1 PUFF INH QID Asthma Management #1 Ref 0 INHALER Levothyroxine (Levothyroxine) 50 Mcg Tab 100 MCG PO DAILY Thyroid #30 Ref 0 TAB Morphine ER (Morphine ER) 15 Mg Tab 15 MG PO TID Pain Management #10 Ref 0 TAB Nifedipine ER 24 HR (Nifedipine ER 24 HR) 60 Mg Tab 60 MG PO DAILY Days 30 TAB Omeprazole (Omeprazole) 40 Mg Cap 40 MG PO DAILY #30 Ref 0 CAP Oxycodone-Acetaminophen (Percocet) 10-325 mg Tab 1 TAB PO Q4-6H PRN PAIN #20 Ref 0 TAB Propranolol (Propranolol) 20 Mg Tab 20 MG PO BID Days 30 TAB Sucralfate (Sucralfate) 1 Gm Tab 1 GM PO QID on empty stomach Duodenal ulcer #120 Ref 0 TAB Temazepam (Temazepam) 30 Mg Cap 30 MG PO HS PRN INSOMNIA #5 Ref 0 CAP Tizanidine (Tizanidine) 4 Mg Cap 4 MG PO TID Muscle Spasm #10 Ref 0 CAP Umeclidinium-Vilanterol Inh (Anoro Ellipta Inh) 62.5-25 Mcg/Act Aero 1 PUFF INH DAILY COPD #1 Ref 0 INHALER ([Virt]) 1 CAP PO DAILY KIDNEY SUPPORT Discontinued Medications: Alprazolam (Xanax) 0.25 Mg Tab 0.25 MG PO QID PRN ANXIETY #10 TAB Mark Evans MD Feb 09, 2017 09:47 Mark Evans MD Feb 09, 2017 09:47
--- NOTE | 2017-02-09 09:54 | HHI.FF ---
Face to Face Verification Diagnosis: (1) Bacterial pneumonia Physical Therapy Order: Evaluate and Treat Home Health Nursing Order: Signs/symptoms of disease process I have seen patient Ashley Craig on 02/09/17. My clinical findings support the need for the requested home health care services because: Patient has SOB I certify that my clinical findings support that this patient is homebound because: Poor cardiac reserve Mark Evans MD Feb 09, 2017 09:54
[2017-02-09 11:10] LABS: AUTOMATED NEUTROPHIL # 16.8 TH/MM3 (1.8-7.7); BASOPHIL # 0.8 TH/MM3 (0-0.2); BASOPHIL % 3.6 % (0.0-2.0); EOSINOPHIL # 0.2 TH/MM3 (0-0.4); EOSINOPHIL % 0.8 % (0.0-4.0); HEMATOCRIT 40.4 % (35.0-46.0); LYMPH % 13.2 % (9.0-44.0); LYMPHOCYTE # 2.8 TH/MM3 (1.0-4.8); MEAN CELL VOLUME 87.4 FL (80.0-100.0); MEAN CORPUSCULAR HEMOGLOBIN 28.4 PG (27.0-34.0); MEAN CORPUSCULAR HGB CONC 32.5 % (32.0-36.0); MONO % 2.7 % (0.0-8.0); NEUT % 79.7 % (16.0-70.0); PLATELET COUNT 485 TH/MM3 (150-450); RED BLOOD COUNT 4.63 MIL/MM3 (4.00-5.30); RED CELL DISTRIBUTION WIDTH 15.1 % (11.6-17.2); WHITE BLOOD COUNT 21.2 TH/MM3 (4.0-11.0)
[2017-02-09 11:23] LABS: HEMO FLAGS AUTO DIFF
[2017-02-09] MEDS ORDERED: LEVA750T9 PO (11:45)
[2017-02-09] MEDS ORDERED: LACT PO (11:49)
[2017-02-09 12:00] VITALS: BP 130/75; PULSE 80; RESP 20; TEMP 97.1; O2SAT 95
[2017-02-09 12:01] LABS: BANDS 2 % (0-6); EOSINOPHILS 1 % (0-4); MYELOCYTES 2 % (0-0); NEUTROPHIL # MANUAL DIFF 17.4 TH/MM3 (1.8-7.7); PLATELET ESTIMATE SMEAR HIGH (NORMAL); PLATELET MORPHOLOGY NORMAL (NORMAL); POLYS (SEG NEUTROPHILS) 78 % (16-70); SCAN/DIFF FINAL DIFF MANUAL; WBC DIFF SAMPLE 100
[2017-02-09] MEDS: ENOXAPARIN SODIUM 40 MG/0.4 ML SYRINGE SQ SCH (12:15)
[2017-02-09] MEDS: ALPRAZolam 0.25 MG TAB PO PRN (12:16)
[2017-02-09] MEDS: METOCLOPRAMIDE HCL 10 MG/2 ML VIAL IVS PRN (12:22)
[2017-02-09] MEDS: SODIUM CHLORIDE 0.9% FLUSH 10 ML FLUSH IV FLUSH PRN (12:23)
[2017-02-09 16:00] VITALS: BP 109/75; PULSE 98; RESP 20; TEMP 98.6; O2SAT 96
== END 2017-02-09 17:28 | disposition home health service (06) | DRG 871 ==
LOC: PHED 09:09 → PHEDA 10:22 → PH3A 10:56 → PHICU 02-04 00:31 → PH3B 02-05 16:50
PROVIDERS: ADMIT Hospitalist; ATTEND Hospitalist
PROC: 5A09357 Assistance with Respiratory Ventilation, Less than 24 Consecutive Hours, Continuous Positive Airway Pressure (ICD-10-PCS; principal; 2017-02-03)
DX: A41.9 Sepsis, unspecified organism (principal); J15.9 Unspecified bacterial pneumonia; J96.01 Acute respiratory failure with hypoxia; J69.0 Pneumonitis due to inhalation of food and vomit; I50.33 Acute on chronic diastolic (congestive) heart failure; K22.0 Achalasia of cardia; N17.9 Acute kidney failure, unspecified; E87.1 Hypo-osmolality and hyponatremia; I27.2 Other secondary pulmonary hypertension; E78.5 Hyperlipidemia, unspecified; E03.9 Hypothyroidism, unspecified; F32.9 Major depressive disorder, single episode, unspecified; I10 Essential (primary) hypertension; E07.81 Sick-euthyroid syndrome; G89.29 Other chronic pain; M54.5 Low back pain; E87.6 Hypokalemia; R11.11 Vomiting without nausea; T36.8X5A Adverse effect of other systemic antibiotics, initial encounter; Y92.230 Patient room in hospital as the place of occurrence of the external cause
CPT/HCPCS: 36600; 71010; 80048; 82805; 83036; 83605; 83735; 83880; 84439; 84443; 84481; 85007; 85025; 85027; 87040; 87641; 93005; 94002; 94003; 94150; 94620; 94640; 94664; 96365; 96375; J0456; J1650; J1940; J2405; J2543; J2765; J2920; J2930; J3475; J3480; J7030; J7050; J7512

== ENCOUNTER 2017-02-12 10:32 | Emergency (ER) | payer MEDICARE, OTHER ==
[~2017-02-12] VITALS: Ht 157.5 cm; Wt 73.0 kg
[~2017-02-12 10:32] MED LIST changes: -ALPR.25 PO; +LACT PO; +LEVA750T9 PO
[2017-02-12 10:47] VITALS: BP 170/99; PULSE 81; RESP 18; TEMP 98; O2SAT 93
[2017-02-12 11:08] VITALS: BP 136/71; PULSE 74; RESP 18; O2SAT 96
--- NOTE | 2017-02-12 11:15 | PD ---
HPI Chief Complaint: Respiratory Symptoms Time Seen by Provider: 10:44 Travel History International Travel<30 days: No Contact w/Intl Traveler<30days: No Traveled to known affect area: No History of Present Illness HPI This patient came to the emergency room because she was worried that she needed to have oxygen at home. She was recently discharged from the hospital for pneumonia. She borrowed a pulse oximeter at home and sometimes the readings are in the 60s he says. She does not feel short of breath during these times. She does not have chest pain or wheezing. She saw her primary physician yesterday and they discussed home oxygen and apparently she is going to order some but it would take a few days she was told. She was worried that she needed to emergently right now. At this time she feels fine. Symptoms severity is mild. She is anxious. PFSH Past Medical History Hx Anticoagulant Therapy: No Arthritis: Yes Asthma: Yes Autoimmune Disease: No Blood Disorders: No Anxiety: Yes Depression: Yes Heart Rhythm Problems: No Cancer: No Cardiovascular Problems: Yes High Cholesterol: Yes Chemotherapy: No Chest Pain: Yes Congestive Heart Failure: No COPD: No Cerebrovascular Accident: No Diabetes: No Diminished Hearing: No Endocrine: Yes Gastrointestinal Disorders: Yes GERD: Yes Glaucoma: No Genitourinary: No Headaches: No Hepatitis: No Hypertension: Yes Immune Disorder: No Implanted Vascular Access Dvce: Yes Medical other: Yes (refllux) Musculoskeletal: Yes Neurologic: Yes Psychiatric: Yes Reproductive: No Respiratory: Yes Immunizations Current: Yes Myocardial Infarction: No Radiation Therapy: No Seizures: No Sleep Apnea: No Thyroid Disease: Yes Ulcer: Yes Influenza Vaccination: Yes ?: Not Menopausal: Yes : 1 Para: 1 Past Surgical History Abdominal Surgery: Yes ( JOSE) AICD: No Body Medical Devices: 2 TITANIUM RODS IN BACK, SCREW RIGHT ANKLE Cardiac Surgery: No Cholecystectomy: Yes Ear Surgery: No Endocrine Surgery: No Eye Surgery: Yes (BILATERAL CATARACTS REMOVED) Genitourinary Surgery: No Gynecologic Surgery: Yes (hysterectomy) Hysterectomy: No Joint Replacement: No Neurologic Surgery: Yes (BACK SURGERY - TITANIUM CAGE) Oral Surgery: Yes (TONSILLECTOMY) Pacemaker: No Thoracic Surgery: No Other Surgery: Yes Social History Alcohol Use: Yes (RARELY) Tobacco Use: No Substance Use: No Allergies-Medications (Allergen,Severity, Reaction): Coded Allergies: codeine (Unverified Allergy, Intermediate, RASH, 02/12/17) *MDRO Multi-Drug Resistant Organism (Verified Adverse Reaction, Unknown, ) 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 Reported Meds & Prescriptions Reported Meds & Active Scripts Active Acidophilus/l-Sporogenes (Lactobacillus Acidophilus) 1 Tab Tab 1 Tab PO DAILY Levaquin (Levofloxacin) 750 Mg Tablet 750 Mg PO DAILY Propranolol (Propranolol HCl) 20 Mg Tab 20 Mg PO BID 30 Days Nifedipine ER 24 HR (Nifedipine) 60 Mg Tab 60 Mg PO DAILY 30 Days Percocet (Oxycodone-Acetaminophen) 10-325 mg Tab 1 Tab PO Q4-6H PRN Morphine ER (Morphine Sulfate) 15 Mg Tab 15 Mg PO TID Temazepam 30 Mg Cap 30 Mg PO HS PRN Tizanidine (Tizanidine HCl) 4 Mg Cap 4 Mg PO TID Reported Flonase Nasal [place] (Fluticasone Nasal [place]) 50 Mcg/Act [place] 50 Mcg EACH NARE BID Omeprazole 40 Mg Cap 40 Mg PO DAILY Sucralfate 1 Gm Tab 1 Gm PO QID on empty stomach [Virt] 1 Cap PO DAILY Anoro Ellipta Inh (Umeclidinium/Vilanterol) 62.5-25 Mcg/Act Aero 1 Puff INH DAILY Atorvastatin (Atorvastatin Calcium) 40 Mg Tab 40 Mg PO HS Allopurinol 100 Mg Tab 100 Mg PO BID Alprazolam 0.25 Mg Tab 0.25 Mg PO TID PRN Combivent Respimat Inh (Ipratropium-Albuterol Inh) 20-100 Senior Living/Act Aero [address] IN[address] QID Cymbalta [address] (Duloxetine HCl) 60 Mg Capdr 60 Mg PO DAILY Levothyroxine (Levothyroxine Sodium) 50 Mcg Tab 100 Mcg PO DAILY Review of Systems General / Constitutional: No: Fever Eyes: No: Visual changes HENT: No: Headaches Cardiovascular: No: Chest Pain or Discomfort Respiratory: No: Shortness of Breath Gastrointestinal: No: Abdominal Pain Genitourinary: No: Dysuria Musculoskeletal: No: Pain Skin: No Rash Neurologic: No: Weakness Psychiatric: Positive: Anxiety, No: Depression Endocrine: No: Polydipsia Hematologic/Lymphatic: No: Easy Bruising Physical Exam Narrative GENERAL: Well-nourished, well-developed patient in no apparent distress. SKIN: Focused skin assessment reveals no rash and nodules. Skin is Warm and dry. HEAD: Atraumatic. Normocephalic. EYES: Pupils equal and round. No scleral icterus. No injection or drainage. ENT: No nasal bleeding or discharge. Mucous membranes pink and moist. NECK: Trachea midline. No JVD. CARDIOVASCULAR: Regular rate and rhythm. No murmur appreciated. RESPIRATORY: No accessory muscle use. Clear to auscultation. Breath sounds equal bilaterally. GASTROINTESTINAL: Abdomen soft, non-tender, nondistended. Hepatic and splenic margins not palpable. MUSCULOSKELETAL: No obvious deformities. No clubbing. No cyanosis. No edema. NEUROLOGICAL: Awake and alert. No obvious cranial nerve deficits. Motor grossly within normal limits. Normal speech. PSYCHIATRIC: Appropriate mood and affect; insight and judgment normal. Data Data Last Documented VS Vital Signs Date Time Temp Pulse Resp B/P Pulse Ox O2 Delivery O2 Flow Rate FiO2 02/12/17 11:08 74 18 136/71 96 Room Air 02/12/17 10:50 2 02/12/17 10:47 98.0 [facility] Medical Decision Making Medical Screen Exam Complete: Yes Emergency Medical Condition: Yes Medical Record Reviewed: Yes Differential Diagnosis Hypoxemia, pneumonia, aspiration, anxiety Narrative Course I have reviewed the patient's electronic medical record. Reviewed her hospital discharge summary from 3 days ago Patient looks clinically well. Saturations on room air are 95-97% However she often has poor waveforms on the pulse oximeter and its reading anywhere from 12-30% regularly when she is alert and feels fine I think she was getting poor reading is that were not actual correct readings But in any event her family physician should clarify this with her. She is encouraged to call their and get a follow-up because she is very anxious and frustrated with her not getting oxygen promptly. Diagnosis Primary Impression: Oxygen saturation greater than 90% Additional Impression: Atypical pneumonia Additional Instructions: The patient was advised to follow up with their physician and return if they worsen. Med/Other Pt SpecificInfo: Other Disposition: 01 DISCHARGE HOME Condition: Stable Kristopher Ybarra MD Feb 12, 2017 11:15
== END 2017-02-12 11:37 | disposition home or self-care (01) ==
LOC: PHED 10:32
DX: J18.9 Pneumonia, unspecified organism (principal)
CPT/HCPCS: 99281

== ENCOUNTER 2017-07-30 16:21 | Inpatient (IN) | payer OTHER, MEDICARE ==
[~2017-07-30 16:21] MED LIST changes: +AMIT25TA9 PO; +DEXI60CA3 PO; +FERR140T PO; +FLUT1INH INH; +FURO40TA PO; +HYDR1CAP30 PO; -LACT PO; -LEVA750T9 PO; +METF500T PO
[2017-07-30 16:30] VITALS: BP 188/74; PULSE 116; RESP 20; TEMP 100; O2SAT 93
[2017-07-30 16:36] VITALS: O2SAT 96
[2017-07-30] MEDS ORDERED: SODIUM CHLORIDE 0.9% FLUSH 10 ML FLUSH IV FLUSH PRN (16:45)
--- NOTE | 2017-07-30 16:45 | PD ---
HPI Chief Complaint: Neuro Symptoms/ Deficits Time Seen by Provider: 16:33 Travel History International Travel<30 days: No Contact w/Intl Traveler<30days: No Traveled to known affect area: No History of Present Illness HPI 72-year-old female patient with history of hypertension, presents to the ER today brought in by her because since this morning she has appeared more disoriented and has been getting few hours. She is able to answer some questions but does look disoriented. She denies any headaches, chest pains, shortness of breath, or other issues. However, it is questionable whether she is a reliable historian. She was disoriented according to as well. Modifying Factors: None Associated Signs & Symptoms: Disorientation since this morning at 7 AM Risk Factors: Elderly, hypertension PFSH Past Medical History Hx Anticoagulant Therapy: No Arthritis: Yes Asthma: Yes Autoimmune Disease: No Blood Disorders: No Anxiety: Yes Depression: Yes Heart Rhythm Problems: No Cancer: No Cardiovascular Problems: Yes High Cholesterol: Yes Chemotherapy: No Chest Pain: Yes Congestive Heart Failure: No COPD: No Cerebrovascular Accident: No Diabetes: No Diminished Hearing: No Endocrine: Yes Gastrointestinal Disorders: Yes GERD: Yes Glaucoma: No Genitourinary: No Headaches: No Hepatitis: No Hypertension: Yes Immune Disorder: No Implanted Vascular Access Dvce: Yes Medical other: Yes (refllux) Musculoskeletal: Yes Neurologic: Yes Psychiatric: Yes Reproductive: No Respiratory: Yes Immunizations Current: Yes Myocardial Infarction: No Radiation Therapy: No Seizures: No Sleep Apnea: No Thyroid Disease: Yes Ulcer: Yes Menopausal: Yes : 1 Para: 1 Past Surgical History Abdominal Surgery: Yes ( JOSE) AICD: No Body Medical Devices: 2 TITANIUM RODS IN BACK, SCREW RIGHT ANKLE Cardiac Surgery: No Cholecystectomy: Yes Ear Surgery: No Endocrine Surgery: No Eye Surgery: Yes (BILATERAL CATARACTS REMOVED) Genitourinary Surgery: No Gynecologic Surgery: Yes (hysterectomy) Hysterectomy: No Joint Replacement: No Neurologic Surgery: Yes (BACK SURGERY - TITANIUM CAGE) Oral Surgery: Yes (TONSILLECTOMY) Pacemaker: No Thoracic Surgery: No Other Surgery: Yes Social History Alcohol Use: Yes (RARELY) Tobacco Use: No Substance Use: No Allergies-Medications (Allergen,Severity, Reaction): Coded Allergies: codeine (Unverified Allergy, Intermediate, RASH, 07/30/17) *MDRO Multi-Drug Resistant Organism (Verified Adverse Reaction, Unknown, ) 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 Reported Meds & Prescriptions Reported Meds & Active Scripts Active Propranolol (Propranolol HCl) 20 Mg Tab 20 Mg PO BID 30 Days Nifedipine ER 24 HR (Nifedipine) 60 Mg Tab 60 Mg PO DAILY 30 Days Percocet (Oxycodone-Acetaminophen) 10-325 mg Tab 1 Tab PO Q4-6H PRN Morphine ER (Morphine Sulfate) 15 Mg Tab 15 Mg PO TID Temazepam 30 Mg Cap 30 Mg PO HS PRN Tizanidine (Tizanidine HCl) 4 Mg Cap 4 Mg PO TID Reported Combivent Respimat Inh (Ipratropium-Albuterol Inh) 20-100 Alf/Act Aero 1 Puff INH QID Breo Ellipta Inh (Fluticasone/Vilanterol) 100-25 Mcg/Act Inh 1 Puff INH DAILY Use daily at the same time. Ferrous Sulfate ER (Ferrous Sulfate) 140 Mg (45 Mg Iron) Tab 140 Mg PO DAILY Dexilant (Dexlansoprazole) 60 Mg Cap..bp 1 Cap PO DAILY Hydroxyzine Pamoate 25 Mg Cap 25 Mg PO BID Amitriptyline (Amitriptyline HCl) 25 Mg Tab 25 Mg PO HS Furosemide 40 Mg Tab 40 Mg PO DAILY Metformin (Metformin HCl) 500 Mg Tab 500 Mg PO BIDPC Flonase Nasal [place] (Fluticasone Nasal [place]) 50 Mcg/Act [place] 50 Mcg EACH NARE BID Omeprazole 40 Mg Cap 40 Mg PO DAILY Sucralfate 1 Gm Tab 1 Gm PO QID on empty stomach [Virt] 1 Cap PO DAILY Anoro Ellipta Inh (Umeclidinium/Vilanterol) 62.5-25 Mcg/Act Aero 1 Puff INH DAILY Atorvastatin (Atorvastatin Calcium) 40 Mg Tab 40 Mg PO HS Allopurinol 100 Mg Tab 100 Mg PO BID Alprazolam 0.25 Mg Tab 0.25 Mg PO TID PRN Combivent Respimat Inh (Ipratropium-Albuterol Inh) 20-100 Alf/Act Aero 1 Puff INH QID Cymbalta DR (Duloxetine HCl) 60 Mg Capdr 60 Mg PO DAILY Levothyroxine (Levothyroxine Sodium) 50 Mcg Tab 100 Mcg PO DAILY Review of Systems ROS Limitations: Altered Mental Status Physical Exam Narrative Greater GENERAL: Well-developed elderly white female patient who appears anxious , disoriented. She is awake and alert. Oriented to self. Able to follow commands. SKIN: Focused skin assessment warm/dry. HEAD: Atraumatic. Normocephalic. EYES: Pupils equal and round. No scleral icterus. No injection or drainage. ENT: No nasal bleeding or discharge. Mucous membranes pink and moist. NECK: Trachea midline. No JVD. Supple. CARDIOVASCULAR: Regular rate and rhythm. No murmur appreciated. RESPIRATORY: No accessory muscle use. Clear to auscultation. Breath sounds equal bilaterally. GASTROINTESTINAL: Abdomen soft, non-tender, nondistended. Hepatic and splenic margins not palpable. MUSCULOSKELETAL: No obvious deformities. No clubbing. No cyanosis. No edema. NEUROLOGICAL: Awake and alert. No obvious cranial nerve deficits. Motor grossly within normal limits. Normal speech. PSYCHIATRIC: Appropriate mood and affect; insight and judgment poor. Data Data Last Documented VS Vital Signs Date Time Temp Pulse Resp B/P (MAP) Pulse Ox O2 Delivery O2 Flow Rate FiO2 07/30/17 16:36 96 07/30/17 16:30 100.0 116 20 188/74 (112) Orders Orders Electrocardiogram (07/30/17 16:33) Ammonia (07/30/17 16:33) Complete Blood Count With Diff (07/30/17 16:33) Comprehensive Metabolic Panel (07/30/17 16:33) Prothrombin Time / Inr (Pt) (07/30/17 16:33) Act Partial Throm Time (Ptt) (07/30/17 16:33) Troponin I (07/30/17 16:33) Thyroid Stimulating Hormone (07/30/17 16:33) Urinalysis - C+S If Indicated (07/30/17 16:33) Blood Culture (07/30/17 16:33) Chest, Single Ap (07/30/17 16:33) Ct Brain W/O Iv Contrast(Rout) (07/30/17 16:33) Blood Glucose (07/30/17 16:33) Ecg Monitoring (07/30/17 16:33) Iv Access Insert/Monitor (07/30/17 16:33) Oximetry (07/30/17 16:33) Sodium Chloride 0.9% Flush (Ns Flush) (07/30/17 16:45) Influenzae A/B Antigen (07/30/17 16:33) Cath For Specimen (07/30/17 16:33) Lactic Acid Sepsis Protocol (07/30/17 16:42) Vancomycin Inj (Vancomycin Inj) (07/30/17 17:24) Piperacil-Tazo 4.5 Gm Premix (Zosyn 4.5 (07/30/17 17:24) Admit Order (Ed Use Only) (07/30/17 17:32) Ns (Bolus) Inj (07/30/17 17:45) Labs Laboratory Tests Test 07/30/17 16:40 07/30/17 16:48 07/30/17 17:00 White Blood Count 34.9 TH/MM3 Red Blood Count 3.59 MIL/MM3 Hemoglobin 10.0 GM/DL Hematocrit 31.6 % Mean Corpuscular Volume 87.9 FL Mean Corpuscular Hemoglobin 27.9 PG Mean Corpuscular Hemoglobin Concent 31.8 % Red Cell Distribution Width 15.1 % Platelet Count 351 TH/MM3 Mean Platelet Volume 7.1 FL Neutrophils (%) (Auto) 94.3 % Lymphocytes (%) (Auto) 3.8 % Monocytes (%) (Auto) 1.0 % Eosinophils (%) (Auto) 0.0 % Basophils (%) (Auto) 0.9 % Neutrophils # (Auto) 33.0 TH/MM3 Lymphocytes # (Auto) 1.3 TH/MM3 Monocytes # (Auto) 0.3 TH/MM3 Eosinophils # (Auto) 0.0 TH/MM3 Basophils # (Auto) 0.3 TH/MM3 CBC Comment AUTO DIFF Blood Urea Nitrogen 14 MG/DL Creatinine 1.20 MG/DL Random Glucose 153 MG/DL Total Protein 7.5 GM/DL Albumin 3.2 GM/DL Calcium Level 9.0 MG/DL Alkaline Phosphatase 125 U/L Aspartate Amino Transf (AST/SGOT) 201 U/L Alanine Aminotransferase (ALT/SGPT) 109 U/L Total Bilirubin 1.0 MG/DL Sodium Level 128 MEQ/L Potassium Level 3.6 MEQ/L Chloride Level 92 MEQ/L Carbon Dioxide Level 26.9 MEQ/L Anion Gap 9 MEQ/L Estimat Glomerular Filtration Rate 44 ML/MIN Troponin I 0.05 NG/ML Thyroid Stimulating Hormone 3rd Gen 0.490 uIU/ML Lactic Acid Level 1.9 mmol/L Ammonia 18 MCMOL/L Urine pH 8.5 Urine Protein NEG mg/dL Urine Glucose (UA) NEG mg/dL Urine Ketones NEG mg/dL Urine Occult Blood NEG Urine Nitrite NEG Urine Bilirubin NEG Urine Leukocyte Esterase NEG MDM Medical Decision Making Medical Screen Exam Complete: Yes Emergency Medical Condition: Yes Medical Record Reviewed: Yes Interpretation(s) EKG shows A. fib with RVR at a rate of 110 bpm. No signs of acute ST changes. Laboratory Tests Test 07/30/17 16:40 07/30/17 16:48 07/30/17 17:00 White Blood Count 34.9 TH/MM3 (4.0-11.0) Red Blood Count 3.59 MIL/MM3 (4.00-5.30) Hemoglobin 10.0 GM/DL (11.6-15.3) Hematocrit 31.6 % (35.0-46.0) Mean Corpuscular Hemoglobin Concent 31.8 % (32.0-36.0) Neutrophils (%) (Auto) 94.3 % (16.0-70.0) Lymphocytes (%) (Auto) 3.8 % (9.0-44.0) Neutrophils # (Auto) 33.0 TH/MM3 (1.8-7.7) Basophils # (Auto) 0.3 TH/MM3 (0-0.2) Creatinine 1.20 MG/DL (0.50-1.00) Random Glucose 153 MG/DL (74-106) Albumin 3.2 GM/DL (3.4-5.0) Alkaline Phosphatase 125 U/L (45-117) Aspartate Amino Transf (AST/SGOT) 201 U/L (15-37) Alanine Aminotransferase (ALT/SGPT) 109 U/L (10-53) Sodium Level 128 MEQ/L (136-145) Chloride Level 92 MEQ/L (98-107) Estimat Glomerular Filtration Rate 44 ML/MIN (>89) Last [address] 07/30/17 1633 Signed Impressions: Service Date/Time: July 16:54 - CONCLUSION: 1. No acute intracranial abnormality. 2. Chronic small vessel ischemic change. 3. Mucosal thickening involving the right sphenoid sinus. Waldo Sampson Jr., MD Differential Diagnosis Altered mental status: CVA versus sepsis versus dehydration versus acute intracranial processes Narrative Course CAT scan did not show any signs of acute intracranial processes. She has no focal neurological deficits but appears to be globally disoriented. Her lab work shows significant leukocytosis concerning for underlying sepsis. IV antibiotics were initiated after cultures were drawn. Influenza testing was negative. Chest x-ray did not show obvious signs of focal pneumonia. At this point, my plan would be to admit her sepsis. She does have also low sodium and IV normal saline Was given in the ER. Case was discussed with Dr. Callahan for admission. Diagnosis Primary Impression: Altered mental status Additional Impressions: Sepsis Hyponatremia Admitting Information Admitting Physician Requests: Admit Odessa Aquino MD Jul 30, 2017 16:45
[2017-07-30 16:56] LABS: BASOPHIL # 0.3 TH/MM3 (0-0.2); BASOPHIL % 0.9 % (0.0-2.0); HEMATOCRIT 31.6 % (35.0-46.0); LYMPH % 3.8 % (9.0-44.0); LYMPHOCYTE # 1.3 TH/MM3 (1.0-4.8); MEAN CELL VOLUME 87.9 FL (80.0-100.0); MEAN CORPUSCULAR HEMOGLOBIN 27.9 PG (27.0-34.0); MEAN CORPUSCULAR HGB CONC 31.8 % (32.0-36.0); MEAN PLATELET VOLUME 7.1 FL (7.0-11.0); MONOCYTE # 0.3 TH/MM3 (0-0.9); NEUT % 94.3 % (16.0-70.0); PLATELET COUNT 351 TH/MM3 (150-450); RED BLOOD COUNT 3.59 MIL/MM3 (4.00-5.30); RED CELL DISTRIBUTION WIDTH 15.1 % (11.6-17.2); WHITE BLOOD COUNT 34.9 TH/MM3 (4.0-11.0)
[2017-07-30 17:05] LABS: CHLORIDE 92 MEQ/L (98-107); SODIUM (NA) 128 MEQ/L (136-145)
[2017-07-30 17:08] LABS: ALBUMIN 3.2 GM/DL (3.4-5.0); BICARBONATE 26.9 MEQ/L (21.0-32.0)
[2017-07-30 17:09] LABS: BLOOD UREA NITROGEN 14 MG/DL (7-18); GLUCOSE,RANDOM 153 MG/DL (74-106)
[2017-07-30 17:12] LABS: ALT (GPT) 109 U/L (10-53); AST (GOT) 201 U/L (15-37); GLOMERULAR FILTRATION RATE 44 ML/MIN (>89)
[2017-07-30 17:13] LABS: TOTAL PROTEIN 7.5 GM/DL (6.4-8.2)
[2017-07-30 17:15] LABS: ALKALINE PHOSPHATASE 125 U/L (45-117)
--- NOTE | 2017-07-30 17:15 | RADRPT ---
EXAM DATE/TIME: 07/30/2017 16:54 [facility] COMPARISON: No previous studies available for comparison. INDICATIONS : Altered mental status since this morning. RADIATION DOSE: 64.68 CTDIvol (mGy) MEDICAL HISTORY : Gastroesophageal reflux disease. Hypertension. SURGICAL HISTORY : Cholecystectomy. Hiatal hernia repair. ENCOUNTER: Initial ACUITY: 1 day PAIN SCALE: 2/10 LOCATION: cranial TECHNIQUE: Multiple contiguous axial images were obtained of the head. Using automated exposure control and adj ustment of the mA and/or kV according to patient size, radiation dose was kept as low as reasonably a chievable to obtain optimal diagnostic quality images. DICOM format image data is available electro nically for review and comparison. FINDINGS: CEREBRUM: Periventricular low attenuation change involving both cerebral hemispheres. The ventricles are normal for age. No evidence of midline shift, mass lesion, hemorrhage or acute infarction. No extra-axial fluid collections are seen. POSTERIOR FOSSA: The cerebellum and brainstem are intact. The 4th ventricle is midline. The cerebellopontine angle i s unremarkable. EXTRACRANIAL: The visualized portion of the orbits is intact. Mucosal thickening without air-fluid level involving the right sphenoid sinus. The remaining paranasal sinuses and mastoid air cells are clear. SKULL: The calvaria is intact. No evidence of skull fracture. CONCLUSION: 1. No acute intracranial abnormality. 2. Chronic small vessel ischemic change. 3. Mucosal thickening involving the right sphenoid sinus. Waldo Sampson Jr., MD on July 30, 2017 at 17:11 Board Certified Radiologist. This report was verified electronically.
[2017-07-30 17:17] LABS: TROPONIN I 0.05 NG/ML (0.02-0.05)
--- NOTE | 2017-07-30 17:19 | RADRPT ---
EXAM DATE/TIME: 07/30/2017 16:46 [facility] COMPARISON: CHEST SINGLE AP, February 03, 2017, 21:55. INDICATIONS : Syncope. Short of breath. MEDICAL HISTORY : Hypertension. Cardiovascular disease. SURGICAL HISTORY : Fusion, Cholecystectomy. Appendectomy.Partial hysterectomy ENCOUNTER: Initial ACUITY: 1 day PAIN SCORE: 0/10 LOCATION: Bilateral chest FINDINGS: A single AP supine portable view the chest was obtained and demonstrates mild streaky opacity in the right perihilar region and left lung base. The heart size remains at the upper limits of normal. Ther e is no effusion. The bony thorax is stable and intact. Posterior fixation rods are partially imaged in the lumbar spine region. CONCLUSION: 1. Mild streaky opacity in the right perihilar region and left lung base with no consolidation. Nick Marshall MD on July 30, 2017 at 17:15 Board Certified Radiologist. This report was verified electronically.
[2017-07-30 17:20] LABS: BILIRUBIN, URINE NEG (NEG); BLOOD, URINE NEG (NEG); GLUCOSE,URINE NEG (NEG); KETONE, URINE NEG (NEG); NITRITE,URINE NEG (NEG); PH, URINE 8.5 (5.0-8.5); URINE LEUKOCYTE ESTERASE NEG (NEG)
[2017-07-30] MEDS ORDERED: PIPERACIL-TAZO 4.5 GM PREMIX 100 ML IV STA (17:24)
[2017-07-30] MEDS ORDERED: VANCOMYCIN INJ 1,000 MG in SODIUM CHLOR 0.9% 250 ML INJ 250 ML IV STA (17:24)
[2017-07-30 17:35] LABS: URINE COLOR YELLOW (YELLW/STRAW); WBC, URINE 0-2 /hpf (0-5)
[2017-07-30 17:36] VITALS: BP 170/76; PULSE 108; RESP 20; O2SAT 98
[2017-07-30 17:40] LABS: SQUAMOUS EPITHELIAL CELL URINE 0-1 /hpf (0-5)
[2017-07-30 17:45] LABS: BANDS 9 % (0-6); LYMPHOCYTES 8 % (9-44); MONOCYTES 1 % (0-8); NEUTROPHIL # MANUAL DIFF 31.8 TH/MM3 (1.8-7.7); POLYS (SEG NEUTROPHILS) 82 % (16-70)
[2017-07-30] MEDS ORDERED: SODIUM CHLOR 0.9% 1000 ML INJ 1,000 ML IV ONE ×2 (17:45→18:00)
[2017-07-30] MEDS ORDERED: NALOXONE HCL 0.4 MG/ML AMP IV PUSH PRN (17:45)
[2017-07-30 17:46] LABS: DOHLE BODIES PRESENT (NONE SEEN); TOXIC GRANULATION 1+ (NORMAL)
[2017-07-30 17:53] LABS: INTERNATIONAL NORMALIZED RATIO 1.1 RATIO; PROTHROMBIN TIME - PATIENT 11.4 SEC (9.8-11.6)
[2017-07-30] MEDS ORDERED: BISACODYL 10 MG SUPP RECTAL PRN (18:00)
[2017-07-30] MEDS ORDERED: SENNOSIDES 8.6 MG TAB PO PRN (18:00)
[2017-07-30] MEDS ORDERED: LACTULOSE SYRUP 20 GM/30 ML CUP PO PRN (18:00)
[2017-07-30] MEDS ORDERED: MAGNESIUM HYDROXIDE SUSP 30 ML CUP PO PRN (18:00)
[2017-07-30] MEDS: cefTRIAXone INJ 1,000 MG in SODIUM CHLORIDE 0.9% INJ 100 ML IV SCH (18:35)
[2017-07-30] MEDS: HEPARIN SODIUM - SQ 10,000 UNITS/ML VIAL SQ SCH (18:35)
[2017-07-30] MEDS: SODIUM CHLOR 0.9% 1000 ML INJ 1,000 ML IV SCH (19:57)
[2017-07-30 20:00] VITALS: BP 178/95; PULSE 119; RESP 20; TEMP 99.6; O2SAT 98
[2017-07-30] MEDS ORDERED: ALPRAZolam 0.25 MG TAB PO ONE (20:00)
[2017-07-30 21:00] VITALS: O2SAT 96
[2017-07-30] MEDS ORDERED: CALCIUM CARBONATE 500 MG CHEWABLE TAB CHEW ONE (21:00)
[2017-07-30] MEDS: SODIUM CHLORIDE 0.9% FLUSH 10 ML FLUSH IV FLUSH SCH (21:13)
[2017-07-30] MEDS: DOCUSATE SODIUM 50 MG/SENNA 8.6 MG TAB PO SCH (21:13)
[2017-07-31] VITALS (7 sets, daily range): BP systolic 109–182; BP diastolic 70–88; PULSE 79–112; RESP 18–20; TEMP 96.4–99.4; O2SAT 95–98
[2017-07-31] MEDS: HEPARIN SODIUM - SQ 10,000 UNITS/ML VIAL SQ SCH ×3 (02:51→19:39)
[2017-07-31 06:03] LABS: AUTOMATED NEUTROPHIL # 21.4 TH/MM3 (1.8-7.7); EOSINOPHIL % 0.1 % (0.0-4.0); HEMATOCRIT 25.8 % (35.0-46.0); HEMOGLOBIN 8.4 GM/DL (11.6-15.3); LYMPH % 5.5 % (9.0-44.0); LYMPHOCYTE # 1.3 TH/MM3 (1.0-4.8); MEAN CELL VOLUME 86.7 FL (80.0-100.0); MEAN CORPUSCULAR HEMOGLOBIN 28.5 PG (27.0-34.0); MEAN CORPUSCULAR HGB CONC 32.8 % (32.0-36.0); MEAN PLATELET VOLUME 7.2 FL (7.0-11.0); MONO % 3.1 % (0.0-8.0); MONOCYTE # 0.7 TH/MM3 (0-0.9); NEUT % 91.3 % (16.0-70.0); PLATELET COUNT 321 TH/MM3 (150-450); RED BLOOD COUNT 2.97 MIL/MM3 (4.00-5.30); RED CELL DISTRIBUTION WIDTH 14.8 % (11.6-17.2); WHITE BLOOD COUNT 23.4 TH/MM3 (4.0-11.0)
[2017-07-31 06:36] LABS: BICARBONATE 26.4 MEQ/L (21.0-32.0); CALCIUM 8.5 MG/DL (8.5-10.1); CREATININE 0.82 MG/DL (0.50-1.00)
[2017-07-31] MEDS: SODIUM CHLOR 0.9% 1000 ML INJ 1,000 ML IV SCH (06:38)
[2017-07-31] MEDS ORDERED: POTASSIUM CHLORIDE 10 MEQ CONTROLLED RELEASE TAB PO ONE (07:30)
[2017-07-31 08:15] LABS: MAGNESIUM 1.4 MG/DL (1.5-2.5)
[2017-07-31 08:33] LABS: ALBUMIN 2.6 GM/DL (3.4-5.0); ALKALINE PHOSPHATASE 99 U/L (45-117); ALT (GPT) 86 U/L (10-53); AST (GOT) 119 U/L (15-37); DIRECT BILIRUBIN ADULT 0.4 MG/DL (0.0-0.2); INDIRECT BILIRUBIN 0.6 MG/DL (0.0-0.8); TOTAL PROTEIN 6.4 GM/DL (6.4-8.2)
[2017-07-31] MEDS: NS + KCL 20 MEQ INJ 1,000 ML IV SCH ×2 (08:38→20:49)
[2017-07-31] MEDS: DOCUSATE SODIUM 50 MG/SENNA 8.6 MG TAB PO SCH (08:39)
[2017-07-31] MEDS: SODIUM CHLORIDE 0.9% FLUSH 10 ML FLUSH IV FLUSH SCH ×2 (08:40→20:24)
[2017-07-31 10:18] LABS: RETIC # 36.5 MIL/L (20.0-150.0); RETIC % 1.3 % (0.4-3.0)
[2017-07-31 10:38] LABS: IRON (FE) 25 MCG/DL (50-170)
[2017-07-31 11:03] LABS: % SATURATION IRON PROFILE 8.6 % (20-50); FERRITIN 116 NG/ML (8-252); FOLATE 13.8 NG/ML (3.1-17.5); TOTAL IRON BINDING CAPACITY 290 MCG/DL (250-450)
[2017-07-31] MEDS: ONDANSETRON HCL 4 MG/2 ML VIAL IV PUSH PRN (11:09)
[2017-07-31 12:26] LABS: HEMATOCRIT 28.6 % (35.0-46.0); HEMOGLOBIN 9.1 GM/DL (11.6-15.3)
[2017-07-31] MEDS ORDERED: LORazepam 2 MG/ML VIAL IV PUSH ONE (12:45)
[2017-07-31] MEDS ORDERED: FERROUS SULFATE 140 MG PO SCH (12:45)
[2017-07-31] MEDS ORDERED: MAGNESIUM SULFATE 1 GM PREMIX 100 ML IV ONE (12:45)
[2017-07-31] MEDS ORDERED: NON-FORMULARY DRUG (Ipratropium-Albuterol Inh (Combivent Respimat Inh) 1 PUFF) INH SCH (13:00)
--- NOTE | 2017-07-31 13:08 | HHI.HP ---
[facility] Service [facility] Primary Care Physician Non-Staff Admission Diagnosis Altered mental status/sepsis/hyponatremia Diagnoses: Chief Complaint: Confusion and nausea and vomiting Travel History International Travel<30 Days: No Contact w/Intl Traveler <30 Da: No Traveled to Known Affected Are: No History of Present Illness This patient is a 72-year-old female with a history of polypharmacy and anxiety. She did come to the emergency room because she was increasingly disoriented over the last evening. She overnight has improved and is back to her baseline although somewhat anxious. She normally takes Percocet, morphine, ties and edema, temazepam and hydroxyzine with amitriptyline and alprazolam. She says she did not take any more of these medications but hadn't been eating well. She was feeling lightheaded. When her saw her at home he was concerned because she wasn't speaking clearly. Again she has resolved these symptoms however now has profuse nausea and vomiting with several episodes of diarrhea. She also complains of vague diffuse abdominal pain which is improved with vomiting. She has not had any fevers or chills here but has a tremendous amount leukocytosis and tachycardia. For these reasons the patient has been admitted to the hospital Review of Systems Constitutional: COMPLAINS OF: Dizziness, DENIES: Diaphoretic episodes, Fatigue , Fever, Weight gain, Weight loss, Chills, Change in appetite, Night Sweats Endocrine: DENIES: Abnorml menstrual pattern, Heat/cold intolerance, Polydipsia , Polyuria, Polyphagia Eyes: DENIES: Blurred vision, Diplopia, Eye inflammation, Eye pain, Vision loss , Photosensitivity, Double Vision Ears, nose, mouth, throat: DENIES: Tinnitus, Hearing loss, Vertigo, Nasal discharge, Oral lesions, Throat pain, Hoarseness, Ear Pain, Running Nose, Epistaxis, Sinus Pain, Toothache, Odynophagia Respiratory: DENIES: Apneas, Cough, Snoring, Wheezing, Hemoptysis, Sputum production, Shortness of breath Cardiovascular: DENIES: Chest pain, Palpitations, Syncope, Dyspnea on Exertion , PND, Lower Extremity Edema, Orthopnea, Claudication Gastrointestinal: COMPLAINS OF: Abdominal pain, Diarrhea, Nausea, Vomiting, DENIES: Black stools, Bloody stools, Constipation, Difficulty Swallowing, Anorexia Genitourinary: DENIES: Abnormal vaginal bleeding, Dysmenorrhea, Dyspareunia, Sexual dysfunction, Urinary frequency, Urinary incontinence, Urgency, Hematuria , Dysuria, Nocturia, Vaginal discharge Musculoskeletal: DENIES: Joint pain, Muscle aches, Stiffness, Joint Swelling, Back pain, Neck pain Hematologic/lymphatic: DENIES: Bruising, Lymphadenopathy Immunologic/allergic: DENIES: Eczema, Urticaria Neurologic: DENIES: Abnormal gait, Headache, Localized weakness, Paresthesias, Seizures, Speech Problems, Tremor, Poor Balance Psychiatric: DENIES: Anxiety, Confusion, Mood changes, Depression, Hallucinations, Agitation, Suicidal Ideation, Homicidal Ideation, Delusions Except as stated in HPI: all other systems reviewed are Neg Past Family Social History Past Medical History Anxiety Chronic pain Polypharmacy COPD Dyspepsia Hyperlipidemia Hypothyroidism Past Surgical History Back surgery Cholecystectomy Cataracts Hysterectomy Reported Medications Reviewed in the EMR, no new medications Allergies: Coded Allergies: codeine (Unverified Allergy, Intermediate, RASH, 07/30/17) *MDRO Multi-Drug Resistant Organism (Verified Adverse Reaction, Unknown, ) 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 Ordered Medications reviewed in the EMR Family History Does not recall Social History Lives with her , no tobacco or alcohol dependency Physical Exam Vital Signs Vital Signs Date Time Temp Pulse Resp B/P (MAP) Pulse Ox O2 Delivery O2 Flow Rate FiO2 07/31/17 08:24 98 Nasal Cannula 2.00 07/31/17 08:00 97.3 109 18 182/85 (117) 98 07/31/17 00:00 96.4 79 20 109/70 (83) 95 07/30/17 21:00 96 Nasal Cannula 2.00 07/30/17 20:00 99.6 119 20 178/95 (122) 98 07/30/17 18:26 07/30/17 17:36 108 20 170/76 (107) 98 07/30/17 16:36 96 07/30/17 16:30 100.0 116 20 188/74 (112) 93 Physical Exam GENERAL: This is a well-nourished, well-developed patient, who is anxious, vomiting SKIN: No rashes, ecchymoses or lesions. Cool and dry. HEAD: Atraumatic. Normocephalic. No temporal or scalp tenderness. EYES: Pupils equal round and reactive. Extraocular motions intact. No scleral icterus. No injection or drainage. ENT: Nose without bleeding, purulent drainage or septal hematoma. Throat without erythema, tonsillar hypertrophy or exudate. Uvula midline. Airway patent. NECK: Trachea midline. No JVD or lymphadenopathy. Supple, nontender, no meningeal signs. CARDIOVASCULAR: Regular rate and rhythm without murmurs, gallops, or rubs. RESPIRATORY: Clear to auscultation. Breath sounds equal bilaterally. No wheezes , rales, or rhonchi. GASTROINTESTINAL: Hypoactive bowel sounds, Abdomen soft, non-tender, nondistended. No hepato-splenomegaly, or palpable masses. No guarding. MUSCULOSKELETAL: Extremities without clubbing, cyanosis, or edema. No joint tenderness, effusion, or edema noted. No calf tenderness. Negative Homans sign bilaterally. NEUROLOGICAL: Awake and alert. Cranial nerves II through XII intact. Motor and sensory grossly within normal limits. Five out of 5 muscle strength in all muscle groups. Normal speech. Laboratory Laboratory Tests Test 07/30/17 16:40 07/30/17 16:48 07/30/17 17:00 07/31/17 04:25 White Blood Count 34.9 23.4 Red Blood Count 3.59 2.97 Hemoglobin 10.0 8.4 Hematocrit 31.6 25.8 Mean Corpuscular Volume 87.9 86.7 Mean Corpuscular Hemoglobin 27.9 28.5 Mean Corpuscular Hemoglobin Concent 31.8 32.8 Red Cell Distribution Width 15.1 14.8 Platelet Count 351 321 Mean Platelet Volume 7.1 7.2 Neutrophils (%) (Auto) 94.3 91.3 Lymphocytes (%) (Auto) 3.8 5.5 Monocytes (%) (Auto) 1.0 3.1 Eosinophils (%) (Auto) 0.0 0.1 Basophils (%) (Auto) 0.9 0.0 Neutrophils # (Auto) 33.0 21.4 Lymphocytes # (Auto) 1.3 1.3 Monocytes # (Auto) 0.3 0.7 Eosinophils # (Auto) 0.0 0.0 Basophils # (Auto) 0.3 0.0 CBC Comment AUTO DIFF DIFF FINAL Differential Total Cells Counted 100 Neutrophils % (Manual) 82 Band Neutrophils % 9 Lymphocytes % 8 Monocytes % 1 Neutrophils # (Manual) 31.8 Differential Comment FINAL DIFF MANUAL Toxic Granulation 1+ Dohle Bodies PRESENT Platelet Estimate NORMAL Platelet Morphology Comment NORMAL Prothrombin Time 11.4 Prothromb Time International Ratio 1.1 Activated Partial Thromboplast Time 24.0 Blood Urea Nitrogen 14 10 Creatinine 1.20 0.82 Random Glucose 153 121 Total Protein 7.5 6.4 Albumin 3.2 2.6 Calcium Level 9.0 8.5 Alkaline Phosphatase 125 99 Aspartate Amino Transf (AST/SGOT) 201 119 Alanine Aminotransferase (ALT/SGPT) 109 86 Total Bilirubin 1.0 1.0 Sodium Level 128 134 Potassium Level 3.6 2.7 Chloride Level 92 102 Carbon Dioxide Level 26.9 26.4 Anion Gap 9 6 Estimat Glomerular Filtration Rate 44 68 Troponin I 0.05 Thyroid Stimulating Hormone 3rd Gen 0.490 Lactic Acid Level 1.9 Ammonia 18 Urine Collection Type CATH Urine Color YELLOW Urine Turbidity CLEAR Urine pH 8.5 Urine Specific [place] 1.012 Urine Protein NEG Urine Glucose (UA) NEG Urine Ketones NEG Urine Occult Blood NEG Urine Nitrite NEG Urine Bilirubin NEG Urine Leukocyte Esterase NEG Urine WBC 0-2 Urine Squamous Epithelial Cells 0-1 Urine Transitional Epithelial Cells Microscopic Urinalysis Comment CULT NOT INDICATED Reticulocyte Count 1.3 Absolute Reticulocyte Count 36.5 Magnesium Level 1.4 Iron Level 25 Total Iron Binding Capacity 290 Percent Iron Saturation 8.6 Ferritin 116 Direct Bilirubin 0.4 Indirect Bilirubin 0.6 Lactate Dehydrogenase 285 Vitamin B12 Level 634 Folate 13.8 Test 07/31/17 12:05 Hemoglobin 9.1 Hematocrit 28.6 Date/Time Source Procedure Growth Status 07/30/17 16:45 Blood Peripheral Aerobic Blood Culture - Preliminary NO GROWTH IN 1 DAY Resulted 07/30/17 16:45 Blood Peripheral Anaerobic Blood Culture - Preliminary NO GROWTH IN 1 DAY Resulted 07/30/17 16:48 Nasal Washing Influenza Types A,B Antigen (ANAYA) - Final NEGATIVE FOR FLU A AND B ANTIGEN.... Complete Result Diagram: 07/31/17 1205 07/31/17 0425 Imaging Last Impressions Head CT 07/30/17 1633 Signed Impressions: Service Date/Time: July 16:54 - CONCLUSION: 1. No acute intracranial abnormality. 2. Chronic small vessel ischemic change. 3. Mucosal thickening involving the right sphenoid sinus. Waldo Sampson Jr., MD Chest X-Ray 07/30/17 7763 Signed Impressions: Service Date/Time: July 16:46 - CONCLUSION: 1. Mild streaky opacity in the right perihilar region and left lung base with no consolidation. MD Yared Bryan VTE Risk Assessment Caprini VTE Risk Assessment: Mod/High Risk (score >= 2) Caprini Risk Assessment Model Point Value = 1 Point Value = 2 Point Value = 3 Point Value = 5 Age 41-60 Minor surgery BMI > 25 kg/m2 Swollen legs Varicose veins or History of unexplained or recurrent spontaneous Oral contraceptives or hormone replacement Sepsis (< 1 month) Serious lung disease, including pneumonia (< 1 month) Abnormal pulmonary function Acute myocardial infarction Congestive heart failure (< 1 month) History of inflammatory bowel disease Medical patient at bed rest Age 61-74 Arthroscopic surgery Major open surgery (> 45 min) Laparoscopic surgery (> 45 min) Malignancy Confined to bed (> 72 hours) Immobilizing plaster cast Central venous access Age >= 75 History of VTE Family history of VTE Factor V Leiden Prothrombin [id number] Lupus anticoagulant Anticardiolipin antibodies Elevated serum homocysteine Heparin-induced thrombocytopenia Other congenital or acquired thrombophilia Stroke (< 1 month) Elective arthroplasty Hip, pelvis, or leg fracture Acute spinal cord injury (< 1 month) Prophylaxis Regimen Total Risk Factor Score Risk Level Prophylaxis Regimen 0-1 Low Early ambulation 2 Moderate Order ONE of the following: *Sequential Compression Device (SCD) *Heparin 5000 units SQ BID 3-4 Higher Order ONE of the following medications: *Heparin 5000 units SQ TID *Enoxaparin/Lovenox 40 mg SQ daily (WT < 150 kg, CrCl > 30 mL/min) *Enoxaparin/Lovenox 30 mg SQ daily (WT < 150 kg, CrCl > 10-29 mL/min) *Enoxaparin/Lovenox 30 mg SQ BID (WT < 150 kg, CrCl > 30 mL/min) AND/OR *Sequential Compression Device (SCD) 5 or more Highest Order ONE of the following medications: *Heparin 5000 units SQ TID (Preferred with Epidurals) *Enoxaparin/Lovenox 40 mg SQ daily (WT < 150 kg, CrCl > 30 mL/min) *Enoxaparin/Lovenox 30 mg SQ daily (WT < 150 kg, CrCl > 10-29 mL/min) *Enoxaparin/Lovenox 30 mg SQ BID (WT < 150 kg, CrCl > 30 mL/min) AND *Sequential Compression Device (SCD) Assessment and Plan Problem List: (1) Altered mental status ICD Code: R41.82 - Altered mental status, unspecified Status: Acute Plan: Patient seen and evaluated. Etiology unclear workup in progress Mental status appears resolved. Patient does have anxiety and has requested a medicine for anxiety (2) Sepsis ICD Code: A41.9 - Sepsis, unspecified organism Status: Acute Plan: Patient with elevated heart rate, leukocytosis and diarrhea Rule out C. difficile Continue antibiotics, add Flagyl Continue antiemetics Physician Certification 2 Midnight Certification Type: Admission for Inpatient Services Order for Inpatient Services The services are ordered in accordance with Medicare regulations or non- Medicare payer requirements, as applicable. In the case of services not specified as inpatient-only, they are appropriately provided as inpatient services in accordance with the 2-midnight benchmark. Estimated LOS (days): 3 3 days is the estimated time the patient will need to remain in the hospital, assuming treatment plan goals are met and no additional complications. Post-Hospital Plan: Mariah Franco MD Jul 31, 2017 13:08
[2017-07-31] MEDS ORDERED: DIATRIZOATE MEGLUM/DIATRIZOATE SOD 9 ML CUP PO ONE (13:45)
[2017-07-31] MEDS: metroNIDAZOLE 500 MG TAB PO SCH ×2 (13:54→20:23)
[2017-07-31] MEDS: FERROUS SULFATE 325 MG (65 MG ELEMENTAL IRON) TAB PO SCH (13:54)
[2017-07-31] MEDS: LEVOTHYROXINE SODIUM 50 MCG TAB PO SCH (13:56)
[2017-07-31] MEDS: ALLOPURINOL 100 MG TAB PO SCH ×2 (13:57→20:24)
[2017-07-31] MEDS: MORPHINE SULFATE 15 MG CONTROLLED RELEASE TAB PO SCH ×2 (13:57→20:23)
[2017-07-31] MEDS: PROPRANOLOL HCL 20 MG TAB PO SCH ×2 (13:57→20:23)
[2017-07-31] MEDS: DULoxetine HCl DR 60 MG CAP PO SCH (13:57)
[2017-07-31] MEDS: UMECLIDINIUM 62.5 MCG/VILANTEROL 25 MCG INHALER INH SCH (14:20)
[2017-07-31] MEDS: ALBUTEROL SULFATE 90 MCG/ACT HFA 8 GM INHALER INH SCH ×3 (14:22→21:00)
[2017-07-31] MEDS: TIOTROPIUM BROMIDE 18 MCG INH INH SCH (14:24)
[2017-07-31] MEDS ORDERED: PROMETHAZINE HCL 25 MG TAB PO PRN (14:30)
[2017-07-31] MEDS: cefTRIAXone INJ 1,000 MG in SODIUM CHLORIDE 0.9% INJ 100 ML IV SCH (19:38)
[2017-07-31] MEDS: AMITRIPTYLINE HCL 25 MG TAB PO SCH (20:23)
[2017-07-31] MEDS: ATORVASTATIN 40 MG TAB PO SCH (20:24)
[2017-07-31] MEDS ORDERED: TEMAZEPAM 15 MG CAP PO ONE (21:00)
--- NOTE | 2017-07-31 21:12 | EKG ---
Date Performed: 07/30/2017 Time Performed: 16:44:49 PTAGE: 72 years EKG: ATRIAL FIBRILLATION WITH RAPID VENTRICULAR RESPONSE LEFT BUNDLE BRANCH BLOCK Compared to pr evious tracing, atrial fibrillation appears new, and the Left bundle branch block is new ABNORMAL ECG PREVIOUS TRACING : 02/01/2017 10.05 DOCTOR: Albino Vuong Interpretating Date/Time 07/31/2017 21:11:36
--- NOTE | 2017-07-31 22:16 | RADRPT ---
EXAM DATE/TIME: 07/31/2017 20:43 [facility] COMPARISON: No previous studies available for comparison. INDICATIONS : Nausea. ORAL CONTRAST: Partial prescribed oral contrast ingested. RADIATION DOSE: 24.93 CTDIvol (mGy) MEDICAL HISTORY : Gastroesophageal reflux disease. Ulcers. Cardiovascular diseaseAsthma. Hypertension. SURGICAL HISTORY : Hysterectomy. Cholecystectomy.Hiatal hernia repair. ENCOUNTER: Initial ACUITY: 2 days PAIN SCALE: 0/10 LOCATION: Abdomen. TECHNIQUE: Volumetric scanning of the abdomen and pelvis was performed. Using automated exposure control and ad justment of the mA and/or kV according to patient size, radiation dose was kept as low as reasonably achievable to obtain optimal diagnostic quality images. DICOM format image data is available electro nically for review and comparison. FINDINGS: LOWER LUNGS: Posterior bibasilar patchiness is noted consistent with possible pneumonia. Clinical correlation is r ecommended. Tiny bilateral pleural effusions are also noted. LIVER: Homogeneous density without lesion. There is no dilation of the biliary tree. No calcified gallston es. SPLEEN: Normal size without lesion. PANCREAS: Within normal limits. KIDNEYS: Normal in size and shape. There is no mass, stone, or hydronephrosis. ADRENAL GLANDS: Within normal limits. VASCULAR: There is no aortic aneurysm. BOWEL/MESENTERY: There are scattered loops of air-filled minimally dilated small intestine suggestive of ileus or part ial small bowel obstruction. The colon is nondilated. ABDOMINAL WALL: There is a small fat-containing left paraumbilical hernia. RETROPERITONEUM: There is no lymphadenopathy. BLADDER: No wall thickening or mass. REPRODUCTIVE: Within normal limits. INGUINAL: There is no lymphadenopathy or hernia. MUSCULOSKELETAL: Healed fractures of the bilateral superior and inferior pubic rami are noted. Hardware is noted withi n the lumbar spine. Degenerative changes and scoliosis of the thoracolumbar spine are noted. CONCLUSION: 1. Posterior bibasilar patchy infiltrates with possible pneumonia. Clinical correlation is recommende d. 2. Tiny bilateral pleural effusions. 3. Mildly dilated loops of small bowel suggesting partial small bowel obstruction or ileus. Clinical correlation is recommended. 4. Small fat-containing paraumbilical hernia. 5. Degenerative changes and scoliosis of the thoracolumbar spine. Gerardo Padilla MD on July 31, 2017 at 22:07 Board Certified Radiologist. This report was verified electronically.
[2017-08-01] VITALS (8 sets, daily range): BP systolic 143–174; BP diastolic 82–90; PULSE 90–101; RESP 15–18; TEMP 96.6–99; O2SAT 93–100
[2017-08-01] MEDS: HEPARIN SODIUM - SQ 10,000 UNITS/ML VIAL SQ SCH ×3 (02:14→18:27)
[2017-08-01] MEDS: oxyCODONE/ACETAMINOPHEN 10 MG/325 MG TAB PO PRN ×2 (02:15→18:26)
[2017-08-01] MEDS: ONDANSETRON HCL 4 MG/2 ML VIAL IV PUSH PRN ×3 (02:21→15:39)
[2017-08-01] MEDS ORDERED: RESP: ALBUTEROL 2.5 MG/IPRATROPIUM 0.5 MG NEB (PRN) NEB (02:45)
[2017-08-01] MEDS: NS + KCL 20 MEQ INJ 1,000 ML IV SCH (03:30)
[2017-08-01] MEDS: metroNIDAZOLE 500 MG TAB PO SCH ×3 (06:24→21:21)
[2017-08-01] MEDS: MORPHINE SULFATE 15 MG CONTROLLED RELEASE TAB PO SCH ×3 (06:25→21:24)
[2017-08-01] MEDS: LEVOTHYROXINE SODIUM 50 MCG TAB PO SCH (06:25)
[2017-08-01 07:01] LABS: AUTOMATED NEUTROPHIL # 23.1 TH/MM3 (1.8-7.7); BASOPHIL # 0.2 TH/MM3 (0-0.2); BASOPHIL % 0.6 % (0.0-2.0); EOSINOPHIL % 0.1 % (0.0-4.0); HEMATOCRIT 27.6 % (35.0-46.0); HEMOGLOBIN 8.8 GM/DL (11.6-15.3); LYMPHOCYTE # 1.5 TH/MM3 (1.0-4.8); MEAN CELL VOLUME 87.6 FL (80.0-100.0); MEAN CORPUSCULAR HEMOGLOBIN 27.8 PG (27.0-34.0); MEAN CORPUSCULAR HGB CONC 31.8 % (32.0-36.0); MEAN PLATELET VOLUME 7.3 FL (7.0-11.0); MONOCYTE # 0.8 TH/MM3 (0-0.9); NEUT % 90.3 % (16.0-70.0); PLATELET COUNT 345 TH/MM3 (150-450); RED BLOOD COUNT 3.15 MIL/MM3 (4.00-5.30); RED CELL DISTRIBUTION WIDTH 14.7 % (11.6-17.2); WHITE BLOOD COUNT 25.6 TH/MM3 (4.0-11.0)
[2017-08-01 07:21] LABS: CHLORIDE 99 MEQ/L (98-107); SODIUM (NA) 132 MEQ/L (136-145)
[2017-08-01 07:29] LABS: CALCIUM 8.4 MG/DL (8.5-10.1)
[2017-08-01 07:30] LABS: ALBUMIN 2.6 GM/DL (3.4-5.0); BICARBONATE 23.2 MEQ/L (21.0-32.0); BLOOD UREA NITROGEN 12 MG/DL (7-18); GLUCOSE,RANDOM 120 MG/DL (74-106)
[2017-08-01 07:33] LABS: ALT (GPT) 52 U/L (10-53); AST (GOT) 46 U/L (15-37); GLOMERULAR FILTRATION RATE 70 ML/MIN (>89)
[2017-08-01 07:34] LABS: TOTAL BILIRUBIN ADULT 0.5 MG/DL (0.2-1.0); TOTAL PROTEIN 6.6 GM/DL (6.4-8.2)
[2017-08-01 07:35] LABS: ALKALINE PHOSPHATASE 97 U/L (45-117)
[2017-08-01] MEDS ORDERED: POTASSIUM CHLORIDE 20 MEQ CONTROLLED RELEASE TAB PO ONE (08:00)
[2017-08-01] MEDS: SODIUM CHLORIDE 0.9% FLUSH 10 ML FLUSH IV FLUSH SCH ×2 (08:10→21:20)
[2017-08-01] MEDS: DULoxetine HCl DR 60 MG CAP PO SCH (08:16)
[2017-08-01] MEDS: ALLOPURINOL 100 MG TAB PO SCH ×2 (08:16→21:21)
[2017-08-01] MEDS: PROPRANOLOL HCL 20 MG TAB PO SCH ×2 (08:16→21:21)
[2017-08-01] MEDS: FERROUS SULFATE 325 MG (65 MG ELEMENTAL IRON) TAB PO SCH (08:17)
[2017-08-01] MEDS: TIOTROPIUM BROMIDE 18 MCG INH INH SCH (08:19)
[2017-08-01] MEDS: ALBUTEROL SULFATE 90 MCG/ACT HFA 8 GM INHALER INH SCH ×4 (08:20→21:20)
[2017-08-01] MEDS: UMECLIDINIUM 62.5 MCG/VILANTEROL 25 MCG INHALER INH SCH (08:23)
[2017-08-01 08:30] LABS: BANDS 3 % (0-6); LYMPHOCYTES 3 % (9-44); MONOCYTES 7 % (0-8); POLYS (SEG NEUTROPHILS) 87 % (16-70)
--- NOTE | 2017-08-01 09:58 | HHI.PR ---
Subjective Remarks Patient seen and evaluated in follow-up for abdominal discomfort with nausea and vomiting. Probably resolving ileus on images. Leukocytosis chronically elevated and unchanged. No diarrhea but positive bowel movements. Objective Vitals Vital Signs Date Time Temp Pulse Resp B/P (MAP) Pulse Ox O2 Delivery O2 Flow Rate FiO2 08/01/17 02:53 94 Nasal Cannula 2.00 08/01/17 00:00 99.0 90 18 166/89 (114) 96 07/31/17 20:56 95 Nasal Cannula 1.00 07/31/17 20:00 99.4 98 18 173/88 (116) 95 07/31/17 16:00 97.6 110 18 151/80 (103) 98 07/31/17 12:00 96.9 112 18 181/85 (117) 97 I/O 07/31/17 07/31/17 07/31/17 08/01/17 08/01/17 08/01/17 07:00 15:00 23:00 07:00 15:00 23:00 Intake Total 1320 ml 100 ml 2700 ml 0 ml Output Total 4 ml Balance 1320 ml 100 ml 2696 ml 0 ml Intake Oral 120 ml 600 ml 0 ml IV Total 1200 ml 100 ml 2100 ml Output Stool Total 4 ml # Voids 5 6 2 # Bowel Movements 1 Result Diagram: 08/01/17 0554 08/01/17 0554 Imaging Last Impressions Abdomen/Pelvis CT 07/31/17 0000 Signed Impressions: Service Date/Time: Monday, July 31, 2017 20:43 - CONCLUSION: 1. Posterior bibasilar patchy infiltrates with possible pneumonia. Clinical correlation is recommended. 2. Tiny bilateral pleural effusions. 3. Mildly dilated loops of small bowel suggesting partial small bowel obstruction or ileus. Clinical correlation is recommended. 4. Small fat-containing paraumbilical hernia. 5. Degenerative changes and scoliosis of the thoracolumbar spine. Gerardo Padilla MD Head CT 07/30/17 3802 Signed Impressions: Service Date/Time: July 16:54 - CONCLUSION: 1. No acute intracranial abnormality. 2. Chronic small vessel ischemic change. 3. Mucosal thickening involving the right sphenoid sinus. Waldo Sampson Jr., MD Chest X-Ray 07/30/17 6023 Signed Impressions: Service Date/Time: July 16:46 - CONCLUSION: 1. Mild streaky opacity in the right perihilar region and left lung base with no consolidation. Nick Marshall MD Objective Remarks GENERAL: This is a well-nourished, well-developed patient, nausea improved CARDIOVASCULAR: Regular rate and rhythm without murmurs, gallops, or rubs. RESPIRATORY: Clear to auscultation. Breath sounds equal bilaterally. No wheezes , rales, or rhonchi. GASTROINTESTINAL: Abdomen soft, non-tender, nondistended. Normal active bowel sounds MUSCULOSKELETAL: Extremities without clubbing, cyanosis, or edema. NEURO: Alert & Oriented x4 to person, place, time, situation. Moves all ext x4 A/P Problem List: (1) Altered mental status ICD Code: R41.82 - Altered mental status, unspecified Status: Acute Plan: Patient seen and evaluated. Etiology unclear workup in progress, may be due to polypharmacy Mental status appears resolved. Patient does have anxiety and has requested a medicine for anxiety (2) Sepsis ICD Code: A41.9 - Sepsis, unspecified organism Status: Acute Plan: Patient with elevated heart rate, leukocytosis and diarrhea Rule out C. difficile Continue antibiotics, add Flagyl Continue antiemetics (3) Nausea & vomiting ICD Code: R11.2 - Nausea with vomiting, unspecified Plan: prob due to ileus, resolving +BM ambulate Flagyl probiotic (4) Leukocytosis ICD Code: D72.829 - Elevated white blood cell count, unspecified Status: Acute Plan: This is chronic and unchanged Continue to follow Discharge Planning home 1-2 days Mariah Callahan MD Aug 01, 2017 09:58
--- NOTE | 2017-08-01 09:59 | HHI.FF ---
Face to Face Verification Diagnosis: (1) Nausea & vomiting (2) Altered mental status Physical Therapy Order: Evaluate and Treat, Improve ambulation Occupational Therapy Order: Evaluate and Treat Home Health Nursing Order: Medical education Signs/symptoms of disease process I have seen patient Ashley Craig on 08/01/17. My clinical findings support the need for the requested home health care services because: Ltd mobility - disease progression I certify that my clinical findings support that this patient is homebound because: Unsteady gait/balance Mariah Callahan MD Aug 01, 2017 09:59
[2017-08-01] MEDS ORDERED: POTASSIUM CHLORIDE 10 MEQ CONTROLLED RELEASE TAB PO ONE (10:00)
--- NOTE | 2017-08-01 11:42 | RADRPT ---
EXAM DATE/TIME: 08/01/2017 11:00 [facility] COMPARISON: CT ABDOMEN & PELVIS W/O CONTRAST, July 31, 2017, 20:43. INDICATIONS : Abdomen pain, vomiting MEDICAL HISTORY : Hypertension. SURGICAL HISTORY : Cholecystectomy. Appendectomy. Spinal ENCOUNTER: Subsequent ACUITY: 3 days PAIN SCORE: 5/10 LOCATION: Bilateral abdomen FINDINGS: Supine and upright views of the abdomen were performed. Gaseous distention of multiple bowel loops. No air fluid levels are seen. No abnormal masses, calcifications, or organomegaly is seen. The visu alized lower lungs are clear. No evidence of free intraperitoneal gas. The osseous structures are u nremarkable. CONCLUSION: 1. Gaseous distention of multiple bowel loops without definite obstruction. Mark Sommers MD on August 01, 2017 at 11:37 Board Certified Radiologist. This report was verified electronically.
[2017-08-01] MEDS ORDERED: ALPRAZolam 0.25 MG TAB PO PRN (15:30)
[2017-08-01] MEDS: LACTOBACILLUS ACIDOPHILUS 1 GM PACKET PO SCH ×2 (15:43→18:00)
[2017-08-01] MEDS: cefTRIAXone INJ 1,000 MG in SODIUM CHLORIDE 0.9% INJ 100 ML IV SCH (18:34)
[2017-08-01] MEDS: AMITRIPTYLINE HCL 25 MG TAB PO SCH (21:21)
[2017-08-01] MEDS: ATORVASTATIN 40 MG TAB PO SCH (21:21)
[2017-08-01] MEDS: ALPRAZolam 0.25 MG TAB PO PRN (21:21)
[2017-08-02] VITALS (7 sets, daily range): BP systolic 130–142; BP diastolic 70–92; PULSE 83–91; RESP 14–18; TEMP 96.2–98.9; O2SAT 96–100
[2017-08-02] MEDS ORDERED: CALCIUM CARBONATE 500 MG CHEWABLE TAB CHEW ONE
[2017-08-02] MEDS: HEPARIN SODIUM - SQ 10,000 UNITS/ML VIAL SQ SCH ×3 (02:18→18:42)
[2017-08-02] MEDS: metroNIDAZOLE 500 MG TAB PO SCH ×3 (06:26→21:53)
[2017-08-02] MEDS: LEVOTHYROXINE SODIUM 50 MCG TAB PO SCH (06:26)
[2017-08-02] MEDS: MORPHINE SULFATE 15 MG CONTROLLED RELEASE TAB PO SCH ×3 (06:27→21:54)
[2017-08-02 07:03] LABS: AUTOMATED NEUTROPHIL # 17.8 TH/MM3 (1.8-7.7); BASOPHIL # 0.1 TH/MM3 (0-0.2); BASOPHIL % 0.3 % (0.0-2.0); EOSINOPHIL % 0.2 % (0.0-4.0); HEMATOCRIT 28.8 % (35.0-46.0); HEMOGLOBIN 9.3 GM/DL (11.6-15.3); LYMPH % 8.5 % (9.0-44.0); LYMPHOCYTE # 1.8 TH/MM3 (1.0-4.8); MEAN CELL VOLUME 88.2 FL (80.0-100.0); MEAN CORPUSCULAR HEMOGLOBIN 28.5 PG (27.0-34.0); MEAN CORPUSCULAR HGB CONC 32.3 % (32.0-36.0); MEAN PLATELET VOLUME 7.5 FL (7.0-11.0); MONO % 4.9 % (0.0-8.0); NEUT % 86.1 % (16.0-70.0); PLATELET COUNT 325 TH/MM3 (150-450); RED BLOOD COUNT 3.27 MIL/MM3 (4.00-5.30); RED CELL DISTRIBUTION WIDTH 14.7 % (11.6-17.2); WHITE BLOOD COUNT 20.7 TH/MM3 (4.0-11.0)
[2017-08-02 07:17] LABS: CALCIUM 8.4 MG/DL (8.5-10.1)
[2017-08-02 07:18] LABS: BICARBONATE 23.3 MEQ/L (21.0-32.0)
[2017-08-02 07:21] LABS: CREATININE 0.77 MG/DL (0.50-1.00)
[2017-08-02] MEDS ORDERED: FUROSEMIDE 20 MG/2 ML VIAL IV PUSH ONE (08:00)
--- NOTE | 2017-08-02 08:26 | HHI.PR ---
Subjective Remarks Patient seen and evaluated today. Still complained of some nausea with abdominal discomfort. Abdominal film today does show some gaseous loops The patient did require some Tums overnight with some relief Objective Vitals Vital Signs Date Time Temp Pulse Resp B/P (MAP) Pulse Ox O2 Delivery O2 Flow Rate FiO2 08/02/17 08:10 97 Nasal Cannula 2.00 08/02/17 00:00 97.3 83 18 142/92 (109) 97 08/01/17 20:00 97.5 100 18 161/89 (113) 95 08/01/17 20:00 95 Nasal Cannula 2.00 Humidified 08/01/17 19:35 96 Nasal Cannula 2.00 08/01/17 16:00 98.8 101 18 174/90 (118) 96 08/01/17 12:00 96.7 97 15 170/84 (112) 100 08/01/17 11:14 94 Nasal Cannula 2.00 I/O 08/01/17 08/01/17 08/01/17 08/02/17 08/02/17 08/02/17 07:00 15:00 23:00 07:00 15:00 23:00 Intake Total 0 ml 2 ml 100 ml 240 ml Output Total 2 ml 1 ml Balance 0 ml 0 ml 99 ml 240 ml Intake Oral 0 ml 240 ml IV Total 2 ml 100 ml Output Stool Total 2 ml 1 ml # Voids 2 2 1 2 Result Diagram: 08/02/17 0551 08/02/17 0551 Imaging Last Impressions Abdomen X-Ray 08/01/17 0000 Signed Impressions: Service Date/Time: Tuesday, August 01, 2017 11:00 - CONCLUSION: 1. Gaseous distention of multiple bowel loops without definite obstruction. Mark Sommers MD Abdomen/Pelvis CT 07/31/17 0000 Signed Impressions: Service Date/Time: Monday, July 31, 2017 20:43 - CONCLUSION: 1. Posterior bibasilar patchy infiltrates with possible pneumonia. Clinical correlation is recommended. 2. Tiny bilateral pleural effusions. 3. Mildly dilated loops of small bowel suggesting partial small bowel obstruction or ileus. Clinical correlation is recommended. 4. Small fat-containing paraumbilical hernia. 5. Degenerative changes and scoliosis of the thoracolumbar spine. Gerardo Padilla MD Head CT 07/30/17 1633 Signed Impressions: Service Date/Time: July 16:54 - CONCLUSION: 1. No acute intracranial abnormality. 2. Chronic small vessel ischemic change. 3. Mucosal thickening involving the right sphenoid sinus. Waldo Sampson Jr., MD Chest X-Ray 07/30/17 1633 Signed Impressions: Service Date/Time: July 16:46 - CONCLUSION: 1. Mild streaky opacity in the right perihilar region and left lung base with no consolidation. Nick Marshall MD Objective Remarks GENERAL: This is a well-nourished, well-developed patient, nausea improved CARDIOVASCULAR: Regular rate and rhythm without murmurs, gallops, or rubs. RESPIRATORY: Clear to auscultation. Breath sounds equal bilaterally. No wheezes , rales, or rhonchi. GASTROINTESTINAL: Abdomen soft, non-tender, nondistended. Normal active bowel sounds MUSCULOSKELETAL: Extremities without clubbing, cyanosis, or edema. NEURO: Alert & Oriented x4 to person, place, time, situation. Moves all ext x4 A/P Problem List: (1) Altered mental status ICD Code: R41.82 - Altered mental status, unspecified Status: Acute Plan: Patient seen and evaluated. Etiology unclear workup in progress, may be due to polypharmacy Mental status appears resolved. Xanax resumed (2) Sepsis ICD Code: A41.9 - Sepsis, unspecified organism Status: Acute Plan: Patient with elevated heart rate, (chronic) leukocytosis and diarrhea Diarrhea appears to have resolved Rule out C. difficile Continue antibiotics, add Flagyl Continue antiemetics (3) Nausea & vomiting ICD Code: R11.2 - Nausea with vomiting, unspecified Plan: prob due to ileus, resolving +BM ambulate Flagyl probiotic, ppi Repeat abdominal films shows gaseous loops and probable ileus (4) Leukocytosis ICD Code: D72.829 - Elevated white blood cell count, unspecified Status: Acute Plan: This is chronic and unchanged Continue to follow Discharge Planning home 1-2 days Mariah Callahan MD Aug 02, 2017 08:26
[2017-08-02] MEDS: LACTOBACILLUS ACIDOPHILUS 1 GM PACKET PO SCH ×3 (09:51→18:45)
[2017-08-02] MEDS: DULoxetine HCl DR 60 MG CAP PO SCH (09:53)
[2017-08-02] MEDS: ALLOPURINOL 100 MG TAB PO SCH ×2 (09:53→21:53)
[2017-08-02] MEDS: PROPRANOLOL HCL 20 MG TAB PO SCH ×2 (09:53→21:54)
[2017-08-02] MEDS: FERROUS SULFATE 325 MG (65 MG ELEMENTAL IRON) TAB PO SCH (09:53)
[2017-08-02] MEDS: PANTOPRAZOLE SOD 40 MG DELAYED RELEASE TAB PO SCH (09:57)
[2017-08-02] MEDS: SODIUM CHLORIDE 0.9% FLUSH 10 ML FLUSH IV FLUSH SCH ×3 (09:59→21:54)
[2017-08-02] MEDS: ALBUTEROL SULFATE 90 MCG/ACT HFA 8 GM INHALER INH SCH ×4 (10:01→21:52)
[2017-08-02] MEDS: UMECLIDINIUM 62.5 MCG/VILANTEROL 25 MCG INHALER INH SCH (10:01)
--- NOTE | 2017-08-02 10:50 | PD.CONS ---
HPI History of Present Illness This is a 72 year old female who was in her usual state of health up until about when she was noted to be somewhat confused and unable to speak well by her and so she presented to the emergency room with mental status changes she was deemed to be septic at the time and has been treated as such the patient reports that just about the new year she also had another admission for sepsis and pneumonia and on current CT on admission through the ER she is found to have some changes that could be suggestive of ongoing pneumonia and potentially a source of sepsis the patient has a history of anxiety disorder and chronic back pains for which she has multiple medications and is under the care of pain management she's currently complaining of abdominal pain and some diarrhea with some nausea she is also short of breath but she tells me she is chronically short of breath she also has some cough that is nonproductive she denies any fever or chills and her most recent abdominal x-ray reveals dilation of loops of bowel probably suggestive of an ileus PFSH Past Medical History Anxiety Chronic pain Polypharmacy COPD Dyspepsia Hyperlipidemia Hypothyroidism Past Surgical History Back surgery Cholecystectomy Cataracts Hysterectomy Coded Allergies: codeine (Unverified Allergy, Intermediate, RASH, 07/30/17) *MDRO Multi-Drug Resistant Organism (Verified Adverse Reaction, Unknown, ) 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 Medications Current Medications Sodium Chloride (NS Flush) 2 ml UNSCH PRN IV FLUSH FLUSH AFTER USING IV ACCESS ; Start 07/30/17 at 16:45 Vancomycin HCl 1000 mg/Sodium Chloride 250 ml @ 250 mls/hr ONCE STAT IV Last administered on 07/30/17at 19:57; Start 07/30/17 at 17:24; Stop 07/30/17 at 18:23; Status DC Piperacillin Sod/ Tazobactam Sod 100 ml @ 200 mls/hr ONCE STAT IV Last administered on 07/30/17at 17:32; Start 07/30/17 at 17:24; Stop 07/30/17 at 17:53; Status DC Sodium Chloride 1,000 ml @ 999 mls/hr BOLUS ONCE IV Last administered on at 17:34; Start 07/30/17 at 17:45; Stop 07/30/17 at 18:45; Status DC Sodium Chloride 1,000 ml @ 100 mls/hr Q10H IV Last administered on 07/31/17at 06 :38; Start 07/30/17 at 18:00; Stop 07/31/17 at 07:28; Status DC Sodium Chloride (NS Flush) 2 ml BID IV FLUSH Last administered on 08/02/17at 09: 59; Start 07/30/17 at 21:00 Heparin Sodium (Porcine) (Heparin Inj) 5,000 units Q8H SQ Last administered on 08/02/17at 02:18; Start 07/30/17 at 18:00 Naloxone HCl (Narcan Inj) 0.4 mg UNSCH PRN IV PUSH SEE LABEL COMMENTS; Start at 17:45 Senna/Docusate Sodium (Allison-Colace) 1 tab BID PO Last administered on 07/31/17at 08:39; Start 07/30/17 at 21:00; Stop 07/31/17 at 12:46; Status DC Magnesium Hydroxide (Milk Of Magnesia Liq) 30 ml Q12H PRN PO Mild constipation ; Start 07/30/17 at 18:00; Stop 07/31/17 at 12:46; Status DC Sennosides (Senokot) 17.2 mg Q12H PRN PO Moderate constipation; Start 07/30/17 at 18:00; Stop 07/31/17 at 12:46; Status DC Bisacodyl (Dulcolax Supp) 10 mg DAILY PRN RECTAL SEVERE CONSITIPATION; Start at 18:00; Stop 07/31/17 at 12:46; Status DC Lactulose (Lactulose Liq) 30 ml DAILY PRN PO SEVERE CONSITIPATION; Start at 18:00; Stop 07/31/17 at 12:46; Status DC Ceftriaxone Sodium 1000 mg/ Sodium Chloride 100 ml @ 200 mls/hr Q24H IV Last administered on 08/01/17at 18:34; Start 07/30/17 at 18:00 Sodium Chloride 1,000 ml @ 999 mls/hr BOLUS ONCE IV Last administered on at 18:36; Start 07/30/17 at 18:00; Stop 07/30/17 at 19:00; Status DC Alprazolam (Xanax) 0.25 mg ONCE ONCE PO Last administered on 2/1/18at 19:56; Start 07/30/17 at 20:00; Stop 07/30/17 at 20:01; Status DC Calcium Carbonate (Tums Chew) 500 mg ONCE ONCE CHEW Last administered on 21:13; Start 07/30/17 at 21:00; Stop 07/30/17 at 21:01; Status DC Potassium Chloride (KCl) 30 meq ONCE ONCE PO Last administered on 07/31/17 08: 39; Start 07/31/17 at 07:30; Stop 07/31/17 at 07:31; Status DC Potassium Chloride/Sodium Chloride 1,000 ml @ 100 mls/hr Q10H IV Last administered on 07/31/17 20:49; Start 07/31/17 at 07:30; Stop 08/01/17 at 10:07; Status DC Ondansetron HCl (Zofran Inj) 4 mg Q6HR PRN IV PUSH nausea Last administered on 08/01/17 15:39; Start 07/31/17 at 11:15 Lorazepam (Ativan Inj) 1 mg ONCE ONCE IV PUSH Last administered on 07/31/17 13 :53; Start 07/31/17 at 12:45; Stop 07/31/17 at 13:06; Status DC Magnesium Sulfate/ Dextrose 100 ml @ 100 mls/hr ONCE ONCE IV Last administered on 07/31/17 13:58; Start 07/31/17 at 12:45; Stop 07/31/17 at 13:44; Status DC Allopurinol (Zyloprim) 100 mg BID PO Last administered on 08/02/17 09:53; Start 07/31/17 at 12:45 Amitriptyline HCl (Elavil) 25 mg HS PO Last administered on 08/01/17 21:21; Start 07/31/17 at 21:00 Atorvastatin Calcium (Lipitor) 40 mg HS PO Last administered on 08/01/17 21:21 ; Start 07/31/17 at 21:00 Duloxetine HCl (Cymbalta Dr) 60 mg DAILY PO Last administered on 08/02/17 09:53 ; Start 07/31/17 at 12:45 Levothyroxine Sodium (Synthroid) 100 mcg DAILY@0600 PO Last administered on 08/02 06:26; Start 07/31/17 at 12:45 Morphine Sulfate (Oramorph Sr) 15 mg Q8HR PO Last administered on 08/02/17 06: 27; Start 07/31/17 at 14:00 Oxycodone/ Acetaminophen (Percocet 10-325 Mg) 1 tab Q6H PRN PO PAIN SCALE 1 TO 10 Last administered on 08/01/17 18:26; Start 07/31/17 at 12:45 Propranolol HCl (Inderal) 20 mg BID PO Last administered on 08/02/17 09:53; Start 07/31/17 at 12:45 Non-Formulary Medication 140 mg DAILY PO ; Start 07/31/17 at 12:45; Status UNV Non-Formulary Medication 1 puff QID INH ; Start 07/31/17 at 13:00; Status UNV Ferrous Sulfate (Ferrous Sulfate) 325 mg DAILY PO Last administered on 09:53; Start 07/31/17 at 12:53 Albuterol Sulfate (Proair Hfa Inh) 2 puff QID INH Last administered on 10:01; Start 07/31/17 at 13:02 Tiotropium Ragan (Spiriva Inh) 18 mcg DAILY INH Last administered on 08:19; Start 07/31/17 at 13:03 Metronidazole (Flagyl) 500 mg Q8HR PO Last administered on 08/02/17 06:26; Start 07/31/17 at 14:00 Diatrizoate Meglum/ Diatrizoate Sod ( Gastroview Liq) 18 ml ONCE ONCE PO Last administered on 07/31/17 14:30; Start 07/31/17 at 13:45; Stop 07/31/17 at 13: 46; Status DC Promethazine HCl (Phenergan) 25 mg Q6H PRN PO nausea Last administered on 20:23; Start 07/31/17 at 14:30 Temazepam (Restoril) 30 mg ONCE ONCE PO Last administered on 07/31/17 21:24; Start 07/31/17 at 21:00; Stop 07/31/17 at 21:01; Status DC Albuterol/ Ipratropium (Duoneb Neb) 1 ampule Q4HR NEB PRN NEB sob, wheezing Last administered on 08/01/17at 02:52; Start 08/01/17 at 02:45 Potassium Chloride (KCl) 20 meq ONCE ONCE PO Last administered on 08/01/17at 08: 16; Start 08/01/17 at 08:00; Stop 08/01/17 at 08:01; Status DC Lactobacillus Acidophilus (Lactinex Pkt) 1 gm TID PO Last administered on at 09:51; Start 08/01/17 at 13:00 Potassium Chloride (KCl) 30 meq ONCE ONCE PO Last administered on 08/01/17at 11: 31; Start 08/01/17 at 10:00; Stop 08/01/17 at 10:04; Status DC Alprazolam (Xanax) 0.25 mg TID PRN PO ANXIETY; Start 08/01/17 at 15:30; Stop 08/01/17 at 15:38; Status DC Alprazolam (Xanax) 0.25 mg Q8H PRN PO ANXIETY Last administered on 08/01/17at 21: 21; Start 08/01/17 at 15:30 Calcium Carbonate (Tums Chew) 500 mg ONCE ONCE CHEW Last administered on at 00:00; Start 08/02/17 at 00:00; Stop 08/02/17 at 00:01; Status DC Sodium Chloride 1,000 ml @ 65 mls/hr [id number] IV ; Start 08/02/17 at 07:30 Furosemide (Lasix Inj) 20 mg ONCE ONCE IV PUSH Last administered on 08/02/17at 10:02; Start 08/02/17 at 08:00; Stop 08/02/17 at 08:01; Status DC Pantoprazole Sodium (Protonix) 40 mg DAILY PO Last administered on 08/02/17at 09: 57; Start 08/02/17 at 09:00 Family History Does not recall Social History Lives with her , no tobacco or alcohol dependency Review of Systems Review of systems Patient denies any headache dizziness blurry vision, denies any chest pain shortness of breath cough fever chills, Denies any palpitations or fatigue denies any polyuria dysuria hematuria, denies any numbness tingling or weakness, denies any skin rash pruritus or jaundice, denies any easy bruising or bleeding tendency, denies any recent change in mood GI Exam Vitals I&O Vital Signs Date Time Temp Pulse Resp B/P (MAP) Pulse Ox O2 Delivery O2 Flow Rate FiO2 08/02/17 08:10 97 Nasal Cannula 2.00 08/02/17 00:00 97.3 83 18 142/92 (109) 97 08/01/17 20:00 97.5 100 18 161/89 (113) 95 08/01/17 20:00 95 Nasal Cannula 2.00 Humidified 08/01/17 19:35 96 Nasal Cannula 2.00 08/01/17 16:00 98.8 101 18 174/90 (118) 96 08/01/17 12:00 96.7 97 15 170/84 (112) 100 08/01/17 11:14 94 Nasal Cannula 2.00 I/O 08/01/17 08/01/17 08/01/17 08/02/17 08/02/17 08/02/17 07:00 15:00 23:00 07:00 15:00 23:00 Intake Total 0 ml 2 ml 100 ml 240 ml Output Total 2 ml 1 ml Balance 0 ml 0 ml 99 ml 240 ml Intake Oral 0 ml 240 ml IV Total 2 ml 100 ml Output Stool Total 2 ml 1 ml # Voids 2 2 1 2 Imaging Last Impressions Abdomen X-Ray 08/01/17 0000 Signed Impressions: Service Date/Time: Tuesday, August 01, 2017 11:00 - CONCLUSION: 1. Gaseous distention of multiple bowel loops without definite obstruction. Mark Sommers MD Abdomen/Pelvis CT 07/31/17 0000 Signed Impressions: Service Date/Time: Monday, July 31, 2017 20:43 - CONCLUSION: 1. Posterior bibasilar patchy infiltrates with possible pneumonia. Clinical correlation is recommended. 2. Tiny bilateral pleural effusions. 3. Mildly dilated loops of small bowel suggesting partial small bowel obstruction or ileus. Clinical correlation is recommended. 4. Small fat-containing paraumbilical hernia. 5. Degenerative changes and scoliosis of the thoracolumbar spine. Gerardo Padilla MD Head CT 07/30/17 1633 Signed Impressions: Service Date/Time: July 16:54 - CONCLUSION: 1. No acute intracranial abnormality. 2. Chronic small vessel ischemic change. 3. Mucosal thickening involving the right sphenoid sinus. Waldo Sampson Jr., MD Chest X-Ray 07/30/17 7223 Signed Impressions: Service Date/Time: July 16:46 - CONCLUSION: 1. Mild streaky opacity in the right perihilar region and left lung base with no consolidation. Nick Marshall MD Laboratory Test 08/02/17 05:51 White Blood Count 20.7 TH/MM3 Red Blood Count 3.27 MIL/MM3 Hemoglobin 9.3 GM/DL Hematocrit 28.8 % Mean Corpuscular Volume 88.2 FL Mean Corpuscular Hemoglobin 28.5 PG Mean Corpuscular Hemoglobin Concent 32.3 % Red Cell Distribution Width 14.7 % Platelet Count 325 TH/MM3 Mean Platelet Volume 7.5 FL Neutrophils (%) (Auto) 86.1 % Lymphocytes (%) (Auto) 8.5 % Monocytes (%) (Auto) 4.9 % Eosinophils (%) (Auto) 0.2 % Basophils (%) (Auto) 0.3 % Neutrophils # (Auto) 17.8 TH/MM3 Lymphocytes # (Auto) 1.8 TH/MM3 Monocytes # (Auto) 1.0 TH/MM3 Eosinophils # (Auto) 0.0 TH/MM3 Basophils # (Auto) 0.1 TH/MM3 CBC Comment DIFF FINAL Differential Comment Blood Urea Nitrogen 14 MG/DL Creatinine 0.77 MG/DL Random Glucose 128 MG/DL Calcium Level 8.4 MG/DL Sodium Level 129 MEQ/L Potassium Level 3.7 MEQ/L Chloride Level 96 MEQ/L Carbon Dioxide Level 23.3 MEQ/L Anion Gap 10 MEQ/L Estimat Glomerular Filtration Rate 73 ML/MIN Date/Time Source Procedure Growth Status 07/30/17 16:45 Blood Peripheral Aerobic Blood Culture - Preliminary NO GROWTH IN 2 DAYS Resulted 07/30/17 16:45 Blood Peripheral Anaerobic Blood Culture - Preliminary NO GROWTH IN 2 DAYS Resulted 07/30/17 16:48 Nasal Washing Influenza Types A,B Antigen (ANAYA) - Final NEGATIVE FOR FLU A AND B ANTIGEN.... Complete Physical Examination HEENT: Pupils round and reactive to light; normocephalic; atraumatic; no jaundice. Throat is clear. NECK: Neck is supple, no JVD, no lymphadenopathy. CHEST: Chest is clear to auscultation and percussion. CARDIAC: Regular rate and rhythm with no murmur gallop or rubs. ABDOMEN: Soft, nondistended, mildly diffusely tender; no hepatosplenomegaly; bowel sounds are present in all four quadrants. EXTREMITIES: No clubbing, cyanosis, or edema. SKIN: Normal; no rash; no jaundice. 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 Assessment and Plan Plan Patient with abdominal pain or discomfort with some diarrhea and nausea nausea and vomiting nothing active at this point She is found to have leukocytosis there are abnormalities on her CT suggesting an ileus and chronic back issues Review of chart reveals that the patient has seen Dr. Escobedo and Bety in the past therefore we will transfer care to their service I do agree with current supportive measures Continue with antibiotics and close monitoring of vitals in labs Suggest stool studies for C. difficile Further recommendations shall depend on hospital course Eliseo Rose MD Aug 02, 2017 10:50
[2017-08-02] MEDS: TIOTROPIUM BROMIDE 18 MCG INH INH SCH (10:52)
[2017-08-02] MEDS: SODIUM CHLOR 0.9% 1000 ML INJ 1,000 ML IV SCH (10:55)
[2017-08-02] MEDS: cefTRIAXone INJ 1,000 MG in SODIUM CHLORIDE 0.9% INJ 100 ML IV SCH (18:39)
[2017-08-02] MEDS: AMITRIPTYLINE HCL 25 MG TAB PO SCH (21:54)
[2017-08-02] MEDS: ATORVASTATIN 40 MG TAB PO SCH (21:54)
[2017-08-02] MEDS: ALPRAZolam 0.25 MG TAB PO PRN (21:54)
[2017-08-03] VITALS: BP 141/79; PULSE 82; RESP 16; TEMP 98.4; O2SAT 97
[2017-08-03] MEDS: SODIUM CHLOR 0.9% 1000 ML INJ 1,000 ML IV SCH (02:11)
[2017-08-03] MEDS: HEPARIN SODIUM - SQ 10,000 UNITS/ML VIAL SQ SCH ×3 (02:11→16:33)
[2017-08-03] MEDS: LEVOTHYROXINE SODIUM 50 MCG TAB PO SCH (06:11)
[2017-08-03] MEDS: metroNIDAZOLE 500 MG TAB PO SCH ×3 (06:11→20:39)
[2017-08-03] MEDS: MORPHINE SULFATE 15 MG CONTROLLED RELEASE TAB PO SCH ×3 (06:13→20:39)
[2017-08-03 08:00] VITALS: BP 156/88; PULSE 73; RESP 14; TEMP 97.3; O2SAT 96; O2SAT 98
[2017-08-03] MEDS: LACTOBACILLUS ACIDOPHILUS 1 GM PACKET PO SCH ×3 (09:00→16:32)
[2017-08-03] MEDS: TIOTROPIUM BROMIDE 18 MCG INH INH SCH ×2 (09:00→17:53)
[2017-08-03] MEDS: DULoxetine HCl DR 60 MG CAP PO SCH (09:22)
[2017-08-03] MEDS: PANTOPRAZOLE SOD 40 MG DELAYED RELEASE TAB PO SCH (09:22)
[2017-08-03] MEDS: ALBUTEROL SULFATE 90 MCG/ACT HFA 8 GM INHALER INH SCH ×4 (09:23→20:40)
[2017-08-03] MEDS: ALLOPURINOL 100 MG TAB PO SCH ×2 (09:23→20:40)
[2017-08-03] MEDS: UMECLIDINIUM 62.5 MCG/VILANTEROL 25 MCG INHALER INH SCH (09:26)
[2017-08-03] MEDS: PROPRANOLOL HCL 20 MG TAB PO SCH ×2 (09:26→20:40)
[2017-08-03] MEDS: SODIUM CHLORIDE 0.9% FLUSH 10 ML FLUSH IV FLUSH SCH ×2 (09:26→20:39)
[2017-08-03] MEDS: FERROUS SULFATE 325 MG (65 MG ELEMENTAL IRON) TAB PO SCH (09:26)
--- NOTE | 2017-08-03 10:16 | RADRPT ---
EXAM DATE/TIME: 08/03/2017 09:07 [facility] COMPARISON: ABDOMEN FLAT & UPRIGHT, August 01, 2017, 11:00. INDICATIONS : Abdominal pain MEDICAL HISTORY : Hypertension. SURGICAL HISTORY : Cholecystectomy. Appendectomy. Spinal ENCOUNTER: Subsequent ACUITY: 4 - 6 days PAIN SCORE: 5/10 LOCATION: Abdomen FINDINGS: There is minimal gaseous distention of large and small bowel. Previous spinal surgery is noted with posterior rods. There is no free air or obstruction. CONCLUSION: Minimal gaseous distention improved in interval probably ileus. Black Diaz MD FACR on August 03, 2017 at 10:14 Board Certified Radiologist. This report was verified electronically.
--- NOTE | 2017-08-03 11:44 | HHI.PR ---
Subjective Remarks Patient seen and evaluated today and nausea and vomiting with resolving ileus. Feels a bit better. Would like to go home tomorrow Objective Vitals Vital Signs Date Time Temp Pulse Resp B/P (MAP) Pulse Ox O2 Delivery O2 Flow Rate FiO2 08/03/17 08:00 99 Nasal Cannula 1.00 Humidified 08/03/17 08:00 97.3 73 14 156/88 (110) 98 08/03/17 08:00 96 Nasal Cannula 1.00 08/03/17 07:13 20 08/03/17 00:00 98.4 82 16 141/79 (99) 97 08/02/17 21:37 99 Nasal Cannula 1.00 08/02/17 20:00 98.6 90 16 135/85 (102) 99 08/02/17 20:00 99 Nasal Cannula 1.00 Humidified 08/02/17 18:00 97.6 85 14 142/70 (94) 96 08/02/17 12:00 96.2 85 14 140/79 (99) 100 I/O 08/02/17 08/02/17 08/02/17 08/03/17 08/03/17 08/03/17 07:00 15:00 23:00 07:00 15:00 23:00 Intake Total 240 ml 2 ml 855 ml 455 ml Output Total 240 ml Balance 240 ml 2 ml 855 ml 215 ml Intake Oral 240 ml IV Total 2 ml 855 ml 455 ml Output Urine Total 240 ml # Voids 2 3 1 # Bowel Movements 2 Result Diagram: 08/02/17 0551 08/02/17 0551 Objective Remarks GENERAL: This is a well-nourished, well-developed patient, resolved, comfortable CARDIOVASCULAR: Regular rate and rhythm without murmurs, gallops, or rubs. RESPIRATORY: Clear to auscultation. Breath sounds equal bilaterally. No wheezes , rales, or rhonchi. GASTROINTESTINAL: Abdomen soft, non-tender, nondistended. Normal active bowel sounds MUSCULOSKELETAL: Extremities without clubbing, cyanosis, or edema. NEURO: Alert & Oriented x4 to person, place, time, situation. Moves all ext x4 A/P Problem List: (1) Altered mental status ICD Code: R41.82 - Altered mental status, unspecified Status: Acute Plan: Resolved, discussed with patient and spouse regarding polypharmacy and unintentional overdose Patient seen and evaluated. Etiology unclear workup in progress, Mental status appears resolved. Xanax resumed (2) Sepsis ICD Code: A41.9 - Sepsis, unspecified organism Status: Acute Plan: Patient with elevated heart rate, (chronic) leukocytosis and diarrhea Diarrhea appears to have resolved No diarrhea, stool is stable Oral antibiotics (3) Nausea & vomiting ICD Code: R11.2 - Nausea with vomiting, unspecified Plan: prob due to ileus, resolving +BM ambulate Flagyl probiotic, ppi Repeat abdominal films shows gaseous loops and probable ileus GI evaluation appreciated (4) Leukocytosis ICD Code: D72.829 - Elevated white blood cell count, unspecified Status: Acute Plan: This is chronic and unchanged Continue to follow Discharge Planning home with home health in [facility]. Mariah Callahan MD Aug 03, 2017 11:44
[2017-08-03 12:00] VITALS: BP 146/80; PULSE 69; RESP 20; TEMP 97.5; O2SAT 95
[2017-08-03] MEDS: oxyCODONE/ACETAMINOPHEN 10 MG/325 MG TAB PO PRN (16:32)
[2017-08-03 17:00] VITALS: BP 142/86; PULSE 80; RESP 18; TEMP 97.6; O2SAT 94
[2017-08-03 20:00] VITALS: BP 141/67; PULSE 74; RESP 18; TEMP 97.3; O2SAT 98
[2017-08-03 20:15] VITALS: O2SAT 98
[2017-08-03] MEDS: ATORVASTATIN 40 MG TAB PO SCH (20:40)
[2017-08-03] MEDS: AMITRIPTYLINE HCL 25 MG TAB PO SCH (20:40)
[2017-08-03] MEDS: ALPRAZolam 0.25 MG TAB PO PRN (20:40)
[2017-08-04] VITALS: BP 129/65; PULSE 75; RESP 20; TEMP 96.4; O2SAT 92
[2017-08-04] MEDS ORDERED: TEMAZEPAM 15 MG CAP PO ONE (01:15)
[2017-08-04] MEDS: HEPARIN SODIUM - SQ 10,000 UNITS/ML VIAL SQ SCH ×2 (01:43→10:21)
[2017-08-04] MEDS: oxyCODONE/ACETAMINOPHEN 10 MG/325 MG TAB PO PRN ×2 (01:47→10:20)
[2017-08-04] MEDS: MORPHINE SULFATE 15 MG CONTROLLED RELEASE TAB PO SCH (06:27)
[2017-08-04] MEDS: LEVOTHYROXINE SODIUM 50 MCG TAB PO SCH (06:27)
[2017-08-04] MEDS: metroNIDAZOLE 500 MG TAB PO SCH (06:27)
[2017-08-04 08:00] VITALS: BP 170/90; PULSE 80; RESP 18; TEMP 96
[2017-08-04 08:20] LABS: AUTOMATED NEUTROPHIL # 8.3 TH/MM3 (1.8-7.7); BASOPHIL # 0.5 TH/MM3 (0-0.2); BASOPHIL % 3.9 % (0.0-2.0); EOSINOPHIL # 0.3 TH/MM3 (0-0.4); EOSINOPHIL % 2.4 % (0.0-4.0); HEMATOCRIT 30.6 % (35.0-46.0); HEMOGLOBIN 9.6 GM/DL (11.6-15.3); LYMPHOCYTE # 2.2 TH/MM3 (1.0-4.8); MEAN CELL VOLUME 88.1 FL (80.0-100.0); MEAN CORPUSCULAR HEMOGLOBIN 27.5 PG (27.0-34.0); MEAN CORPUSCULAR HGB CONC 31.3 % (32.0-36.0); MONO % 6.2 % (0.0-8.0); MONOCYTE # 0.7 TH/MM3 (0-0.9); NEUT % 69.5 % (16.0-70.0); PLATELET COUNT 372 TH/MM3 (150-450); RED BLOOD COUNT 3.48 MIL/MM3 (4.00-5.30); RED CELL DISTRIBUTION WIDTH 14.8 % (11.6-17.2)
[2017-08-04] MEDS: TIOTROPIUM BROMIDE 18 MCG INH INH SCH (08:27)
[2017-08-04] MEDS: ALBUTEROL SULFATE 90 MCG/ACT HFA 8 GM INHALER INH SCH (08:28)
[2017-08-04] MEDS: FERROUS SULFATE 325 MG (65 MG ELEMENTAL IRON) TAB PO SCH (08:29)
[2017-08-04] MEDS: LACTOBACILLUS ACIDOPHILUS 1 GM PACKET PO SCH ×2 (08:29→12:25)
[2017-08-04] MEDS: PANTOPRAZOLE SOD 40 MG DELAYED RELEASE TAB PO SCH (08:29)
[2017-08-04] MEDS: PROPRANOLOL HCL 20 MG TAB PO SCH (08:29)
[2017-08-04] MEDS: DULoxetine HCl DR 60 MG CAP PO SCH (08:29)
[2017-08-04] MEDS: ALLOPURINOL 100 MG TAB PO SCH (08:29)
[2017-08-04] MEDS: UMECLIDINIUM 62.5 MCG/VILANTEROL 25 MCG INHALER INH SCH (08:30)
[2017-08-04] MEDS: SODIUM CHLORIDE 0.9% FLUSH 10 ML FLUSH IV FLUSH SCH (08:30)
[2017-08-04 08:50] LABS: CALCIUM 8.4 MG/DL (8.5-10.1)
[2017-08-04 08:51] LABS: BICARBONATE 25.8 MEQ/L (21.0-32.0)
[2017-08-04 08:54] LABS: CREATININE 0.85 MG/DL (0.50-1.00)
[2017-08-04] MEDS ORDERED: LACTG PO (10:09)
[2017-08-04] MEDS ORDERED: POTASSIUM CHLORIDE 10 MEQ CONTROLLED RELEASE TAB PO ONE (10:15)
[2017-08-04] MEDS: ONDANSETRON HCL 4 MG/2 ML VIAL IV PUSH PRN (10:21)
--- NOTE | 2017-08-04 11:44 | HHI.DS ---
Discharge Summary Admission Date Jul 30, 2017 at 17:32 Discharge Date: Aug 04, 2017 Admitting Diagnosis Altered mental status/sepsis/hyponatremia (1) Altered mental status ICD Code: R41.82 - Altered mental status, unspecified Status: Acute (2) Sepsis ICD Code: A41.9 - Sepsis, unspecified organism Status: Acute (3) Nausea & vomiting ICD Code: R11.2 - Nausea with vomiting, unspecified (4) Leukocytosis ICD Code: D72.829 - Elevated white blood cell count, unspecified Status: Acute Procedures None Brief History - From Admission This patient is a 72-year-old female with a history of polypharmacy and anxiety. She did come to the emergency room because she was increasingly disoriented over the last evening. She overnight has improved and is back to her baseline although somewhat anxious. She normally takes Percocet, morphine, ties and edema, temazepam and hydroxyzine with amitriptyline and alprazolam. She says she did not take any more of these medications but hadn't been eating well. She was feeling lightheaded. When her saw her at home he was concerned because she wasn't speaking clearly. Again she has resolved these symptoms however now has profuse nausea and vomiting with several episodes of diarrhea. She also complains of vague diffuse abdominal pain which is improved with vomiting. She has not had any fevers or chills here but has a tremendous amount leukocytosis and tachycardia. For these reasons the patient has been admitted to the hospital CBC/BMP: 08/04/17 0810 08/04/17 0810 Significant Findings Laboratory Tests Test 08/02/17 05:51 08/04/17 08:10 White Blood Count 20.7 TH/MM3 (4.0-11.0) 12.0 TH/MM3 (4.0-11.0) Red Blood Count 3.27 MIL/MM3 (4.00-5.30) 3.48 MIL/MM3 (4.00-5.30) Hemoglobin 9.3 GM/DL (11.6-15.3) 9.6 GM/DL (11.6-15.3) Hematocrit 28.8 % (35.0-46.0) 30.6 % (35.0-46.0) Neutrophils (%) (Auto) 86.1 % (16.0-70.0) Lymphocytes (%) (Auto) 8.5 % (9.0-44.0) Neutrophils # (Auto) 17.8 TH/MM3 (1.8-7.7) 8.3 TH/MM3 (1.8-7.7) Monocytes # (Auto) 1.0 TH/MM3 (0-0.9) Random Glucose 128 MG/DL (74-106) 114 MG/DL (74-106) Calcium Level 8.4 MG/DL (8.5-10.1) 8.4 MG/DL (8.5-10.1) Sodium Level 129 MEQ/L (136-145) 128 MEQ/L (136-145) Chloride Level 96 MEQ/L (98-107) 95 MEQ/L (98-107) Estimat Glomerular Filtration Rate 73 ML/MIN (>89) 65 ML/MIN (>89) Mean Corpuscular Hemoglobin Concent 31.3 % (32.0-36.0) Basophils (%) (Auto) 3.9 % (0.0-2.0) Basophils # (Auto) 0.5 TH/MM3 (0-0.2) Potassium Level 3.1 MEQ/L (3.5-5.1) PE at Discharge GENERAL: This is a well-nourished, well-developed patient, resolved, comfortable CARDIOVASCULAR: Regular rate and rhythm without murmurs, gallops, or rubs. RESPIRATORY: Clear to auscultation. Breath sounds equal bilaterally. No wheezes , rales, or rhonchi. GASTROINTESTINAL: Abdomen soft, non-tender, nondistended. Normal active bowel sounds MUSCULOSKELETAL: Extremities without clubbing, cyanosis, or edema. NEURO: Alert & Oriented x4 to person, place, time, situation. Moves all ext x4 Pt update on day of discharge Patient seen today. Out of bed. Doing well. No new events overnight. Still passing gas. GI eval appreciated` Hospital Course patient seen and evaluated in follow-up for nausea and vomiting. Patient did have mild ileus which resolved. She was seen by gastrologist pbx teacher. Regulations were for outpatient follow-up. She required some antiemetics and IV hydration. She initially had some altered mental status which appeared to be from an intentional drug overload overdose in the setting of dehydration. Resolved. Patient her were educated on medication usage. Pt Condition on Discharge: Good Discharge Disposition: Disch w/ Home Health Serv Discharge Time: <= 30 minutes Discharge Instructions DIET: Follow Instructions for: As Tolerated, No Restrictions Activities you can perform: Regular-No Restrictions Follow up Referrals: PCP Follow-up - 1 Week New Medications: Lactobacillus Acidophilus (Floranex) 1 Gm Pkt 1 GM PO TID for bowel health, #93 PKT Continued Medications: Allopurinol (Allopurinol) 100 Mg Tab 100 MG PO BID for Gout, #30 TAB 0 Refills Alprazolam (Alprazolam) 0.25 Mg Tab 0.25 MG PO TID PRN for ANXIETY, TAB 0 Refills Amitriptyline (Amitriptyline) 25 Mg Tab 25 MG PO HS, TAB Atorvastatin (Atorvastatin) 40 Mg Tab 40 MG PO HS for Cholesterol Management, #30 TAB 0 Refills Dexlansoprazole (Dexilant) 60 Mg Cap.dr.bp 1 CAP PO DAILY for Reflux Duloxetine DR (Cymbalta DR) 60 Mg Capdr 60 MG PO DAILY for ULCER, #30 CAP 0 Refills Ferrous Sulfate ER (Ferrous Sulfate ER) 140 Mg (45 Mg Iron) Tab 140 MG PO DAILY for Nutritional Supplement, #30 TAB 0 Refills Fluticasone Nasal Victoria (Flonase Nasal Victoria) 50 Mcg/Act Victoria 50 MCG EACH NARE BID for Allergies, #1 BOTTLE 0 Refills Fluticasone-Vilanterol Inh (Breo Ellipta Inh) 100-25 Mcg/Act Inh 1 PUFF INH DAILY, #1 INHALER 0 Refills Use daily at the same time. Furosemide (Furosemide) 40 Mg Tab 40 MG PO DAILY, #30 TAB 0 Refills Hydroxyzine Pamoate (Hydroxyzine Pamoate) 25 Mg Cap 25 MG PO BID for Nausea, CAP 0 Refills NS Ipratropium-Albuterol Inh (Combivent Respimat Inh) 20-100 Care Home/Act Aero 1 PUFF INH QID for Asthma Management, #1 INHALER 0 Refills Ipratropium-Albuterol Inh (Combivent Respimat Inh) 20-100 Care Home/Act Aero 1 PUFF INH QID for Asthma Management, #1 INHALER 0 Refills Levothyroxine (Levothyroxine) 50 Mcg Tab 100 MCG PO DAILY for Thyroid, #30 TAB 0 Refills Metformin (Metformin) 500 Mg Tab 500 MG PO BIDPC for Blood Sugar Management, #60 TAB 0 Refills Morphine ER (Morphine ER) 15 Mg Tab 15 MG PO TID for Pain Management, #10 TAB 0 Refills Nifedipine ER 24 HR (Nifedipine ER 24 HR) 60 Mg Tab 60 MG PO DAILY for 30 Days, TAB Omeprazole (Omeprazole) 40 Mg Cap 40 MG PO DAILY, #30 CAP 0 Refills Oxycodone-Acetaminophen (Percocet) 10-325 mg Tab 1 TAB PO Q4-6H PRN for PAIN, #20 TAB 0 Refills Propranolol (Propranolol) 20 Mg Tab 20 MG PO BID for 30 Days, TAB Sucralfate (Sucralfate) 1 Gm Tab 1 GM PO QID for Duodenal ulcer, #120 TAB 0 Refills on empty stomach Temazepam (Temazepam) 30 Mg Cap 30 MG PO HS PRN for INSOMNIA, #5 CAP 0 Refills Tizanidine (Tizanidine) 4 Mg Cap 4 MG PO TID for Muscle Spasm, #10 CAP 0 Refills Umeclidinium-Vilanterol Inh (Anoro Ellipta Inh) 62.5-25 Mcg/Act Aero 1 PUFF INH DAILY for COPD, #1 INHALER 0 Refills [Virt] () 1 CAP PO DAILY for KIDNEY SUPPORT Mariah Callahan MD Aug 04, 2017 11:44
[2017-08-04 12:00] VITALS: BP 143/87; PULSE 94; RESP 18; O2SAT 94
[2017-08-04] MEDS ORDERED: POLYETHYLENE GLYCOL 17 GM PKG PO ONE (12:00)
== END 2017-08-04 13:45 | disposition home health service (06) | DRG 871 ==
LOC: PHED 16:21 → PHEDA 17:32 → PH3A 18:15
PROVIDERS: ADMIT Hospitalist; ATTEND Hospitalist
DX: A41.9 Sepsis, unspecified organism (principal); J18.9 Pneumonia, unspecified organism; I48.91 Unspecified atrial fibrillation; K56.7 Ileus, unspecified; E87.1 Hypo-osmolality and hyponatremia; J44.9 Chronic obstructive pulmonary disease, unspecified; F41.9 Anxiety disorder, unspecified; E78.5 Hyperlipidemia, unspecified; E03.9 Hypothyroidism, unspecified; G89.29 Other chronic pain; R41.0 Disorientation, unspecified; M54.9 Dorsalgia, unspecified; I10 Essential (primary) hypertension; K21.9 Gastro-esophageal reflux disease without esophagitis
CPT/HCPCS: 70450; 71045; 74019; 74176; 80048; 80053; 80076; 81001; 82140; 82607; 82728; 82746; 83010; 83540; 83550; 83605; 83615; 83735; 84443; 84484; 85007; 85014; 85018; 85025; 85027; 85044; 85610; 85730; 87040; 87804; 93005; 94664; 99285; J0696; J1644; J1940; J2060; J2405; J2543; J3370; J3475; J3480; J7030; J7050; P9612; Q0169; Q9963

== ENCOUNTER 2017-12-13 04:45 | Inpatient (IN) | payer OTHER, MEDICARE ==
[~2017-12-13] VITALS: Ht 162.6 cm; Wt 80.0 kg
[2017-12-13] VITALS (20 sets, daily range): BP systolic 93–130; BP diastolic 53–74; PULSE 66–113; RESP 16–24; TEMP 97.8–100.2; O2SAT 0–100
[~2017-12-13 04:45] MED LIST changes: +LACTG PO
[2017-12-13] MEDS ORDERED: SODIUM CHLORIDE 0.9% FLUSH 10 ML FLUSH IVF PRN (05:00)
[2017-12-13] MEDS ORDERED: RESP: ALBUTEROL 2.5 MG/IPRATROPIUM 0.5 MG NEB (SCH) INH ONE (05:00)
[2017-12-13] MEDS ORDERED: MORPHINE SULFATE 4 MG/ML INJ IV PUSH ONE (05:00)
[2017-12-13 05:11] LABS: AUTOMATED NEUTROPHIL # 10.4 TH/MM3 (1.8-7.7); BASOPHIL % 0.1 % (0.0-2.0); EOSINOPHIL % 0.2 % (0.0-4.0); HEMATOCRIT 33.5 % (35.0-46.0); LYMPH % 9.9 % (9.0-44.0); LYMPHOCYTE # 1.2 TH/MM3 (1.0-4.8); MEAN CELL VOLUME 86.1 FL (80.0-100.0); MEAN CORPUSCULAR HEMOGLOBIN 28.3 PG (27.0-34.0); MEAN CORPUSCULAR HGB CONC 32.9 % (32.0-36.0); MEAN PLATELET VOLUME 6.7 FL (7.0-11.0); MONO % 0.6 % (0.0-8.0); MONOCYTE # 0.1 TH/MM3 (0-0.9); NEUT % 89.2 % (16.0-70.0); PLATELET COUNT 399 TH/MM3 (150-450); RED CELL DISTRIBUTION WIDTH 16.5 % (11.6-17.2); WHITE BLOOD COUNT 11.7 TH/MM3 (4.0-11.0)
[2017-12-13 05:22] LABS: PROTHROMBIN TIME - PATIENT 10.2 SEC (9.8-11.6)
[2017-12-13] MEDS ORDERED: AZITHROMYCIN INJ 500 MG in SODIUM CHLOR 0.9% 250 ML INJ 250 ML IV ONE (05:30)
[2017-12-13] MEDS ORDERED: CEFEPIME INJ 1,000 MG in SODIUM CHLORIDE 0.9% INJ 100 ML IV ONE (05:30)
[2017-12-13] MEDS ORDERED: ACETAMINOPHEN 325 MG TAB PO ONE (05:30)
--- NOTE | 2017-12-13 05:34 | RADRPT ---
EXAM DATE: 12/13/2017 5:20 AM EDT AGE/SEX: 72 years / Female INDICATIONS: Shortness of breath. CLINICAL DATA: This is the patient's initial encounter. Patient reports that signs and symptoms have been present for 1 day and indicates a pain score of 0/10. MEDICAL/SURGICAL HISTORY: Hypertension. Cholecystectomy. Appendectomy. COMPARISON: COMP, XR CHEST FRONTAL, SINGLE VIEW, 07/30/2017. . FINDINGS: A single AP view of the chest demonstrates the patchy airspace disease in the lower lobes and right u pper lobe The cardiomediastinal contours are unremarkable. Osseous structures are intact. CONCLUSION: Multi lobar pneumonia. Recommend medical treatment and follow-up to resolution using serial radiograp hs. Electronically signed by: Mark Sommers MD 12/13/2017 5:33 AM EDT
[2017-12-13 05:35] LABS: ALBUMIN 3.5 GM/DL (3.4-5.0); AST (GOT) 62 U/L (15-37); BICARBONATE 24.5 MEQ/L (21.0-32.0); BLOOD UREA NITROGEN 35 MG/DL (7-18); CALCIUM 9.1 MG/DL (8.5-10.1); CHLORIDE 92 MEQ/L (98-107); CREATININE 1.39 MG/DL (0.50-1.00); GLOMERULAR FILTRATION RATE 37 ML/MIN (>89); GLUCOSE,RANDOM 102 MG/DL (74-106); SODIUM (NA) 129 MEQ/L (136-145)
[2017-12-13 05:36] LABS: ALT (GPT) 58 U/L (10-53)
[2017-12-13 05:40] LABS: ALKALINE PHOSPHATASE 184 U/L (45-117); TOTAL BILIRUBIN ADULT 0.5 MG/DL (0.2-1.0); TOTAL PROTEIN 8.1 GM/DL (6.4-8.2); TROPONIN I 0.09 NG/ML (0.02-0.05)
[2017-12-13] MEDS ORDERED: ASPIRIN 81 MG CHEW TAB CHEW ONE (06:00)
[2017-12-13 06:01] LABS: BILIRUBIN, URINE NEG (NEG); BLOOD, URINE NEG (NEG); GLUCOSE,URINE NEG (NEG); KETONE, URINE NEG (NEG); MUCUS URINE FEW /lpf (OCC); NITRITE,URINE NEG (NEG); URINE COLOR YELLOW (YELLW/STRAW); URINE LEUKOCYTE ESTERASE NEG (NEG)
--- NOTE | 2017-12-13 06:14 | PD ---
HPI Chief Complaint: Respiratory Distress Time Seen by Provider: 04:49 Travel History International Travel<30 days: No Contact w/Intl Traveler<30days: No Traveled to known affect area: No History of Present Illness HPI Patient is a 72-year-old female brought in by EMS, for shortness of breath. She says that she has had a cough for a few days, but the shortness of breath got acutely worse tonight. She has been here in the past for breathing issues. She says she has had some chest pain. She complains of back pain, which is chronic for her. She does not know if she had a fever at home. She denies nausea or vomiting. Nothing seemed to help her symptoms at home. Severity is moderate. PFSH Past Medical History Hx Anticoagulant Therapy: No Arthritis: Yes Asthma: Yes Autoimmune Disease: No Blood Disorders: No Anxiety: Yes Depression: Yes Heart Rhythm Problems: No Cancer: No Cardiovascular Problems: Yes High Cholesterol: Yes Chemotherapy: No Chest Pain: Yes Congestive Heart Failure: No COPD: Yes Cerebrovascular Accident: No Diabetes: No Diminished Hearing: No Endocrine: Yes Gastrointestinal Disorders: Yes GERD: Yes Glaucoma: No Genitourinary: No Headaches: No Hepatitis: No Hypertension: Yes Immune Disorder: No Implanted Vascular Access Dvce: Yes Medical other: Yes (refllux) Musculoskeletal: Yes Neurologic: Yes Psychiatric: Yes Reproductive: No Respiratory: Yes Immunizations Current: Yes Myocardial Infarction: No Radiation Therapy: No Seizures: No Sleep Apnea: No Thyroid Disease: Yes Ulcer: Yes Menopausal: Yes : 1 Para: 1 Past Surgical History Abdominal Surgery: Yes ( JOSE) AICD: No Body Medical Devices: 2 TITANIUM RODS IN BACK, SCREW RIGHT ANKLE Cardiac Surgery: No Cholecystectomy: Yes Ear Surgery: No Endocrine Surgery: No Eye Surgery: Yes (BILATERAL CATARACTS REMOVED) Genitourinary Surgery: No Gynecologic Surgery: Yes (hysterectomy) Hysterectomy: No Insulin Pump: No Joint Replacement: No Neurologic Surgery: Yes (BACK SURGERY - TITANIUM CAGE) Oral Surgery: Yes (TONSILLECTOMY) Pacemaker: No Thoracic Surgery: No Other Surgery: Yes Social History Alcohol Use: Yes (RARELY) Tobacco Use: No Substance Use: No Allergies-Medications (Allergen,Severity, Reaction): Coded Allergies: codeine (Unverified Allergy, Intermediate, RASH, 11/09/17) *MDRO Multi-Drug Resistant Organism (Verified Adverse Reaction, Unknown, ) 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 Ferrous Sulfate ER (Ferrous Sulfate) 140 Mg (45 Mg Iron) Tab 140 Mg PO DAILY Hydroxyzine Pamoate 25 Mg Cap 25 Mg PO BID Amitriptyline (Amitriptyline HCl) 25 Mg Tab 25 Mg PO HS Furosemide 40 Mg Tab 40 Mg PO DAILY Metformin (Metformin HCl) 500 Mg Tab 500 Mg PO BIDPC Flonase Nasal [place] (Fluticasone Nasal [place]) 50 Mcg/Act [place] 50 Mcg EACH NARE BID Omeprazole 40 Mg Cap 40 Mg PO DAILY Sucralfate 1 Gm Tab 1 Gm PO QID on empty stomach [Virt] 1 Cap PO DAILY Anoro Ellipta Inh (Umeclidinium/Vilanterol) 62.5-25 Mcg/Act Aero 1 Puff INH DAILY Atorvastatin (Atorvastatin Calcium) 40 Mg Tab 40 Mg PO HS Allopurinol 100 Mg Tab 100 Mg PO BID Alprazolam 0.25 Mg Tab 0.25 Mg PO TID PRN Combivent Respimat Inh (Ipratropium-Albuterol Inh) 20-100 Usp/Act Aero 1 Puff INH QID Cymbalta DR (Duloxetine HCl) 60 Mg Capdr 60 Mg PO DAILY Levothyroxine (Levothyroxine Sodium) 50 Mcg Tab 100 Mcg PO DAILY Review of Systems Except as stated in HPI: all other systems reviewed are Neg HENT: No: Headaches Cardiovascular: Positive: Chest Pain or Discomfort Respiratory: Positive: Cough, Shortness of Breath Gastrointestinal: No: Nausea, Vomiting, Abdominal Pain Musculoskeletal: Positive: Pain Neurologic: No: Weakness, Dizziness, Syncope Physical Exam Narrative GENERAL: Awake and alert, in mild respiratory distress. SKIN: Focused skin assessment warm/dry. No wounds or signs of infection. HEAD: Atraumatic. Normocephalic. EYES: Pupils equal and round. No scleral icterus. ENT: Mucous membranes pink and moist. NECK: Trachea midline. No JVD. CARDIOVASCULAR: Regular rate and rhythm. No murmur appreciated. RESPIRATORY: tachypnea. Crackles throughout the lungs. GASTROINTESTINAL: Abdomen soft, non-tender, nondistended. Umbilical hernia present. MUSCULOSKELETAL: No obvious deformities. No clubbing. No cyanosis. No edema. NEUROLOGICAL: Awake and alert. No obvious cranial nerve deficits. Motor grossly within normal limits. Normal speech. PSYCHIATRIC: Appropriate mood and affect; insight and judgment normal. Data Data Last Documented VS Vital Signs Date Time Temp Pulse Resp B/P (MAP) Pulse Ox O2 Delivery O2 Flow Rate FiO2 12/13/17 05:15 99 20 124/62 (82) 100 BiPAP 100 Orders Orders Complete Blood Count With Diff (12/13/17 04:52) Comprehensive Metabolic Panel (12/13/17 04:52) B-Type Natriuretic Peptide (12/13/17 04:52) Act Partial Throm Time (Ptt) (12/13/17 04:52) Prothrombin Time / Inr (Pt) (12/13/17 04:52) Troponin I (12/13/17 04:52) Urinalysis - C+S If Indicated (12/13/17 04:52) Iv Access Insert/Monitor (12/13/17 04:52) Electrocardiogram (12/13/17 04:52) Ecg Monitoring (12/13/17 04:52) Oximetry (12/13/17 04:52) Oxygen Administration (12/13/17 04:52) Chest, Single Ap (12/13/17 04:52) Sodium Chloride 0.9% Flush (Ns Flush) (12/13/17 05:00) Albuterol-Ipratropium Neb (Duoneb Neb) (12/13/17 05:00) Lactic Acid (12/13/17 04:52) Arterial Blood Gas (Abg) (12/13/17 ) Resp Bipap / Cpap Non Invas Vt (12/13/17 ) Morphine Inj (Morphine Inj) (12/13/17 05:00) Acetaminophen (Tylenol) (12/13/17 05:30) Cefepime Inj (Maxipime Inj) (12/13/17 05:30) Azithromycin Inj (Zithromax Inj) (12/13/17 05:30) Aspirin Chew (Aspirin Chew) (12/13/17 06:00) Labs Laboratory Tests Test 12/13/17 04:49 12/13/17 04:55 12/13/17 05:24 Blood Gas Puncture Site LT RADIAL Blood Gas Patient Temperature 98.6 Blood Gas HCO3 24 mmol/L Blood Gas Base Excess 0.9 mmol/L Blood Gas Oxygen Saturation 92 % Arterial Blood pH 7.46 Arterial Blood Partial Pressure CO2 34 mmHg Arterial Blood Partial Pressure O2 67 mmHG Arterial Blood Oxygen Content 14.1 Vol % Arterial Blood Carboxyhemoglobin 1.2 % Arterial Blood Methemoglobin 0.4 % Blood Gas Hemoglobin 10.9 G/DL Oxygen Delivery Device BIPAP Blood Gas Ventilator Setting IPAP12/EPAP5 Blood Gas Inspired Oxygen 100 % White Blood Count 11.7 TH/MM3 Red Blood Count 3.90 MIL/MM3 Hemoglobin 11.0 GM/DL Hematocrit 33.5 % Mean Corpuscular Volume 86.1 FL Mean Corpuscular Hemoglobin 28.3 PG Mean Corpuscular Hemoglobin Concent 32.9 % Red Cell Distribution Width 16.5 % Platelet Count 399 TH/MM3 Mean Platelet Volume 6.7 FL Neutrophils (%) (Auto) 89.2 % Lymphocytes (%) (Auto) 9.9 % Monocytes (%) (Auto) 0.6 % Eosinophils (%) (Auto) 0.2 % Basophils (%) (Auto) 0.1 % Neutrophils # (Auto) 10.4 TH/MM3 Lymphocytes # (Auto) 1.2 TH/MM3 Monocytes # (Auto) 0.1 TH/MM3 Eosinophils # (Auto) 0.0 TH/MM3 Basophils # (Auto) 0.0 TH/MM3 CBC Comment DIFF FINAL Differential Comment Prothrombin Time 10.2 SEC Prothromb Time International Ratio 1.0 RATIO Activated Partial Thromboplast Time 23.6 SEC Blood Urea Nitrogen 35 MG/DL Creatinine 1.39 MG/DL Random Glucose 102 MG/DL Total Protein 8.1 GM/DL Albumin 3.5 GM/DL Calcium Level 9.1 MG/DL Alkaline Phosphatase 184 U/L Aspartate Amino Transf (AST/SGOT) 62 U/L Alanine Aminotransferase (ALT/SGPT) 58 U/L Total Bilirubin 0.5 MG/DL Sodium Level 129 MEQ/L Potassium Level 3.9 MEQ/L Chloride Level 92 MEQ/L Carbon Dioxide Level 24.5 MEQ/L Anion Gap 13 MEQ/L Estimat Glomerular Filtration Rate 37 ML/MIN Lactic Acid Level 3.2 mmol/L Troponin I 0.09 NG/ML B-Type Natriuretic Peptide 62 PG/ML Urine Color YELLOW Urine Turbidity CLEAR Urine pH 5.0 Urine Specific [place] 1.011 Urine Protein NEG mg/dL Urine Glucose (UA) NEG mg/dL Urine Ketones NEG mg/dL Urine Occult Blood NEG Urine Nitrite NEG Urine Bilirubin NEG Urine Urobilinogen LESS THAN 2 mg/dL Urine Leukocyte Esterase NEG Urine WBC LESS THAN 1 /hpf Urine Mucus FEW /lpf Microscopic Urinalysis Comment CULT NOT INDICATED MDM Medical Decision Making Medical Screen Exam Complete: Yes Emergency Medical Condition: Yes Medical Record Reviewed: Yes Differential Diagnosis COPD exacerbation versus CHF exacerbation versus pneumonia Narrative Course Patient is a 72-year-old female who comes in due to shortness of breath. She is in mild respiratory distress on arrival. She was placed on CPAP by EMS. Switch to BiPAP on arrival. IV established, labs sent. Labs concerning for a lactic acid of 3.2. Troponin is slightly elevated at 0.09 Patient is febrile here. Chest x-ray concerning for multilobar pneumonia. Last 24 hours Impressions Chest X-Ray 12/13/17 [id number] Signed Impressions: CONCLUSION: Multi lobar pneumonia. Recommend medical treatment and follow-up to resolution using serial radiographs. Patient started on antibiotics. She refused aspirin. Given Tylenol for her fever. Given morphine for pain. She will be admitted for further management. Diagnosis Primary Impression: Acute respiratory failure with hypoxia Additional Impression: Bacterial pneumonia Admitting Information Admitting Physician Requests: Admit Kecia Salinas MD Dec 13, 2017 06:14
[2017-12-13] MEDS ORDERED: DEXTROSE 50% IN WATER 50 ML VIAL(D50) IV PUSH PRN (07:15)
[2017-12-13] MEDS ORDERED: NURSING INFORMATION XX SCH (07:15)
[2017-12-13] MEDS ORDERED: MAGNESIUM OXIDE 400 MG TAB PO PRN (07:15)
[2017-12-13] MEDS ORDERED: GLUCAGON 1 MG/ML VIAL OTHER PRN (07:15)
[2017-12-13] MEDS ORDERED: BISACODYL 10 MG SUPP RECTAL PRN (07:15)
[2017-12-13] MEDS ORDERED: SENNOSIDES 8.6 MG TAB PO PRN (07:15)
[2017-12-13] MEDS ORDERED: SODIUM CHLORIDE 0.9% FLUSH 10 ML FLUSH IV FLUSH PRN (07:15)
[2017-12-13] MEDS ORDERED: POTASSIUM CHLORIDE 25 MEQ EFFERVESCENT TAB PO PRN (07:15)
[2017-12-13] MEDS ORDERED: POTASSIUM PHOSPHATE MONOBASIC 500 MG TAB PO/TUBE PRN (07:15)
[2017-12-13] MEDS ORDERED: POTASSIUM PHOSPHATE INJ 30 MMOL in SODIUM CHLOR 0.9% 250 ML INJ 250 ML IV PRN (07:15)
[2017-12-13] MEDS ORDERED: MAGNESIUM HYDROXIDE SUSP 30 ML CUP PO PRN (07:15)
[2017-12-13] MEDS ORDERED: ONDANSETRON HCL 4 MG/2 ML VIAL IV PUSH PRN (07:15)
[2017-12-13] MEDS ORDERED: POTASSIUM CHLOR 40 MEQ PREMIX 100 ML IV-CENTRAL PRN ×2 (07:15)
[2017-12-13] MEDS ORDERED: LACTULOSE SYRUP 20 GM/30 ML CUP PO PRN (07:15)
[2017-12-13] MEDS ORDERED: POTASSIUM PHOSPHATE MONOBASIC 500 MG TAB PO PRN (07:15)
[2017-12-13] MEDS ORDERED: MAGNESIUM SULFATE INJ 4 GM in SODIUM CHLORIDE 0.9% INJ 92 ML IV PRN (07:15)
[2017-12-13] MEDS ORDERED: MAGNESIUM SULFATE INJ 2 GM in SODIUM CHLORIDE 0.9% INJ 96 ML IV PRN (07:15)
[2017-12-13] MEDS ORDERED: SODIUM PHOSPHATE INJ 30 MMOL in SODIUM CHLOR 0.9% 250 ML INJ 240 ML IV PRN (07:15)
[2017-12-13] MEDS ORDERED: CHLORHEXIDINE GLUCONATE 2 % 1 PACK (2 CLOTHS) TOP PRN (07:15)
[2017-12-13] MEDS ORDERED: ACETAMINOPHEN 325 MG TAB PO PRN (07:15)
[2017-12-13] MEDS ORDERED: Vancomycin Consult Pharmacy 1 EA OTHER SCH (07:30)
[2017-12-13] MEDS ORDERED: ONDANSETRON ODT 4 MG TAB PO PRN (07:45)
--- NOTE | 2017-12-13 07:54 | HHI.HP ---
[facility] Service Critical Care Medicine Primary Care Physician Non-Staff Admission Diagnosis Bilateral pneumonia, hypoxia, elevated troponin Diagnosis: (1) Acute respiratory failure with hypoxia Diagnosis: Principal (2) Leukocytosis Diagnosis: Principal (3) Sepsis Diagnosis: Principal (4) Hyponatremia Diagnosis: Secondary (5) BAMBI (acute kidney injury) Diagnosis: Secondary (6) HTN (hypertension) Diagnosis: Secondary (7) Pulmonary hypertension Diagnosis: Principal (8) Gastroesophageal reflux disease Diagnosis: Principal (9) Hypothyroidism Diagnosis: Secondary (10) Diabetes mellitus Diagnosis: Principal (11) Opioid use Diagnosis: Secondary (12) History of benzodiazepine use Diagnosis: Secondary (13) Depression Diagnosis: Secondary (14) Elevated troponin Diagnosis: Principal (15) Elevated transaminase level Diagnosis: Principal (16) Lactic acidosis Diagnosis: Principal (17) Hyponatremia Diagnosis: Secondary (18) LBBB (left bundle branch block) Diagnosis: Principal (19) DDD (degenerative disc disease), lumbar Diagnosis: Secondary Chief Complaint: Acute onset of shortness of breath Travel History International Travel<30 Days: No Contact w/Intl Traveler <30 Da: No Traveled to Known Affected Are: No Sepsis Criteria SIRS Criteria (2 or more): Heart rate over 90, RR > 20 or PaCO2 < 32 Sepsis Criteria (SIRS+source): Infect source susp/known History of Present Illness This is a 72-year-old female. The date of admission 12/13/2017. Past medical history includes depression/anxiety, chronic opiate use, chronic benzodiazepine use, essential hypertension hyperlipidemia, mild to moderate pulmonary hypertension, asthma/COPD, diabetes mellitus/gastroesophageal reflux disease, hypothyroidism, gout, chronic kidney disease stage III a anemia. Patient denies any recent travels or sick contacts. Last night, patient with acute onset of shortness of breath. Not associated with chest pain. Denies cough, sputum production, wheezing. Patient was quite tachypneic and presented to [facility] for further evaluation. Patient was placed on BiPAP therapy due to acute hypercapnia and hypoxemia. Chest x-ray revealed bilateral lower lobe pneumonia/infiltrates with right upper lobe infiltrate. Was treated acutely with cefepime and azithromycin. She was tachycardic in the 120s. Initial troponin 0 0.09. Refused aspirin. Lactic acid was slightly elevated at 3.2. Received 1 L normal saline. She is currently in a sinus tachycardia with a rate 120. Appears comfortable is able to speak complete since without using accessory muscles. Review of Systems Constitutional: COMPLAINS OF: Fatigue, DENIES: Fever, Weight gain, Weight loss , Chills, Dizziness, Change in appetite, Night Sweats Endocrine: DENIES: Polydipsia, Polyuria Eyes: DENIES: Blurred vision, Double Vision Respiratory: COMPLAINS OF: Shortness of breath, DENIES: Apneas, Wheezing, Hemoptysis, Sputum production Cardiovascular: COMPLAINS OF: Dyspnea on Exertion, Lower Extremity Edema, DENIES: Chest pain, Claudication Gastrointestinal: COMPLAINS OF: Difficulty Swallowing, DENIES: Abdominal pain, Nausea, Vomiting Genitourinary: DENIES: Urgency Musculoskeletal: COMPLAINS OF: Joint pain, Muscle aches, Stiffness, DENIES: Neck pain Integumentary: DENIES: Pruritus, Rash Hematologic/lymphatic: DENIES: Bruising Immunologic/allergic: DENIES: Eczema, Urticaria Neurologic: COMPLAINS OF: Abnormal gait, DENIES: Seizures Psychiatric: COMPLAINS OF: Anxiety, Depression, DENIES: Confusion, Agitation Past Family Social History Allergies: Coded Allergies: codeine (Unverified Allergy, Intermediate, RASH, 11/09/17) *MDRO Multi-Drug Resistant Organism (Verified Adverse Reaction, Unknown, ) 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 Past Medical History Depression/anxiety Osteoporotic Reactive airway disease/COPD?/Asthma Diabetes mellitus Hypothyroidism Gout History of achalasia Chronic kidney disease stage III a Chronic anemia Chronic benzodiazepine use Chronic opioid use Moderate pulmonary hypertension Left bundle branch block Moderate MR/mild TR Essential hypertension Hyperlipidemia Past Surgical History T&A History of titanium cage/lumbar surgery Hysterectomy with right oophorectomy Right ankle/screw Left elbow Right shoulder/humerus Cholecystectomy Bilateral cataracts History of right knee injections Reported Medications Ipratropium/albuterol 20/100 mcg 1 inhalation 4 times daily Fluticasone furoate/Vilanterol 100/25 1 inhalation daily Tizanidine 4 mg 3 times daily Iron sulfate 140 mg by mouth daily Atorvastatin 40 mg of mouth daily Propranolol 20 mg by mouth twice daily Nifedipine extended release 60 mg by mouth daily Morphine sulfate extended release 50 mg by mouth 3 times daily Oxycodone/acetaminophen 10/325 1 tablet every 4-6 hours as needed pain Amitriptyline 25 mg at night Duloxetine extended release 60 mg daily Alprazolam 0.25 mg 3 times daily as needed anxiety Hydroxyzine 25 mg by mouth daily Furosemide 40 mg by mouth daily Temazepam 30 mg by mouth at night Fluticasone 50 mg inhalation twice daily Sucralfate 1 g 4 times daily Omeprazole 40 mg by mouth daily Metformin 500 mg twice daily Levothyroxine 100 mcg by mouth daily Allopurinol 100 mg by mouth twice daily Active Ordered Medications Reviewed in EMR Family History Mother from gastric cancer. Father with comp occasions pneumonia in his 40s. Other family members with cancer but she cannot remember what type at the present time Social History Rare social alcohol use. Denies any tobacco use. Denies illicit drug use. Physical Exam Vital Signs Vital Signs Date Time Temp Pulse Resp B/P (MAP) Pulse Ox O2 Delivery O2 Flow Rate FiO2 12/13/17 05:15 99 20 124/62 (82) 100 BiPAP 100 12/13/17 04:58 22 95 BiPAP 12/13/17 04:56 95 BiPAP 12/13/17 04:50 95 Nasal Cannula 100 12/13/17 04:47 106 22 130/74 (92) 93 12/13/17 04:45 93 100 Physical Exam GENERAL: 72-year-old female currently resting in bed on BiPAP and mild respiratory distress. SKIN: Warm and dry. No rash old. Old well-healed scar over right shoulder, left elbow and right ankle. HEAD: Atraumatic. Normocephalic. EYES: Pupils equal and round 3 mm bilaterally and react. No scleral icterus. No injection or drainage. ENT: No nasal bleeding or discharge. Mucous membranes pink and moist. NECK: Trachea midline. No JVD. CARDIOVASCULAR: Tachycardic, RR. S1, S3 no ulcer. 1/6 systolic murmur apex RESPIRATORY: Diminished breath sounds throughout. Few crackles appreciated bilateral lower lobes and right upper lobe posteriorly. No wheezing. GASTROINTESTINAL: Abdomen soft, non-tender, nondistended. Hypoactive bowel sounds appreciated. MUSCULOSKELETAL: Extremities with trace bilateral lower extremity edema. Right knee is currently wrapped in an Mark bandage. NEUROLOGICAL: Awake and alert. No obvious cranial nerve deficits. Motor grossly within normal limits. Five out of 5 muscle strength in the arms and legs. Normal speech. Laboratory Laboratory Tests Test 12/13/17 04:49 12/13/17 04:55 12/13/17 05:24 Blood Gas Puncture Site LT RADIAL Blood Gas Patient Temperature 98.6 Blood Gas HCO3 24 Blood Gas Base Excess 0.9 Blood Gas Oxygen Saturation 92 Arterial Blood pH 7.46 Arterial Blood Partial Pressure CO2 34 Arterial Blood Partial Pressure O2 67 Arterial Blood Oxygen Content 14.1 Arterial Blood Carboxyhemoglobin 1.2 Arterial Blood Methemoglobin 0.4 Blood Gas Hemoglobin 10.9 Oxygen Delivery Device BIPAP Blood Gas Ventilator Setting IPAP12/EPAP5 Blood Gas Inspired Oxygen 100 White Blood Count 11.7 Red Blood Count 3.90 Hemoglobin 11.0 Hematocrit 33.5 Mean Corpuscular Volume 86.1 Mean Corpuscular Hemoglobin 28.3 Mean Corpuscular Hemoglobin Concent 32.9 Red Cell Distribution Width 16.5 Platelet Count 399 Mean Platelet Volume 6.7 Neutrophils (%) (Auto) 89.2 Lymphocytes (%) (Auto) 9.9 Monocytes (%) (Auto) 0.6 Eosinophils (%) (Auto) 0.2 Basophils (%) (Auto) 0.1 Neutrophils # (Auto) 10.4 Lymphocytes # (Auto) 1.2 Monocytes # (Auto) 0.1 Eosinophils # (Auto) 0.0 Basophils # (Auto) 0.0 CBC Comment DIFF FINAL Differential Comment Prothrombin Time 10.2 Prothromb Time International Ratio 1.0 Activated Partial Thromboplast Time 23.6 Blood Urea Nitrogen 35 Creatinine 1.39 Random Glucose 102 Total Protein 8.1 Albumin 3.5 Calcium Level 9.1 Alkaline Phosphatase 184 Aspartate Amino Transf (AST/SGOT) 62 Alanine Aminotransferase (ALT/SGPT) 58 Total Bilirubin 0.5 Sodium Level 129 Potassium Level 3.9 Chloride Level 92 Carbon Dioxide Level 24.5 Anion Gap 13 Estimat Glomerular Filtration Rate 37 Lactic Acid Level 3.2 Troponin I 0.09 B-Type Natriuretic Peptide 62 Urine Color YELLOW Urine Turbidity CLEAR Urine pH 5.0 Urine Specific [place] 1.011 Urine Protein NEG Urine Glucose (UA) NEG Urine Ketones NEG Urine Occult Blood NEG Urine Nitrite NEG Urine Bilirubin NEG Urine Urobilinogen LESS THAN 2 Urine Leukocyte Esterase NEG Urine WBC LESS THAN 1 Urine Mucus FEW Microscopic Urinalysis Comment CULT NOT INDICATED Result Diagram: 12/13/1745412/13/17454 Imaging Last Impressions Chest X-Ray 12/13/17451 Signed Impressions: CONCLUSION: Multi lobar pneumonia. Recommend medical treatment and follow-up to resolution using serial radiographs. Septic Shock Reassessment Septic shock perfusion: reassessment completed Caprini VTE Risk Assessment Caprini VTE Risk Assessment: Mod/High Risk (score >= 2) Caprini Risk Assessment Model Point Value = 1 Point Value = 2 Point Value = 3 Point Value = 5 Age 41-60 Minor surgery BMI > 25 kg/m2 Swollen legs Varicose veins or History of unexplained or recurrent spontaneous Oral contraceptives or hormone replacement Sepsis (< 1 month) Serious lung disease, including pneumonia (< 1 month) Abnormal pulmonary function Acute myocardial infarction Congestive heart failure (< 1 month) History of inflammatory bowel disease Medical patient at bed rest Age 61-74 Arthroscopic surgery Major open surgery (> 45 min) Laparoscopic surgery (> 45 min) Malignancy Confined to bed (> 72 hours) Immobilizing plaster cast Central venous access Age >= 75 History of VTE Family history of VTE Factor V Leiden Prothrombin [id number] Lupus anticoagulant Anticardiolipin antibodies Elevated serum homocysteine Heparin-induced thrombocytopenia Other congenital or acquired thrombophilia Stroke (< 1 month) Elective arthroplasty Hip, pelvis, or leg fracture Acute spinal cord injury (< 1 month) Prophylaxis Regimen Total Risk Factor Score Risk Level Prophylaxis Regimen 0-1 Low Early ambulation 2 Moderate Order ONE of the following: *Sequential Compression Device (SCD) *Heparin 5000 units SQ BID 3-4 Higher Order ONE of the following medications: *Heparin 5000 units SQ TID *Enoxaparin/Lovenox 40 mg SQ daily (WT < 150 kg, CrCl > 30 mL/min) *Enoxaparin/Lovenox 30 mg SQ daily (WT < 150 kg, CrCl > 10-29 mL/min) *Enoxaparin/Lovenox 30 mg SQ BID (WT < 150 kg, CrCl > 30 mL/min) AND/OR *Sequential Compression Device (SCD) 5 or more Highest Order ONE of the following medications: *Heparin 5000 units SQ TID (Preferred with Epidurals) *Enoxaparin/Lovenox 40 mg SQ daily (WT < 150 kg, CrCl > 30 mL/min) *Enoxaparin/Lovenox 30 mg SQ daily (WT < 150 kg, CrCl > 10-29 mL/min) *Enoxaparin/Lovenox 30 mg SQ BID (WT < 150 kg, CrCl > 30 mL/min) AND *Sequential Compression Device (SCD) Assessment and Plan Assessment and Plan Neuro/Psych: Depression/anxiety Chronic opioid use Chronic benzodiazepine use Chronic pain syndrome Acetaminophen 600 mg by mouth every 6 hours as needed fever Oxycodone/acetaminophen 5/25 1 tablet every 4 hours as needed pain 1 through 5 Morphine sulfate 2 mg IV every 3 hours as needed pain 6 - 10 Patient is on morphine sulfate 15 mg by mouth 3 times daily/home medication continued Patient is on oxycodone/acetaminophen 10/325 1 tablet every 4-6 hours as needed pain breakthrough Continue amitriptyline 25 mg at night/home medication Continue duloxetine 60 mg by mouth daily/home medication Continue hydroxyzine 25 mg twice daily/home medication Continue tizanidine 4 mg 3 times daily/home medication Holding alprazolam 0.25 mg 3 times daily as needed anxiety/home medication Holding temazepam 30 mg at night/home medication/home medication CV: Left bundle branch block Essential hypertension Hyperlipidemia Sinus tachycardia Moderate pulmonary hypertension Moderate MR/mild TR Lactic acidosis Elevated troponin I Initial troponin 0 0.09. EKG revealed sinus tachycardia rate in the 110s with a left bundle branch block. Left bundle branch block was apparent on EKG 08/16. 2D echocardiogram 01/12 revealed EF 50-55%. Pulmonary arterial pressures 53 mmHg. Moderate MR. Mild TR. Saw Dr. wilkinson at that time. Home medications include propranolol 20 mg by mouth twice daily and nifedipine extended release 60 mg daily. This will be continued for hypertension Home medications include atorvastatin 40 mg daily for dyslipidemia. This is been resumed Lactic acidosis every 6 hours until cleared Trend troponins every 6 hours 3. Routine 2D echocardiogram ordered. Bilateral lower extremity Dopplers ordered. Continue furosemide 40 mg p.o. daily BNP was 62 Resp: Acute hypoxic hypercapnic respiratory failure Reactive airway disease/asthma/COPD? Sees Dr. Carter Fluticasone furoate/Vilanterol inhaled 100 mcg/25 mcg 1 inhalation daily Albuterol/ipratropium aerosols every 4 hours with albuterol aerosols every 2 hours as needed dyspnea Chest x-ray admission revealed bilateral lower lobe/right upper lobe pneumonia/ infiltrates Pulmonary consultation/routine will be ordered during this hospitalization Currently on BiPAP 10/5 at 80% FiO2. Titrate to keep saturations greater than equal 90% Acapella/PEP every 4 hours Incentive spirometry while awake GI: Gastroesophageal reflux disease History of achalasia Elevated transaminases History of peptic ulcer disease - Sees Dr. Fanny BRUNO diet Pantoprazole 40 mg daily/on omeprazole 40 mg daily at home Continue sucralfate 1 g 4 times daily Docusate sodium/senna 1 tablet twice daily for bowel regimen Check hepatitis panel and CPK are elevated transaminases : Rosado catheter if indicated for accurate I's and O's in a critically ill patient Endo: Diabetes mellitus type 2 Gout Hypothyroidism Holding metformin 500 mg twice daily. Check hemoglobin A1c Sliding-scale insulin with Novulin N with Accu-Cheks before meals/at bedtime to maintain euglycemia/moderate regimen Continue allopurinol 100 mg by mouth twice daily. Check uric acid Continue levothyroxine 100 mcg daily. Check TSH. Last TSH 0.49 Renal: Acute kidney injury in the setting of chronic kidney disease stage IIIa. Monitor urine output Accurate I's and O's Currently normal saline 84 cc an hour Heme: Normocytic anemia Leukocytosis Patient had a bone marrow biopsy by Dr. Higuera. Normal Monitor CBC daily. Follow trend ID: Community acquired pneumonia Received cefepime and azithromycin ED. Add vancomycin Blood cultures 2, sputum and urine Legionella pneumococcal antigen ordered. Influenza a and B ordered. Chlamydia/mycoplasma antibodies ordered MSK: History of orthopedic concern including right shoulder/humerus, left elbow, rule right ankle. Chronic injections right knee -Dr. Batista Osteoporosis/arthritis PT/OT evaluate and treat FEN: Hyponatremia Currently on normal saline at 84 cc an hour. Replace electrolyte per ICU electrolyte protocol Access -Utilize peripheral IV. Central line if indicated Prophylax -GI -pantoprazole -DVT -SCD/heparin subcu Level 3 admission Code Status Full code Discussed Condition With Patient. . Dr. Helton. Care plan discussed and all questions answered. Problem Qualifiers (1) Leukocytosis: Qualified Codes: D72.829 - Elevated white blood cell count, unspecified (2) Sepsis: Qualified Codes: A41.9 - Sepsis, unspecified organism (3) HTN (hypertension): Qualified Codes: I10 - Essential (primary) hypertension (4) Gastroesophageal reflux disease: Qualified Codes: K21.9 - Gastro-esophageal reflux disease without esophagitis (5) Hypothyroidism: Qualified Codes: E03.9 - Hypothyroidism, unspecified (6) Diabetes mellitus: Qualified Codes: E11.8 - Type 2 diabetes mellitus with unspecified complications (7) Depression: Qualified Codes: F32.9 - Major depressive disorder, single episode, unspecified Jovi Vivas MD Dec 13, 2017 07:54
[2017-12-13] MEDS: INSULIN NovoLIN REGULAR SUPPLEMENTAL SCALE SQ SCH ×4 (08:00→20:50)
[2017-12-13] MEDS ORDERED: HYDROmorphone HCL PF 2 MG/ML VIAL IV PUSH PRN (08:00)
[2017-12-13] MEDS ORDERED: RESP: ALBUTEROL 2.5 MG/IPRATROPIUM 0.5 MG NEB (SCH) INH (08:00)
[2017-12-13] MEDS: HEPARIN SODIUM - SQ 10,000 UNITS/ML VIAL SQ SCH ×2 (08:55→15:42)
[2017-12-13] MEDS: SODIUM CHLOR 0.9% 1000 ML INJ 1,000 ML IV SCH ×3 (08:55→21:27)
[2017-12-13] MEDS: LEVOTHYROXINE SODIUM 100 MCG TAB PO SCH (09:00)
[2017-12-13] MEDS: FLUTICASONE 100 MCG/VILANTEROL 25 MCG INHALER INH SCH (09:00)
[2017-12-13] MEDS: ARTIFICIAL TEARS OPTH SOLN 15 ML BTL EACH EYE SCH ×3 (09:00→18:00)
[2017-12-13] MEDS ORDERED: UMECLIDINIUM 62.5 MCG/VILANTEROL 25 MCG INHALER INH SCH (09:00)
[2017-12-13] MEDS: hydrOXYzine PAMOATE 25 MG CAP PO SCH ×2 (09:00→21:26)
[2017-12-13] MEDS ORDERED: VANCOMYCIN INJ 1,250 MG in SODIUM CHLOR 0.9% 250 ML INJ 250 ML IV ONE (09:00)
[2017-12-13] MEDS: FLUTICASONE PROPIONATE 50 MCG/ACT 16 GM NASAL SPRAY EACH NARE SCH ×2 (09:00→21:00)
--- NOTE | 2017-12-13 10:14 | RADRPT ---
EXAM DATE: 12/13/2017 10:08 AM EDT AGE/SEX: 72 years / Female INDICATIONS: Bilateral leg edema. CLINICAL DATA: This is the patient's initial encounter. Patient reports that signs and symptoms have been present for 1 day and indicates a pain score of 5/10. MEDICAL/SURGICAL HISTORY: Hypercholesterolemia. Hypertension. Chronic obstructive pulmonary d isease. Thyroid disease. Syncope. GOUT. GERD. Ulcers. Hernia. Osteoarthritis. Tonsillectomy. Hyst erectomy. Cholecystectomy. Back surgery. Hernia repair. COMPARISON: No prior exams available for comparison. TECHNIQUE: Venous ultrasound of both lower extremities was performed from the inguinal ligament to t he proximal calf. Real-time, color Doppler and spectral tracing, compression and augmentation techni ques were used. FINDINGS: Right Leg: Normal compression of the deep venous system from the inguinal region to the proximal [place] f. No echogenic clot is seen. Normal response of the venous system to augmentation and respiration. H owever, the patient has a knee brace in place and therefore we are unable to visualize the distal fem oral vein, popliteal vein, and peroneal vein. Left Leg: Normal compression of the deep venous system from the inguinal region to the proximal calf . No echogenic clot is seen. Normal response of the venous system to augmentation and respiration. Other: None. CONCLUSION: 1. No DVT is identified within either lower extremity. 2. Please note that portions of the right lower extremity venous system were unable to be visualized secondary to the patient's knee brace. Electronically signed by: Hilton Austin MD 12/13/2017 10:12 AM EDT
[2017-12-13] MEDS: CEFEPIME INJ 2,000 MG in SODIUM CHLORIDE 0.9% INJ 100 ML IV SCH ×2 (10:51→21:26)
[2017-12-13] MEDS: SODIUM CHLORIDE 0.9% FLUSH 10 ML FLUSH IV FLUSH SCH ×2 (10:52→21:25)
[2017-12-13] MEDS: DULoxetine HCl DR 60 MG CAP PO SCH (10:53)
[2017-12-13] MEDS: FERROUS SULFATE 300 MG /5ML UDC PO SCH (10:53)
[2017-12-13] MEDS: SUCRALFATE 1 GM TAB PO SCH ×4 (10:54→21:25)
[2017-12-13] MEDS: PROPRANOLOL HCL 20 MG TAB PO SCH ×2 (10:54→20:52)
[2017-12-13] MEDS: DOCUSATE SODIUM 50 MG/SENNA 8.6 MG TAB PO SCH ×2 (10:54→20:52)
[2017-12-13] MEDS: ALLOPURINOL 100 MG TAB PO SCH ×2 (10:54→21:25)
[2017-12-13] MEDS: PANTOPRAZOLE SOD 40 MG DELAYED RELEASE TAB PO SCH (10:54)
[2017-12-13] MEDS: NIFEdipine 60 MG SUSTAINED RELEASE TAB PO SCH (10:55)
[2017-12-13] MEDS: FUROSEMIDE 40 MG TAB PO SCH (10:55)
[2017-12-13] MEDS: MUPIROCIN 2% OINT 1 APPLIC/GM SYR EACH NARE SCH ×2 (10:56→21:25)
[2017-12-13] MEDS: RESP: ALBUTEROL 2.5 MG/IPRATROPIUM 0.5 MG NEB (SCH) INH ×3 (11:43→19:38)
[2017-12-13] MEDS ORDERED: VANCOMYCIN 1,500 MG/NS 500 ML IV SCH ×2 (13:00)
--- NOTE | 2017-12-13 13:32 | EKG ---
Date Performed: 12/13/2017 Time Performed: 05:05:39 PTAGE: 72 years EKG: UNCERTAIN REGULAR RHYTHM LEFT BUNDLE BRANCH BLOCK ABNORMAL ECG PREVIOUS TRACING : 07/30/2017 16.44 Baseline artifact precludes accurate assessment, but appear s largely unchanged from the prior tracing. DOCTOR: Vel Hidalgo Interpretating Date/Time 12/13/2017 13:32:04
[2017-12-13] MEDS: AMITRIPTYLINE HCL 25 MG TAB PO SCH (21:25)
[2017-12-13] MEDS: ATORVASTATIN 40 MG TAB PO SCH (21:25)
[2017-12-13] MEDS: MORPHINE SULFATE 4 MG/ML INJ IV PUSH PRN (21:27)
[2017-12-13] MEDS: oxyCODONE/ACETAMINOPHEN 5 MG/325 MG TAB PO PRN (21:48)
[2017-12-13 22:09] LABS: CREATININE, RANDOM URINE 39.1 MG/DL
[2017-12-14] VITALS (22 sets, daily range): BP systolic 79–180; BP diastolic 47–89; PULSE 65–109; RESP 20–38; TEMP 98–99.7; O2SAT 93–100
[2017-12-14] MEDS: HEPARIN SODIUM - SQ 10,000 UNITS/ML VIAL SQ SCH ×3 (00:04→16:34)
[2017-12-14] MEDS: MORPHINE SULFATE 4 MG/ML INJ IV PUSH PRN ×2 (00:05→03:50)
[2017-12-14] MEDS: RESP: ALBUTEROL 2.5 MG/IPRATROPIUM 0.5 MG NEB (SCH) INH ×7 (00:08→23:47)
[2017-12-14] MEDS: CHLORHEXIDINE GLUCONATE 2 % 1 PACK (2 CLOTHS) TOP SCH (03:50)
[2017-12-14] MEDS: AZITHROMYCIN INJ 500 MG in SODIUM CHLOR 0.9% 250 ML INJ 250 ML IV SCH (04:27)
[2017-12-14] MEDS: LEVOTHYROXINE SODIUM 100 MCG TAB PO SCH (04:27)
[2017-12-14] MEDS: oxyCODONE/ACETAMINOPHEN 5 MG/325 MG TAB PO PRN (04:27)
[2017-12-14 04:55] LABS: AUTOMATED NEUTROPHIL # 30.4 TH/MM3 (1.8-7.7); BASOPHIL % 0.1 % (0.0-2.0); EOSINOPHIL % 0.1 % (0.0-4.0); HEMATOCRIT 29.2 % (35.0-46.0); HEMOGLOBIN 9.4 GM/DL (11.6-15.3); LYMPH % 4.3 % (9.0-44.0); LYMPHOCYTE # 1.4 TH/MM3 (1.0-4.8); MEAN CELL VOLUME 88.2 FL (80.0-100.0); MEAN CORPUSCULAR HEMOGLOBIN 28.5 PG (27.0-34.0); MEAN CORPUSCULAR HGB CONC 32.3 % (32.0-36.0); MEAN PLATELET VOLUME 7.1 FL (7.0-11.0); MONOCYTE # 0.6 TH/MM3 (0-0.9); NEUT % 93.5 % (16.0-70.0); PLATELET COUNT 306 TH/MM3 (150-450); RED BLOOD COUNT 3.31 MIL/MM3 (4.00-5.30); RED CELL DISTRIBUTION WIDTH 16.6 % (11.6-17.2); WHITE BLOOD COUNT 32.5 TH/MM3 (4.0-11.0)
[2017-12-14 04:57] LABS: INTERNATIONAL NORMALIZED RATIO 1.2 RATIO; PROTHROMBIN TIME - PATIENT 12.4 SEC (9.8-11.6)
[2017-12-14 05:10] LABS: ALBUMIN 2.8 GM/DL (3.4-5.0); AST (GOT) 137 U/L (15-37); BICARBONATE 22.1 MEQ/L (21.0-32.0); BLOOD UREA NITROGEN 33 MG/DL (7-18); CALCIUM 8.5 MG/DL (8.5-10.1); CHLORIDE 99 MEQ/L (98-107); CHOLESTEROL 127 MG/DL (120-200); CREATININE 1.42 MG/DL (0.50-1.00); GLOMERULAR FILTRATION RATE 36 ML/MIN (>89); GLUCOSE,RANDOM 114 MG/DL (74-106); MAGNESIUM 1.4 MG/DL (1.5-2.5); PHOSPHORUS 2.6 MG/DL (2.5-4.9); SODIUM (NA) 134 MEQ/L (136-145); TRIGLYCERIDES 59 MG/DL (42-150)
--- NOTE | 2017-12-14 05:13 | RADRPT ---
EXAM DATE: 12/14/2017 4:59 AM EDT AGE/SEX: 72 years / Female INDICATIONS: Shortness of breath, possible pulmonary disease. CLINICAL DATA: This is the patient's subsequent encounter. Patient reports that signs and symptoms h ave been present for 2 days and indicates a pain score of 0/10. MEDICAL/SURGICAL HISTORY: Hypertension. Hypercholesterolemia. Gastroesophageal reflux disease . Cholecystectomy. Appendectomy. COMPARISON: [facility] [place], CHEST SINGLE AP, 12/13/2017. . FINDINGS: Signal in the chest and again there is some patchy infiltrates in the right perihilar distribution in the left lung base. Infiltrates are stable from the previous study. There is no visible pneumothorax . Heart and mediastinum are unremarkable. CONCLUSION: Patchy bilateral infiltrates, right worse than left are unchanged Electronically signed by: Yo Weber MD 12/14/2017 5:12 AM EDT
[2017-12-14 05:15] LABS: ALKALINE PHOSPHATASE 179 U/L (45-117); ALT (GPT) 143 U/L (10-53); CHOLESTEROL/ HDL RATIO 2.34 RATIO; HDL CHOLESTEROL 54.1 MG/DL (40.0-60.0); LDL CHOLESTEROL 61 MG/DL (0-99); TOTAL BILIRUBIN ADULT 0.9 MG/DL (0.2-1.0)
[2017-12-14 06:26] LABS: BANDS 24 % (0-6); BASOPHILS 1 % (0-2); LYMPHOCYTES 8 % (9-44); NEUTROPHIL # MANUAL DIFF 29.6 TH/MM3 (1.8-7.7); POLYS (SEG NEUTROPHILS) 67 % (16-70)
[2017-12-14] MEDS: MUPIROCIN 2% OINT 1 APPLIC/GM SYR EACH NARE SCH ×2 (07:50→21:04)
[2017-12-14] MEDS: INSULIN NovoLIN REGULAR SUPPLEMENTAL SCALE SQ SCH ×4 (07:50→21:00)
[2017-12-14] MEDS: SODIUM CHLORIDE 0.9% FLUSH 10 ML FLUSH IV FLUSH SCH ×2 (07:51→21:01)
[2017-12-14] MEDS: FLUTICASONE 100 MCG/VILANTEROL 25 MCG INHALER INH SCH (07:51)
[2017-12-14] MEDS: ARTIFICIAL TEARS OPTH SOLN 15 ML BTL EACH EYE SCH ×4 (07:52→21:06)
[2017-12-14] MEDS: DULoxetine HCl DR 60 MG CAP PO SCH (07:52)
[2017-12-14] MEDS: SUCRALFATE 1 GM TAB PO SCH ×4 (07:52→21:00)
[2017-12-14] MEDS: PANTOPRAZOLE SOD 40 MG DELAYED RELEASE TAB PO SCH (07:53)
[2017-12-14] MEDS: NIFEdipine 60 MG SUSTAINED RELEASE TAB PO SCH (07:55)
[2017-12-14] MEDS: ALLOPURINOL 100 MG TAB PO SCH ×2 (07:55→21:00)
[2017-12-14] MEDS: DOCUSATE SODIUM 50 MG/SENNA 8.6 MG TAB PO SCH ×2 (07:57→21:00)
[2017-12-14] MEDS: FUROSEMIDE 40 MG TAB PO SCH (07:57)
[2017-12-14] MEDS: PROPRANOLOL HCL 20 MG TAB PO SCH ×2 (07:57→21:00)
[2017-12-14] MEDS: hydrOXYzine PAMOATE 25 MG CAP PO SCH ×2 (07:58→21:00)
[2017-12-14] MEDS: FERROUS SULFATE 300 MG /5ML UDC PO SCH (07:58)
--- NOTE | 2017-12-14 08:16 | HHI.CCPN ---
Subjective Remarks/Hospital Course This is a 72-year-old female. The date of admission 12/13/2017. Past medical history includes depression/anxiety, chronic opiate use, chronic benzodiazepine use, essential hypertension hyperlipidemia, mild to moderate pulmonary hypertension, asthma/COPD, diabetes mellitus/gastroesophageal reflux disease, hypothyroidism, gout, chronic kidney disease stage III a anemia. Patient denies any recent travels or sick contacts. Last night, patient with acute onset of shortness of breath. Not associated with chest pain. Denies cough, sputum production, wheezing. Patient was quite tachypneic and presented to [facility] for further evaluation. Patient was placed on BiPAP therapy due to acute hypercapnia and hypoxemia. Chest x-ray revealed bilateral lower lobe pneumonia/infiltrates with right upper lobe infiltrate. Was treated acutely with cefepime and azithromycin. She was tachycardic in the 120s. Initial troponin 0 0.09. Refused aspirin. Lactic acid was slightly elevated at 3.2. Received 1 L normal saline. She is currently in a sinus tachycardia with a rate 120. Appears comfortable is able to speak complete since without using accessory muscles. Subjective 12/14: Currently down to 4 L nasal cannula. Off BiPAP since last night. Peak of 0.89. Denies chest pain likely type II demand ischemia from acute respiratory failure secondary to community acquired pneumonia.. Refusing aspirin. Requesting to use regular restroom facilities. Positive BM. Tolerating diet. Pain is well controlled according to patient Objective Vital Signs Date Time Temp Pulse Resp B/P (MAP) Pulse Ox O2 Delivery O2 Flow Rate FiO2 12/14/17 07:34 97 Nasal Cannula 4.00 12/14/17 06:00 101 12/14/17 04:40 40 12/14/17 04:00 98.7 28 135/72 (93) Intake and Output 12/14/17 12/14/17 12/15/17 08:00 16:00 00:00 Intake Total 2585 ml Output Total 700 ml Balance 1885 ml Result Diagram: 12/14/17 0420 12/14/17 0420 Other Results Microbiology Date/Time Source Procedure Growth Status 12/13/17 08:50 Blood Peripheral Aerobic Blood Culture Pending Received 12/13/17 08:50 Blood Peripheral Anaerobic Blood Culture Pending Received 12/14/17 03:45 Nasal Aspirate Influenza Types A,B Antigen (ANAYA) - Final NEGATIVE FOR FLU A AND B ANTIGEN.... Complete 12/13/17 05:24 Urine Catheterized Urine Legionella Antigen Pending Received 12/13/17 05:24 Urine Catheterized Urine Streptococcus pneumoniae Antigen (M Pending Received Imaging Last Impressions Chest X-Ray 12/14/17 0000 Signed Impressions: CONCLUSION: Patchy bilateral infiltrates, right worse than left are unchanged Lower Extremity Ultrasound 12/13/17 0000 Signed Impressions: CONCLUSION: 1. No DVT is identified within either lower extremity. 2. Please note that portions of the right lower extremity venous system were u nable to be visualized secondary to the patient's knee brace. Objective Remarks GENERAL: 72-year-old female currently resting in bed on 4 L nasal cannula saturation 98% in no acute distress SKIN: Warm and dry. Old well-healed scar over right shoulder, left elbow and right ankle. HEAD: Atraumatic. Normocephalic. EYES: Pupils equal and round 3 mm bilaterally and react. No scleral icterus. No injection or drainage. ENT: No nasal bleeding or discharge. Mucous membranes pink and moist. NECK: Trachea midline. No JVD. CARDIOVASCULAR: Tachycardic, RR. S1, S 2. No S4.. 1/6 systolic murmur apex RESPIRATORY: Diminished breath sounds throughout. Few crackles appreciated bilateral lower lobes and right upper lobe posteriorly. No wheezing. GASTROINTESTINAL: Abdomen soft, non-tender, nondistended. Hypoactive bowel sounds appreciated. MUSCULOSKELETAL: Extremities with trace bilateral lower extremity edema. Right knee is currently wrapped in an Mark bandage. NEUROLOGICAL: Awake and alert. No obvious cranial nerve deficits. Motor grossly within normal limits. Five out of 5 muscle strength in the arms and legs. Normal speech. Urinary Catheter: No Assessment to: Continue Vascular Central Line Catheter: No Assessment to: Continue A/P Assessment and Plan Neuro/Psych: Depression/anxiety Chronic opioid use Chronic benzodiazepine use Chronic pain syndrome Acetaminophen 650 mg by mouth every 6 hours as needed fever Oxycodone/acetaminophen 5/25 1 tablet every 4 hours as needed pain 1 through 5 Morphine sulfate 2 mg IV every 3 hours as needed pain 6 - 10 Patient is on morphine sulfate 15 mg by mouth 3 times daily/home medication continued Patient is on oxycodone/acetaminophen 10/325 1 tablet every 4-6 hours as needed pain breakthrough. Held due to pain regimen as above Continue amitriptyline 25 mg at night/home medication Continue duloxetine 60 mg by mouth daily/home medication Continue hydroxyzine 25 mg twice daily/home medication Continue tizanidine 4 mg 3 times daily/home medication Holding alprazolam 0.25 mg 3 times daily as needed anxiety/home medication Holding temazepam 30 mg at night/home medication/home medication CV: Left bundle branch block Essential hypertension Hyperlipidemia Sinus tachycardia Moderate pulmonary hypertension Moderate MR/mild TR Lactic acidosis currently 2.5 Elevated troponin I -likely type II demand ischemia secondary to acute respiratory failure Initial troponin 0 0.09. EKG revealed sinus tachycardia rate in the 110s with a left bundle branch block. Left bundle branch block was apparent on EKG 08/16. 2D echocardiogram 01/12 revealed EF 50-55%. Pulmonary arterial pressures 53 mmHg. Moderate MR. Mild TR. Saw Dr. wilkinson at that time. Home medications include propranolol 20 mg by mouth twice daily and nifedipine extended release 60 mg daily. This will be continued for hypertension Home medications include atorvastatin 40 mg daily for dyslipidemia. This is been resumed Lactic acidosis every 6 hours until cleared Trend troponins every 6 hours 3. Currently trending downward peaked at 0.89 Routine 2D echocardiogram ordered. Bilateral lower extremity Dopplers ordered with negative findings for acute deep venous thrombosis Continue furosemide 40 mg p.o. daily BNP was 62 Did receive boluses of normal saline yesterday Resp: Acute hypoxic hypercapnic respiratory failure Reactive airway disease/asthma/COPD? Sees Dr. Carter Fluticasone furoate/Vilanterol inhaled 100 mcg/25 mcg 1 inhalation daily Albuterol/ipratropium aerosols every 4 hours with albuterol aerosols every 2 hours as needed dyspnea Chest x-ray admission revealed bilateral lower lobe/right upper lobe pneumonia/ infiltrates. Similar finding 12/14 Pulmonary consultation/routine will be ordered during this hospitalization with Dr. Carter Currently on 4 L nasal cannula. Will titrate to keep saturations greater than equal 90% Acapella/PEP every 4 hours Incentive spirometry while awake GI: Gastroesophageal reflux disease History of achalasia Elevated transaminases History of peptic ulcer disease - Sees Dr. Fanny BRUNO diet Pantoprazole 40 mg daily/on omeprazole 40 mg daily at home Continue sucralfate 1 g 4 times daily Docusate sodium/senna 1 tablet twice daily for bowel regimen Negative hepatitis panel and CPK are elevated transaminases : Rosado catheter if indicated for accurate I's and O's in a critically ill patient Endo: Diabetes mellitus type 2 Gout Hypothyroidism Holding metformin 500 mg twice daily. Check hemoglobin A1c in a.m. results still pending Sliding-scale insulin with Novulin N with Accu-Cheks before meals/at bedtime to maintain euglycemia/moderate regimen Continue allopurinol 100 mg by mouth twice daily. Check uric acid with a.m. results still pending Continue levothyroxine 100 mcg daily. Check TSH with a.m. results still pending. Last TSH 0.49 Renal: Acute kidney injury in the setting of chronic kidney disease stage IIIa. Monitor urine output Accurate I's and O's Currently normal saline 84 cc an hour Heme: Normocytic anemia Leukocytosis Patient had a bone marrow biopsy by Dr. Higuera. Normal Monitor CBC daily. Follow trend ID: Community acquired pneumonia Received cefepime and azithromycin ED. Add vancomycin Blood cultures 2, sputum and urine Legionella pneumococcal antigen ordered. Influenza a and B negative Chlamydia/mycoplasma antibodies ordered with results pending MSK: History of orthopedic concern including right shoulder/humerus, left elbow, rule right ankle. Chronic injections right knee -Dr. Batista Osteoporosis/arthritis PT/OT evaluate and treat FEN: Hyponatremia Currently on normal saline at 84 cc an hour. Replace electrolyte per ICU electrolyte protocol Access -Utilize peripheral IV. Central line if indicated Prophylax -GI -pantoprazole -DVT -SCD/heparin subcu Level 3 follow-up Jovi Vivas MD Dec 14, 2017 08:16
[2017-12-14] MEDS: CEFEPIME INJ 2,000 MG in SODIUM CHLORIDE 0.9% INJ 100 ML IV SCH ×2 (09:23→21:03)
[2017-12-14] MEDS: ASPIRIN 81 MG CHEW TAB CHEW SCH (09:23)
[2017-12-14] MEDS ORDERED: LACTATED RINGER'S 1000 ML INJ 1,000 ML IV ONE (09:45)
[2017-12-14] MEDS ORDERED: ALBUMIN 5% INJ 250 ML IV ONE (09:45)
[2017-12-14] MEDS: methylPREDNISolone SOD SUCC 40 MG/1 ML VIAL IV PUSH SCH ×2 (10:30→17:19)
[2017-12-14] MEDS: FLUTICASONE PROPIONATE 50 MCG/ACT 16 GM NASAL SPRAY EACH NARE SCH ×2 (10:40→21:00)
[2017-12-14] MEDS ORDERED: ALPRAZolam 0.25 MG TAB PO PRN (14:30)
--- NOTE | 2017-12-14 14:35 | MB ---
cc: Darwin Carter MD DATE: 12/14/2017 REASON FOR CONSULTATION: Pneumonia. HISTORY OF PRESENT ILLNESS: The patient is a 72-year-old female who is known to have history of obstructive asthma/COPD, hypertension, hyperlipidemia with diabetes mellitus. She came to the hospital because she was having increased shortness of breath of tightness in her chest. She reports that today she is doing a little bit better. The patient was put on BiPAP overnight. She is better. She is off BiPAP right now. She still feels ill. She is not back to her baseline. She is being treated for pneumonia. She did have lactic acidosis and tachycardia as well. REVIEW OF SYSTEMS: Her review of systems was reviewed in detail. FAMILY HISTORY, MEDICATIONS, ALLERGIES: All reviewed in detail. PHYSICAL EXAMINATION: GENERAL: The patient looks ill. VITAL SIGNS: Shows temperature 98, pulse 71, respiratory rate is low 30s, blood pressure 102/60. She is sating at 93%. HEENT: Head atraumatic, normocephalic. NECK: Trachea midline. LUNGS: Bilateral crackles. HEART: Regular S1 and S2. ABDOMEN: Soft. EXTREMITIES: Minimal lower extremity edema with no cyanosis. NEUROLOGIC: Alert, oriented, moves all extremities. LABORATORY DATA: Reviewed. WBC 32.5, hemoglobin is 9.4. Sodium 134, BUN is 33, creatinine 1.42. I reviewed her chest x-ray that did show bilateral infiltrates. ASSESSMENT AND PLAN: 1. Severe pneumonia. 2. Chronic obstructive pulmonary disease/asthma with possible exacerbation. The patient is already improving. I do recommend to continue the current antibiotics. We will give her 3 doses of Solu-Medrol. Wean off FiO2 for O2 saturation more than or equal to 89%. If she continues to improve tomorrow, she can leave the ICU. She will definitely need a followup chest x-ray in 3-4 weeks. Thank you for this consultation. MD CALEB Alfonso/ZEHRA , 01:19 PM , 02:34 PM
--- NOTE | 2017-12-14 16:27 | ECHRPT ---
Indication: EF CHF/ ENDOCARDITIS CONCLUSIONS Technically difficult study. In limited views, the left ventricular systolic function is mildly reduced with an estimated ejectio n fraction in the range of 45-50%. There was limited left ventricular wall motion assessment due to poor endocardial visualization. [id number]-[id number] mitral valve regurgitation. There is trace tricuspid valve regurgitation. BP: / HR: Rhythm: MEASUREMENTS (Male / Female) Normal Values Technical Quality:Technically difficult study 2D ECHO LV Diastolic Diameter PLAX 4.7 cm 4.2 - 5.9 / 3.9 - 5.3 cm LV Systolic Diameter PLAX 3.9 cm IVS Diastolic Thickness 0.9 cm 0.6 - 1.0 / 0.6 - 0.9 cm LVPW Diastolic Thickness 0.7 cm 0.6 - 1.0 / 0.6 - 0.9 cm LV Relative Wall Thickness 0.3 DOPPLER TR Peak Velocity 337.0 cm/s TR Peak Gradient 45.4 mmHg Right Atrial Pressure 5.0 mmHg Pulmonary Artery Systolic Pressu 50.4 mmHg Right Ventricular Systolic Press 50.4 mmHg FINDINGS LEFT VENTRICLE Normal left ventricular size. Wall thickness is normal. In limited views, the left ventricular systolic function is mildly reduced with an estimated ejectio n fraction in the range of 45-50%. There was limited left ventricular wall motion assessment due to poor endocardial visualization. RIGHT VENTRICLE Grossly normal LEFT ATRIUM The left atrial size is normal. RIGHT ATRIUM The right atrial size is normal. ATRIAL SEPTUM Normal atrial septal thickness. MITRAL VALVE Grossly normal Mitral annular calcification is present. Xuak-ik-ytgseoek mitral valve regurgitation. No mitral valve stenosis. AORTIC VALVE Aortic valve sclerosis is present. Probable trileaflet No aortic valve regurgitation. No aortic valve stenosis. TRICUSPID VALVE Grossly normal There is trace tricuspid valve regurgitation. The estimated pulmonary arterial pressure is 50mmHg. PULMONARY VALVE The pulmonary valve is not well visualized. PERICARDIUM No pericardial effusion. Fernando Ba DO (Electronically Signed) Final Date:14 December 2017 16:26
[2017-12-14] MEDS: SODIUM CHLOR 0.9% 1000 ML INJ 1,000 ML IV SCH (17:20)
--- NOTE | 2017-12-14 17:31 | RADRPT ---
EXAM DATE: 12/14/2017 4:21 PM EDT AGE/SEX: 72 years / Female INDICATIONS: Increased lab values. CLINICAL DATA: This is the patient's subsequent encounter. Patient reports that signs and symptoms h ave been present for 1 day and indicates a pain score of 4/10. MEDICAL/SURGICAL HISTORY: . Thyroid disease. Hypertension. COPD. GERD. . Cataracts. Tonsil lectomy. Back surgery. Cholecystectomy. Hiatal hernia. Hysterectomy. COMPARISON: No prior exams available for comparison. MEASUREMENTS (cm x cm x cm): Liver:__ 14.8 cm length Common Bile Duct:__ 12mm Right Kidney:__ 8.7 x 4.0 x 4.8 cm FINDINGS: Liver: Normal echotexture without focal lesion or ductal dilatation. Portal Vein: Hepatopedal flow seen in portal vein. Common Duct: No intraluminal mass or stone visualized. Gallbladder: Surgically Absent. Pancreas: Not well visualized. Right Kidney: Increased echotexture. No mass or hydronephrosis. Other: None. CONCLUSION: 1. The common bile duct is dilated. This may reflect a reservoir phenomenon following cholecystectom y. 2. The pancreas is obscured by bowel gas. 3. The right kidney appears small which could suggest some degree of atrophy. Electronically signed by: Hilton Tena MD 12/14/2017 5:29 PM EDT
[2017-12-14] MEDS ORDERED: ETOMIDATE 40 MG/20 ML VIAL ONE (18:32)
[2017-12-14] MEDS ORDERED: ROCURONIUM INJ 50 MG/5 ML VIAL ONE (18:33)
[2017-12-14] MEDS ORDERED: PROPOFOL 500 MG/50 ML INJ 50 ML ONE (18:39)
[2017-12-14] MEDS: CHLORHEXIDINE 0.12% (ORAL KIT) 15 ML CUP MT SCH (20:00)
--- NOTE | 2017-12-14 20:20 | RADRPT ---
EXAM DATE: 12/14/2017 8:11 PM EDT AGE/SEX: 72 years / Female INDICATIONS: Intubation. CLINICAL DATA: This is the patient's subsequent encounter. Patient reports that signs and symptoms h ave been present for 2 days and indicates a pain score of Nonresponsive. MEDICAL/SURGICAL HISTORY: Hypertension. Hypercholesterolemia. Gastroesophageal reflux disease . Appendectomy. Cholecystectomy. [place] [facility] [place]. . FINDINGS: Endotracheal tube tip is about 1 cm above the marialuisa. There is bilateral airspace disease which has w orsened since exam from earlier today. Also bilateral effusions. No pneumothorax. CONCLUSION: Endotracheal tube tip about 1 cm above the marialuisa. Worsened bilateral airspace disease and effusion s asif earlier exam. Electronically signed by: Izaiah Juarez MD 12/14/2017 8:19 PM EDT
[2017-12-14] MEDS: ATORVASTATIN 40 MG TAB PO SCH (21:00)
[2017-12-14] MEDS: AMITRIPTYLINE HCL 25 MG TAB PO SCH (21:00)
[2017-12-14] MEDS: fentaNYL DRIP 250 ML IV PRN (21:19)
[2017-12-14] MEDS: PROPOFOL 1000 MG/100 ML INJ 100 ML IV PRN (21:51)
[2017-12-14 22:25] LABS: HEMOGLOBIN A1C 6.2 % (4.3-6.0)
--- NOTE | 2017-12-14 23:21 | EKG ---
Date Performed: 12/13/2017 Time Performed: 07:45:00 PTAGE: 72 years EKG: ATRIAL FIBRILLATION WITH RAPID VENTRICULAR RESPONSE LEFT BUNDLE BRANCH BLOCK ABNORMAL ECG NO PREVIOUS TRACING DOCTOR: Manpreet Espinoza Interpretating Date/Time 12/14/2017 23:06:44
[2017-12-15] VITALS (18 sets, daily range): BP systolic 143–164; BP diastolic 71–76; PULSE 64–86; RESP 20; TEMP 97.1–98.7; O2SAT 99–100
--- NOTE | 2017-12-15 00:26 | PD.PROCEDR ---
Procedure Note Procedure Procedure: Endotracheal intubation Preop diagnosis: Acute respiratory failure Postop diagnosis: Same Indication: Hypoxic respiratory failure with increasing work of breathing and desaturation Sedation used: Etomidate 25 mg, fentanyl 100 mcg, rocuronium 50 mg IV Procedure: Patient was preoxygenated with 100% oxygen via [] Ambu bag with bag mask ventilation, following induction of sedation and neuromuscular blockade, direct laryngoscopy was performed using a Mac 3 blade with good visualization of vocal cords. An 8 Ethiopian ET tube was passed through the vocal cords under direct visualization up to the 23 centimeter juju and after inflating cuff of ET tube, correct placement was confirmed using bagging with good color change on CO2 detector, 5 point auscultation and chest rise with ventilation. Patient was connected to mechanical ventilation. Patient tolerated the procedure well with no immediate complications noted. Postprocedure chest x-ray was ordered. Dustin Jennings MD Dec 15, 2017 00:26
[2017-12-15] MEDS: HEPARIN SODIUM - SQ 10,000 UNITS/ML VIAL SQ SCH ×4 (00:45→23:00)
[2017-12-15] MEDS: PROPOFOL 1000 MG/100 ML INJ 100 ML IV PRN ×6 (01:41→22:59)
[2017-12-15] MEDS: methylPREDNISolone SOD SUCC 40 MG/1 ML VIAL IV PUSH SCH (01:43)
[2017-12-15] MEDS: RESP: ALBUTEROL 2.5 MG/IPRATROPIUM 0.5 MG NEB (SCH) INH ×6 (03:23→22:28)
[2017-12-15] MEDS: CHLORHEXIDINE GLUCONATE 2 % 1 PACK (2 CLOTHS) TOP SCH (03:37)
[2017-12-15] MEDS: ARTIFICIAL TEARS OPTH SOLN 15 ML BTL EACH EYE SCH ×6 (05:47→21:28)
[2017-12-15] MEDS: AZITHROMYCIN INJ 500 MG in SODIUM CHLOR 0.9% 250 ML INJ 250 ML IV SCH (05:47)
[2017-12-15] MEDS: LEVOTHYROXINE SODIUM 100 MCG TAB PO SCH (05:47)
[2017-12-15] MEDS: fentaNYL DRIP 250 ML IV PRN ×3 (06:38→23:00)
[2017-12-15] MEDS: SODIUM CHLOR 0.9% 1000 ML INJ 1,000 ML IV SCH ×2 (07:33→17:08)
[2017-12-15] MEDS: FLUTICASONE PROPIONATE 50 MCG/ACT 16 GM NASAL SPRAY EACH NARE SCH ×2 (07:34→20:05)
[2017-12-15] MEDS: MUPIROCIN 2% OINT 1 APPLIC/GM SYR EACH NARE SCH ×2 (07:34→20:05)
[2017-12-15] MEDS: INSULIN NovoLIN REGULAR SUPPLEMENTAL SCALE SQ SCH ×4 (07:35→20:06)
[2017-12-15] MEDS: SODIUM CHLORIDE 0.9% FLUSH 10 ML FLUSH IV FLUSH SCH ×2 (07:36→20:05)
[2017-12-15] MEDS: CHLORHEXIDINE 0.12% (ORAL KIT) 15 ML CUP MT SCH ×2 (08:00→20:00)
[2017-12-15] MEDS: PROPRANOLOL HCL 20 MG TAB PO SCH ×2 (08:20→20:06)
[2017-12-15] MEDS: FERROUS SULFATE 300 MG /5ML UDC PO SCH (08:20)
[2017-12-15] MEDS: FUROSEMIDE 40 MG TAB PO SCH (08:20)
[2017-12-15] MEDS: hydrOXYzine PAMOATE 25 MG CAP PO SCH ×2 (08:20→20:06)
[2017-12-15] MEDS: DULoxetine HCl DR 60 MG CAP PO SCH (08:20)
[2017-12-15] MEDS: PANTOPRAZOLE SOD 40 MG DELAYED RELEASE TAB PO SCH (08:20)
[2017-12-15] MEDS: DOCUSATE SODIUM 50 MG/SENNA 8.6 MG TAB PO SCH ×2 (08:20→20:06)
[2017-12-15] MEDS: SUCRALFATE 1 GM TAB PO SCH ×4 (08:20→20:05)
[2017-12-15] MEDS: FLUTICASONE 100 MCG/VILANTEROL 25 MCG INHALER INH SCH (08:20)
[2017-12-15] MEDS: ASPIRIN 81 MG CHEW TAB CHEW SCH (08:20)
[2017-12-15] MEDS: ALLOPURINOL 100 MG TAB PO SCH ×2 (08:21→20:06)
[2017-12-15] MEDS: LORazepam 2 MG/ML VIAL IV PRN ×2 (09:49→21:28)
[2017-12-15] MEDS: CEFEPIME INJ 2,000 MG in SODIUM CHLORIDE 0.9% INJ 100 ML IV SCH ×2 (09:53→21:28)
--- NOTE | 2017-12-15 10:03 | HHI.CCPN ---
Subjective Remarks/Hospital Course This is a 72-year-old female. The date of admission 12/13/2017. Past medical history includes depression/anxiety, chronic opiate use, chronic benzodiazepine use, essential hypertension hyperlipidemia, mild to moderate pulmonary hypertension, asthma/COPD, diabetes mellitus/gastroesophageal reflux disease, hypothyroidism, gout, chronic kidney disease stage III a anemia. Patient denies any recent travels or sick contacts. Last night, patient with acute onset of shortness of breath. Not associated with chest pain. Denies cough, sputum production, wheezing. Patient was quite tachypneic and presented to [facility] for further evaluation. Patient was placed on BiPAP therapy due to acute hypercapnia and hypoxemia. Chest x-ray revealed bilateral lower lobe pneumonia/infiltrates with right upper lobe infiltrate. Was treated acutely with cefepime and azithromycin. She was tachycardic in the 120s. Initial troponin 0 0.09. Refused aspirin. Lactic acid was slightly elevated at 3.2. Received 1 L normal saline. She is currently in a sinus tachycardia with a rate 120. Appears comfortable is able to speak complete since without using accessory muscles. 12/14: Currently down to 4 L nasal cannula. Off BiPAP since last night. Peak of 0.89. Denies chest pain likely type II demand ischemia from acute respiratory failure secondary to community acquired pneumonia.. Refusing aspirin. Requesting to use regular restroom facilities. Positive BM. Tolerating diet. Pain is well controlled according to patient. 12/15: No events post intubation. T-max of 99.3, urine output 1450 mL's over the last 24 hours. Patient is sedated with propofol at 50 and fentanyl and 250. Arousable, following some commands. FiO2 down to 0.4. Objective Vital Signs Date Time Temp Pulse Resp B/P (MAP) Pulse Ox O2 Delivery O2 Flow Rate FiO2 12/15/17 08:00 40 12/15/17 08:00 97.6 77 20 151/71 (97) 99 12/15/17 07:47 Ventilator 12/14/17 07:34 4.00 Intake and Output 12/15/17 12/15/17 12/16/17 08:00 16:00 00:00 Intake Total 1450 ml Output Total 750 ml Balance 700 ml Result Diagram: 12/14/17 0420 12/14/17 0420 Other Results Microbiology Date/Time Source Procedure Growth Status 12/14/17 13:56 Blood Peripheral Aerobic Blood Culture Pending Received 12/14/17 13:56 Blood Peripheral Anaerobic Blood Culture Pending Received 12/14/17 13:50 Blood Peripheral Aerobic Blood Culture Pending Received 12/14/17 13:50 Blood Peripheral Anaerobic Blood Culture Pending Received 12/13/17 08:50 Blood Peripheral Aerobic Blood Culture - Preliminary NO GROWTH IN 1 DAY Resulted 12/13/17 08:50 Blood Peripheral Anaerobic Blood Culture - Preliminary NO GROWTH IN 1 DAY Resulted 12/13/17 08:45 Blood Peripheral Aerobic Blood Culture - Preliminary Staph Sp Coagulase Negative Resulted 12/13/17 08:45 Blood Peripheral Anaerobic Blood Culture - Preliminary NO GROWTH IN 1 DAY Resulted 12/14/17 19:40 Sputum Endotracheal Gram Stain Pending Received 12/14/17 19:40 Sputum Endotracheal Sputum Culture Pending Received 12/14/17 03:45 Nasal Aspirate Influenza Types A,B Antigen (ANAYA) - Final NEGATIVE FOR FLU A AND B ANTIGEN.... Complete 12/13/17 05:24 Urine Catheterized Urine Legionella Antigen - Final PRESUMPTIVE NEGATIVE FOR LEGIONELLA P... Complete 12/13/17 05:24 Urine Catheterized Urine Streptococcus pneumoniae Antigen (M - Final PRESUMPTIVE NEGATIVE FOR STREPTOCOCCU... Complete Microbiology Date/Time Source Procedure Growth Status 12/14/17 03:45 Nasal Aspirate Influenza Types A,B Antigen (ANAYA) - Final NEGATIVE FOR FLU A AND B ANTIGEN.... Complete 12/13/17 05:24 Urine Catheterized Urine Legionella Antigen - Final PRESUMPTIVE NEGATIVE FOR LEGIONELLA P... Complete 12/13/17 05:24 Urine Catheterized Urine Streptococcus pneumoniae Antigen (M - Final PRESUMPTIVE NEGATIVE FOR STREPTOCOCCU... Complete Laboratory Tests Test 12/14/17 18:20 12/14/17 19:22 Blood Gas Puncture Site RT RADIAL RT RADIAL Blood Gas Patient Temperature 98.6 98.6 Blood Gas HCO3 21 mmol/L (22-26) 20 mmol/L (22-26) Blood Gas Base Excess -2.4 mmol/L (-2-2) -3.9 mmol/L (-2-2) Blood Gas Oxygen Saturation 79 % (90-100) 97 % (90-100) Arterial Blood pH 7.43 (7.380-7.420) 7.43 (7.380-7.420) Arterial Blood Partial Pressure CO2 33 mmHg (38-42) 30 mmHg (38-42) Arterial Blood Partial Pressure O2 46 mmHg (61-120) 140 mmHg (61-120) Arterial Blood Oxygen Content 9.4 Vol % (12.0-20.0) 13.6 Vol % (12.0-20.0) Arterial Blood Carboxyhemoglobin 0.9 % (0-4) 0.6 % (0-4) Arterial Blood Methemoglobin 1.4 % (0-2) 1.4 % (0-2) Blood Gas Hemoglobin 8.5 G/DL (12.0-16.0) 9.8 G/DL (12.0-16.0) Oxygen Delivery Device HI PATRICIA NC VENTILATOR Blood Gas Inspired Oxygen 50 % 100 % Blood Gas Ventilator Setting 20/500/IT1.0/10PEEP Imaging Last Impressions Chest X-Ray 12/14/17 0000 Signed Impressions: CONCLUSION: Patchy bilateral infiltrates, right worse than left are unchanged Lower Extremity Ultrasound 12/13/17 0000 Signed Impressions: CONCLUSION: 1. No DVT is identified within either lower extremity. 2. Please note that portions of the right lower extremity venous system were u nable to be visualized secondary to the patient's knee brace. Objective Remarks GENERAL: Elderly lady, intubated and sedated, arousable, ill-appearing. SKIN: Warm and dry. Old well-healed scar over right shoulder, left elbow and right ankle. HEAD: Atraumatic. Normocephalic. EYES: Pupils are equal and reactive. Sclerae are anicteric. ENT: No nasal bleeding or discharge. Orally intubated. NECK: Trachea midline. Neck veins not distended. CARDIOVASCULAR: Regular heart sounds, 1/6 systolic murmur at apex. RESPIRATORY: Coarse breath sounds bilateral. Good air entry. Scattered wheezes. GASTROINTESTINAL: Abdomen soft, non-tender, nondistended. Hypoactive bowel sounds appreciated. No hepatomegaly or splenomegaly appreciated. MUSCULOSKELETAL: Extremities with trace bilateral lower extremity edema. Warm and well-perfused extremities. Peripheral pulses are palpable. NEUROLOGICAL: Intubated and sedated. Opens eyes to voice stimuli and follows some commands but not consistently. A/P Assessment and Plan 1. Acute hypoxic and hypercapnic respiratory failure 2. Asthma/COPD 3. Sepsis secondary to CAP 4. Lactic acidosis 5. BAMBI on CKD 6. Cardiomyopathy with mildly reduced ejection fraction 45 to 50% 7. History of depression and anxiety with chronic benzodiazepine use 8. Chronic pain syndrome with history of chronic opioid use 9. History of hypertension 10. History of hyperlipidemia 11. GERD and history of achalasia 12. Diabetes 13. Gout 14. Hypothyroidism 1. Continue PRVC at current vent settings, FiO2 currently down to 0.4. Pip 26, patient is synchronized with the ventilator, no auto PEEP 2. Vent bundle and bronchodilators 3. Received intravenous steroids, now off 4. Fluticasone furoate/Vilanterol inhaled 100 mcg/25 mcg 1 inhalation daily 5. Continue broad-spectrum antibiotics with Vanco, cefepime and azithromycin 6. Cultures are pending, Legionella and strep pneumo urine antigens are pending as well 7. Chest x-ray tomorrow a.m. 8. Unable to place NG tube despite multiple nursing attempts and Dr. Vivas last evening 9. Continue gentle IV hydration 10. Sedation achieved with propofol and fentanyl 11. Patient is on morphine sulfate 15 mg by mouth 3 times daily/home medication. Patient is on oxycodone/acetaminophen 10/325 1 tablet every 4-6 hours as needed pain breakthrough. Held due to pain regimen as above. 12. Continue amitriptyline 25 mg at night/home medication and duloxetine 60 mg by mouth daily/home medication when able to take po. Continue hydroxyzine 25 mg twice daily/home medication. Continue tizanidine 4 mg 3 times daily/home medication. Holding alprazolam 0.25 mg 3 times daily as needed anxiety/home medication. Holding temazepam 30 mg at night/home medication/home medication 13. Home medications include propranolol 20 mg by mouth twice daily and nifedipine extended release 60 mg daily. This will be continued for hypertension. Home medications include atorvastatin 40 mg daily for dyslipidemia. This is been resumed. Continue furosemide 40 mg p.o. daily 14. Pantoprazole 40 mg daily/on omeprazole 40 mg daily at home 15. Holding metformin 500 mg twice daily. Sliding-scale insulin with Novulin N with Accu-Cheks before meals/at bedtime to maintain euglycemia/moderate regimen 16. Continue allopurinol 100 mg by mouth twice daily 17. Continue levothyroxine 100 mcg daily 18. DVT prophylaxis with heparin I discussed in detail patient's critical condition with and granddaughter present at bedside and they understand. Palliative care consult for clarification of advanced directives. Level 3 follow-up Jarred Marquez MD Dec 15, 2017 10:03
[2017-12-15 10:33] LABS: AUTOMATED NEUTROPHIL # 19.4 TH/MM3 (1.8-7.7); BASOPHIL % 0.1 % (0.0-2.0); HEMOGLOBIN 8.3 GM/DL (11.6-15.3); LYMPH % 3.5 % (9.0-44.0); LYMPHOCYTE # 0.7 TH/MM3 (1.0-4.8); MEAN CELL VOLUME 86.1 FL (80.0-100.0); MEAN CORPUSCULAR HEMOGLOBIN 28.4 PG (27.0-34.0); MONO % 1.3 % (0.0-8.0); MONOCYTE # 0.3 TH/MM3 (0-0.9); NEUT % 95.1 % (16.0-70.0); PLATELET COUNT 306 TH/MM3 (150-450); RED BLOOD COUNT 2.91 MIL/MM3 (4.00-5.30); RED CELL DISTRIBUTION WIDTH 16.6 % (11.6-17.2); WHITE BLOOD COUNT 20.4 TH/MM3 (4.0-11.0)
[2017-12-15 11:01] LABS: ALBUMIN 2.5 GM/DL (3.4-5.0); BICARBONATE 17.3 MEQ/L (21.0-32.0); BLOOD UREA NITROGEN 22 MG/DL (7-18); CALCIUM 8.6 MG/DL (8.5-10.1); CHLORIDE 103 MEQ/L (98-107); CREATININE 0.95 MG/DL (0.50-1.00); GLOMERULAR FILTRATION RATE 58 ML/MIN (>89); GLUCOSE,RANDOM 178 MG/DL (74-106); MAGNESIUM 1.3 MG/DL (1.5-2.5); SODIUM (NA) 135 MEQ/L (136-145)
[2017-12-15 11:27] LABS: ALKALINE PHOSPHATASE 163 U/L (45-117); ALT (GPT) 95 U/L (10-53); AST (GOT) 59 U/L (15-37); PHOSPHORUS 2.1 MG/DL (2.5-4.9); TOTAL BILIRUBIN ADULT 0.5 MG/DL (0.2-1.0); TOTAL PROTEIN 6.6 GM/DL (6.4-8.2)
[2017-12-15] MEDS: POTASSIUM CHLOR 20 MEQ PREMIX 100 ML IV PRN ×4 (12:03→17:13)
--- NOTE | 2017-12-15 12:52 | PD.CONS ---
Consult Service Palliative Care Consult Requested By Dr Marquez Primary Care Physician Non-Staff Reason for Consultation a. To assist with evaluation and management of symptoms including: pain, dyspnea, anxiety & depression, debility b. To assist medical decision maker(s) with: better understanding of current medical conditions; weighing benefits/burdens of medical treatment options; making medical treatment decisions. (Magda Benson) HPI History of Present Illness This is a 72 yo female with hx obstructive asthma/COPD, pulmonary HTN, DM, CKD III, chronic back pain on opiates, chronic use benzodiazepines, admitted 12/13 after being brought by EMS for SOB. She c/o cough for few days duration and worsening SOB overnight. She also c/o chest pain. On presentation she was febrile, tachypneic, had mildly elevate troponin 0.09 which then increased to 0.89, lactic acid 3.2, and was placed on bipap. CXR showed multilobar PNA. EKG showed AF with RVR, left bundle branch block. She was transferred [place] [facility] [place] Came off bipap and was on NC 4L. 12/13 BCX + staph. ECHO 12/14 was technically difficult and showed EF 45-50%, mild to moderate MVR, trace TVR. Pulmonology consulted for PNA 12/14, recommended solu-medrol. Chest xray showing patchy bilat infiltrates, right worse than left, unchanged from prior. On 12/15 she was intubated after desaturating and dyspnea. NGT could not be placed. Palliative care consulted for advanced directives. Per family, prior to being intubated yesterday pt indicated to them that she would not want to be intubated and that she wanted to "give up." She has multiple chronic issues and hospitalizations in the last 3 years mainly involving pain, respiratory issues. She has had multiple falls and has been resistant to rehab and after most recent fall, refused rehab. She was admitted 07/30 - 08/04 and treated for AMS 2/2 drug overload in the setting of dehydration, mild ileus. Per documentation from that visit she regularly takes percocet, morhpine, tizanidine, hydroxyzine, amitriptyline, alprazolam. She sees Dr Batista for pain mgmt for back pain, neck pain, extremity pain. She was admitted last January for PNA. She saw hematology for chronic anemia, they suspected this was 2/2 chronic inflammation. BM bx show no sign myeloproliferation. They referred her to rheumatology for poss underlying disorder. Diagnosed with DM about 6 months ago. . Function/Cognitive Trajectory Prior to this admission she was able to ambulate limited distance within the home with walker. She was limited by SOB and chronic pains. Has had recurrent falls and after most recent refused rehab. She does not leave the house and spends most of the day in bed or in a chair. Per family she was cognitively clear when her "meds were balanced." She has had depression since losing a daughter 6 years ago. (Magda Benson) Review of Systems ROS Limitations: Clinical Condition, Intubated (limited ROS provided by family) Constitutional: DENIES: Fever, Chills Respiratory: COMPLAINS OF: Shortness of breath Gastrointestinal: DENIES: Anorexia Musculoskeletal: COMPLAINS OF: Joint pain, Back pain, Neck pain Neurologic: COMPLAINS OF: Abnormal gait (ambulates with walker) Psychiatric: DENIES: Confusion (Magda Benson) Past Family Social History Coded Allergies: codeine (Unverified Allergy, Intermediate, RASH, 11/09/17) *MDRO Multi-Drug Resistant Organism (Verified Adverse Reaction, Unknown, ) 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 Past Medical History depression/anxiety obstructive asthma/COPD chronic pain - neck, back,extremities DM gout hypothyroid CKDIII anemia PNA chronic use benzos chornic opiate use polypharmacy ileus left BBB moderate MVR mild TVR . Past Surgical History T&A PLIF hysterectomy, right oopherectomy mult orthopedic surgeries cholecystectomy bilat cataracts . Reported Medications Floranex (Lactobacillus Acidophilus) 1 Gm Pkt 1 Gm PO TID Propranolol (Propranolol HCl) 20 Mg Tab 20 Mg PO BID 30 Days Nifedipine ER 24 HR (Nifedipine) 60 Mg Tab 60 Mg PO DAILY 30 Days Percocet (Oxycodone-Acetaminophen) 10-325 mg Tab 1 Tab PO Q4-6H PRN Morphine ER (Morphine Sulfate) 15 Mg Tab 15 Mg PO TID Temazepam 30 Mg Cap 30 Mg PO HS PRN Tizanidine (Tizanidine HCl) 4 Mg Cap 4 Mg PO TID Reported Breo Ellipta Inh (Fluticasone/Vilanterol) 100-25 Mcg/Act Inh 1 Puff INH DAILY Use daily at the same time. Ferrous Sulfate ER (Ferrous Sulfate) 140 Mg (45 Mg Iron) Tab 140 Mg PO DAILY Hydroxyzine Pamoate 25 Mg Cap 25 Mg PO BID Amitriptyline (Amitriptyline HCl) 25 Mg Tab 25 Mg PO HS Furosemide 40 Mg Tab 40 Mg PO DAILY Metformin (Metformin HCl) 500 Mg Tab 500 Mg PO BIDPC Flonase Nasal [place] (Fluticasone Nasal [place]) 50 Mcg/Act [place] 50 Mcg EACH NARE BID Omeprazole 40 Mg Cap 40 Mg PO DAILY Sucralfate 1 Gm Tab 1 Gm PO QID on empty stomach [Virt] 1 Cap PO DAILY Atorvastatin (Atorvastatin Calcium) 40 Mg Tab 40 Mg PO HS Allopurinol 100 Mg Tab 100 Mg PO BID Alprazolam 0.25 Mg Tab 0.25 Mg PO TID PRN Combivent Respimat Inh (Ipratropium-Albuterol Inh) 20-100 Ret[place]/Act Aero [address] Puff [address]H QID C[address]alta [address] (Duloxetine HCl) 60 Mg Capdr 60 Mg PO DAILY Levothyroxine (Levothyroxine Sodium) 50 Mcg Tab 100 Mcg PO DAILY . Current Medications Medications (Trade) Dose Ordered Sig/Cj Route Start Time Stop Time Status Last Admin (Zyloprim) 100 mg BID PO 12/13/17 09:00 12/14/17 07:55 (Elavil) 25 mg HS PO 12/13/17 21:00 12/13/17 21:25 (Lipitor) 40 mg HS PO 12/13/17 21:00 12/13/17 21:25 (Cymbalta Dr) 60 mg DAILY PO 12/13/17 09:00 12/14/17 07:52 (Lasix) 40 mg DAILY PO 12/13/17 09:00 12/14/17 07:57 (Vistaril) 25 mg BID PO 12/13/17 09:00 12/14/17 07:58 (Synthroid) 100 mcg DAILY@0600 PO 12/13/17 09:00 12/14/17 04:27 (Inderal) 20 mg BID PO 12/13/17 09:00 12/14/17 07:57 (Carafate) 1 gm QID PO 12/13/17 09:00 12/14/17 17:19 (Zanaflex) 4 mg TID PO 12/13/17 09:00 12/14/17 17:19 (Ferrous Sulfate Liq) 225 mg DAILY PO 12/13/17 09:00 12/14/17 07:58 (Flonase Nik Spr) 1 spray BID EACH NARE 12/13/17 09:00 12/15/17 07:34 Sodium Chloride 1,000 ml @ 84 mls/hr [id number] IV 12/13/17 07:00 12/15/17 07:33 (NS Flush) 2 ml UNSCH PRN IV FLUSH 12/13/17 07:15 (NS Flush) 2 ml BID IV FLUSH 12/13/17 09:00 12/15/17 07:36 (Tylenol) 650 mg Q6H PRN PO 12/13/17 07:15 (Percocet 5-325 Mg) 1 tab Q4H PRN PO 12/13/17 07:15 12/14/17 04:27 (Protonix) 40 mg DAILY PO 12/13/17 09:00 12/14/17 07:53 (Tears Naturale Opth Soln) 1 drop TID EACH EYE 12/13/17 09:00 12/15/17 07:36 (Albuterol Neb) 2.5 mg Q2HR NEB PRN INH 12/13/17 07:15 (Heparin Inj) 5,000 units Q8H SQ 12/13/17 08:00 12/15/17 07:34 ([facility]) 1 [id number] XX 12/13/17 07:15 (Chlorhexidine 2% Cloth) 3 pack Taper DAILY@04 TOP 12/14/17 04:00 12/10/18 03:59 12/15/17 03:37 (Chlorhexidine 2% Cloth) 3 pack UNSCH PRN TOP 12/13/17 07:15 (Allison-Colace) 1 tab BID PO 12/13/17 09:00 12/13/17 10:54 (Milk Of Magnesia Liq) 30 ml Q12H PRN PO 12/13/17 07:15 (Senokot) 17.2 mg Q12H PRN PO 12/13/17 07:15 (Dulcolax Supp) 10 mg DAILY PRN RECTAL 12/13/17 07:15 (Lactulose Liq) 30 ml DAILY PRN PO 12/13/17 07:15 Potassium Chloride 100 ml @ 50 mls/hr Q2H PRN IV-CENTRAL 12/13/17 07:15 Potassium Chloride 100 ml @ 50 mls/hr Q2H PRN IV 12/13/17 07:15 (K-Lyte Cl Eff) 50 meq UNSCH PRN PO 12/13/17 07:15 Potassium Chloride 100 ml @ 25 mls/hr UNSCH PRN IV-CENTRAL 12/13/17 07:15 Potassium Chloride 100 ml @ 50 mls/hr Q2H PRN IV 12/13/17 07:15 Magnesium Sulfate 4 gm/Sodium Chloride 100 ml @ 50 mls/hr UNSCH PRN IV 12/13/17 07:15 (Mag-Ox) 800 mg UNSCH PRN PO 12/13/17 07:15 Magnesium Sulfate 2 gm/Sodium Chloride 100 ml @ 50 mls/hr UNSCH PRN IV 12/13/17 07:15 (K-Phos) 2,000 mg Q4H PRN PO 12/13/17 07:15 Sodium Phosphate 30 mmol/Sodium Chloride 250 ml @ 42 mls/hr UNSCH PRN IV 12/13/17 07:15 (K-Phos) 2,000 mg UNSCH PRN PO/TUBE 12/13/17 07:15 Potassium Phosphate 30 mmol/ Sodium Chloride 260 ml @ 42 mls/hr UNSCH PRN IV 12/13/17 07:15 (D50w (Vial) Inj) 50 ml UNSCH PRN IV PUSH 12/13/17 07:15 (Glucagon Inj) 1 mg UNSCH PRN OTHER 12/13/17 07:15 (NovoLIN R SUPPLEMENTAL SCALE) 1 ACHS SLIDING SCALE SQ 12/13/17 08:00 12/15/17 11:17 (Bactroban Nasal 2% Oint) 1 applic Taper BID EACH NARE 12/13/17 09:00 12/09/18 08:59 12/15/17 07:34 Cefepime HCl 2000 mg/Sodium Chloride 100 ml @ 200 mls/hr Q12H IV 12/13/17 10:00 12/15/17 09:53 Azithromycin 500 mg/Sodium Chloride 250 ml @ 250 mls/hr Q24H IV 12/14/17 06:00 12/15/17 05:47 Pharmacy Profile Note 0 ml @ 0 mls/hr UNSCH OTHER 12/13/17 07:30 (Zofran Odt) 4 mg Q6H PRN PO 12/13/17 07:45 12/14/17 08:12 (Morphine Inj) 2 mg Q3H PRN IV PUSH 12/13/17 08:00 12/14/17 03:50 (Breo Ellipta 100-25 Inh) 1 puff DAILY INH 12/13/17 09:00 12/14/17 07:51 (Duoneb Neb) 1 ampule Q4HR NEB INH 12/13/17 12:00 12/15/17 11:29 Vancomycin HCl 1500 mg/Sodium Chloride 515 ml @ 257.5 mls/ hr Q24H IV 12/13/17 13:00 Future Hold 12/13/17 15:44 (Aspirin Chew) 81 mg DAILY CHEW 12/14/17 09:00 12/14/17 09:23 (Xanax) 0.25 mg TID PRN PO 12/14/17 14:30 12/14/17 14:41 (Peridex 0.12% Liq) 15 ml BID@08,20 MT 12/14/17 20:00 12/15/17 08:00 Propofol 100 ml @ 2.328 mls/ hr TITRATE PRN IV 12/14/17 20:00 12/15/17 10:35 Fentanyl Citrate 250 ml @ 5 mls/hr TITRATE PRN IV 12/14/17 20:00 12/15/17 06:38 (Tears Naturale Opth Soln) 1 drop Q8HR EACH EYE 12/14/17 22:00 12/15/17 07:34 (Ativan Inj) 2 mg Q2H PRN IV 12/15/17 05:45 12/15/17 09:49 . Family History daughter from [place] mother from gastric ca father from PNA complications . Substance Use Tobacco: denies Alcohol: rare Prescription med abuse: per EMR there is hx of this Illicits: denies . Psychosocial History Lives at home with . Daughter from [place]. Has granddaughter, grandson. She is retired, worked at [employer] and that is how she met her . . Spiritual/Cultural Factors [employer]ism cinthya. Telemedicine Physician following per family request. . (Magda Benson) Living Will: Never completed Health Care Surrogate: Never completed Durable Power of Senior Reactor Operator: Never completed Ethical and Legal Issues Pt currently incapacited, she is intubated and sedated. Per statutes her would be proxy. He is supported by 2 grandchildren. Family communicating and appear to be working together. (Magda Benson) Physical Exam Vital Signs Date Time Temp Pulse Resp B/P (MAP) Pulse Ox O2 Delivery O2 Flow Rate FiO2 12/15/17 11:31 100 40 12/15/17 10:00 83 12/15/17 08:00 40 12/15/17 08:00 97.6 77 20 151/71 (97) 99 12/15/17 08:00 77 12/15/17 07:47 99 Ventilator 40 12/15/17 07:47 99 40 12/15/17 07:00 Mechanical Ventilator 99 12/15/17 06:00 78 12/15/17 04:00 72 12/15/17 04:00 40 12/15/17 04:00 98.6 72 20 155/74 (101) 100 12/15/17 03:23 100 40 12/15/17 02:00 78 12/15/17 00:00 77 12/15/17 00:00 60 12/15/17 00:00 98.7 77 20 164/75 (104) 100 12/14/17 23:44 100 60 12/14/17 22:00 84 12/14/17 22:00 99.0 84 20 139/65 (89) 100 12/14/17 21:56 100 70 12/14/17 20:00 75 12/14/17 20:00 99.1 91 37 180/85 (116) 100 12/14/17 20:00 90 12/14/17 19:45 100 100 12/14/17 19:23 100 100 12/14/17 19:00 Mechanical Ventilator 100 12/14/17 18:48 100 100 12/14/17 18:00 91 12/14/17 16:00 99.3 95 38 144/89 (107) 96 12/14/17 16:00 95 12/14/17 14:00 92 12/15/17 12/16/17 19:00 07:00 Intake Total 1200 ml Balance 1200 ml IV Total 1200 ml Exam CONSTITUTIONAL/GENERAL: This is an adequately nourished patient, intubated and sedated on vent TUBES/LINES/DRAINS: PIV, OETT SKIN: No jaundice, rashes, or lesions. No wounds seen anteriorly. Skin temperature appropriate. Not diaphoretic. HEAD: Atraumatic. Normocephalic. EYES: pupils constricted. No icterus. No injection or drainage. Fundi not examined. ENT: Nose without bleeding or purulent drainage. Inspection of throat limited by presence ET tube. NECK: Trachea midline. Supple. CARDIOVASCULAR: RRR without murmurs, gallops, or rubs. No JVD. Peripheral pulses symmetric. RESPIRATORY/CHEST: Symmetric, unlabored respirations. CTA. Breath sounds diminished bilat bases. GASTROINTESTINAL: Abdomen soft, non-tender, nondistended. No hepato-splenomegaly , or palpable masses. Bowel sounds present. GENITOURINARY: Without palpable bladder distension. Rosado catheter in place. MUSCULOSKELETAL: Extremities without clubbing, cyanosis, or edema. No mottling or clubbing. NEUROLOGICAL: sedated on vent. PSYCHIATRIC:unable to assess 2/2 sedation (Magda Benson) Diagnostic Tests Laboratory Laboratory Tests Test 12/13/17 04:49 12/13/17 04:55 12/13/17 05:24 12/13/17 09:20 Blood Gas Puncture Site LT RADIAL Blood Gas Patient Temperature 98.6 Blood Gas HCO3 24 mmol/L (22-26) Blood Gas Base Excess 0.9 mmol/L (-2-2) Blood Gas Oxygen Saturation 92 % (90-100) Arterial Blood pH 7.46 (7.380-7.420) Arterial Blood Partial Pressure CO2 34 mmHg (38-42) Arterial Blood Partial Pressure O2 67 mmHG (61-120) Arterial Blood Oxygen Content 14.1 Vol % (12.0-20.0) Arterial Blood Carboxyhemoglobin 1.2 % (0-4) Arterial Blood Methemoglobin 0.4 % (0-2) Blood Gas Hemoglobin 10.9 G/DL (12.0-16.0) Oxygen Delivery Device BIPAP Blood Gas Ventilator Setting IPAP12/EPAP5 Blood Gas Inspired Oxygen 100 % White Blood Count 11.7 TH/MM3 (4.0-11.0) Red Blood Count 3.90 MIL/MM3 (4.00-5.30) Hemoglobin 11.0 GM/DL (11.6-15.3) Hematocrit 33.5 % (35.0-46.0) Mean Corpuscular Volume 86.1 FL (80.0-100.0) Mean Corpuscular Hemoglobin 28.3 PG (27.0-34.0) Mean Corpuscular Hemoglobin Concent 32.9 % (32.0-36.0) Red Cell Distribution Width 16.5 % (11.6-17.2) Platelet Count 399 TH/MM3 (150-450) Mean Platelet Volume 6.7 FL (7.0-11.0) Neutrophils (%) (Auto) 89.2 % (16.0-70.0) Lymphocytes (%) (Auto) 9.9 % (9.0-44.0) Monocytes (%) (Auto) 0.6 % (0.0-8.0) Eosinophils (%) (Auto) 0.2 % (0.0-4.0) Basophils (%) (Auto) 0.1 % (0.0-2.0) Neutrophils # (Auto) 10.4 TH/MM3 (1.8-7.7) Lymphocytes # (Auto) 1.2 TH/MM3 (1.0-4.8) Monocytes # (Auto) 0.1 TH/MM3 (0-0.9) Eosinophils # (Auto) 0.0 TH/MM3 (0-0.4) Basophils # (Auto) 0.0 TH/MM3 (0-0.2) CBC Comment DIFF FINAL Differential Comment Prothrombin Time 10.2 SEC (9.8-11.6) Prothromb Time International Ratio 1.0 RATIO Activated Partial Thromboplast Time 23.6 SEC (24.3-30.1) Blood Urea Nitrogen 35 MG/DL (7-18) Creatinine 1.39 MG/DL (0.50-1.00) Random Glucose 102 MG/DL (74-106) Total Protein 8.1 GM/DL (6.4-8.2) Albumin 3.5 GM/DL (3.4-5.0) Calcium Level 9.1 MG/DL (8.5-10.1) Alkaline Phosphatase 184 U/L (45-117) Aspartate Amino Transf (AST/SGOT) 62 U/L (15-37) Alanine Aminotransferase (ALT/SGPT) 58 U/L (10-53) Total Bilirubin 0.5 MG/DL (0.2-1.0) Sodium Level 129 MEQ/L (136-145) Potassium Level 3.9 MEQ/L (3.5-5.1) Chloride Level 92 MEQ/L (98-107) Carbon Dioxide Level 24.5 MEQ/L (21.0-32.0) Anion Gap 13 MEQ/L (5-15) Estimat Glomerular Filtration Rate 37 ML/MIN (>89) Lactic Acid Level 3.2 mmol/L (0.4-2.0) Troponin I 0.09 NG/ML (0.02-0.05) B-Type Natriuretic Peptide 62 PG/ML (0-100) Urine Color YELLOW (YELLW/STRAW) Urine Turbidity CLEAR (CLEAR) Urine pH 5.0 (5.0-8.5) Urine Specific [place] 1.011 (1.002-1.035) Urine Protein NEG mg/dL (NEG-TRACE) Urine Glucose (UA) NEG mg/dL (NEG) Urine Ketones NEG mg/dL (NEG) Urine Occult Blood NEG (NEG) Urine Nitrite NEG (NEG) Urine Bilirubin NEG (NEG) Urine Urobilinogen LESS THAN 2 mg/dL (LESS Urine Leukocyte Esterase NEG (NEG) Urine WBC LESS THAN 1 /hpf (0-5) Urine Mucus FEW /lpf (OCC) Microscopic Urinalysis Comment CULT NOT INDICATED Urine Random Creatinine 39.1 MG/DL Urine Random Sodium 45 MEQ/L Nasal Screen MRSA (PCR) MRSA NOT DETECTED (NOT Test 12/13/17 10:15 12/13/17 14:30 12/13/17 19:20 12/14/17 04:20 Blood Gas Puncture Site RT RADIAL Blood Gas Patient Temperature 98.6 Blood Gas HCO3 26 mmol/L (22-26) Blood Gas Base Excess 2.3 mmol/L (-2-2) Blood Gas Oxygen Saturation 94 % (90-100) Arterial Blood pH 7.45 (7.380-7.420) Arterial Blood Partial Pressure CO2 38 mmHg (38-42) Arterial Blood Partial Pressure O2 86 mmHg (61-120) Arterial Blood Oxygen Content 12.2 Vol % (12.0-20.0) Arterial Blood Carboxyhemoglobin 0.8 % (0-4) Arterial Blood Methemoglobin 1.4 % (0-2) Blood Gas Hemoglobin 9.1 G/DL (12.0-16.0) Oxygen Delivery Device BIPAP Blood Gas Ventilator Setting IPAP12/EPAP5 Blood Gas Inspired Oxygen 65 % Lactic Acid Level 2.8 mmol/L (0.4-2.0) 2.5 mmol/L (0.4-2.0) Troponin I 0.89 NG/ML (0.02-0.05) 0.64 NG/ML (0.02-0.05) White Blood Count 32.5 TH/MM3 (4.0-11.0) Red Blood Count 3.31 MIL/MM3 (4.00-5.30) Hemoglobin 9.4 GM/DL (11.6-15.3) Hematocrit 29.2 % (35.0-46.0) Mean Corpuscular Volume 88.2 FL (80.0-100.0) Mean Corpuscular Hemoglobin 28.5 PG (27.0-34.0) Mean Corpuscular Hemoglobin Concent 32.3 % (32.0-36.0) Red Cell Distribution Width 16.6 % (11.6-17.2) Platelet Count 306 TH/MM3 (150-450) Mean Platelet Volume 7.1 FL (7.0-11.0) Neutrophils (%) (Auto) 93.5 % (16.0-70.0) Lymphocytes (%) (Auto) 4.3 % (9.0-44.0) Monocytes (%) (Auto) 2.0 % (0.0-8.0) Eosinophils (%) (Auto) 0.1 % (0.0-4.0) Basophils (%) (Auto) 0.1 % (0.0-2.0) Neutrophils # (Auto) 30.4 TH/MM3 (1.8-7.7) Lymphocytes # (Auto) 1.4 TH/MM3 (1.0-4.8) Monocytes # (Auto) 0.6 TH/MM3 (0-0.9) Eosinophils # (Auto) 0.0 TH/MM3 (0-0.4) Basophils # (Auto) 0.0 TH/MM3 (0-0.2) CBC Comment AUTO DIFF Differential Total Cells Counted 100 Neutrophils % (Manual) 67 % (16-70) Band Neutrophils % 24 % (0-6) Lymphocytes % 8 % (9-44) Basophils % 1 % (0-2) Neutrophils # (Manual) 29.6 TH/MM3 (1.8-7.7) Differential Comment FINAL DIFF MANUAL Platelet Estimate NORMAL (NORMAL) Platelet Morphology Comment NORMAL (NORMAL) Prothrombin Time 12.4 SEC (9.8-11.6) Prothromb Time International Ratio 1.2 RATIO Activated Partial Thromboplast Time 34.1 SEC (24.3-30.1) Blood Urea Nitrogen 33 MG/DL (7-18) Creatinine 1.42 MG/DL (0.50-1.00) Random Glucose 114 MG/DL (74-106) Total Protein 7.0 GM/DL (6.4-8.2) Albumin 2.8 GM/DL (3.4-5.0) Calcium Level 8.5 MG/DL (8.5-10.1) Phosphorus Level 2.6 MG/DL (2.5-4.9) Magnesium Level 1.4 MG/DL (1.5-2.5) Uric Acid 4.0 MG/DL (2.6-6.0) Alkaline Phosphatase 179 U/L (45-117) Aspartate Amino Transf (AST/SGOT) 137 U/L (15-37) Alanine Aminotransferase (ALT/SGPT) 143 U/L (10-53) Lactate Dehydrogenase 247 U/L (84-246) Total Bilirubin 0.9 MG/DL (0.2-1.0) Sodium Level 134 MEQ/L (136-145) Potassium Level 3.6 MEQ/L (3.5-5.1) Chloride Level 99 MEQ/L (98-107) Carbon Dioxide Level 22.1 MEQ/L (21.0-32.0) Anion Gap 13 MEQ/L (5-15) Estimat Glomerular Filtration Rate 36 ML/MIN (>89) Hemoglobin A1c 6.2 % (4.3-6.0) Ammonia LESS THAN 10 MCMOL/L Triglycerides Level 59 MG/DL (42-150) Cholesterol Level 127 MG/DL (120-200) LDL Cholesterol 61 MG/DL (0-99) HDL Cholesterol 54.1 MG/DL (40.0-60.0) Cholesterol/HDL Ratio 2.34 RATIO Amylase Level 35 U/L (25-115) Lipase 52 U/L (73-393) Thyroid Stimulating Hormone 3rd Gen 0.643 uIU/ML (0.358-3.740) Hepatitis A IgM Antibody NONREACTIVE (NONREACTIVE) Hepatitis B Surface Antigen NONREACTIVE (NONREACTIVE) Hepatitis B Core IgM Antibody NONREACTIVE (NONREACTIVE) Hepatitis C IgG Antibody NONREACTIVE (NONREACTIVE) Test 12/14/17 04:52 12/14/17 18:20 12/14/17 19:22 12/15/17 06:10 Blood Gas Puncture Site LT RADIAL RT RADIAL RT RADIAL Blood Gas Patient Temperature 98.6 98.6 98.6 Blood Gas HCO3 23 mmol/L (22-26) 21 mmol/L (22-26) 20 mmol/L (22-26) Blood Gas Base Excess -1.3 mmol/L (-2-2) -2.4 mmol/L (-2-2) -3.9 mmol/L (-2-2) Blood Gas Oxygen Saturation 97 % (90-100) 79 % (90-100) 97 % (90-100) Arterial Blood pH 7.42 (7.380-7.420) 7.43 (7.380-7.420) 7.43 (7.380-7.420) Arterial Blood Partial Pressure CO2 35 mmHg (38-42) 33 mmHg (38-42) 30 mmHg (38-42) Arterial Blood Partial Pressure O2 139 mmHg (61-120) 46 mmHg (61-120) 140 mmHg (61-120) Arterial Blood Oxygen Content 12.4 Vol % (12.0-20.0) 9.4 Vol % (12.0-20.0) 13.6 Vol % (12.0-20.0) Arterial Blood Carboxyhemoglobin 0.8 % (0-4) 0.9 % (0-4) 0.6 % (0-4) Arterial Blood Methemoglobin 1.3 % (0-2) 1.4 % (0-2) 1.4 % (0-2) Blood Gas Hemoglobin 8.9 G/DL (12.0-16.0) 8.5 G/DL (12.0-16.0) 9.8 G/DL (12.0-16.0) Oxygen Delivery Device BiPAP HI PATRICIA NC VENTILATOR Blood Gas Ventilator Setting IPAP10/EPAP5 20/500/IT1.0/10PEEP Blood Gas Inspired Oxygen 40 % 50 % 100 % Random Vancomycin Level 7.0 COMMENT Test 12/15/17 10:05 White Blood Count 20.4 TH/MM3 (4.0-11.0) Red Blood Count 2.91 MIL/MM3 (4.00-5.30) Hemoglobin 8.3 GM/DL (11.6-15.3) Hematocrit 25.0 % (35.0-46.0) Mean Corpuscular Volume 86.1 FL (80.0-100.0) Mean Corpuscular Hemoglobin 28.4 PG (27.0-34.0) Mean Corpuscular Hemoglobin Concent 33.0 % (32.0-36.0) Red Cell Distribution Width 16.6 % (11.6-17.2) Platelet Count 306 TH/MM3 (150-450) Mean Platelet Volume 7.0 FL (7.0-11.0) Neutrophils (%) (Auto) 95.1 % (16.0-70.0) Lymphocytes (%) (Auto) 3.5 % (9.0-44.0) Monocytes (%) (Auto) 1.3 % (0.0-8.0) Eosinophils (%) (Auto) 0.0 % (0.0-4.0) Basophils (%) (Auto) 0.1 % (0.0-2.0) Neutrophils # (Auto) 19.4 TH/MM3 (1.8-7.7) Lymphocytes # (Auto) 0.7 TH/MM3 (1.0-4.8) Monocytes # (Auto) 0.3 TH/MM3 (0-0.9) Eosinophils # (Auto) 0.0 TH/MM3 (0-0.4) Basophils # (Auto) 0.0 TH/MM3 (0-0.2) CBC Comment DIFF FINAL Differential Comment Blood Urea Nitrogen 22 MG/DL (7-18) Creatinine 0.95 MG/DL (0.50-1.00) Random Glucose 178 MG/DL (74-106) Total Protein 6.6 GM/DL (6.4-8.2) Albumin 2.5 GM/DL (3.4-5.0) Calcium Level 8.6 MG/DL (8.5-10.1) Phosphorus Level 2.1 MG/DL (2.5-4.9) Magnesium Level 1.3 MG/DL (1.5-2.5) Alkaline Phosphatase 163 U/L (45-117) Aspartate Amino Transf (AST/SGOT) 59 U/L (15-37) Alanine Aminotransferase (ALT/SGPT) 95 U/L (10-53) Total Bilirubin 0.5 MG/DL (0.2-1.0) Sodium Level 135 MEQ/L (136-145) Potassium Level 2.7 MEQ/L (3.5-5.1) Chloride Level 103 MEQ/L (98-107) Carbon Dioxide Level 17.3 MEQ/L (21.0-32.0) Anion Gap 15 MEQ/L (5-15) Estimat Glomerular Filtration Rate 58 ML/MIN (>89) (Magda Benson [employer] TRUCKER) Result Diagram: 12/15/17 1005 12/15/17 1005 Microbiology Microbiology Date/Time Source Procedure Growth Status 12/14/17 13:56 Blood Peripheral Aerobic Blood Culture - Preliminary NO GROWTH IN 1 DAY Resulted 12/14/17 13:56 Blood Peripheral Anaerobic Blood Culture - Preliminary NO GROWTH IN 1 DAY Resulted 12/14/17 13:50 Blood Peripheral Aerobic Blood Culture - Preliminary NO GROWTH IN 1 DAY Resulted 12/14/17 13:50 Blood Peripheral Anaerobic Blood Culture - Preliminary NO GROWTH IN 1 DAY Resulted 12/13/17 08:50 Blood Peripheral Aerobic Blood Culture - Preliminary NO GROWTH IN 2 DAYS Resulted 12/13/17 08:50 Blood Peripheral Anaerobic Blood Culture - Preliminary NO GROWTH IN 2 DAYS Resulted 12/13/17 08:45 Blood Peripheral Aerobic Blood Culture - Preliminary Staph Sp Coagulase Negative Resulted 12/13/17 08:45 Blood Peripheral Anaerobic Blood Culture - Preliminary NO GROWTH IN 2 DAYS Resulted 12/14/17 19:40 Sputum Endotracheal Gram Stain - Final Resulted 12/14/17 19:40 Sputum Endotracheal Sputum Culture Pending Resulted 12/14/17 03:45 Nasal Aspirate Influenza Types A,B Antigen (ANAYA) - Final NEGATIVE FOR FLU A AND B ANTIGEN.... Complete 12/13/17 05:24 Urine Catheterized Urine Legionella Antigen - Final PRESUMPTIVE NEGATIVE FOR LEGIONELLA P... Complete 12/13/17 05:24 Urine Catheterized Urine Streptococcus pneumoniae Antigen (M - Final PRESUMPTIVE NEGATIVE FOR STREPTOCOCCU... Complete Imaging Last Impressions Liver Ultrasound 12/14/17 0000 Signed Impressions: CONCLUSION: 1. The common bile duct is dilated. This may reflect a reservoir phenomenon fo llowing cholecystectomy. 2. The pancreas is obscured by bowel gas. 3. The right kidney appears small which could suggest some degree of atrophy. Chest X-Ray 12/14/17 0000 Signed Impressions: CONCLUSION: Endotracheal tube tip about 1 cm above the marialuisa. Worsened bilateral airspace disease and effusion since earlier exam. Lower Extremity Ultrasound 12/13/17 0000 Signed Impressions: CONCLUSION: 1. No DVT is identified within either lower extremity. 2. Please note that portions of the right lower extremity venous system were u nable to be visualized secondary to the patient's knee brace. Procedures 12/15 intubated (Magda Benson) Patient/Family Conference Present at Family Conference: Santana, grandson Familia, granddaughter. Family Conference Time (mins): 30 Family Conference Location: Consult Room Issues Discussed: * Palliative care role, purpose, approach * Additional medical, psychosocial, and spiritual history * Patients general health, functional status, and cognitive changes in the months leading up to the current hospitalization * family understanding of the current medical problems * family understanding of prognosis * Patients goals of care as best understood from conversations with pt prior to intubation * Current medical treatment options and benefits/burdens of those options - reviewed continued treatment toward medical extubation vs de-escalation * Likely scenarios comparing ongoing aggressive care with a transition to comfort measures only" * reviewed role & philosophy of hospice * Questions answered to the best of my ability * Palliative care contact information provided Family details pt with debility secondary to recurrent respiratory issues and chronic pain, has had multiple hospitalizations for these issues in the past few years. Family understands current condition and notes that pt did now want to be intubated and had verbalized wanting to "give up." Family in agreement to continue intubation. If extubation in next few days not possible, likely would opt for transition to comfort care given pt's decreased quality of life. (Magda Benson) Assessment and Plan Disease Oriented Problem List: (1) Acute respiratory failure with hypoxia (2) Pneumonia (3) Chronic obstructive asthma (with obstructive pulmonary disease) (4) Pulmonary hypertension (5) LBBB (left bundle branch block) (6) Elevated troponin I level (7) BAMBI (acute kidney injury) (8) Anemia (9) Diabetes (10) Low back pain (11) History of benzodiazepine use (12) Opioid use Symptom Scale: (1) Dyspnea 0-10 Scale: Unable to quantify (2) Anxiety 0-10 Scale: Unable to quantify (3) Depression 0-10 Scale: 10 (4) Low back pain 0-10 Scale: Unable to quantify Pertinent Non-Medical Issues Psychosocial: Lives at home with . Daughter from [place]. Has granddaughter, grandson. She is retired, worked at [employer] and that is how she met her . Spiritual: [employer]ism cinthya. Telemedicine Physician following per family request. Legal: Pt currently incapacited, she is intubated and sedated. Per statutes her would be proxy. He is supported by 2 grandchildren. Family communicating and appear to be working together. Ethical issues impacting care: none identified . Important Contacts Santana Norwood [phone] . Prognosis 72 yo female with polypharmacy, debility secondary chronic pain, who presented with SOB. She was found to have multilobar PNA and subsequently intubated. She has had multiple hospitalizations for sepsis, recurrent PNA, pain in last few years. Pt homebound, primarily sedentary due to pain, which she has struggled with for 20+ years ago. In light of multiple comorbidities, ongoing debility, poor underlying COPD, prognosis is guarded. It is possible she could stabilize after steroids, abx, and be medically extubated but with continued decreased quality of life d/t chronic pain. If she remains intubated she would eventually need feeding tube placed with flouroscopy, and eventually trach. She remains at risk for continued decline, complications, and setbacks. . Code Status: Full Code Plan * LEGAL DECISION MAKER - Pt currently incapacited, she is intubated and sedated. Per statutes her would be proxy. He is supported by 2 grandchildren. Family communicating and appear to be working together. * CODE STATUS - alternate code, intubation only * GOALS - continue aggressive treatment now with hope for medical extubation in next couple days, however if she does not make improvement family would likely opt for compassionate withdrawal and comfort care * SYMPTOMS- * dyspnea - presented with SOB, found to have multilobar PNA. hx recurrent PNA and underlying obstructive asthma/COPD. s/p 3 doses solumedrol. on abx for PNA. currently intubated, hope for medical extubation in coming days and if no improvement family considering compassionate withdrawal * pain - 2/2 lines, chronic pain. Was seeing pain mgmt for joint and back injections. Was taking morphine, tizanidine, percocet, amitriptyline. Appears comfortable, no sign pain on exam. Currently on fentanyl drip. * anxiety, depression - chronic, since losing daughter 6 y ago. Was taking xanax, hydroxyzine, amitriptyline. currently on propofol. Sedation per attending. Could resume home regimen when able to take PO. * debility - chronic, in last year worsening 2/2 chronic pain, underlying respiratory issues, sedentary lifestyle. Has had recurrent falls and after most recent, refused rehab. likely to worsen even if her respiratory status should improve due to her resistance to rehab and desire to "give up." Could be hospice appropriate if in line with family's goals. Palliative care will continue to follow during hospital course as condition evolves to assist patient/decision maker with understanding of medical conditions, benefits/burdens of treatment options, clarification of goals of treatment, and will assist with symptoms of palliative concern. . (Magda Benson) Time Spent Total Floor Time (mins): 75 (chart review, PE, discussion with family) (Magda Benson) Thank you for the opportunity to participate in the care of Ms. Norwood. (Magda Benson) Attestation To help prompt me to consider important information that might be impacting today's encounter and assessment, information from prior notes written by myself or my colleagues may have been "brought forward" into today's note. My signature on this note, however, is an attestation that I personally performed the exam, history, and/or decision-making noted today, and, unless otherwise indicated, the interactions with patient, family, and staff as well as the review of records all occurred today. I also attest that the listed assessment and stated plan reflect my best clinical judgment today based on the combination of historical information, prior notes, and today's exam/ interactions. When time spent is documented, it refers only to time spent today by the signer, or if indicated, combined time spent today by collaborating physician/nurse practitioner. (Magda Benson) Collaborating MD Comments dual visit darcy VILCHIS, concur with above assessment, documentation. (Winsome Willis) Magda Benson Dec 15, 2017 12:52 Winsome Willis Dec 15, 2017 17:26
[2017-12-15 14:28] LABS: MYCOPLASMA PNEUMONIAE IGG Positive (Negative); MYCOPLASMA PNEUMONIAE IGM Negative (Negative)
[2017-12-15] MEDS: VANCOMYCIN 1,500 MG/NS 500 ML IV SCH ×2 (17:07)
[2017-12-15] MEDS: ATORVASTATIN 40 MG TAB PO SCH (20:06)
[2017-12-15] MEDS: AMITRIPTYLINE HCL 25 MG TAB PO SCH (20:06)
[2017-12-15 23:20] LABS: PHOSPHORUS 3.4 MG/DL (2.5-4.9)
[2017-12-16] VITALS (17 sets, daily range): BP systolic 143–202; BP diastolic 67–79; PULSE 65–118; RESP 20–36; TEMP 97.4–98.5; O2SAT 93–100
[2017-12-16] MEDS: POTASSIUM CHLOR 20 MEQ PREMIX 100 ML IV PRN ×2 (02:00→03:23)
[2017-12-16] MEDS: RESP: ALBUTEROL 2.5 MG/IPRATROPIUM 0.5 MG NEB (SCH) INH ×5 (02:59→20:23)
[2017-12-16] MEDS: PROPOFOL 1000 MG/100 ML INJ 100 ML IV PRN (03:11)
[2017-12-16] MEDS: LEVOTHYROXINE SODIUM 100 MCG TAB PO SCH (04:00)
[2017-12-16] MEDS: ARTIFICIAL TEARS OPTH SOLN 15 ML BTL EACH EYE SCH ×6 (04:00→19:49)
[2017-12-16] MEDS: CHLORHEXIDINE GLUCONATE 2 % 1 PACK (2 CLOTHS) TOP SCH (04:00)
--- NOTE | 2017-12-16 04:07 | RADRPT ---
EXAM DATE: 12/16/2017 3:55 AM EDT AGE/SEX: 72 years / Female INDICATIONS: Short of breath. CLINICAL DATA: This is the patient's subsequent encounter. Patient reports that signs and symptoms h ave been present for 4 - 6 days and indicates a pain score of 0/10. MEDICAL/SURGICAL HISTORY: Hypertension. Hypercholesterolemia. Gastroesophageal reflux disease . Appendectomy. Cholecystectomy. COMPAR[place]: [facility] [place], 12/14/[place]. . FINDINGS: The endotracheal tube remains just above the marialuisa. Patchy infiltrates throughout the lungs improved since the previous day's film. Small pleural effusions remain. No visible pneumothorax. Marked osteo arthritis right shoulder CONCLUSION: NG tube remains good position. Moderate size bilateral pleural effusions remain Electronically signed by: Yo Weber MD 12/16/2017 4:05 AM EDT
[2017-12-16 05:07] LABS: AUTOMATED NEUTROPHIL # 18.7 TH/MM3 (1.8-7.7); HEMATOCRIT 25.7 % (35.0-46.0); HEMOGLOBIN 8.4 GM/DL (11.6-15.3); LYMPH % 5.6 % (9.0-44.0); LYMPHOCYTE # 1.1 TH/MM3 (1.0-4.8); MEAN CELL VOLUME 86.9 FL (80.0-100.0); MEAN CORPUSCULAR HEMOGLOBIN 28.3 PG (27.0-34.0); MEAN CORPUSCULAR HGB CONC 32.6 % (32.0-36.0); MEAN PLATELET VOLUME 7.3 FL (7.0-11.0); MONO % 3.4 % (0.0-8.0); MONOCYTE # 0.7 TH/MM3 (0-0.9); PLATELET COUNT 309 TH/MM3 (150-450); RED BLOOD COUNT 2.95 MIL/MM3 (4.00-5.30); RED CELL DISTRIBUTION WIDTH 16.6 % (11.6-17.2); WHITE BLOOD COUNT 20.6 TH/MM3 (4.0-11.0)
[2017-12-16 05:18] LABS: ALBUMIN 2.3 GM/DL (3.4-5.0); AST (GOT) 34 U/L (15-37); BICARBONATE 16.1 MEQ/L (21.0-32.0); BLOOD UREA NITROGEN 22 MG/DL (7-18); CALCIUM 8.8 MG/DL (8.5-10.1); CHLORIDE 110 MEQ/L (98-107); CREATININE 0.88 MG/DL (0.50-1.00); GLOMERULAR FILTRATION RATE 63 ML/MIN (>89); GLUCOSE,RANDOM 147 MG/DL (74-106); MAGNESIUM 1.8 MG/DL (1.5-2.5); SODIUM (NA) 140 MEQ/L (136-145)
[2017-12-16 05:19] LABS: ALT (GPT) 74 U/L (10-53); PHOSPHORUS 3.1 MG/DL (2.5-4.9)
[2017-12-16 05:21] LABS: ALKALINE PHOSPHATASE 145 U/L (45-117); TOTAL BILIRUBIN ADULT 0.4 MG/DL (0.2-1.0); TOTAL PROTEIN 6.3 GM/DL (6.4-8.2)
[2017-12-16] MEDS: AZITHROMYCIN INJ 500 MG in SODIUM CHLOR 0.9% 250 ML INJ 250 ML IV SCH (05:59)
[2017-12-16] MEDS: LORazepam 2 MG/ML VIAL IV PRN ×4 (06:02→23:17)
[2017-12-16] MEDS: SODIUM CHLOR 0.9% 1000 ML INJ 1,000 ML IV SCH (06:03)
[2017-12-16] MEDS: INSULIN NovoLIN REGULAR SUPPLEMENTAL SCALE SQ SCH ×4 (08:00→19:49)
[2017-12-16] MEDS: CHLORHEXIDINE 0.12% (ORAL KIT) 15 ML CUP MT SCH ×2 (08:00→19:50)
[2017-12-16] MEDS: FLUTICASONE PROPIONATE 50 MCG/ACT 16 GM NASAL SPRAY EACH NARE SCH ×2 (08:06→19:51)
[2017-12-16] MEDS: HEPARIN SODIUM - SQ 10,000 UNITS/ML VIAL SQ SCH ×3 (08:06→23:19)
--- NOTE | 2017-12-16 08:26 | HHI.CCPN ---
Subjective Remarks/Hospital Course This is a 72-year-old female. The date of admission 12/13/2017. Past medical history includes depression/anxiety, chronic opiate use, chronic benzodiazepine use, essential hypertension hyperlipidemia, mild to moderate pulmonary hypertension, asthma/COPD, diabetes mellitus/gastroesophageal reflux disease, hypothyroidism, gout, chronic kidney disease stage III a anemia. Patient denies any recent travels or sick contacts. Last night, patient with acute onset of shortness of breath. Not associated with chest pain. Denies cough, sputum production, wheezing. Patient was quite tachypneic and presented to [facility] for further evaluation. Patient was placed on BiPAP therapy due to acute hypercapnia and hypoxemia. Chest x-ray revealed bilateral lower lobe pneumonia/infiltrates with right upper lobe infiltrate. Was treated acutely with cefepime and azithromycin. She was tachycardic in the 120s. Initial troponin 0 0.09. Refused aspirin. Lactic acid was slightly elevated at 3.2. Received 1 L normal saline. She is currently in a sinus tachycardia with a rate 120. Appears comfortable is able to speak complete since without using accessory muscles. 12/14: Currently down to 4 L nasal cannula. Off BiPAP since last night. Peak of 0.89. Denies chest pain likely type II demand ischemia from acute respiratory failure secondary to community acquired pneumonia.. Refusing aspirin. Requesting to use regular restroom facilities. Positive BM. Tolerating diet. Pain is well controlled according to patient. 12/15: No events post intubation. T-max of 99.3, urine output 1450 mL's over the last 24 hours. Patient is sedated with propofol at 50 and fentanyl and 250. Arousable, following some commands. FiO2 down to 0.4. 12/16: No events over the night. T-max of 98. I/O 3513/2275. Patient remains sedated and intubated. Sedation is achieved with propofol at 50 and fentanyl and 250. FiO2 of 0.35. Family present at bedside. Palliative care notes reviewed, patient is now alternative code. ROS: unobtainable, patient is intubated Objective Vital Signs Date Time Temp Pulse Resp B/P (MAP) Pulse Ox O2 Delivery O2 Flow Rate FiO2 12/16/17 07:50 100 40 12/16/17 06:00 118 12/16/17 04:00 97.9 20 143/68 (93) 12/15/17 19:00 Mechanical Ventilator 12/14/17 07:34 4.00 Intake and Output 12/16/17 12/16/17 12/17/17 08:00 16:00 00:00 Intake Total 200 ml Output Total 950 ml Balance -750 ml Result Diagram: 12/16/17 0435 12/16/17 0435 Other Results Microbiology Date/Time Source Procedure Growth Status 12/14/17 13:56 Blood Peripheral Aerobic Blood Culture - Preliminary NO GROWTH IN 1 DAY Resulted 12/14/17 13:56 Blood Peripheral Anaerobic Blood Culture - Preliminary NO GROWTH IN 1 DAY Resulted 12/14/17 13:50 Blood Peripheral Aerobic Blood Culture - Preliminary NO GROWTH IN 1 DAY Resulted 12/14/17 13:50 Blood Peripheral Anaerobic Blood Culture - Preliminary NO GROWTH IN 1 DAY Resulted 12/13/17 08:50 Blood Peripheral Aerobic Blood Culture - Preliminary NO GROWTH IN 2 DAYS Resulted 12/13/17 08:50 Blood Peripheral Anaerobic Blood Culture - Preliminary NO GROWTH IN 2 DAYS Resulted 12/13/17 08:45 Blood Peripheral Aerobic Blood Culture - Preliminary Staph Sp Coagulase Negative Resulted 12/13/17 08:45 Blood Peripheral Anaerobic Blood Culture - Preliminary NO GROWTH IN 2 DAYS Resulted 12/14/17 19:40 Sputum Endotracheal Gram Stain - Final Resulted 12/14/17 19:40 Sputum Endotracheal Sputum Culture - Preliminary IMMATURE GROWTH - REINCUBATE Resulted 12/14/17 03:45 Nasal Aspirate Influenza Types A,B Antigen (ANAYA) - Final NEGATIVE FOR FLU A AND B ANTIGEN.... Complete Microbiology Date/Time Source Procedure Growth Status 12/14/17 03:45 Nasal Aspirate Influenza Types A,B Antigen (ANAYA) - Final NEGATIVE FOR FLU A AND B ANTIGEN.... Complete Imaging Last 24 hours Impressions Chest X-Ray 12/16/17 0600 Signed Impressions: CONCLUSION: NG tube remains good position. Moderate size bilateral pleural effusions remain Last Impressions Chest X-Ray 12/14/17 0000 Signed Impressions: CONCLUSION: Patchy bilateral infiltrates, right worse than left are unchanged Lower Extremity Ultrasound 12/13/17 0000 Signed Impressions: CONCLUSION: 1. No DVT is identified within either lower extremity. 2. Please note that portions of the right lower extremity venous system were u nable to be visualized secondary to the patient's knee brace. Objective Remarks GENERAL: Elderly lady, intubated and sedated, arousable, ill-appearing. SKIN: No rash, no cyanosis. HEAD: Atraumatic. Normocephalic. EYES: Pupils are equal and reactive. Sclerae anicteric. ENT: No nasal bleeding or discharge. Orally intubated. NECK: Supple, no rigidity. Trachea is midline. Neck veins are not distended. CARDIOVASCULAR: Regular S1 and S2, 1/6 systolic murmur at apex. RESPIRATORY: Still with scattered coarse breath sounds bilateral. Good air entry. No wheezes. GASTROINTESTINAL: Abdomen is soft, non-tender and nondistended. Hypoactive bowel sounds. No hepatomegaly or splenomegaly appreciated. MUSCULOSKELETAL: Extremities with trace bilateral lower extremity edema. Warm and well-perfused extremities. Peripheral pulses are palpable. NEUROLOGICAL: Intubated and sedated. Pupils are equal and reactive. Does not open eyes and does not follow commands. A/P Assessment and Plan 1. Acute hypoxic and hypercapnic respiratory failure, very slowly improving 2. Asthma/COPD 3. Sepsis secondary to CAP -Legionella and strep pneumo are negative 4. Lactic acidosis -resolved 5. BAMBI on CKD -improved, adequate urine output 6. Cardiomyopathy with mildly reduced ejection fraction 45 to 50% 7. History of depression and anxiety with chronic benzodiazepine use 8. Chronic pain syndrome with history of chronic opioid use 9. History of hypertension 10. History of hyperlipidemia 11. GERD and history of achalasia 12. Diabetes 13. Gout 14. Hypothyroidism 15. CoNS bacteremia -likely contaminant, repeat blood cultures have no growth to date 1. Continue PRVC at current vent settings, FiO2 currently down to 0.35. Pip 22 , patient is synchronized with the ventilator, no auto PEEP 2. Vent bundle and bronchodilators 3. Received intravenous steroids, now off 4. Fluticasone furoate/Vilanterol inhaled 100 mcg/25 mcg 1 inhalation daily 5. Continue broad-spectrum antibiotics with Vanco and cefepime. Stop azithromycin today 6. Repeat cultures have no growth to date 7. Continue fentanyl infusion but titrate down. Stop propofol and start Precedex 8. Unable to place NG tube despite multiple nursing attempts and Dr. Vivas last evening 9. Stop IV hydration 10. We will attempt SBT when more awake 11. Patient is on morphine sulfate 15 mg by mouth 3 times daily/home medication. Patient is on oxycodone/acetaminophen 10/325 1 tablet every 4-6 hours as needed pain breakthrough. Held due to pain regimen as above. 12. Continue amitriptyline 25 mg at night/home medication and duloxetine 60 mg by mouth daily/home medication when able to take po. Continue hydroxyzine 25 mg twice daily/home medication. Continue tizanidine 4 mg 3 times daily/home medication. Holding alprazolam 0.25 mg 3 times daily as needed anxiety/home medication. Holding temazepam 30 mg at night/home medication/home medication 13. Home medications include propranolol 20 mg by mouth twice daily and nifedipine extended release 60 mg daily. This will be continued for hypertension. Home medications include atorvastatin 40 mg daily for dyslipidemia. This is been resumed. Continue furosemide 40 mg p.o. daily 14. Pantoprazole 40 mg daily/on omeprazole 40 mg daily at home 15. Holding metformin 500 mg twice daily. Sliding-scale insulin with Novulin N with Accu-Cheks before meals/at bedtime to maintain euglycemia/moderate regimen 16. Continue allopurinol 100 mg by mouth twice daily 17. Continue levothyroxine 100 mcg daily 18. DVT prophylaxis with heparin 19. Alternative code Level 3 follow-up Jarred Marquez MD Dec 16, 2017 08:26
[2017-12-16] MEDS ORDERED: RASS Change Order XX ONE (08:45)
[2017-12-16] MEDS: DEXMEDETOMIDINE INJ 200 MCG in SODIUM CHLORIDE 0.9% INJ 50 ML IV PRN ×5 (08:49→19:49)
[2017-12-16] MEDS: SUCRALFATE 1 GM TAB PO SCH ×4 (09:00→19:51)
[2017-12-16] MEDS: ALLOPURINOL 100 MG TAB PO SCH ×2 (09:00→19:52)
[2017-12-16] MEDS: hydrOXYzine PAMOATE 25 MG CAP PO SCH ×2 (09:00→19:52)
[2017-12-16] MEDS: PROPRANOLOL HCL 20 MG TAB PO SCH ×2 (09:00→19:51)
[2017-12-16] MEDS: FLUTICASONE 100 MCG/VILANTEROL 25 MCG INHALER INH SCH (09:00)
[2017-12-16] MEDS: FERROUS SULFATE 300 MG /5ML UDC PO SCH (09:00)
[2017-12-16] MEDS: DOCUSATE SODIUM 50 MG/SENNA 8.6 MG TAB PO SCH ×2 (09:00→19:52)
[2017-12-16] MEDS: MUPIROCIN 2% OINT 1 APPLIC/GM SYR EACH NARE SCH ×2 (09:00→19:49)
[2017-12-16] MEDS: DULoxetine HCl DR 60 MG CAP PO SCH (09:00)
[2017-12-16] MEDS: FUROSEMIDE 40 MG TAB PO SCH (09:00)
[2017-12-16] MEDS: ASPIRIN 81 MG CHEW TAB CHEW SCH (09:00)
[2017-12-16] MEDS: CEFEPIME INJ 2,000 MG in SODIUM CHLORIDE 0.9% INJ 100 ML IV SCH ×2 (10:03→22:11)
[2017-12-16] MEDS: fentaNYL DRIP 250 ML IV PRN (10:03)
[2017-12-16] MEDS: SODIUM CHLORIDE 0.9% FLUSH 10 ML FLUSH IV FLUSH SCH ×2 (10:04→19:51)
[2017-12-16] MEDS: PANTOPRAZOLE SODIUM 40 MG VIAL IV PUSH SCH (10:04)
[2017-12-16] MEDS ORDERED: PHARMACY ORDERED LAB ONE (12:45)
--- NOTE | 2017-12-16 16:00 | HHI.HCPN ---
Reason for visit a. To assist with evaluation and management of symptoms including: pain, dyspnea, anxiety & depression, debility b. To assist medical decision maker(s) with: better understanding of current medical conditions; weighing benefits/burdens of medical treatment options; making medical treatment decisions. Subjective/Interval History Pt seen today to follow up on comfort, goals. She remains in ICU, extubated around 1130 am today. CBC unremarkable WBC remains elevated 20.6. Chemistry unremarkable. CXR=Moderate size bilateral pleural effusions remain. s/p speech therapy evaluation prior to my arrival no official report in yet however nursing indicates patient did not tolerate swallowing and has not been cleared for p.o. nursing starting Precedex drip for anxiety, patient is mildly tachypneic and still with some anxiety. She has been unable to take usual oral regimen for pain and anxiety due to still unable to take p.o. Previously underwent multiple attempts for NG and OG but was unable to be placed by nursing and critical care. During our initial family meeting family indicated that they would like to hold off on further attempts on oral or NG tube and see how the patient does in the coming days without. Patient seen today in room respiratory, nurse at bedside, as well as grandson, . Patient is alert, partially oriented. She is mildly tachypneic, mildly anxious during my exam so I did not fully question her regarding all primarily spoke with as to not further worsen her respiratory status. Nursing preparing to start Precedex/patient with limited participation secondary to this anxiety. Explore with patient recent extubation that she is tolerating nasal cannula is currently at 6 L though they are going to continue to attempt weaning. Reviewed that her breath sounds are still coarse though she is demonstrating good coughing effort. Reviewed that she is receiving ongoing supportive treatment to maximize respiratory status including nebulizers cough and deep breathing exercises etc., that chest x-ray appears about the same. Gently explore that she may still remain at risk for respiratory deterioration, and the possibility that she could face reintubation versus de-escalation and transition to comfort focus. Explore that if her respiratory status did worsen that if the patient does not want a tube and treatments have already been maximized the other option is to make the person comfortable so that they are not suffering, and at that point administration of comfort medications and possibly transition to hospice may be appropriate. He does not readily make eye contact. He indicates that he had been hoping to hear different things and does not really like to think that the patient might not do better. Gently explore that while we hope that her conditions improved with maximize treatment and that her respiratory status continues to improve we cannot be completely certain of that so need to explore all potential options. He affirms that the patient should remain DNR, do not reintubate based on her known wishes. He is hopeful though that her status will continue to improve. He asked why she has not been getting her oral medications explore speech therapy evaluation and limitations on safe swallowing at this time and that evaluations can be made ongoing. Further explore unsuccessful attempts at NG tube placement. , grandson indicate they still have contact information for me they will call if additional questions. palliative will continue to follow to assist with goals, comfort as needed. d/w primary RN, d/w critical care. I will enter DNR. . Advance Directives Living Will: Never completed Health Care Surrogate: Never completed Durable Power of Behavioral School Counselors: Never completed Objective Vital Signs Date Time Temp Pulse Resp B/P (MAP) Pulse Ox O2 Delivery O2 Flow Rate FiO2 12/16/17 12:00 85 12/16/17 12:00 97.7 85 26 174/78 (110) 93 12/16/17 11:54 96 Nasal Cannula 2 28 12/16/17 10:00 89 12/16/17 08:00 35 12/16/17 08:00 97.4 65 20 159/67 (97) 100 12/16/17 08:00 65 12/16/17 07:50 100 40 12/16/17 07:00 100 Mechanical Ventilator 35 12/16/17 06:00 118 12/16/17 04:00 97.9 73 20 143/68 (93) 100 12/16/17 04:00 73 12/16/17 04:00 40 12/16/17 02:59 100 40 12/16/17 02:00 76 12/16/17 00:00 86 12/16/17 00:00 40 12/16/17 00:00 98.0 86 20 148/71 (96) 100 12/15/17 22:27 100 40 12/15/17 22:00 86 12/15/17 20:00 97.1 64 20 158/76 (103) 100 12/15/17 20:00 64 12/15/17 20:00 40 12/15/17 19:57 100 40 12/15/17 19:00 Mechanical Ventilator 95 12/15/17 18:00 66 12/15/17 16:06 100 40 12/15/17 16:00 97.2 67 20 143/74 (97) 100 12/15/17 16:00 67 12/15/17 16:00 40 Intake & Output 12/16/17 12/16/17 07:00 19:00 Intake Total 1265 ml Output Total 950 ml Balance 315 ml IV Total 1265 ml Output Urine Total 950 ml # Bowel Movements 0 Physical Exam CONSTITUTIONAL/GENERAL: This is an adequately nourished patient, alert, partially oriented TUBES/LINES/DRAINS: PIVs UE, nasal cannula O2 SKIN: No jaundice, rashes, or lesions. No wounds seen anteriorly. Skin warm and dry CARDIOVASCULAR: RRR without murmur, No JVD. Peripheral pulses symmetric. No peripheral edema. RESPIRATORY/CHEST: Symmetric, mildly labored respirations at times. Mildly tachypneic respiratory rate 22. Lungs with coarse scattered rhonchi. Decreased air movement to bases. GASTROINTESTINAL: Abdomen soft, round, non-tender, nondistended. No hepato- splenomegaly, or palpable masses. Bowel sounds present. GENITOURINARY: Without palpable bladder distension. Rosado catheter in place. NEUROLOGICAL: Awake, partially oriented. Moving all 4 extremities. Follows commands. Mildly anxious. PSYCHIATRIC: Mildly anxious, tachypneic . Diagnostic Tests Laboratory Laboratory Tests Test 12/13/17 19:20 12/14/17 04:20 12/14/17 04:52 12/14/17 18:20 Troponin I 0.64 NG/ML (0.02-0.05) White Blood Count 32.5 TH/MM3 (4.0-11.0) Red Blood Count 3.31 MIL/MM3 (4.00-5.30) Hemoglobin 9.4 GM/DL (11.6-15.3) Hematocrit 29.2 % (35.0-46.0) Mean Corpuscular Volume 88.2 FL (80.0-100.0) Mean Corpuscular Hemoglobin 28.5 PG (27.0-34.0) Mean Corpuscular Hemoglobin Concent 32.3 % (32.0-36.0) Red Cell Distribution Width 16.6 % (11.6-17.2) Platelet Count 306 TH/MM3 (150-450) Mean Platelet Volume 7.1 FL (7.0-11.0) Neutrophils (%) (Auto) 93.5 % (16.0-70.0) Lymphocytes (%) (Auto) 4.3 % (9.0-44.0) Monocytes (%) (Auto) 2.0 % (0.0-8.0) Eosinophils (%) (Auto) 0.1 % (0.0-4.0) Basophils (%) (Auto) 0.1 % (0.0-2.0) Neutrophils # (Auto) 30.4 TH/MM3 (1.8-7.7) Lymphocytes # (Auto) 1.4 TH/MM3 (1.0-4.8) Monocytes # (Auto) 0.6 TH/MM3 (0-0.9) Eosinophils # (Auto) 0.0 TH/MM3 (0-0.4) Basophils # (Auto) 0.0 TH/MM3 (0-0.2) CBC Comment AUTO DIFF Differential Total Cells Counted 100 Neutrophils % (Manual) 67 % (16-70) Band Neutrophils % 24 % (0-6) Lymphocytes % 8 % (9-44) Basophils % 1 % (0-2) Neutrophils # (Manual) 29.6 TH/MM3 (1.8-7.7) Differential Comment FINAL DIFF MANUAL Platelet Estimate NORMAL (NORMAL) Platelet Morphology Comment NORMAL (NORMAL) Prothrombin Time 12.4 SEC (9.8-11.6) Prothromb Time International Ratio 1.2 RATIO Activated Partial Thromboplast Time 34.1 SEC (24.3-30.1) Blood Urea Nitrogen 33 MG/DL (7-18) Creatinine 1.42 MG/DL (0.50-1.00) Random Glucose 114 MG/DL (74-106) Total Protein 7.0 GM/DL (6.4-8.2) Albumin 2.8 GM/DL (3.4-5.0) Calcium Level 8.5 MG/DL (8.5-10.1) Phosphorus Level 2.6 MG/DL (2.5-4.9) Magnesium Level 1.4 MG/DL (1.5-2.5) Uric Acid 4.0 MG/DL (2.6-6.0) Alkaline Phosphatase 179 U/L (45-117) Aspartate Amino Transf (AST/SGOT) 137 U/L (15-37) Alanine Aminotransferase (ALT/SGPT) 143 U/L (10-53) Lactate Dehydrogenase 247 U/L (84-246) Total Bilirubin 0.9 MG/DL (0.2-1.0) Sodium Level 134 MEQ/L (136-145) Potassium Level 3.6 MEQ/L (3.5-5.1) Chloride Level 99 MEQ/L (98-107) Carbon Dioxide Level 22.1 MEQ/L (21.0-32.0) Anion Gap 13 MEQ/L (5-15) Estimat Glomerular Filtration Rate 36 ML/MIN (>89) Hemoglobin A1c 6.2 % (4.3-6.0) Lactic Acid Level 2.5 mmol/L (0.4-2.0) Ammonia LESS THAN 10 MCMOL/L Triglycerides Level 59 MG/DL (42-150) Cholesterol Level 127 MG/DL (120-200) LDL Cholesterol 61 MG/DL (0-99) HDL Cholesterol 54.1 MG/DL (40.0-60.0) Cholesterol/HDL Ratio 2.34 RATIO Amylase Level 35 U/L (25-115) Lipase 52 U/L (73-393) Thyroid Stimulating Hormone 3rd Gen 0.643 uIU/ML (0.358-3.740) Hepatitis A IgM Antibody NONREACTIVE (NONREACTIVE) Hepatitis B Surface Antigen NONREACTIVE (NONREACTIVE) Hepatitis B Core IgM Antibody NONREACTIVE (NONREACTIVE) Hepatitis C IgG Antibody NONREACTIVE (NONREACTIVE) Blood Gas Puncture Site LT RADIAL RT RADIAL Blood Gas Patient Temperature 98.6 98.6 Blood Gas HCO3 23 mmol/L (22-26) 21 mmol/L (22-26) Blood Gas Base Excess -1.3 mmol/L (-2-2) -2.4 mmol/L (-2-2) Blood Gas Oxygen Saturation 97 % (90-100) 79 % (90-100) Arterial Blood pH 7.42 (7.380-7.420) 7.43 (7.380-7.420) Arterial Blood Partial Pressure CO2 35 mmHg (38-42) 33 mmHg (38-42) Arterial Blood Partial Pressure O2 139 mmHg (61-120) 46 mmHg (61-120) Arterial Blood Oxygen Content 12.4 Vol % (12.0-20.0) 9.4 Vol % (12.0-20.0) Arterial Blood Carboxyhemoglobin 0.8 % (0-4) 0.9 % (0-4) Arterial Blood Methemoglobin 1.3 % (0-2) 1.4 % (0-2) Blood Gas Hemoglobin 8.9 G/DL (12.0-16.0) 8.5 G/DL (12.0-16.0) Oxygen Delivery Device BiPAP HI PATRICIA NC Blood Gas Ventilator Setting IPAP10/[id number] Blood Gas Inspired Oxygen 40 % 50 % Test 12/14/17 19:22 12/15/17 06:10 12/15/17 10:05 12/15/17 22:30 Blood Gas Puncture Site RT RADIAL Blood Gas Patient Temperature 98.6 Blood Gas HCO3 20 mmol/L (22-26) Blood Gas Base Excess -3.9 mmol/L (-2-2) Blood Gas Oxygen Saturation 97 % (90-100) Arterial Blood pH 7.43 (7.380-7.420) Arterial Blood Partial Pressure CO2 30 mmHg (38-42) Arterial Blood Partial Pressure O2 140 mmHg (61-120) Arterial Blood Oxygen Content 13.6 Vol % (12.0-20.0) Arterial Blood Carboxyhemoglobin 0.6 % (0-4) Arterial Blood Methemoglobin 1.4 % (0-2) Blood Gas Hemoglobin 9.8 G/DL (12.0-16.0) Oxygen Delivery Device VENTILATOR Blood Gas Ventilator Setting 20/500/IT1.0/10PEEP Blood Gas Inspired Oxygen 100 % Random Vancomycin Level 7.0 COMMENT White Blood Count 20.4 TH/MM3 (4.0-11.0) Red Blood Count 2.91 MIL/MM3 (4.00-5.30) Hemoglobin 8.3 GM/DL (11.6-15.3) Hematocrit 25.0 % (35.0-46.0) Mean Corpuscular Volume 86.1 FL (80.0-100.0) Mean Corpuscular Hemoglobin 28.4 PG (27.0-34.0) Mean Corpuscular Hemoglobin Concent 33.0 % (32.0-36.0) Red Cell Distribution Width 16.6 % (11.6-17.2) Platelet Count 306 TH/MM3 (150-450) Mean Platelet Volume 7.0 FL (7.0-11.0) Neutrophils (%) (Auto) 95.1 % (16.0-70.0) Lymphocytes (%) (Auto) 3.5 % (9.0-44.0) Monocytes (%) (Auto) 1.3 % (0.0-8.0) Eosinophils (%) (Auto) 0.0 % (0.0-4.0) Basophils (%) (Auto) 0.1 % (0.0-2.0) Neutrophils # (Auto) 19.4 TH/MM3 (1.8-7.7) Lymphocytes # (Auto) 0.7 TH/MM3 (1.0-4.8) Monocytes # (Auto) 0.3 TH/MM3 (0-0.9) Eosinophils # (Auto) 0.0 TH/MM3 (0-0.4) Basophils # (Auto) 0.0 TH/MM3 (0-0.2) CBC Comment DIFF FINAL Differential Comment Blood Urea Nitrogen 22 MG/DL (7-18) Creatinine 0.95 MG/DL (0.50-1.00) Random Glucose 178 MG/DL (74-106) Total Protein 6.6 GM/DL (6.4-8.2) Albumin 2.5 GM/DL (3.4-5.0) Calcium Level 8.6 MG/DL (8.5-10.1) Phosphorus Level 2.1 MG/DL (2.5-4.9) 3.4 MG/DL (2.5-4.9) Magnesium Level 1.3 MG/DL (1.5-2.5) Alkaline Phosphatase 163 U/L (45-117) Aspartate Amino Transf (AST/SGOT) 59 U/L (15-37) Alanine Aminotransferase (ALT/SGPT) 95 U/L (10-53) Total Bilirubin 0.5 MG/DL (0.2-1.0) Sodium Level 135 MEQ/L (136-145) Potassium Level 2.7 MEQ/L (3.5-5.1) 3.3 MEQ/L (3.5-5.1) Chloride Level 103 MEQ/L (98-107) Carbon Dioxide Level 17.3 MEQ/L (21.0-32.0) Anion Gap 15 MEQ/L (5-15) Estimat Glomerular Filtration Rate 58 ML/MIN (>89) Test 12/16/17 04:35 12/16/17 11:20 White Blood Count 20.6 TH/MM3 (4.0-11.0) Red Blood Count 2.95 MIL/MM3 (4.00-5.30) Hemoglobin 8.4 GM/DL (11.6-15.3) Hematocrit 25.7 % (35.0-46.0) Mean Corpuscular Volume 86.9 FL (80.0-100.0) Mean Corpuscular Hemoglobin 28.3 PG (27.0-34.0) Mean Corpuscular Hemoglobin Concent 32.6 % (32.0-36.0) Red Cell Distribution Width 16.6 % (11.6-17.2) Platelet Count 309 TH/MM3 (150-450) Mean Platelet Volume 7.3 FL (7.0-11.0) Neutrophils (%) (Auto) 91.0 % (16.0-70.0) Lymphocytes (%) (Auto) 5.6 % (9.0-44.0) Monocytes (%) (Auto) 3.4 % (0.0-8.0) Eosinophils (%) (Auto) 0.0 % (0.0-4.0) Basophils (%) (Auto) 0.0 % (0.0-2.0) Neutrophils # (Auto) 18.7 TH/MM3 (1.8-7.7) Lymphocytes # (Auto) 1.1 TH/MM3 (1.0-4.8) Monocytes # (Auto) 0.7 TH/MM3 (0-0.9) Eosinophils # (Auto) 0.0 TH/MM3 (0-0.4) Basophils # (Auto) 0.0 TH/MM3 (0-0.2) CBC Comment DIFF FINAL Differential Comment Blood Urea Nitrogen 22 MG/DL (7-18) Creatinine 0.88 MG/DL (0.50-1.00) Random Glucose 147 MG/DL (74-106) Total Protein 6.3 GM/DL (6.4-8.2) Albumin 2.3 GM/DL (3.4-5.0) Calcium Level 8.8 MG/DL (8.5-10.1) Phosphorus Level 3.1 MG/DL (2.5-4.9) Magnesium Level 1.8 MG/DL (1.5-2.5) Alkaline Phosphatase 145 U/L (45-117) Aspartate Amino Transf (AST/SGOT) 34 U/L (15-37) Alanine Aminotransferase (ALT/SGPT) 74 U/L (10-53) Total Bilirubin 0.4 MG/DL (0.2-1.0) Sodium Level 140 MEQ/L (136-145) Potassium Level 3.8 MEQ/L (3.5-5.1) Chloride Level 110 MEQ/L (98-107) Carbon Dioxide Level 16.1 MEQ/L (21.0-32.0) Anion Gap 14 MEQ/L (5-15) Estimat Glomerular Filtration Rate 63 ML/MIN (>89) Blood Gas Puncture Site RT RADIAL Blood Gas Patient Temperature 98.6 Blood Gas HCO3 18 mmol/L (22-26) Blood Gas Base Excess -6.1 mmol/L (-2-2) Blood Gas Oxygen Saturation 91 % (90-100) Arterial Blood pH 7.41 (7.380-7.420) Arterial Blood Partial Pressure CO2 28 mmHg (38-42) Arterial Blood Partial Pressure O2 73 mmHg (61-120) Arterial Blood Oxygen Content 11.1 Vol % (12.0-20.0) Arterial Blood Carboxyhemoglobin 0.8 % (0-4) Arterial Blood Methemoglobin 1.4 % (0-2) Blood Gas Hemoglobin 8.5 G/DL (12.0-16.0) Oxygen Delivery Device VENTILATOR Blood Gas Ventilator Setting CPAP+5/PS+10 Blood Gas Inspired Oxygen 35 % Result Diagram: 12/16/17 0435 12/16/17 0435 Microbiology Microbiology Date/Time Source Procedure Growth Status 12/14/17 13:56 Blood Peripheral Aerobic Blood Culture - Preliminary NO GROWTH IN 2 DAYS Resulted 12/14/17 13:56 Blood Peripheral Anaerobic Blood Culture - Preliminary NO GROWTH IN 2 DAYS Resulted 12/14/17 13:50 Blood Peripheral Aerobic Blood Culture - Preliminary NO GROWTH IN 2 DAYS Resulted 12/14/17 13:50 Blood Peripheral Anaerobic Blood Culture - Preliminary NO GROWTH IN 2 DAYS Resulted 12/14/17 19:40 Sputum Endotracheal Gram Stain - Final Complete 12/14/17 19:40 Sputum Endotracheal Sputum Culture - Final LIGHT GROWTH NORMAL RESPIRATORY GEORGES Complete 12/14/17 03:45 Nasal Aspirate Influenza Types A,B Antigen (ANAYA) - Final NEGATIVE FOR FLU A AND B ANTIGEN.... Complete Imaging Last Impressions Chest X-Ray 12/16/17 0600 Signed Impressions: CONCLUSION: NG tube remains good position. Moderate size bilateral pleural effusions remain Liver Ultrasound 12/14/17 0000 Signed Impressions: CONCLUSION: 1. The common bile duct is dilated. This may reflect a reservoir phenomenon fo llowing cholecystectomy. 2. The pancreas is obscured by bowel gas. 3. The right kidney appears small which could suggest some degree of atrophy. Lower Extremity Ultrasound 12/13/17 0000 Signed Impressions: CONCLUSION: 1. No DVT is identified within either lower extremity. 2. Please note that portions of the right lower extremity venous system were u nable to be visualized secondary to the patient's knee brace. Procedures 12/16 extubation 12/15 intubated Assessment and Plan Disease Oriented Problem List: (1) Acute respiratory failure with hypoxia (2) Pneumonia (3) Chronic obstructive asthma (with obstructive pulmonary disease) (4) Pulmonary hypertension (5) LBBB (left bundle branch block) (6) Elevated troponin I level (7) BAMBI (acute kidney injury) (8) Anemia (9) Diabetes (10) Low back pain (11) History of benzodiazepine use (12) Opioid use Symptom Scale: (1) Dyspnea 0-10 Scale: Unable to quantify (2) Anxiety 0-10 Scale: Unable to quantify (3) Depression 0-10 Scale: 10 (4) Low back pain 0-10 Scale: Unable to quantify Pertinent Non-Medical Issues Psychosocial: Lives at home with . Daughter from [place]. Has granddaughter, grandson. She is retired, worked at [employer] and that is how she met her . Spiritual: [employer] cinthya. [employer] following per family request. Legal: Pt currently incapacited, she is intubated and sedated. Per statutes her would be proxy. He is supported by 2 grandchildren. Family communicating and appear to be working together. Ethical issues impacting care: none identified . Important Contacts Santana Norwood [phone] . Prognosis 72 yo female with polypharmacy, debility secondary chronic pain, who presented with SOB. She was found to have multilobar PNA and subsequently intubated. She has had multiple hospitalizations for sepsis, recurrent PNA, pain in last few years. Pt homebound, primarily sedentary due to pain, which she has struggled with for 20+ years ago. In light of multiple comorbidities, ongoing debility, poor underlying COPD, prognosis is guarded. It is possible she could stabilize after steroids, abx, and be medically extubated but with continued decreased quality of life d/t chronic pain. If she remains intubated she would eventually need feeding tube placed with flouroscopy, and eventually trach. She remains at risk for continued decline, complications, and setbacks. . Code Status: No Code Plan * LEGAL DECISION MAKER -patient status post medical extubation earlier today. She is awake may be able to participate some though still with some mild confusion and anxiety. Per statutes her would be proxy. He is supported by 2 grandchildren. Family communicating and appear to be working together. * CODE STATUS -DNR/DNI * GOALS - continue aggressive treatment now with hope for medical extubation in next couple days, however if she does not make improvement family would likely opt for compassionate withdrawal and comfort care * SYMPTOMS- * dyspnea - presented with SOB, found to have multilobar PNA. hx recurrent PNA and underlying obstructive asthma/COPD. s/p 3 doses solumedrol. on abx for PNA. Family hoped for medical extubation in coming days and if no improvement family considering compassionate withdrawal; patient able to be medically extubated 12/16. On 6 L nasal cannula nursing working on weaning down. Respiratory status still quite guarded and she is high risk for decompensation and decline appropriate for hospice if does not desire reintubation. request DNR/DNI today * pain - 2/2 lines, chronic pain. Was seeing pain mgmt for joint and back injections. Was taking morphine, tizanidine, percocet, amitriptyline. Appears comfortable, no sign pain on exam. To my exam she indicates she is feeling lousy though she is unable to further elaborate or quantify. * anxiety, depression - chronic, since losing daughter 6 y ago. Was taking xanax, hydroxyzine, amitriptyline. Had been on fentanyl and propofol; nursing starting Precedex IV currently as patient continues to have some anxiety and is unable to take p.o. regimen secondary to failed swallow evaluation * debility - chronic, in last year worsening 2/2 chronic pain, underlying respiratory issues, sedentary lifestyle. Has had recurrent falls and after most recent, refused rehab. likely to worsen even if her respiratory status should improve due to her resistance to rehab and desire to "give up." Could be hospice appropriate if in line with family's goals. Palliative care will continue to follow during hospital course as condition evolves to assist patient/decision maker with understanding of medical conditions, benefits/burdens of treatment options, clarification of goals of treatment, and will assist with symptoms of palliative concern. . Time Spent Total Floor Time (mins): 30 (Chart review, PE, discussion with nursing, d/w critical care dr Marquez. discussion with patient and family) >50% Counseling/Coord of Care: Yes Attestation To help prompt me to consider important information that might be impacting today's encounter and assessment, information from prior notes written by myself or my colleagues may have been "brought forward" into today's note. My signature on this note, however, is an attestation that I personally performed the exam, history, and/or decision-making noted today, and, unless otherwise indicated, the interactions with patient, family, and staff as well as the review of records all occurred today. I also attest that the listed assessment and stated plan reflect my best clinical judgment today based on the combination of historical information, prior notes, and today's exam/ interactions. When time spent is documented, it refers only to time spent today by the signer, or if indicated, combined time spent today by collaborating physician/nurse practitioner. Winsome Willis Dec 16, 2017 16:00
[2017-12-16] MEDS: VANCOMYCIN 1,500 MG/NS 500 ML IV SCH ×2 (18:00)
[2017-12-16] MEDS: RESP: ALBUTEROL 2.5 MG/3 ML NEB (PRN) INH ×2 (18:23→21:46)
[2017-12-16] MEDS: AMITRIPTYLINE HCL 25 MG TAB PO SCH (19:51)
[2017-12-16] MEDS: ATORVASTATIN 40 MG TAB PO SCH (19:51)
[2017-12-16] MEDS ORDERED: NITROGLYCERIN 2% OINT 1 GM PACKET TOPICAL PRN (20:30)
[2017-12-16] MEDS ORDERED: hydrALAZINE HCL 20 MG/ML VIAL IV PUSH PRN (20:30)
[2017-12-16] MEDS: LABETALOL HCL 100 MG/20 ML VIAL IV PUSH PRN ×2 (20:44→22:11)
[2017-12-16] MEDS ORDERED: niCARdipine INJ 25 MG in SODIUM CHLOR 0.9% 250 ML INJ 250 ML IV PRN (22:00)
[2017-12-16] MEDS: DEXMEDETOMIDINE INJ 1,000 MCG in SODIUM CHLOR 0.9% 250 ML INJ 240 ML IV PRN (22:12)
[2017-12-16] MEDS: MORPHINE SULFATE 4 MG/ML INJ IV PUSH PRN ×2 (22:12→23:17)
[2017-12-16] MEDS ORDERED: FUROSEMIDE 20 MG/2 ML VIAL IV PUSH ONE (22:15)
[2017-12-16] MEDS ORDERED: MORPHINE SULFATE 4 MG/ML INJ IV PUSH PRN ×3 (22:30→23:15)
[2017-12-16] MEDS ORDERED: FUROSEMIDE 40 MG/4 ML VIAL IV PUSH ONE (23:15)
[2017-12-16 23:54] LABS: C PNEUMO IGA <1:16 (<1:16); C PNEUMO IGG <1:64 (<1:64); C PNEUMO IGM <1:10 (<1:10)
[2017-12-17] VITALS (10 sets, daily range): BP systolic 133–167; BP diastolic 68–106; PULSE 68–85; RESP 31–38; TEMP 97–100; O2SAT 95–99
[2017-12-17] MEDS: RESP: ALBUTEROL 2.5 MG/IPRATROPIUM 0.5 MG NEB (SCH) INH ×5 (00:08→16:34)
[2017-12-17] MEDS: MORPHINE SULFATE 4 MG/ML INJ IV PUSH PRN ×6 (02:03→12:10)
[2017-12-17] MEDS: LORazepam 2 MG/ML VIAL IV PRN ×3 (02:03→05:59)
[2017-12-17] MEDS: CHLORHEXIDINE GLUCONATE 2 % 1 PACK (2 CLOTHS) TOP SCH (04:00)
[2017-12-17 04:53] LABS: BASOPHIL % 0.1 % (0.0-2.0); EOSINOPHIL % 0.3 % (0.0-4.0); HEMATOCRIT 27.5 % (35.0-46.0); HEMOGLOBIN 8.8 GM/DL (11.6-15.3); LYMPH % 11.5 % (9.0-44.0); LYMPHOCYTE # 1.9 TH/MM3 (1.0-4.8); MEAN CELL VOLUME 87.7 FL (80.0-100.0); MEAN CORPUSCULAR HEMOGLOBIN 28.2 PG (27.0-34.0); MEAN CORPUSCULAR HGB CONC 32.2 % (32.0-36.0); MEAN PLATELET VOLUME 6.7 FL (7.0-11.0); MONO % 4.7 % (0.0-8.0); MONOCYTE # 0.8 TH/MM3 (0-0.9); NEUT % 83.4 % (16.0-70.0); PLATELET COUNT 356 TH/MM3 (150-450); RED BLOOD COUNT 3.13 MIL/MM3 (4.00-5.30); RED CELL DISTRIBUTION WIDTH 16.7 % (11.6-17.2); WHITE BLOOD COUNT 16.8 TH/MM3 (4.0-11.0)
[2017-12-17 04:57] LABS: ALBUMIN 2.5 GM/DL (3.4-5.0); AST (GOT) 22 U/L (15-37); BICARBONATE 18.9 MEQ/L (21.0-32.0); BLOOD UREA NITROGEN 23 MG/DL (7-18); CALCIUM 8.9 MG/DL (8.5-10.1); CHLORIDE 107 MEQ/L (98-107); CREATININE 1.05 MG/DL (0.50-1.00); GLOMERULAR FILTRATION RATE 51 ML/MIN (>89); GLUCOSE,RANDOM 137 MG/DL (74-106); MAGNESIUM 1.6 MG/DL (1.5-2.5); SODIUM (NA) 140 MEQ/L (136-145)
[2017-12-17 04:58] LABS: ALT (GPT) 59 U/L (10-53); PHOSPHORUS 2.1 MG/DL (2.5-4.9)
[2017-12-17 05:00] LABS: ALKALINE PHOSPHATASE 170 U/L (45-117); TOTAL BILIRUBIN ADULT 0.6 MG/DL (0.2-1.0)
[2017-12-17] MEDS: ARTIFICIAL TEARS OPTH SOLN 15 ML BTL EACH EYE SCH ×4 (05:13→14:00)
[2017-12-17] MEDS: LEVOTHYROXINE SODIUM 100 MCG TAB PO SCH (05:13)
[2017-12-17] MEDS: DEXMEDETOMIDINE INJ 1,000 MCG in SODIUM CHLOR 0.9% 250 ML INJ 240 ML IV PRN ×2 (07:32→15:11)
[2017-12-17] MEDS: INSULIN NovoLIN REGULAR SUPPLEMENTAL SCALE SQ SCH (08:00)
[2017-12-17] MEDS: HEPARIN SODIUM - SQ 10,000 UNITS/ML VIAL SQ SCH (08:00)
[2017-12-17] MEDS: CHLORHEXIDINE 0.12% (ORAL KIT) 15 ML CUP MT SCH (08:00)
[2017-12-17] MEDS: SUCRALFATE 1 GM TAB PO SCH (09:00)
[2017-12-17] MEDS: PROPRANOLOL HCL 20 MG TAB PO SCH (09:00)
[2017-12-17] MEDS: FLUTICASONE PROPIONATE 50 MCG/ACT 16 GM NASAL SPRAY EACH NARE SCH (09:00)
[2017-12-17] MEDS: ALLOPURINOL 100 MG TAB PO SCH (09:00)
[2017-12-17] MEDS: FUROSEMIDE 40 MG TAB PO SCH (09:00)
[2017-12-17] MEDS: SODIUM CHLORIDE 0.9% FLUSH 10 ML FLUSH IV FLUSH SCH (09:00)
[2017-12-17] MEDS: DOCUSATE SODIUM 50 MG/SENNA 8.6 MG TAB PO SCH (09:00)
[2017-12-17] MEDS: FERROUS SULFATE 300 MG /5ML UDC PO SCH (09:00)
[2017-12-17] MEDS: DULoxetine HCl DR 60 MG CAP PO SCH (09:00)
[2017-12-17] MEDS: MUPIROCIN 2% OINT 1 APPLIC/GM SYR EACH NARE SCH (09:00)
[2017-12-17] MEDS: FLUTICASONE 100 MCG/VILANTEROL 25 MCG INHALER INH SCH (09:00)
[2017-12-17] MEDS: ASPIRIN 81 MG CHEW TAB CHEW SCH (09:00)
[2017-12-17] MEDS: PANTOPRAZOLE SODIUM 40 MG VIAL IV PUSH SCH (09:00)
[2017-12-17] MEDS: hydrOXYzine PAMOATE 25 MG CAP PO SCH (09:00)
[2017-12-17] MEDS: CEFEPIME INJ 2,000 MG in SODIUM CHLORIDE 0.9% INJ 100 ML IV SCH (10:00)
--- NOTE | 2017-12-17 10:54 | HHI.CCPN ---
Subjective Remarks/Hospital Course This is a 72-year-old female. The date of admission 12/13/2017. Past medical history includes depression/anxiety, chronic opiate use, chronic benzodiazepine use, essential hypertension hyperlipidemia, mild to moderate pulmonary hypertension, asthma/COPD, diabetes mellitus/gastroesophageal reflux disease, hypothyroidism, gout, chronic kidney disease stage III a anemia. Patient denies any recent travels or sick contacts. Last night, patient with acute onset of shortness of breath. Not associated with chest pain. Denies cough, sputum production, wheezing. Patient was quite tachypneic [facility]. Patient was placed on BiPAP therapy due to acute hypercapnia and hypoxemia. Chest x-ray revealed bilateral lower lobe pneumonia/infiltrates with right upper lobe infiltrate. Was treated acutely with cefepime and azithromycin. She was tachycardic in the 120s. Initial troponin 0 0.09. Refused aspirin. Lactic acid was slightly elevated at 3.2. Received 1 L normal saline. She is currently in a sinus tachycardia with a rate 120. Appears comfortable is able to speak complete since without using accessory muscles. 12/14: Currently down to 4 L nasal cannula. Off BiPAP since last night. Peak of 0.89. Denies chest pain likely type II demand ischemia from acute respiratory failure secondary to community acquired pneumonia.. Refusing aspirin. Requesting to use regular restroom facilities. Positive BM. Tolerating diet. Pain is well controlled according to patient. 12/15: No events post intubation. T-max of 99.3, urine output 1450 mL's over the last 24 hours. Patient is sedated with propofol at 50 and fentanyl and 250. Arousable, following some commands. FiO2 down to 0.4. 12/16: No events over the night. T-max of 98. I/O 3513/2275. Patient remains sedated and intubated. Sedation is achieved with propofol at 50 and fentanyl and 250. FiO2 of 0.35. Family present at bedside. Palliative care notes reviewed, patient is now alternative code. 12/17: Patient was successfully extubated yesterday morning and did well postextubation. However over the night patient became increasingly agitated, hypertensive, tachycardic and tachypneic. Patient was treated appropriately by the nighttime piano accompanist and after discussing with family it was decided that she should be kept comfortable and family declined reintubation. This morning patient is lethargic, minimally arousable, does not follow commands. Family including her are present at bedside. Objective Vital Signs Date Time Temp Pulse Resp B/P (MAP) Pulse Ox O2 Delivery O2 Flow Rate FiO2 12/17/17 10:00 72 12/17/17 09:09 96 Simple Mask 10.00 12/17/17 08:00 97.0 37 159/76 (103) 12/17/17 07:00 35 Intake and Output 12/17/17 12/17/17 12/18/17 08:00 16:00 00:00 Output Total 2750 ml Balance -2750 ml Result Diagram: 12/17/17 0319 12/17/17 0319 Other Results Microbiology Date/Time Source Procedure Growth Status 12/14/17 19:40 Sputum Endotracheal Gram Stain - Final Complete 12/14/17 19:40 Sputum Endotracheal Sputum Culture - Final LIGHT GROWTH NORMAL RESPIRATORY GEORGES Complete Laboratory Tests Test 12/16/17 11:20 Blood Gas Puncture Site RT RADIAL Blood Gas Patient Temperature 98.6 Blood Gas HCO3 18 mmol/L (22-26) Blood Gas Base Excess -6.1 mmol/L (-2-2) Blood Gas Oxygen Saturation 91 % (90-100) Arterial Blood pH 7.41 (7.380-7.420) Arterial Blood Partial Pressure CO2 28 mmHg (38-42) Arterial Blood Partial Pressure O2 73 mmHg (61-120) Arterial Blood Oxygen Content 11.1 Vol % (12.0-20.0) Arterial Blood Carboxyhemoglobin 0.8 % (0-4) Arterial Blood Methemoglobin 1.4 % (0-2) Blood Gas Hemoglobin 8.5 G/DL (12.0-16.0) Oxygen Delivery Device VENTILATOR Blood Gas Ventilator Setting CPAP+5/PS+10 Blood Gas Inspired Oxygen 35 % Imaging Last 24 hours Impressions Chest X-Ray 12/16/17 0600 Signed Impressions: CONCLUSION: NG tube remains good position. Moderate size bilateral pleural effusions remain Last Impressions Chest X-Ray 12/14/17 0000 Signed Impressions: CONCLUSION: Patchy bilateral infiltrates, right worse than left are unchanged Lower Extremity Ultrasound 12/13/17 0000 Signed Impressions: CONCLUSION: 1. No DVT is identified within either lower extremity. 2. Please note that portions of the right lower extremity venous system were u nable to be visualized secondary to the patient's knee brace. Objective Remarks GENERAL: Elderly lady, lethargic, difficult to arouse, ill-appearing. SKIN: No rash, no cyanosis. HEAD: Atraumatic. Normocephalic. EYES: Pupils are equal and reactive. Sclerae anicteric. ENT: No nasal bleeding or discharge. NECK: Supple, no rigidity. Trachea midline. Neck veins are not distended. CARDIOVASCULAR: Regular heart sounds, 1/6 systolic murmur at apex. RESPIRATORY: Coarse breath sounds bilateral, right greater than left. No wheezes. GASTROINTESTINAL: Abdomen is soft, appears non-tender and nondistended. Hypoactive bowel sounds. MUSCULOSKELETAL: Trace bilateral lower extremity edema. Warm and well-perfused extremities. Peripheral pulses are palpable. NEUROLOGICAL: Patient is lethargic, difficult to arouse, grimaces to pain, does not follow commands. Pupils are equal and reactive. A/P Assessment and Plan 1. Acute hypoxic and hypercapnic respiratory failure -initially improved, did well postextubation until last night when she started to decompensate 2. Asthma/COPD 3. Sepsis secondary to CAP 4. Lactic acidosis -resolved 5. BAMBI on CKD -improved, adequate urine output 6. Cardiomyopathy with mildly reduced ejection fraction 45 to 50% 7. History of depression and anxiety with chronic benzodiazepine use 8. Chronic pain syndrome with history of chronic opioid use 9. History of hypertension 10. History of hyperlipidemia 11. GERD and history of achalasia 12. Diabetes 13. Gout 14. Hypothyroidism 15. CoNS bacteremia -likely contaminant, repeat blood cultures have no growth to date 1. Patient is comfort care since last night with order pain medication and anxiety medication 2. Family this morning, including reiterated the plan for comfort. We will respect their wishes 3. Palliative care follow-up Jarred Marquez MD Dec 17, 2017 10:54
[2017-12-17] MEDS ORDERED: HYOSCYAMINE 0.125 MG TAB PO/SL PRN (11:30)
--- NOTE | 2017-12-17 11:54 | HHI.HCPN ---
Reason for visit a. To assist with evaluation and management of symptoms including: pain, dyspnea, anxiety & depression, debility b. To assist medical decision maker(s) with: better understanding of current medical conditions; weighing benefits/burdens of medical treatment options; making medical treatment decisions. Subjective/Interval History Pt seen today to follow up on comfort, goals. Medically extubated yesterday around 1130. Into the evening hours increasingly short of breath. Patient and family had requested DNR/DNI, and transition to comfort if patient did not improve. Comfort medications were added overnight by critical care. Patient has been requiring frequent doses 20 mg + Ativan in the last 12 hours, greater than 20 mg morphine IV in the past 12 hours, for dyspnea, comfort. Patient seen in room today, multiple family members present at bedside. Dual visit with More VILCHIS. Patient nonresponsive to exam, currently breathing on simple mask O2 mild tachypnea some accessory muscle use observed. Extensive meeting x35+ min with family at bedside review of patient extubation yesterday and clinical course leading to addition of comfort medications. Review again of hospital course thus far treatments that were in place and overall with minimal improvement and recovery. Family affirms that patient confirmed with them last night she would not want reintubation and appeared to accept comfort measures only versus further escalation of treatment. Review of hospice role, philosophy, services potential for care center. Also review possibility of transferring out of ICU to regular hospital room even with hospice services. Anticipatory guidance provided--much review of symptoms at end-of-life and various comfort focused treatments available. All questions answered to the best of my ability. , supported by grandchildren affirms comfort measures only at this point and request hospice consultation. They do not wish to move her to a care center at this time, they want hospice to follow at the hospital. Hospice order placed call to hospice admissions. Discussed with primary nurse, discussed with critical care. Advance Directives Living Will: Never completed Health Care Surrogate: Never completed Durable Power of Road Freight Conductor: Never completed Objective Vital Signs Date Time Temp Pulse Resp B/P (MAP) Pulse Ox O2 Delivery O2 Flow Rate FiO2 12/17/17 10:00 72 12/17/17 09:09 96 Simple Mask 10.00 12/17/17 08:00 72 12/17/17 08:00 97.0 68 37 159/76 (103) 99 12/17/17 07:00 Nasal Cannula 6.00 35 12/17/17 06:00 69 12/17/17 04:00 81 12/17/17 04:00 99.2 81 38 157/77 (103) 97 12/17/17 02:00 79 12/17/17 00:00 100.0 85 38 133/68 (89) 95 12/17/17 00:00 85 12/16/17 22:04 93 Simple Mask 10.00 12/16/17 22:00 117 12/16/17 20:23 99 Nasal Cannula 5.00 12/16/17 20:00 98.4 110 33 202/77 (118) 96 12/16/17 20:00 110 12/16/17 19:00 97 Nasal Cannula 6.00 12/16/17 18:00 102 12/16/17 16:00 79 12/16/17 16:00 98.5 79 36 162/79 (106) 95 12/16/17 14:00 74 12/16/17 12:00 85 12/16/17 12:00 97.7 85 26 174/78 (110) 93 12/16/17 11:54 96 Nasal Cannula 2 28 Intake & Output 12/17/17 12/17/17 07:00 19:00 Intake Total 965 ml Output Total 2750 ml Balance -1785 ml IV Total 965 ml Output Urine Total 2750 ml # Bowel Movements 0 Physical Exam CONSTITUTIONAL/GENERAL: This is an adequately nourished patient, lethargic, minimally responsive on simple mask TUBES/LINES/DRAINS: PIVs UE, simple mask O2 SKIN: No jaundice, rashes, or lesions. No wounds seen anteriorly. Skin warm and dry CARDIOVASCULAR: RRR without murmur, No JVD. Peripheral pulses symmetric. No peripheral edema. RESPIRATORY/CHEST: Symmetric, mildly labored respirations at times. Mildly tachypneic respiratory rate 24+. Lungs with coarse scattered rhonchi. Decreased air movement to bases. Slight expiratory wheeze left GASTROINTESTINAL: Abdomen soft, round, non-tender, nondistended. No hepato- splenomegaly, or palpable masses. Bowel sounds present. GENITOURINARY: Without palpable bladder distension. External wick urine device in place draining large amount of clear light yellow urine NEUROLOGICAL: lethargic/obtunded. does not stir/arouse to my exam. PSYCHIATRIC: Mildly tachypneic . Diagnostic Tests Laboratory Laboratory Tests Test 12/14/17 18:20 12/14/17 19:22 12/15/17 06:10 12/15/17 10:05 Blood Gas Puncture Site RT RADIAL RT RADIAL Blood Gas Patient Temperature 98.6 98.6 Blood Gas HCO3 21 mmol/L (22-26) 20 mmol/L (22-26) Blood Gas Base Excess -2.4 mmol/L (-2-2) -3.9 mmol/L (-2-2) Blood Gas Oxygen Saturation 79 % (90-100) 97 % (90-100) Arterial Blood pH 7.43 (7.380-7.420) 7.43 (7.380-7.420) Arterial Blood Partial Pressure CO2 33 mmHg (38-42) 30 mmHg (38-42) Arterial Blood Partial Pressure O2 46 mmHg (61-120) 140 mmHg (61-120) Arterial Blood Oxygen Content 9.4 Vol % (12.0-20.0) 13.6 Vol % (12.0-20.0) Arterial Blood Carboxyhemoglobin 0.9 % (0-4) 0.6 % (0-4) Arterial Blood Methemoglobin 1.4 % (0-2) 1.4 % (0-2) Blood Gas Hemoglobin 8.5 G/DL (12.0-16.0) 9.8 G/DL (12.0-16.0) Oxygen Delivery Device HI PATRICIA NC VENTILATOR Blood Gas Inspired Oxygen 50 % 100 % Blood Gas Ventilator Setting 20/500/IT1.0/10PEEP Random Vancomycin Level 7.0 COMMENT White Blood Count 20.4 TH/MM3 (4.0-11.0) Red Blood Count 2.91 MIL/MM3 (4.00-5.30) Hemoglobin 8.3 GM/DL (11.6-15.3) Hematocrit 25.0 % (35.0-46.0) Mean Corpuscular Volume 86.1 FL (80.0-100.0) Mean Corpuscular Hemoglobin 28.4 PG (27.0-34.0) Mean Corpuscular Hemoglobin Concent 33.0 % (32.0-36.0) Red Cell Distribution Width 16.6 % (11.6-17.2) Platelet Count 306 TH/MM3 (150-450) Mean Platelet Volume 7.0 FL (7.0-11.0) Neutrophils (%) (Auto) 95.1 % (16.0-70.0) Lymphocytes (%) (Auto) 3.5 % (9.0-44.0) Monocytes (%) (Auto) 1.3 % (0.0-8.0) Eosinophils (%) (Auto) 0.0 % (0.0-4.0) Basophils (%) (Auto) 0.1 % (0.0-2.0) Neutrophils # (Auto) 19.4 TH/MM3 (1.8-7.7) Lymphocytes # (Auto) 0.7 TH/MM3 (1.0-4.8) Monocytes # (Auto) 0.3 TH/MM3 (0-0.9) Eosinophils # (Auto) 0.0 TH/MM3 (0-0.4) Basophils # (Auto) 0.0 TH/MM3 (0-0.2) CBC Comment DIFF FINAL Differential Comment Blood Urea Nitrogen 22 MG/DL (7-18) Creatinine 0.95 MG/DL (0.50-1.00) Random Glucose 178 MG/DL (74-106) Total Protein 6.6 GM/DL (6.4-8.2) Albumin 2.5 GM/DL (3.4-5.0) Calcium Level 8.6 MG/DL (8.5-10.1) Phosphorus Level 2.1 MG/DL (2.5-4.9) Magnesium Level 1.3 MG/DL (1.5-2.5) Alkaline Phosphatase 163 U/L (45-117) Aspartate Amino Transf (AST/SGOT) 59 U/L (15-37) Alanine Aminotransferase (ALT/SGPT) 95 U/L (10-53) Total Bilirubin 0.5 MG/DL (0.2-1.0) Sodium Level 135 MEQ/L (136-145) Potassium Level 2.7 MEQ/L (3.5-5.1) Chloride Level 103 MEQ/L (98-107) Carbon Dioxide Level 17.3 MEQ/L (21.0-32.0) Anion Gap 15 MEQ/L (5-15) Estimat Glomerular Filtration Rate 58 ML/MIN (>89) Test 12/15/17 22:30 12/16/17 04:35 12/16/17 11:20 12/17/17 03:19 Potassium Level 3.3 MEQ/L (3.5-5.1) 3.8 MEQ/L (3.5-5.1) 3.2 MEQ/L (3.5-5.1) Phosphorus Level 3.4 MG/DL (2.5-4.9) 3.1 MG/DL (2.5-4.9) 2.1 MG/DL (2.5-4.9) White Blood Count 20.6 TH/MM3 (4.0-11.0) 16.8 TH/MM3 (4.0-11.0) Red Blood Count 2.95 MIL/MM3 (4.00-5.30) 3.13 MIL/MM3 (4.00-5.30) Hemoglobin 8.4 GM/DL (11.6-15.3) 8.8 GM/DL (11.6-15.3) Hematocrit 25.7 % (35.0-46.0) 27.5 % (35.0-46.0) Mean Corpuscular Volume 86.9 FL (80.0-100.0) 87.7 FL (80.0-100.0) Mean Corpuscular Hemoglobin 28.3 PG (27.0-34.0) 28.2 PG (27.0-34.0) Mean Corpuscular Hemoglobin Concent 32.6 % (32.0-36.0) 32.2 % (32.0-36.0) Red Cell Distribution Width 16.6 % (11.6-17.2) 16.7 % (11.6-17.2) Platelet Count 309 TH/MM3 (150-450) 356 TH/MM3 (150-450) Mean Platelet Volume 7.3 FL (7.0-11.0) 6.7 FL (7.0-11.0) Neutrophils (%) (Auto) 91.0 % (16.0-70.0) 83.4 % (16.0-70.0) Lymphocytes (%) (Auto) 5.6 % (9.0-44.0) 11.5 % (9.0-44.0) Monocytes (%) (Auto) 3.4 % (0.0-8.0) 4.7 % (0.0-8.0) Eosinophils (%) (Auto) 0.0 % (0.0-4.0) 0.3 % (0.0-4.0) Basophils (%) (Auto) 0.0 % (0.0-2.0) 0.1 % (0.0-2.0) Neutrophils # (Auto) 18.7 TH/MM3 (1.8-7.7) 14.0 TH/MM3 (1.8-7.7) Lymphocytes # (Auto) 1.1 TH/MM3 (1.0-4.8) 1.9 TH/MM3 (1.0-4.8) Monocytes # (Auto) 0.7 TH/MM3 (0-0.9) 0.8 TH/MM3 (0-0.9) Eosinophils # (Auto) 0.0 TH/MM3 (0-0.4) 0.0 TH/MM3 (0-0.4) Basophils # (Auto) 0.0 TH/MM3 (0-0.2) 0.0 TH/MM3 (0-0.2) CBC Comment DIFF FINAL DIFF FINAL Differential Comment Blood Urea Nitrogen 22 MG/DL (7-18) 23 MG/DL (7-18) Creatinine 0.88 MG/DL (0.50-1.00) 1.05 MG/DL (0.50-1.00) Random Glucose 147 MG/DL (74-106) 137 MG/DL (74-106) Total Protein 6.3 GM/DL (6.4-8.2) 7.0 GM/DL (6.4-8.2) Albumin 2.3 GM/DL (3.4-5.0) 2.5 GM/DL (3.4-5.0) Calcium Level 8.8 MG/DL (8.5-10.1) 8.9 MG/DL (8.5-10.1) Magnesium Level 1.8 MG/DL (1.5-2.5) 1.6 MG/DL (1.5-2.5) Alkaline Phosphatase 145 U/L (45-117) 170 U/L (45-117) Aspartate Amino Transf (AST/SGOT) 34 U/L (15-37) 22 U/L (15-37) Alanine Aminotransferase (ALT/SGPT) 74 U/L (10-53) 59 U/L (10-53) Total Bilirubin 0.4 MG/DL (0.2-1.0) 0.6 MG/DL (0.2-1.0) Sodium Level 140 MEQ/L (136-145) 140 MEQ/L (136-145) Chloride Level 110 MEQ/L (98-107) 107 MEQ/L (98-107) Carbon Dioxide Level 16.1 MEQ/L (21.0-32.0) 18.9 MEQ/L (21.0-32.0) Anion Gap 14 MEQ/L (5-15) 14 MEQ/L (5-15) Estimat Glomerular Filtration Rate 63 ML/MIN (>89) 51 ML/MIN (>89) Blood Gas Puncture Site RT RADIAL Blood Gas Patient Temperature 98.6 Blood Gas HCO3 18 mmol/L (22-26) Blood Gas Base Excess -6.1 mmol/L (-2-2) Blood Gas Oxygen Saturation 91 % (90-100) Arterial Blood pH 7.41 (7.380-7.420) Arterial Blood Partial Pressure CO2 28 mmHg (38-42) Arterial Blood Partial Pressure O2 73 mmHg (61-120) Arterial Blood Oxygen Content 11.1 Vol % (12.0-20.0) Arterial Blood Carboxyhemoglobin 0.8 % (0-4) Arterial Blood Methemoglobin 1.4 % (0-2) Blood Gas Hemoglobin 8.5 G/DL (12.0-16.0) Oxygen Delivery Device VENTILATOR Blood Gas Ventilator Setting CPAP+5/PS+10 Blood Gas Inspired Oxygen 35 % Result Diagram: 12/17/1731812/17/17318 Microbiology Microbiology Date/Time Source Procedure Growth Status 12/14/17 13:56 Blood Peripheral Aerobic Blood Culture - Preliminary NO GROWTH IN 3 DAYS Resulted 12/14/17 13:56 Blood Peripheral Anaerobic Blood Culture - Preliminary NO GROWTH IN 3 DAYS Resulted 12/14/17 13:50 Blood Peripheral Aerobic Blood Culture - Preliminary NO GROWTH IN 3 DAYS Resulted 12/14/17 13:50 Blood Peripheral Anaerobic Blood Culture - Preliminary NO GROWTH IN 3 DAYS Resulted 12/14/17 19:40 Sputum Endotracheal Gram Stain - Final Complete 12/14/17 19:40 Sputum Endotracheal Sputum Culture - Final LIGHT GROWTH NORMAL RESPIRATORY [place]ES Complete Imaging Last Impressions Chest X-Ray 12/16/17 0600 Signed Impressions: CONCLUSION: NG tube remains good position. Moderate size bilateral pleural effusions remain Liver Ultrasound 12/14/17 0000 Signed Impressions: CONCLUSION: 1. The common bile duct is dilated. This may reflect a reservoir phenomenon fo llowing cholecystectomy. 2. The pancreas is obscured by bowel gas. 3. The right kidney appears small which could suggest some degree of atrophy. Lower Extremity Ultrasound 12/13/17 0000 Signed Impressions: CONCLUSION: 1. No DVT is identified within either lower extremity. 2. Please note that portions of the right lower extremity venous system were u nable to be visualized secondary to the patient's knee brace. Procedures 12/16 extubation 12/15 intubated Assessment and Plan Disease Oriented Problem List: (1) Acute respiratory failure with hypoxia (2) Pneumonia (3) Chronic obstructive asthma (with obstructive pulmonary disease) (4) Pulmonary hypertension (5) LBBB (left bundle branch block) (6) Elevated troponin I level (7) BAMBI (acute kidney injury) (8) Anemia (9) Diabetes (10) Low back pain (11) History of benzodiazepine use (12) Opioid use Symptom Scale: (1) Dyspnea 0-10 Scale: Unable to quantify (2) Anxiety 0-10 Scale: Unable to quantify (3) Depression 0-10 Scale: 10 (4) Low back pain 0-10 Scale: Unable to quantify Pertinent Non-Medical Issues Psychosocial: Lives at home with . Daughter from [place]. Has granddaughter, grandson. She is retired, worked at [employer] and that is how she met her . Spiritual: Amish cinthya. Affirmative Action Officer following per family request. Legal: Pt currently incapacited, she is intubated and sedated. Per statutes her would be proxy. He is supported by 2 grandchildren. Family communicating and appear to be working together. Ethical issues impacting care: none identified . Important Contacts Santana Norwood [phone] . Prognosis 72 yo female with polypharmacy, debility secondary chronic pain, who presented with SOB. She was found to have multilobar PNA and subsequently intubated. She has had multiple hospitalizations for sepsis, recurrent PNA, pain in last few years. Pt homebound, primarily sedentary due to pain, which she has struggled with for 20+ years ago. In light of multiple comorbidities, ongoing debility, poor underlying COPD, prognosis is guarded. It is possible she could stabilize after steroids, abx, and be medically extubated but with continued decreased quality of life d/t chronic pain. If she remains intubated she would eventually need feeding tube placed with flouroscopy, and eventually trach. She remains at risk for continued decline, complications, and setbacks. . Code Status: No Code Plan * LEGAL DECISION MAKER -patient status post medical extubation earlier today. She is awake may be able to participate some though still with some mild confusion and anxiety. Per statutes her would be proxy. He is supported by 2 grandchildren. Family communicating and appear to be working together. * CODE STATUS -DNR/DNI * GOALS - COMFORT Oriented, HOSPICE REQUESTED, DOES NOT WANT CARE CENTER * SYMPTOMS- * dyspnea - presented with SOB, found to have multilobar PNA. hx recurrent PNA and underlying obstructive asthma/COPD. s/p 3 doses solumedrol. on abx for PNA. Family hoped for medical extubation in coming days and if no improvement family considering compassionate withdrawal; patient able to be medically extubated 12/16. Medically extubated 12/16--respiratory decline following. Currently on facemask O2, nursing to wean down to nasal cannula as tolerated. [id number] benzodiazepine, opiates added for dyspnea. request hospice, comfort only * pain - 2/2 lines, chronic pain. Was seeing pain mgmt for joint and back injections. Was taking morphine, tizanidine, percocet, amitriptyline. Appears comfortable, no sign pain on exam. The clock morphine and Ativan regimen added. * anxiety, depression - chronic, since losing daughter 6 y ago. Was taking xanax, hydroxyzine, amitriptyline. Had been on fentanyl and propofol; nursing starting Precedex IV currently as patient continues to have some anxiety and is unable to take p.o. regimen secondary to failed swallow evaluation//around-the- clock morphine and Ativan regimen added for chronic anxiety, nursing to wean off Precedex as tolerated * debility - chronic, in last year worsening 2/2 chronic pain, underlying respiratory issues, sedentary lifestyle. Has had recurrent falls and after most recent, refused rehab. likely to worsen even if her respiratory status should improve due to her resistance to rehab and desire to "give up." Hospice elected 12/17 Palliative care will continue to follow during hospital course as condition evolves to assist patient/decision maker with understanding of medical conditions, benefits/burdens of treatment options, clarification of goals of treatment, and will assist with symptoms of palliative concern. . Time Spent Total Floor Time (mins): 50 (Chart review, PE, extensive discussion with family , discussion with nursing, critical care) Attestation To help prompt me to consider important information that might be impacting today's encounter and assessment, information from prior notes written by myself or my colleagues may have been "brought forward" into today's note. My signature on this note, however, is an attestation that I personally performed the exam, history, and/or decision-making noted today, and, unless otherwise indicated, the interactions with patient, family, and staff as well as the review of records all occurred today. I also attest that the listed assessment and stated plan reflect my best clinical judgment today based on the combination of historical information, prior notes, and today's exam/ interactions. When time spent is documented, it refers only to time spent today by the signer, or if indicated, combined time spent today by collaborating physician/nurse practitioner. Winsome Willis Dec 17, 2017 11:54
[2017-12-17] MEDS: LORazepam 2 MG/ML VIAL IV PUSH SCH ×2 (12:00→16:42)
[2017-12-17] MEDS: MORPHINE SULFATE 4 MG/ML INJ IV PUSH SCH ×2 (12:00→16:43)
--- NOTE | 2017-12-17 16:29 | HHI.DS ---
Discharge Summary Admission Date Dec 13, 2017 at 06:53 Admitting Diagnosis Bilateral pneumonia, hypoxia, elevated troponin (1) Acute respiratory failure with hypoxia ICD Code: J96.01 - Acute respiratory failure with hypoxia Diagnosis: Principal Status: Acute (2) Leukocytosis ICD Code: D72.829 - Elevated white blood cell count, unspecified Diagnosis: Principal Status: Acute (3) Sepsis ICD Code: A41.9 - Sepsis, unspecified organism Diagnosis: Principal Status: Acute (4) Hyponatremia ICD Code: E87.1 - Hypo-osmolality and hyponatremia Diagnosis: Secondary Status: Acute (5) BAMBI (acute kidney injury) ICD Code: N17.9 - Acute kidney failure, unspecified Diagnosis: Secondary Status: Acute (6) HTN (hypertension) ICD Code: I10 - Essential (primary) hypertension Diagnosis: Secondary Status: Chronic (7) Pulmonary hypertension ICD Code: I27.20 - Pulmonary hypertension, unspecified Diagnosis: Principal (8) Gastroesophageal reflux disease ICD Code: K21.9 - Gastro-esophageal reflux disease without esophagitis Diagnosis: Principal (9) Hypothyroidism ICD Code: E03.9 - Hypothyroidism, unspecified Diagnosis: Secondary (10) Diabetes mellitus ICD Code: E11.9 - Type 2 diabetes mellitus without complications Diagnosis: Principal (11) Opioid use ICD Code: F11.90 - Opioid use, unspecified, uncomplicated Diagnosis: Secondary (12) History of benzodiazepine use Diagnosis: Secondary (13) Depression ICD Code: F32.9 - Major depressive disorder, single episode, unspecified Diagnosis: Secondary (14) Elevated troponin ICD Code: R74.8 - Abnormal levels of other serum enzymes Diagnosis: Principal (15) Elevated transaminase level ICD Code: R74.0 - Nonspecific elevation of levels of transaminase and lactic acid dehydrogenase [LDH] Diagnosis: Principal (16) Lactic acidosis ICD Code: E87.2 - Acidosis Diagnosis: Principal (17) Hyponatremia ICD Code: E87.1 - Hypo-osmolality and hyponatremia Diagnosis: Secondary (18) LBBB (left bundle branch block) ICD Code: I44.7 - Left bundle-branch block, unspecified Diagnosis: Principal Status: Acute (19) DDD (degenerative disc disease), lumbar ICD Code: M51.36 - DDD (degenerative disc disease), lumbar Diagnosis: Secondary Status: Acute Procedures Intubation Brief History This is a 72-year-old female. The date of admission 12/13/2017. Past medical history includes depression/anxiety, chronic opiate use, chronic benzodiazepine use, essential hypertension hyperlipidemia, mild to moderate pulmonary hypertension, asthma/COPD, diabetes mellitus/gastroesophageal reflux disease, hypothyroidism, gout, chronic kidney disease stage III a anemia. Patient denies any recent travels or sick contacts. Last night, patient with acute onset of shortness of breath. Not associated with chest pain. Denies cough, sputum production, wheezing. Patient was quite tachypneic and presented to [facility] for further evaluation. Patient was placed on BiPAP therapy due to acute hypercapnia and hypoxemia. Chest x-ray revealed bilateral lower lobe pneumonia/infiltrates with right upper lobe infiltrate. Was treated acutely with cefepime and azithromycin. She was tachycardic in the 120s. Initial troponin 0 0.09. Refused aspirin. Lactic acid was slightly elevated at 3.2. Received 1 L normal saline. She is currently in a sinus tachycardia with a rate 120. Appears comfortable is able to speak complete since without using accessory muscles. CBC/BMP: 12/17/17 0319 12/17/17 0319 Significant Findings Laboratory Tests Test 12/14/17 18:20 12/14/17 19:22 12/15/17 06:10 12/15/17 10:05 Blood Gas HCO3 21 mmol/L (22-26) 20 mmol/L (22-26) Blood Gas Base Excess -2.4 mmol/L (-2-2) -3.9 mmol/L (-2-2) Blood Gas Oxygen Saturation 79 % (90-100) Arterial Blood pH 7.43 (7.380-7.420) 7.43 (7.380-7.420) Arterial Blood Partial Pressure CO2 33 mmHg (38-42) 30 mmHg (38-42) Arterial Blood Partial Pressure O2 46 mmHg (61-120) 140 mmHg (61-120) Arterial Blood Oxygen Content 9.4 Vol % (12.0-20.0) Blood Gas Hemoglobin 8.5 G/DL (12.0-16.0) 9.8 G/DL (12.0-16.0) White Blood Count 20.4 TH/MM3 (4.0-11.0) Red Blood Count 2.91 MIL/MM3 (4.00-5.30) Hemoglobin 8.3 GM/DL (11.6-15.3) Hematocrit 25.0 % (35.0-46.0) Neutrophils (%) (Auto) 95.1 % (16.0-70.0) Lymphocytes (%) (Auto) 3.5 % (9.0-44.0) Neutrophils # (Auto) 19.4 TH/MM3 (1.8-7.7) Lymphocytes # (Auto) 0.7 TH/MM3 (1.0-4.8) Blood Urea Nitrogen 22 MG/DL (7-18) Random Glucose 178 MG/DL (74-106) Albumin 2.5 GM/DL (3.4-5.0) Phosphorus Level 2.1 MG/DL (2.5-4.9) Magnesium Level 1.3 MG/DL (1.5-2.5) Alkaline Phosphatase 163 U/L (45-117) Aspartate Amino Transf (AST/SGOT) 59 U/L (15-37) Alanine Aminotransferase (ALT/SGPT) 95 U/L (10-53) Sodium Level 135 MEQ/L (136-145) Potassium Level 2.7 MEQ/L (3.5-5.1) Carbon Dioxide Level 17.3 MEQ/L (21.0-32.0) Estimat Glomerular Filtration Rate 58 ML/MIN (>89) Test 12/15/17 22:30 12/16/17 04:35 12/16/17 11:20 12/17/17 03:19 Potassium Level 3.3 MEQ/L (3.5-5.1) 3.2 MEQ/L (3.5-5.1) White Blood Count 20.6 TH/MM3 (4.0-11.0) 16.8 TH/MM3 (4.0-11.0) Red Blood Count 2.95 MIL/MM3 (4.00-5.30) 3.13 MIL/MM3 (4.00-5.30) Hemoglobin 8.4 GM/DL (11.6-15.3) 8.8 GM/DL (11.6-15.3) Hematocrit 25.7 % (35.0-46.0) 27.5 % (35.0-46.0) Neutrophils (%) (Auto) 91.0 % (16.0-70.0) 83.4 % (16.0-70.0) Lymphocytes (%) (Auto) 5.6 % (9.0-44.0) Neutrophils # (Auto) 18.7 TH/MM3 (1.8-7.7) 14.0 TH/MM3 (1.8-7.7) Blood Urea Nitrogen 22 MG/DL (7-18) 23 MG/DL (7-18) Random Glucose 147 MG/DL (74-106) 137 MG/DL (74-106) Total Protein 6.3 GM/DL (6.4-8.2) Albumin 2.3 GM/DL (3.4-5.0) 2.5 GM/DL (3.4-5.0) Alkaline Phosphatase 145 U/L (45-117) 170 U/L (45-117) Alanine Aminotransferase (ALT/SGPT) 74 U/L (10-53) 59 U/L (10-53) Chloride Level 110 MEQ/L (98-107) Carbon Dioxide Level 16.1 MEQ/L (21.0-32.0) 18.9 MEQ/L (21.0-32.0) Estimat Glomerular Filtration Rate 63 ML/MIN (>89) 51 ML/MIN (>89) Blood Gas HCO3 18 mmol/L (22-26) Blood Gas Base Excess -6.1 mmol/L (-2-2) Arterial Blood Partial Pressure CO2 28 mmHg (38-42) Arterial Blood Oxygen Content 11.1 Vol % (12.0-20.0) Blood Gas Hemoglobin 8.5 G/DL (12.0-16.0) Mean Platelet Volume 6.7 FL (7.0-11.0) Creatinine 1.05 MG/DL (0.50-1.00) Phosphorus Level 2.1 MG/DL (2.5-4.9) Imaging Last Impressions Chest X-Ray 12/16/17 0600 Signed Impressions: CONCLUSION: NG tube remains good position. Moderate size bilateral pleural effusions remain Liver Ultrasound 12/14/17 0000 Signed Impressions: CONCLUSION: 1. The common bile duct is dilated. This may reflect a reservoir phenomenon fo llowing cholecystectomy. 2. The pancreas is obscured by bowel gas. 3. The right kidney appears small which could suggest some degree of atrophy. Lower Extremity Ultrasound 12/13/17 0000 Signed Impressions: CONCLUSION: 1. No DVT is identified within either lower extremity. 2. Please note that portions of the right lower extremity venous system were u nable to be visualized secondary to the patient's knee brace. PE at Discharge GENERAL: Elderly lady, lethargic, difficult to arouse, ill-appearing. SKIN: No rash, no cyanosis. HEAD: Atraumatic. Normocephalic. EYES: Pupils are equal and reactive. Sclerae anicteric. ENT: No nasal bleeding or discharge. NECK: Supple, no rigidity. Trachea midline. Neck veins are not distended. CARDIOVASCULAR: Regular heart sounds, 1/6 systolic murmur at apex. RESPIRATORY: Coarse breath sounds bilateral, right greater than left. No wheezes. GASTROINTESTINAL: Abdomen is soft, appears non-tender and nondistended. Hypoactive bowel sounds. MUSCULOSKELETAL: Trace bilateral lower extremity edema. Warm and well-perfused extremities. Peripheral pulses are palpable. NEUROLOGICAL: Patient is lethargic, difficult to arouse, grimaces to pain, does not follow commands. Transfer Summary 12/14: Currently down to 4 L nasal cannula. Off BiPAP since last night. Peak of 0.89. Denies chest pain likely type II demand ischemia from acute respiratory failure secondary to community acquired pneumonia.. Refusing aspirin. Requesting to use regular restroom facilities. Positive BM. Tolerating diet. Pain is well controlled according to patient. 12/15: No events post intubation. T-max of 99.3, urine output 1450 mL's over the last 24 hours. Patient is sedated with propofol at 50 and fentanyl and 250. Arousable, following some commands. FiO2 down to 0.4. 12/16: No events over the night. T-max of 98. I/O 3513/2275. Patient remains sedated and intubated. Sedation is achieved with propofol at 50 and fentanyl and 250. FiO2 of 0.35. Family present at bedside. Palliative care notes reviewed, patient is now alternative code. 12/17: Patient was successfully extubated yesterday morning and did well postextubation. However over the night patient became increasingly agitated, hypertensive, tachycardic and tachypneic. Patient was treated appropriately by the nighttime rubber thread spooler and after discussing with family it was decided that she should be kept comfortable and family declined reintubation. This morning patient is lethargic, minimally arousable, does not follow commands. Family including her are present at bedside. Based on patient's known wishes, family decided to go for comfort care and hospice, therefore patient will be discharged to hospice. I discussed in detail with family at bedside. Hospital Course This is a 72-year-old female. The date of admission 12/13/2017. Past medical history includes depression/anxiety, chronic opiate use, chronic benzodiazepine use, essential hypertension hyperlipidemia, mild to moderate pulmonary hypertension, asthma/COPD, diabetes mellitus/gastroesophageal reflux disease, hypothyroidism, gout, chronic kidney disease stage III a anemia. Patient denies any recent travels or sick contacts. Last night, patient with acute onset of shortness of breath. Not associated with chest pain. Denies cough, sputum production, wheezing. Patient was quite tachypneic and presented to [facility] for further evaluation. Patient was placed on BiPAP therapy due to acute hypercapnia and hypoxemia. Chest x-ray revealed bilateral lower lobe pneumonia/infiltrates with right upper lobe infiltrate. Was treated acutely with cefepime and azithromycin. She was tachycardic in the 120s. Initial troponin 0 0.09. Refused aspirin. Lactic acid was slightly elevated at 3.2. Received 1 L normal saline. She is currently in a sinus tachycardia with a rate 120. Appears comfortable is able to speak complete since without using accessory muscles. 12/14: Currently down to 4 L nasal cannula. Off BiPAP since last night. Peak of 0.89. Denies chest pain likely type II demand ischemia from acute respiratory failure secondary to community acquired pneumonia.. Refusing aspirin. Requesting to use regular restroom facilities. Positive BM. Tolerating diet. Pain is well controlled according to patient. 12/15: No events post intubation. T-max of 99.3, urine output 1450 mL's over the last 24 hours. Patient is sedated with propofol at 50 and fentanyl and 250. Arousable, following some commands. FiO2 down to 0.4. 12/16: No events over the night. T-max of 98. I/O 3513/2275. Patient remains sedated and intubated. Sedation is achieved with propofol at 50 and fentanyl and 250. FiO2 of 0.35. Family present at bedside. Palliative care notes reviewed, patient is now alternative code. 12/17: Patient was successfully extubated yesterday morning and did well postextubation. However over the night patient became increasingly agitated, hypertensive, tachycardic and tachypneic. Patient was treated appropriately by the nighttime rubber thread spooler and after discussing with family it was decided that she should be kept comfortable and family declined reintubation. This morning patient is lethargic, minimally arousable, does not follow commands. Family including her are present at bedside. Pt Condition on Discharge: Deteriorating Discharge Disposition: Hospice/Med Facility Discharge Instructions DIET: Follow Instructions for: Nothing By Mouth Activities you can perform: Continue Bedrest Jarred Marquez MD Dec 17, 2017 16:29
[2017-12-18] MEDS ORDERED: PHARMACY ORDERED LAB ONE (17:45)
== END 2017-12-17 17:50 | disposition hospice, inpatient (51) | DRG 871 ==
LOC: NEPC 04:45 → NEDA 06:53 → HIMN 09:15
PROVIDERS: ADMIT Internal Medicine Critical Care Medicine; ATTEND Internal Medicine Critical Care Medicine
PROC: 5A09357 Assistance with Respiratory Ventilation, Less than 24 Consecutive Hours, Continuous Positive Airway Pressure (ICD-10-PCS; 2017-12-13)
PROC: 5A1945Z Respiratory Ventilation, 24-96 Consecutive Hours (ICD-10-PCS; principal; 2017-12-15)
PROC: 0BH18EZ Insertion of Endotracheal Airway into Trachea, Via Natural or Artificial Opening Endoscopic (ICD-10-PCS; 2017-12-15)
DX: A41.9 Sepsis, unspecified organism (principal); J18.9 Pneumonia, unspecified organism; N17.9 Acute kidney failure, unspecified; J90 Pleural effusion, not elsewhere classified; J96.01 Acute respiratory failure with hypoxia; J96.02 Acute respiratory failure with hypercapnia; E87.2 Acidosis; J44.0 Chronic obstructive pulmonary disease with (acute) lower respiratory infection; I24.8 Other forms of acute ischemic heart disease; I42.9 Cardiomyopathy, unspecified; E87.1 Hypo-osmolality and hyponatremia; N18.3 Chronic kidney disease, stage 3 (moderate); I27.20 Pulmonary hypertension, unspecified; K21.9 Gastro-esophageal reflux disease without esophagitis; F41.8 Other specified anxiety disorders; I44.7 Left bundle-branch block, unspecified; M51.36 Other intervertebral disc degeneration, lumbar region; Z79.891 Long term (current) use of opiate analgesic; E78.5 Hyperlipidemia, unspecified; M10.9 Gout, unspecified; E03.9 Hypothyroidism, unspecified; E11.22 Type 2 diabetes mellitus with diabetic chronic kidney disease; E11.69 Type 2 diabetes mellitus with other specified complication; I12.9 Hypertensive chronic kidney disease with stage 1 through stage 4 chronic kidney disease, or unspecified chronic kidney disease; D64.9 Anemia, unspecified; G89.4 Chronic pain syndrome; M19.90 Unspecified osteoarthritis, unspecified site; R53.81 Other malaise; M81.0 Age-related osteoporosis without current pathological fracture; M54.2 Cervicalgia; M54.5 Low back pain; R74.0 Nonspecific elevation of levels of transaminase and lactic acid dehydrogenase [LDH]; R29.6 Repeated falls; Z51.5 Encounter for palliative care; Z79.899 Other long term (current) drug therapy; Z66 Do not resuscitate; K27.9 Peptic ulcer, site unspecified, unspecified as acute or chronic, without hemorrhage or perforation; Z90.710 Acquired absence of both cervix and uterus; Z90.721 Acquired absence of ovaries, unilateral; Z79.84 Long term (current) use of oral hypoglycemic drugs; Z90.49 Acquired absence of other specified parts of digestive tract; Z88.1 Allergy status to other antibiotic agents; Z86.14 Personal history of Methicillin resistant Staphylococcus aureus infection
CPT/HCPCS: 31500; 36600; 71045; 76705; 80053; 80061; 80074; 80202; 81001; 82140; 82150; 82570; 82805; 82948; 83036; 83605; 83615; 83690; 83735; 83880; 84100; 84132; 84300; 84443; 84484; 84550; 85007; 85025; 85027; 85610; 85730; 86631; 86632; 86738; 87040; 87070; 87077; 87186; 87205; 87449; 87641; 87804; 93005; 93308; 93970; 94002; 94003; 94150; 94640; 94664; 94667; 94668; 96365; 96375; C9113; J0456; J0692; J1644; J1940; J2060; J2270; J2920; J3010; J3370; J3475; J3480; J7030; J7040; J7050; J7120; J7613; P9045; Q0177